=== PATIENT | female | born 1970 | race Caucasian/White ===

== ENCOUNTER → 2019-01-15 08:45 | Outpatient (CLI) | payer BC, SELFPAY ==
[2019-01-15 12:25] LABS: Absolute Lymphocyte Count 2.13 X10^3/uL (0.83-4.51); Absolute Neutrophil Count 5.7 X10^3/uL (2.0-7.7); Basophil# 0.05 X10^3/uL; Basophil% 0.6 % (0-1); Eosinophil# 0.24 X10^3/uL; Eosinophils% 2.7 % (0-5); Hematocrit 32.4 % (37-47); Hemoglobin 9.3 g/dL (12.0-15.0); Lymphocyte # 2.13 X10^3/ul (4.0); Lymphocyte % 24.3 % (19-41); Mean Corp Hgb Conc 28.7 g/dL (32-36); Mean Corpuscular Hgb 21.6 pg (27.0-32.0); Mean Corpuscular Volume 75.2 fL (81-99); Mean Platelet Vol. 11.5 fl (6.2-12.0); Monocyte# 0.64 X10^3/uL; Monocyte% 7.3 % (0-10); NRBC Flagged by Analyzer 0 % (0-5); Neutrophil # 5.66 X10^3/uL (2.7-7.7); Neutrophil % 64.6 % (47-70); Platelet Count 272 K/mm3 (150-450); RBC Distribution Width CV 14.8 % (11.6-14.6); RBC Distribution Width SD 40.5 fl (35.1-43.9); Red Blood Count 4.31 M/mm3 (4.2-5.4); White Blood Count 8.8 K/mm3 (4.4-11.0)
[2019-01-15 12:51] LABS: Anion Gap 6 (5-15); BUN 14 mg/dL (7-18); BUN/Creat Ratio 16.7 RATIO (10-20); Calcium,Total 8.7 mg/dL (8.5-10.1); Chloride 105 mmol/L (98-107); Cholesterol 173 mg/dL (200); Creatinine, Serum 0.84 mg/dL (0.55-1.02); EST Glomerular Filtration Rate 78 mL/min (>60); Est Glom Filt Rate - Afr Amer 94 mL/min (>60); Glucose 104 mg/dL (74-106); High Density Lipoprotein 50 mg/dL; Potassium 4.4 mmol/L (3.5-5.1); Sodium Level 138 mmol/L (136-145); T4 Free Direct 1.37 ng/dL (0.76-1.46); Triglycerides 153 mg/dL; Very Low Density Lipoprotein 31 mg/dL (5-40)
[2019-01-15 13:33] LABS: Ferritin 4 ng/mL (8-252); Iron 21 ug/dL (50-170)
== END ==
PROVIDERS: Family Provider Family Medicine; PCP Family Medicine; Referring Provider Family Medicine; Visit Provider Family Medicine
DX: E03.9 Hypothyroidism, unspecified (principal); R53.83 Other fatigue
CPT/HCPCS: 36415; 80048; 80061; 82728; 83540; 84439; 84443; 85025

== ENCOUNTER → 2019-05-04 15:24 | Outpatient (CLI) | payer BC, SELFPAY ==
[2019-05-04 17:21] LABS: Absolute Lymphocyte Count 2.11 X10^3/uL (0.83-4.51); Absolute Neutrophil Count 5.8 X10^3/uL (2.0-7.7); Basophil# 0.04 X10^3/uL; Basophil% 0.5 % (0-1); Eosinophil# 0.26 X10^3/uL; Eosinophils% 2.9 % (0-5); Hematocrit 37.2 % (37-47); Hemoglobin 11.5 g/dL (12.0-15.0); Lymphocyte # 2.11 X10^3/ul (4.0); Lymphocyte % 23.8 % (19-41); Mean Corp Hgb Conc 30.9 g/dL (32-36); Mean Corpuscular Hgb 25.6 pg (27.0-32.0); Mean Corpuscular Volume 82.9 fL (81-99); Monocyte# 0.58 X10^3/uL; Monocyte% 6.5 % (0-10); NRBC Flagged by Analyzer 0 % (0-5); Neutrophil # 5.83 X10^3/uL (2.7-7.7); Neutrophil % 65.8 % (47-70); Platelet Count 290 K/mm3 (150-450); RBC Distribution Width SD 41.4 fl (35.1-43.9); Red Blood Count 4.49 M/mm3 (4.2-5.4); White Blood Count 8.9 K/mm3 (4.4-11.0)
[2019-05-04 17:44] LABS: Ferritin 16 ng/mL (8-252); Iron 28 ug/dL (50-170); Thyroid Stim Hormone (TSH) 2.29 uIU/mL (0.358-3.74)
== END ==
PROVIDERS: Family Provider Family Medicine; PCP Family Medicine; Visit Provider Family Medicine
DX: E03.9 Hypothyroidism, unspecified (principal); D50.9 Iron deficiency anemia, unspecified
CPT/HCPCS: 36415; 82728; 83540; 84443; 85025

== ENCOUNTER → 2020-12-22 16:32 | Outpatient (CLI) | payer BC, SELFPAY ==
[2016-07-29 08:21] VITALS: BMI 35.7
[2020-12-22 17:10] LABS: Absolute Lymphocyte Count 1.36 X10^3/uL (0.83-4.51); Absolute Neutrophil Count 6.6 X10^3/uL (2.0-7.7); Basophil# 0.04 X10^3/uL; Basophil% 0.4 % (0-1); Eosinophil# 0.16 X10^3/uL; Eosinophils% 1.8 % (0-5); Hematocrit 28.5 % (37-47); Hemoglobin 7.6 g/dL (12.0-15.0); Lymphocyte # 1.36 X10^3/ul (0.83-4.51); Lymphocyte % 15.3 % (19-41); Mean Corp Hgb Conc 26.7 g/dL (32-36); Mean Corpuscular Hgb 17.2 pg (27.0-32.0); Mean Corpuscular Volume 64.6 fL (81-99); Mean Platelet Vol. 10.1 fl (6.2-12.0); Monocyte# 0.67 X10^3/uL; Monocyte% 7.5 % (0-10); NRBC Flagged by Analyzer 0.6 % (0-5); Neutrophil # 6.64 X10^3/uL (2.7-7.7); Neutrophil % 74.8 % (47-70); Platelet Count 295 K/mm3 (150-450); RBC Distribution Width CV 19.7 % (11.6-14.6); RBC Distribution Width SD 45.1 fl (35.1-43.9); Red Blood Count 4.41 M/mm3 (4.2-5.4); White Blood Count 8.9 K/mm3 (4.4-11.0)
[2020-12-22 17:41] LABS: Anion Gap 6 (5-15); BUN 12 mg/dL (7-18); BUN/Creat Ratio 14.3 RATIO (10-20); Calcium,Total 8.5 mg/dL (8.5-10.1); Chloride 107 mmol/L (98-107); Creatinine, Serum 0.84 mg/dL (0.55-1.02); EST Glomerular Filtration Rate 77 mL/min (>60); Est Glom Filt Rate - Afr Amer 93 mL/min (>60); Ferritin 2 ng/mL (8-252); Glucose 82 mg/dL (74-106); Iron 13 ug/dL (50-170); Potassium 3.8 mmol/L (3.5-5.1); Sodium Level 138 mmol/L (136-145); T4 Free Direct 1.19 ng/dL (0.76-1.46); Thyroid Stim Hormone (TSH) 3.08 uIU/mL (0.358-3.74)
== END ==
PROVIDERS: PCP Family Medicine; Visit Provider Family Medicine
DX: D50.9 Iron deficiency anemia, unspecified (principal); E03.9 Hypothyroidism, unspecified; R53.83 Other fatigue
CPT/HCPCS: 36415; 80048; 82728; 83540; 84439; 84443; 85025

== ENCOUNTER → 2021-01-04 15:13 | Outpatient (CLI) | payer BC, SELFPAY ==
[2016-07-29 08:21] VITALS: BMI 35.7
[2021-01-04 17:38] LABS: Absolute Lymphocyte Count 1.63 X10^3/uL (0.83-4.51); Absolute Neutrophil Count 5.3 X10^3/uL (2.0-7.7); Basophil# 0.04 X10^3/uL; Basophil% 0.5 % (0-1); Eosinophil# 0.16 X10^3/uL; Eosinophils% 2.1 % (0-5); Hematocrit 30.6 % (37-47); Hemoglobin 8.5 g/dL (12.0-15.0); Lymphocyte # 1.63 X10^3/ul (0.83-4.51); Lymphocyte % 21.4 % (19-41); Mean Corp Hgb Conc 27.8 g/dL (32-36); Mean Corpuscular Hgb 19.6 pg (27.0-32.0); Mean Corpuscular Volume 70.7 fL (81-99); Monocyte# 0.48 X10^3/uL; Monocyte% 6.3 % (0-10); NRBC Flagged by Analyzer 0 % (0-5); Neutrophil # 5.28 X10^3/uL (2.7-7.7); Neutrophil % 69.3 % (47-70); POSITIVE MORPHOLOGY YES; Platelet Count 273 K/mm3 (150-450); RBC Distribution Width CV 28.6 % (11.6-14.6); RBC Distribution Width SD 71.4 fl (35.1-43.9); Red Blood Count 4.33 M/mm3 (4.2-5.4); White Blood Count 7.6 K/mm3 (4.4-11.0)
[2021-01-04 17:57] LABS: Differential Indicated SCAN CRITERIA MET
[2021-01-04 18:31] LABS: Ferritin 10 ng/mL (8-252); Iron 17 ug/dL (50-170)
[2021-01-04 19:41] LABS: Anisocytosis 1+; Hypochromasia 1+; Macrocytosis 1+; Platelet Estimate ADEQUATE (ADEQ); Red Cell Morphology N CHROM NORMAL (NORM C&C)
[2021-01-04 19:42] LABS: Ovalocyte RARE
[2021-01-04 21:25] LABS: Vitamin B12 573 pg/mL (211-911)
== END ==
PROVIDERS: PCP Family Medicine; Referring Provider Family Medicine; Visit Provider Family Medicine
DX: D50.9 Iron deficiency anemia, unspecified (principal)
CPT/HCPCS: 36415; 82607; 82728; 82746; 83540; 85025

== ENCOUNTER 2021-02-22 07:42 | Day surgery (SDC) | payer BC, SELFPAY ==
[2021-02-22] VITALS (7 sets, daily range): BP systolic 118–137; BP diastolic 68–94; PULSE 80–89; RESP 16–18; TEMP 36.6–36.8; O2SAT 98–100; BMI 36.8
--- NOTE | 2021-02-22 | GASB_PTH ---
PATIENT: SHALONDA BRYAN LOC: EN U#:[id number] AGE/SX: 50/F ROOM: RE02/22/[address]: Dr. Yaya Sanchez MD : 1970 BED: DIS: 02/22/2021 SPEC #: [id number] RECD: 02/22/21 11:30 STATUS: CLAUDIA DONAHUE #: [id number] ANDREW: 02/22/21 00:[address]: Yaya Sanchez DEPT: SURGICAL PATHOLOGY RECD BY: Adams Monroy ENTERED: 02/22/21 11:31 SP TYPE: Gastric Bx OTHR DR: Dr. Santiago Garcia MD Tissues: A - Gastric mucous membrane B - Gastric mucous membrane Procedures: Surgery Specimen Level IV HEADER OPERATION: Colonoscopy, EGD ([facility]) PRE-OP DIAGNOSIS: Diarrhea, abdominal bloating TISSUE SUBMITTED: A. Random antrum, B. GE junction MICROSCOPIC DIAGNOSIS A. Gastric antrum, biopsy: Chronic gastritis. See Comment. B. GE junction, biopsy: Changes of reflux. Chronic inflammation. No evidence of intestinal metaplasia. See Comment. AM:am 02/23/21 COMMENT A. The results of immunohistochemistry for Helicobacter pylori will be reported separately ([id number]). B. AB/PAS is negative for intestinal metaplasia. MICROSCOPIC DESCRIPTION Slides are reviewed. GROSS DESCRIPTION A. Received is one container labeled with the patient name and designated random antrum biopsies. The specimen consists of two irregular fragment of light burgos soft tissue that together measures 6 x 6 x 1mm. The specimen is totally submitted in one cassette. B. Received is one container labeled with the patient name and designated GE junction. The specimen consists of multiple irregular fragment of light burgos soft tissue that together measure 6 x 5 x 1mm. The specimen is totally submitted in one cassette. /AM:am 02/22/10 TC:3 CPT:35196n1,48102
--- NOTE | 2021-02-22 | IMM_PTH ---
PATIENT: SHALONDA BRYAN LOC: EN U#:[id number] AGE/SX: 50/F ROOM: RE02/22/[address]: Dr. Yaya Sanchez MD : 1970 BED: DIS: 02/22/2021 SPEC #: [id number] RECD: 02/22/21 14:32 STATUS: CLAUDIA REChristen #: [id number] ANDREW: 02/22/21 00:[address]: Yaya Sanchez DEPT: IMMUNOHISTOCHEMISTRY RECD BY: Delaney Hess ENTERED: 02/22/21 14:33 SP TYPE: IMMUNO OTHR DR: Dr. Santiago Garcia MD Tissues: Stomach, NOS Procedures: H Pylori (initial) PHYSICIAN & INSTITUTION [place] [id number] SPECIMEN INFORMATION: Tissue Source: Random antrum biopsy Clinical Info: Diarrhea, abdominal bloating Specimen Number: [id number] CPT code: 60233 METHODOLOGY: Deparaffinized sections of prefer/formalin-fixed tissue or PAP/DQ stained slides are incubated with monoclonal/polyclonal antibodies/oligonucleotide probes. Localization is made via biotin free immunoperoxidase method. Appropriate controls are performed and reacted as expected. Results on target cell population are indicated in the following table: RESULTS: ANTIBODY / CLONE RESULT H Pylori (polyclonal) negative These tests were developed and their performance characteristics determined by [facility]. They may not have been cleared or approved by the U.S. Food and Drug Administration. The FDA has determined that such clearance or approval is not necessary. The above immunohistochemical/dualISH markers are ordered and reviewed by the Pathologist. INTERPRETATION: A. Gastric antrum, biopsy: -Negative for Helicobacter pylori organisms. AM:andrés 02/23/21
[2021-02-22] MEDS: Lactated Ringers 1,000 ML 100 ML IV (08:27)
--- NOTE | 2021-02-22 08:32 | PCM.HP.BLA ---
History and Physical MR#:[id number]:[id number]: SHALONDA CORONA RENEERep #:[id number]:1970 Provider:Dr. Yaya Sanchez MDAge/Sex: 50/F [facility] Int[facility] Vital Signs 02/16/21 09:37 Height 5 ft 5.75 in Weight: 226 lb 8 oz BMI 36.8 BP 128/80 H Blood Pressure Location Rt brachial Position Sitting Respiration 18 Pulse 76 Pulse Source Monitor Temp 97.3 F L Temp Source Temporal Pulse Oximetry (%) 99 Oxygen Delivery Method room air Intake Visit Reasons: ABDOMINAL PAIN, CHANGE BOWEL HABITS Chief Complaint: Diarrhea/C-scope required prior to [facility] Surgery 03/12 Food Taster Required: No Is patient in pain?: No Allergies Penicillins Allergy (Verified 02/16/21 09:38) Rash quinine Allergy (Verified 02/16/21 09:38) Swelling Medications albuterol sulfate [Ventolin Hfa (SP)] 1 - 2 puff INHALATION Q4H PRN PRN 06/28/16 [History Confirmed 02/16/21] levothyroxine 224 mcg PO DAILY 07/26/16 [History Confirmed 02/16/21] PFSH Medical History (Updated 02/16/21 @ 12:[address] Yaya Sanchez MD) Change in stool caliber Diarrhea Pelvic mass Surgical History (Updated 02/16/21 @ 09:33 by Francoise Williamson) History of History of thyroidectomy Family History (Updated 02/16/21 @ 09:36 by Francoise Williamson) Sister Asthma Thyroid disorder Mother Asthma Thyroid disorder Grandmother Diabetes Social History Smoking Status: Never smoker HPI HPI HPI: SHALONDA CORONA, is a 50 yo F who presents to the office today for need to schedule diagnostic colonoscopy secondary to change in bowel habits?including frequent diarrhea and small? caliber stools. Patient's history is further complicated by the fact that she is pending a significant gynecologic procedure on March 12 after a cervical mass was found during investigation of menorrhagia/anemia. According to Ms. Corona, this mass has undergone substantial growth in the past few years as it was not seen during her prior routine maintenance exams. Despite this growth, she has been told by her gynecologic surgeon that they feel this is unlikely to represent malignancy. As a precondition to this operation, Jenaro Espitia requested both upper and lower endoscopy given the onset of new GI symptoms that Ms. Corona is experienced concurrent with her other pelvic issues. Patient has had prior colonoscopy in [address] Sheridan. Results of the prior scope were rather reassuring with no abnormal anatomy. Colonic biopsies were obtained given reports of diarrhea at that time. However this mucosal biopsy was also reassuring. Patient has no personal history of colon cancer, inflammatory bowel disease, or diverticulitis. They describe their bowel habits as frequent (occurring approximately 4 times daily), watery, and thin?caliber when normal stools are experienced. With this presentation, patient's GI specialist at the [facility] ordered stool studies (obtained/resulted in the last month) which were reportedly unremarkable. She also has upper GI complaints of frequent belching when consuming simple liquids like water. She initially claimed to have a history of a hiatal hernia, however she retracted this saying she believed it was actually an umbilical hernia that she has been diagnosed with. She denies any use of PPI medications. She denies any heartburn symptoms but does confirm a pressure sensation in her upper abdomen. Given her upper GI symptoms and diarrhea, Ms. Cornejo attempted a month?long period of carefully restricting her diet. However her symptoms did not change in response to this dietary modification. When she was diagnosed with her pelvic mass, she became somewhat indifferent and decided to eat as she pleased. Even still, she states that she does not eat truly spicy foods. Ms. Melton had a thyroidectomy by Dr. Richardson several years ago and is now on Synthroid for thyroid hormone replacement. She states her levels were checked recently and were within normal limits. ROS General General: Yes weight change and fatigue; No appetite, colon cancer, breast cancer or weakness HEENT HEENT: No difficulty swallowing, eye injury, eye surgery, swollen glands or hoarseness Endo Endocrine: Yes thyroid disease and thyroid cancer; No diabetes mellitus, Hair loss, heat intolerance or cold intolerance Skin Skin: No rash or changing moles Breast Breast: No left breast lump, right breast lump, nipple discharge, breast pain, abnormal mammogram, abnormal US or breast enlargement Musc Musculoskeletal: No back problems, arthritis, rheumatoid arthritis, gout or joint pain Cardio Cardiovascular: No murmur, pacemaker, heart disease, atrial fibrillation, high blood pressure, heart attack, heart stent, palpitations, shortness of breat with exertion or chest pain Psych Psychiatric: No depression, anxiety or hearing voices Resp Respiratory: No shortness of breath, No sleep apnea, No cough, No COPD, Yes asthma, No emphysema and No wheezing Gastro Gastrointestinal: Yes abdominal pain, No nausea or vomiting, Yes diarrhea, Yes constipation, No blood in stool, No acid reflux, Yes hemorrhoids, No ulcers, No gallbladder problem and No black,tarry stools Doug Hematologic: No blood thinners, No blood disorders, No bleeding, Yes anemia and No blood clots Neuro Neurologic: No system reviewed and no additional complaints, except as documented, No as per HPI, No abnormal gait, No abnormal hearing, No abnormal movements, No abnormal speech, No behavioral changes, No burning sensations, No confusion, No convulsions, No disequilibrium, No dizziness, No localized weakness, No frequent falls, No headache(s), No lack of coordination, No loss of vision, No memory loss, No numbness, No other visual disturbances, No radicular pain, No restless legs, No sensory deficit, No syncope, No tingling, No tremor(s), No weakness and No other Exam Const General: cooperative, comfortable and no acute distress Nutritional Appearance: obese Resp Effort & Inspection: normal respiratory effort Auscultation: clear to auscultation bilaterally, no rales, no rhonchi and no wheezes Cardio Rhythm: regular rhythm Heart Sounds: S1 normal and S2 normal GI Inspection: non-distended, obesity and no scars Palpation: soft, hernia umbilical (Appears to contain chronically-incarcerated fat and is tender to palpation) and nontender Assessment and Plan Assessment and Plan (1) Diarrhea: Status: Acute Qualifiers: Diarrhea type: unspecified type Qualified Code(s): R19.7 - Diarrhea, unspecified Comment: This symptom has arisen in the interval since patient's last colonoscopy in 2017. Patient reports that stool studies to?date have been negative for infectious etiology. Prior colonoscopy was unremarkable for pathology. However, patient has an additional concern that her stool caliber is significantly diminished. Plan - Dr. Yaya Sanchez MD: Patient is offered both upper and lower endoscopies under local MAC. We are searching for a mutually agreed upon date. She was currently scheduled for upper endoscopy only through another facility and will attempt to cancel this procedure. If unsuccessful, we will have to reformulate his clinical plan. (2) Change in stool caliber: Status: Acute Comment: Symptoms developed an interval since last colonoscopy. Does not seem to be explained by presence of a cervical mass. Further investigation with endoscopy recommended Plan - Dr. Yaya Sanchez MD: Plan for upper and lower endoscopies under local MAC as above. Would plan to obtain random biopsies if otherwise morphologically normal. Patient's gynecologic surgeon interested in obtaining this information prior to their procedures scheduled for 03/12/2021. I discussed with patient that she will require a bowel prep and will require a pedicab driver the day of the procedure. She is interested in proceeding as described, but will need to formally cancel her other procedure. If unsuccessful, she is to get back with our office so an alternative arrangement can be made. (3) Abdominal bloating: Status: Acute Comment: Patient complains of general diet intolerance despite self?imposed restrictions of spicy foods. She initially claimed to have been diagnosed with a hiatal hernia. However, she retracted this and states that she believes it was an umbilical hernia. She does in fact have an umbilical hernia on exam. With her history of some pressure in the upper abdomen, this could represent GERD and an upper endoscopy would be reasonable. Plan - Dr. Yaya Sanchez MD: Planning for upper and lower endoscopies, as above, under local MAC. (4) Umbilical hernia, incarcerated: Status: Acute Comment: Patient appears to have a fat?incarcerated umbilical hernia. Given the presence of the fat, I am unable to clearly discern the degree of fascial defect, but what estimated to be approximately 2 cm. At this time, there is no need for urgent/emergent surgical intervention, but the patient is offered an elective repair as she finds availability. She expresses an interest in this offering as she complains of some frequent discomfort. Lastly, she plans to ask her gynecologic surgeon about the possibility of a concurrent umbilical hernia repair when the cervical mass is removed. Plan - Dr. Yaya Sanchez MD: Await patient response on offer for elective umbilical hernia repair (both primary and mesh repairs were briefly described). Coding Level of Care Code Off vis,new,level 4 Diagnoses Diarrhea R19.7 Diarrhea type: unspecified type Change in stool caliber R19.4 Abdominal bloating R14.0 Umbilical hernia, incarcerated K42.0 I have re-examined the patient. There are no clinical changes since date of exam. Patient states they completed their prep with only little difficulty consuming a full volume of Gatorade. They do confirm that there output have been thin clear and yellow in character. No further questions and we will plan to proceed with scheduled EGD/colonoscopy this morning under local MAC.
--- NOTE | 2021-02-22 09:44 | OP.EGD_ITS ---
Patient Name: Sarika Corona Procedure Date: 02/22/2021 7:25 AM Date of : 1970 Age: 50 Procedure: Upper GI endoscopy Indications: Epigastric abdominal pain, Dyspepsia Providers: Yaya Sanchez MD Medicines: See the Anesthesia note for documentation of the administered medications Patient Profile: Patient has symptoms of acute abdominal cramping and acute dyspepsia. Complications: No immediate complications. Estimated blood loss: Minimal. Procedure: Pre-Anesthesia Assessment: - The heart rate, respiratory rate, oxygen saturations, blood pressure, adequacy of pulmonary ventilation, and response to care were monitored throughout the procedure. - After reviewing the risks and benefits, the patient was deemed in satisfactory condition to undergo the procedure. After obtaining informed consent, the endoscope was passed under direct vision. Throughout the procedure, the patient's blood pressure, pulse, and oxygen saturations were monitored continuously. The gastroscope was introduced through the mouth, and advanced to the second part of duodenum. The upper GI endoscopy was accomplished without difficulty. The patient tolerated the procedure fairly well. Moderate Sedation: Moderate (conscious) sedation was personally administered by an anesthesia professional. The following parameters were monitored: oxygen saturation, heart rate, blood pressure, and response to care. Scope In: 8:53:23 AM Scope Out: 9:06:21 AM Total Procedure Duration Time 0 hours 12 minutes 58 seconds Findings: The examined duodenum was normal. Patchy mild inflammation characterized by erythema was found on the greater curvature of the gastric body. Biopsies were taken with a cold forceps for Helicobacter pylori testing. Estimated blood loss was minimal. Non-severe esophagitis with no bleeding was found. Biopsies were taken with a cold forceps for histology. Estimated blood loss was minimal. A medium-sized Hill Grade III hiatal hernia was present. Impression: - Normal examined duodenum. - Acute gastritis. Biopsied. - Non-severe esophagitis. Biopsied. Recommendation: - Discharge patient to home (via wheelchair). - Resume regular diet today. - Use Prilosec (omeprazole) 20 mg PO daily today. - Await pathology results. - Continue present medications. Procedure Code(s): --- Professional --- 16782, Esophagogastroduodenoscopy, flexible, transoral; with biopsy, single or multiple Diagnosis Code(s): --- Professional --- K29.00, Acute gastritis without bleeding K20.9, Esophagitis, unspecified R10.13, Epigastric pain CPT copyright 2017 [employer]. All rights reserved. The codes documented in this report are preliminary and upon quilting supervisor review may be revised to meet current compliance requirements. Yaya Sanchez MD 02/22/2021 9:43:54 AM This report has been signed electronically. Number of Addenda: 0 Note Initiated On: 02/22/2021 7:25 AM
--- NOTE | 2021-02-22 09:44 | OP.CCLET_ITS ---
02/22/2021 Santiago Garcia Re : Upper GI endoscopy procedure for Sarika Corona Dear Radha This procedure was performed on February. My impressions and recommendations are as follows: Impressions : - Normal examined duodenum. - Acute gastritis. Biopsied. - Non-severe esophagitis. Biopsied. Recommendations : - Discharge patient to home (via wheelchair). - Resume regular diet today. - Use Prilosec (omeprazole) 20 mg PO daily today. - Await pathology results. - Continue present medications. My findings are described in the full procedure note, which is enclosed. If I can be of further assistance, please feel free to contact me at Doctor phone number(s): , Work: . Sincerely, Yaya Sanchez MD 02/22/2021 9:43:54 AM This report has been signed electronically.
--- NOTE | 2021-02-22 09:50 | OP.CCLET_ITS ---
02/22/2021 Santiago Garcia Re : Colonoscopy procedure for Sarika Corona Dear Radha This procedure was performed on February. My impressions and recommendations are as follows: Impressions : - Mild diverticulosis in the sigmoid colon. There was no evidence of diverticular bleeding. No specimens collected. - Perianal skin tags found on perianal exam. Recommendations : - Discharge patient to home (via wheelchair). - High fiber diet today. - Continue present medications. - Repeat colonoscopy in 10 years for screening purposes. My findings are described in the full procedure note, which is enclosed. If I can be of further assistance, please feel free to contact me at Doctor phone number(s): , Work: . Sincerely, Yaya Sanchez MD 02/22/2021 9:50:02 AM This report has been signed electronically.
--- NOTE | 2021-02-22 09:50 | OP.COLON_ITS ---
Patient Name: Sarika Corona Procedure Date: 02/22/2021 9:07 AM Date of : 1970 Age: 50 Procedure: Colonoscopy Indications: Diarrhea, Change in stool caliber Providers: Yaya Sanchez MD Medicines: See the Anesthesia note for documentation of the administered medications Patient Profile: Patient has symptoms of acute abdominal cramping and acute dyspepsia. Refer to note in patient chart for documentation of history and physical. Last Colonoscopy: more than 3 years ago. Complications: No immediate complications. Estimated blood loss: None. Procedure: Pre-Anesthesia Assessment: - The heart rate, respiratory rate, oxygen saturations, blood pressure, adequacy of pulmonary ventilation, and response to care were monitored throughout the procedure. - After reviewing the risks and benefits, the patient was deemed in satisfactory condition to undergo the procedure. After I obtained informed consent, the scope was passed under direct vision. Throughout the procedure, the patient's blood pressure, pulse, and oxygen saturations were monitored continuously. The adult colonoscope was introduced through the anus and advanced to the cecum, identified by the ileocecal valve. The colonoscopy was performed without difficulty. The quality of the bowel preparation was adequate. Scope In: 9:09:53 AM Scope Withdrawal Time 0 hours 11 minutes 9 seconds Scope Out: 9:27:32 AM Total Procedure Duration Time 0 hours 17 minutes 39 seconds Findings: Multiple small-mouthed diverticula were found in the sigmoid colon. There was no evidence of diverticular bleeding. No biopsies or other specimens were collected for this exam. No additional abnormalities were found on retroflexion. Skin tags were found on perianal exam. Impression: - Mild diverticulosis in the sigmoid colon. There was no evidence of diverticular bleeding. No specimens collected. - Perianal skin tags found on perianal exam. Recommendation: - Discharge patient to home (via wheelchair). - High fiber diet today. - Continue present medications. - Repeat colonoscopy in 10 years for screening purposes. Procedure Code(s): --- Professional --- 05120, Colonoscopy, flexible; diagnostic, including collection of specimen(s) by brushing or washing, when performed (separate procedure) Diagnosis Code(s): --- Professional --- K64.4, Residual hemorrhoidal skin tags R19.7, Diarrhea, unspecified R19.5, Other fecal abnormalities K57.30, Diverticulosis of large intestine without perforation or abscess without bleeding CPT copyright 2017 [employer]. All rights reserved. The codes documented in this report are preliminary and upon vat tender review may be revised to meet current compliance requirements. Yaya Sanchez MD 02/22/2021 9:50:02 AM This report has been signed electronically. Number of Addenda: 0 Note Initiated On: 02/22/2021 9:07 AM
== END 2021-02-22 10:55 ==
LOC: EN 07:50 → AC 07:50
PROVIDERS: PCP Family Medicine; Referring Provider Family Medicine; Visit Provider Surgery
PROC: 0DJD8ZZ Inspection of Lower Intestinal Tract, Via Natural or Artificial Opening Endoscopic (ICD-10-PCS; CPT 45378; principal; 2021-02-22 08:40)
DX: K64.4 Residual hemorrhoidal skin tags (principal); R19.7 Diarrhea, unspecified; R19.5 Other fecal abnormalities; K57.30 Diverticulosis of large intestine without perforation or abscess without bleeding; K29.50 Unspecified chronic gastritis without bleeding; K42.0 Umbilical hernia with obstruction, without gangrene; R10.13 Epigastric pain; K20.90 Esophagitis, unspecified without bleeding
CPT/HCPCS: 43239; 45378; 88305; 88342; J7120; J2405

== ENCOUNTER → 2022-05-20 | Outpatient (CLI) | payer BC, SELFPAY ==
[2022-05-20 15:17] LABS: Absolute Lymphocyte Count 1.92 X10^3/uL (0.83-4.51); Absolute Neutrophil Count 7.6 X10^3/uL (2.0-7.7); Basophil# 0.06 X10^3/uL; Basophil% 0.6 % (0-1); Eosinophils% 1.9 % (0-5); Hematocrit 44.1 % (37-47); Hemoglobin 14.7 g/dL (12.0-15.0); Lymphocyte # 1.92 X10^3/ul (0.83-4.51); Lymphocyte % 18.5 % (19-41); Mean Corp Hgb Conc 33.3 g/dL (32-36); Mean Corpuscular Hgb 27.8 pg (27.0-32.0); Mean Corpuscular Volume 83.5 fL (81-99); Mean Platelet Vol. 11.1 fl (6.2-12.0); Monocyte# 0.62 X10^3/uL; NRBC Flagged by Analyzer 0 % (0-5); Neutrophil # 7.55 X10^3/uL (2.7-7.7); Neutrophil % 72.5 % (47-70); Platelet Count 264 K/mm3 (150-450); RBC Distribution Width SD 39.6 fl (35.1-43.9); Red Blood Count 5.28 M/mm3 (4.2-5.4); White Blood Count 10.4 K/mm3 (4.4-11.0)
[2022-05-20 15:39] LABS: Ferritin 43 ng/mL (8-252); Iron 84 ug/dL (50-170); T4 Free Direct 1.46 ng/dL (0.76-1.46); Thyroid Stim Hormone (TSH) 4.64 uIU/mL (0.358-3.74)
== END | disposition home or self-care (01) ==
PROVIDERS: PCP Family Medicine; Referring Provider Family Medicine; Visit Provider Family Medicine
DX: D50.9 Iron deficiency anemia, unspecified (principal)
CPT/HCPCS: 36415; 82728; 83540; 84439; 84443; 85025

== ENCOUNTER 2025-02-14 16:49 | Emergency (ER) | payer BC, SELFPAY ==
[2025-02-14 16:51] VITALS: BP 117/81; PULSE 81; RESP 18; TEMP 36.9; O2SAT 98; BMI 46.9
--- OUTSIDE RECORDS SUMMARY | 2025-02-14 17:25 | XMS RPT_ITS | CCD ---
Author Organization [facility] Care Team Providers Care Urologist Md Name Role Phone Santiago Garcia MD Primary Care Provider 1( [phone] Santiago Garcia Primary Care Unavailable Santiago Garcia Attending Unavailable Santiago Garcia Referring Unavailable Santiago Garcia Primary Care Unavailable Donavon Pepper Attending Unavailable Santiago Garcia MD Primary Care Provider 1( [phone] Foradis WIDE PIECE GOODS INSPECTOR.FROYLAN, [place] Primary Care Provider AISHWARYA NAM Attending Unavailable FORADIS, CARMEN Primary Care Unavailable Foradis WIDE PIECE GOODS INSPECTOR.MOBILITY ARCHITECT MANAGER, [place] Primary Care Provider Santiago Garcia MD Primary Care Provider FORADIS, CARMEN Primary Care Unavailable Ana Triana Referring Unavailable VLADIC, FRANJO Attending Unavailable FORADIS, CLAYTON Primary Care Unavailable FORADIS, CLAYTON Primary Care Unavailable SELF Referring Unavailable JIMMY MASON Attending Unavailable FORADIS, CLAYTON Primary Care Unavailable VLADIC, FRANJO Referring Unavailable FORADIS, CLAYTON Primary Care Unavailable FORADIS, CLAYTON Primary Care Unavailable JOHANNE JOHNSON Attending Unavailable FORADIS, CARMEN Referring Unavailable FORADIS, CLAYTON Primary Care Unavailable VLADIC, FRANJO Attending Unavailable FORADIS, CLAYTON Primary Care Unavailable O'JAMAL, ANA Attending Unavailable FORADIS, CARMEN Referring Unavailable FORADIS, CLAYTON Primary Care Unavailable O'JAMAL, ANA Attending Unavailable FORADIS, CARMEN Referring Unavailable FORADIS, CLAYTON Primary Care Unavailable YESY MUSTAFA Attending Unavailable FORADIS, CARMEN Referring Unavailable FORADIS, CLAYTON Primary Care Unavailable FORADIS, CLAYTON Primary Care Unavailable KAYLA ZENG Referring Unavailable KWASNICKA, WASHINGTON N Referring Unavailabl e FORADIS, CARMEN Primary Care Unavailable MARY ZAMUDIO Attending Unavailable FORADIS, CARMEN Primary Care Unavailable FORADIS, CARMEN Referring Unavailable FORADIS, CARMEN Primary Care Unavailable JIMMY MASON Attending Unavailable FORADIS, CARMEN Referring Unavailable FORADIS, CARMEN Primary Care Unavailable FORADIS, CARMEN Referring Unavailable KWASNICKWASHINGTON Campos Attending Unavailabl e FORADIS, CARMEN Primary Care Unavailable FORADIS, CARMEN Attending Unavailable FORADIS, CARMEN Referring Unavailable FORADIS, CARMEN Primary Care Unavailable FORADIS, CARMEN Referring Unavailable FORADIS, CARMEN Primary Care Unavailable KWASNICKA, WASHINGTON Angeles Referring Unavailabl e FORADIS, CARMEN Primary Care Unavailable FORADIS, CARMEN Attending Unavailable FORADIS, CARMEN Primary Care Unavailable FORADIS, CARMEN Referring Unavailable FORADIS, CARMEN Primary Care Unavailable Allergies Allergy Classification Reported Allergen(s) Allergy Type Date of Onset Reaction(s) Facility Penicillins (antibiotic) (3 sources) Penicillin G Drug Allergy 06-13-2011 [facility] quiNINE (3 sources) quiNINE Drug Allergy 03-02-2021 Anaphylaxis [facility] Work Phone: (20 sources) Penicillin G; Translations: [PENICILLIN G] Drug Allergy 06-13-2011 [facility] (20 sources) quiNINE; Translations: [QUININE] Drug Allergy 02-22-2021 Anaphylaxis [facility] Work Phone: (2 sources) Penicillins; Translations: [PENICILLINS] Allergy to substance 06-13-2011 [facility] (1 source) Penicillins Drug allergy (disorder) 02-22-2021 [facility] Rep[facility] (1 source) quiNINE Drug Allergy 02-22-2021 [facility] Medications Current Medications Medication Drug Class(es) Dates Sig (Normalized) Sig (Original) [id number] 200 actuat albuterol 0.09 mg/actuat metered dose inhaler (20 sources) beta2-Adrenergic Agonist Start: 08-25-2023 End: 10-28-2024 take 1-2 puff(s) by inhalation every four hours as needed for wheezing albuterol HFA (PROAIR HFA) 90 mcg/actuation inhaler Indications: Mild intermittent asthma without complication (HCC) Inhale 1-2 puffs as instructed every 4 hours as needed for wheezing/shortness of breath. 13.4 each 5 09/28/2024 Active Start: 02-07-2017 End: 08-24-2024 albuterol (PROVENTIL) 5 mg/m L nebu Indications: Mild intermittent asthma with acute exacerbation Inhale 0.5 mL as instructed one time only for 1 dose. 1 DOSE NOW - BACK OFFICE. PLACE 0.5 ML PER DROPPER AND 2.5 ML OF NORMAL SALINE INTO RESERVOIR. 1 mL 02/07/2017 08/19/2024 Discontinued Start: 02-07-2017 End: 08-19-2024 albuterol (PROVENTIL) 2.5 mg /3 mL (0.083 %) nebulizer solution Indications: Mild intermittent asthma with acute exacerbation Use 3 mL via nebulizer every 4 hours as needed for Wheezing/Shortness of Breath. Use over 5-15minutes. 1 Package 02/07/2017 08/19/2024 Discontinued Start: 06-28-2016 Albuterol Sulf ate (Ventolin Hfa (Sp)) 1 INHALER inhaler Active 1 - 2 PUFF INHALATION EVERY 4 HOURS NEEDED June 28, 2016 12:00am Start: 06-01-2012 End: 08-25-2023 take 1-2 puff(s) by inhalation every six hours as needed albuterol HFA (PROAIR HFA) 90 mcg/actuation inhaler Indications: Asthma, mild intermittent , Cough Inhale 1-2 Puffs as instructed every 6 hours as needed. 1 Inhaler 0 06/01/2012 08/25/2023 Discontinued Comment on above: Inhale 1-2 Puffs as instructed every 6 hours as needed. Use 3 mL via nebuliz er every 4 hours as needed for Wheezing/Shortness of Breath. Use over 5-15minutes. Inhale 1-2 Puffs as instructed every 4 hours as needed for wheezing/shortness of breath. Inhale 0.5 mL as ins tructed one time only for 1 dose. 1 DOSE NOW - BACK OFFICE. PLACE 0.5 ML PER DROPPER AND 2.5 ML OF NORMAL SALINE INTO RESERVOIR. betamethasone 0.5 mg/ml / clotrimazole 10 mg/ml topical cream (8 sources) Azole Antifungal, Corticosteroid Start: 09-28-2024 End: 10-12-2024 clotrimazole-betamet hasone (LOTRISONE) cream Indications: Tinea corporis Apply to affected area two times a day for 14 days. 45 g 09/28/2024 10/12/2024 Active Start: 01-30-2023 End: 08-25-2023 clotrimazole-betamethasone ( LOTRISONE) cream Apply 1 application to affected area twice daily. 30 g 1 01/30/2023 08/25/2023 Discontinued Comment on above: Apply 1 application to affected area twice daily. Blood Pressure Monitor (20 sources) Start: 08-25-2023 Blood Pressure Monitor Indications: Primary hypertension 1 Each once daily. Goal is less than 130/80 Xtra large cuff 1 Each 08/25/2023 Active Start: 08-25-2023 Blood Pressure Monitor Indications: Primary hypertension 1 Each once daily. Goal is less than 130/80 Xtra large cuff 1 Each 0 08/25/2023 Active Comment on above: 1 Each once daily. G oal is less than 130/80 Xtra large cuff cephalexin 500 mg oral capsule (2 sources) Cephalosporin Antibacterial Start: 2 End: 2 take 1 capsule by mouth twice daily cephALEXin (KEFLEX) 500 mg capsule Indications: Toe injury, left, initial encounter Take 1 capsule by mouth twice daily for 5 days. 10 capsule 0 10/18/2021 10/23/2021 Active Comment on above: Take 1 capsule by [facility] twice daily for 5 days. cholecalciferol, vitD3,/vit K2 (VITAMIN D3-VITAMIN K2 ORAL) (3 sources) cholecalciferol, vitD3,/vit K2 (VITAMIN D3-VITAMIN K2 ORAL) Take by mouth once daily. Active doxycycline hyclate 100 mg oral tablet (3 sources) Tetracycline-class Drug Start: 4 End: 4 take 1 tablet by mouth twice daily doxycycline (VIBRA-TABS) 100 mg tablet Take 1 tablet by mouth two times a day for 7 days. 14 tablet 04/12/2024 04/19/2024 Active Start: 11-05-2022 End: 11-15-2022 take 1 tablet by mouth twice daily doxycycline monohydrate 100 mg tablet Indications: Bronchiectasis with acute lower respiratory infection (HCC) Take 1 tablet by mouth twice daily for 10 days. 20 tablet 0 11/05/2022 11/15/2022 Active Comment on above: Take 1 tablet by [facility] twice daily for 10 days. ELDERBERRY FRUIT (3 sources) elderberry fruit (ELDERBERRY ORAL) Take by mouth once daily. Active ferrous sulfate 325 mg oral tablet (8 sources) Start: 02-20-2021 take 325 mg by mouth twice daily Ferrous Sulfate Active 325 MG PO TWICE A DAY February 19, 2021 11:00pm ferrous sulfate (IRON ORAL) Take by mouth once daily. 0 Active Comment on above: Take by mouth once d aily. hydroCHLOROthiazide 12.5 mg oral capsule (20 sources) Thiazide Diuretic Start: 2023 End: 2024 take 1 capsule by mouth once daily hydroCHLOROthiazide 12.5 mg capsule Indications: Primary hypertension Take 1 capsule by mouth once daily. 90 capsule 3 09/28/2024 Active Comment on above: Take 1 capsule by [facility] once daily. ibuprofen 200 mg oral capsule (1 source) Nonsteroidal Anti-inflammatory Drug Start: 2020 take 400 mg by mouth every six hours Ibuprofen Active 400 MG PO EVERY 6 HOURS February 19, 2021 11:00pm iv contrast (will be provided with radiology test) (9 sources) Start: 2022 End: 2022 iv contrast (will be provided with radiology test) Indications: Abdominal pressure , Pain with bowel movements , History of hysterectomy , History of uterine fibroid , Urine retention , Bowel movement symptom , Hernia , Belching CT ABD/PEL -Inject, intravenously, once for 1 dose.No IV access, insert saline lock prior to the beginning of sedation, infusion, injection of imaging exam. Discontinue saline lock post exam. If Pt. has a central line or IVAD, may access for administration according to line specific nursing protocol. Once exam is complete flush line and de-access according to line specific nursing protocol in the CT contrast administration guidelines link. 1 Each 0 08/28/2022 08/29/2022 Active Start: 03-19-2021 iv contrast (w ill be provided with radiology test) CT ABD/PEL -Inject, intravenously, once for 1 dose.No IV access, insert saline lock prior to the beginning of sedation, infusion, injection of imaging exam. Discontinue saline lock post exam. If Pt. has a central line or IVAD, may access for administration according to line specific nursing protocol. Once exam is complete flush line and de-access according to line specific nursing protocol in the CT contrast administration guidelines link. 1 Each 0 03/19/2021 Active Comment on above: CT ABD/PEL -Inject, intravenously, once for 1 dose.No IV access, insert saline lock prior to the beginning of sedation, infusion, injection of imaging exam. Discontinue saline lock post exam. If Pt. has a central line or IVAD, may access for administration according to line specific nursing protocol. Once exam is complete flush line and de-access according to line specific nursing protocol in the CT contrast administration guidelines link. levothyroxine sodium 0.2 mg oral tablet (20 sources) l-Thyroxine Start: 022 End: 026 take 1 tablet by mouth once daily before breakfast levothyroxine (SYNTHROID) 25 mcg tablet Indications: Postoperative hypothyroidism Take 1 tablet by mouth daily before breakfast. 90 tablet 3 09/28/2024 09/28/2025 Active Start: 12-07-2018 End: 09-28-2025 take 1 tablet by mouth once daily before breakfast levothyroxine (SYNTHROID) 200 mcg tablet Indications: Postoperative hypothyroidism Take 1 tablet by mouth daily before breakfast. 90 tablet 3 09/28/2024 09/28/2025 Active Start: 07-26-2016 take 224 ug by mouth once krystina y Levothyroxine Active 224 MCG PO DAILY July 26, 2016 12:00am Comment on above: TAKE 1 TABLET BY TURNER TH EVERY DAY BEFORE BREAKFAST Take 1 tablet by turner th daily before breakfast. Take for a total of 225 mcg daily Take 1 tablet by turner th once daily. Take for a total of 225 mcg daily MEDICATION, NON-DATABASE (3 sources) MEDICATION, NON-DATABASE GRUNS superfoods with probiotic Active meloxicam 7.5 mg oral tablet (20 sources) Nonsteroidal Anti-inflammatory Drug Start: 01-26-2024 End: 05-14-2025 take 1 tablet by mouth once daily as needed meloxicam (MOBIC) 7.5 mg tablet Indications: Chronic pain of left knee Take 1 tablet by mouth once daily as needed. 90 tablet 1 11/15/2024 05/14/2025 Active Start: 10-17-2023 End: 12-16-2023 take 1 tablet by mouth once daily meloxicam (MOBIC) 7.5 mg tablet Take 1 tablet by mouth once daily. 30 tablet 1 10/17/2023 12/16/2023 Active methylPREDNISolone (7 sources) Corticosteroid Start: 11-11-2023 End: 11-17-2023 methylPREDNISolone (MEDROL, YASMEEN,) 4 mg Dose-Pack Indications: Chronic pain of right knee , Difficulty in walking As instructed per package 21 tablet 0 11/11/2023 11/17/2023 Active Start: 08-25-2023 End: 08-31-2023 methylPREDNISolone (MEDROL, YASMEEN,) 4 mg Dose-Pack Indications: Acute pain of both knees As instructed per package 21 tablet 0 08/25/2023 08/31/2023 Active Start: 08-25-2023 End: 08-25-2023 methylPREDNISolone (MEDROL, YASMEEN,) 4 mg Dose-Pack Indications: Acute pain of both knees As instructed per package 21 tablet 0 08/25/2023 08/25/2023 Discontinued Comment on above: As instructed per marty rivera predniSONE 20 mg oral tablet (1 source) Start: 04-12-20 End: 04-16-20 take 2 tablets by mouth once daily at mealtime predniSONE (DELTASONE) 20 mg tablet Take 2 tablets by mouth once daily for 4 days. Take daily with food. 8 tablet 04/12/2024 04/16/2024 Active tirzepatide, weight loss (ZEPBOUND) 2.5 mg/0.5 mL pen injector (20 sources) Start: 11-16-19 End: 02-14-20 inject 2.5 mg by subcutaneous injection every week tirzepatide, weight loss (ZEPBOUND) 2.5 mg/0.5 mL pen injector Indications: ONEIDA (obstructive sleep apnea) Inject 2.5 mg subcutaneously one time a week. 2 mL 2 11/15/2024 02/13/2025 Active Start: 10-19-2024 End: 11-15-2024 inject 2.5 mg by subcutaneous injection every week tirzepatide, weight loss (ZEPBOUND) 2.5 mg/0.5 mL pen injector Indications: ONEIDA (obstructive sleep apnea) Inject 2.5 mg subcutaneously one time a week. 2 mL 10/19/2024 11/15/2024 Discontinued Start: 10-19-2024 End: 11-18-2024 inject 2.5 mg by subcutaneous injection every week tirzepatide, weight loss (ZEPBOUND) 2.5 mg/0.5 mL pen injector Indications: ONEIDA (obstructive sleep apnea) Inject 2.5 mg subcutaneously one time a week. 2 mL 10/19/2024 11/18/2024 Active Start: 09-28-2024 End: 10-19-2024 inject 2.5 mg by subcutaneous injection every week tirzepatide, weight loss (ZEPBOUND) 2.5 mg/0.5 mL pen injector Indications: ONEIDA (obstructive sleep apnea) Inject 2.5 mg subcutaneously one time a week. 2 mL 09/28/2024 10/19/2024 Discontinued Start: 09-28-2024 End: 10-28-2024 inject 2.5 mg by subcutaneous injection every week tirzepatide, weight loss (ZEPBOUND) 2.5 mg/0.5 mL pen injector Indications: ONEIDA (obstructive sleep apnea) Inject 2.5 mg subcutaneously one time a week. 2 mL 09/28/2024 10/28/2024 Active Start: 08-19-2024 End: 09-18-2024 tirzepatide, weight loss (ZEPBOUND) 2.5 mg/0.5 mL pen injector Indications: Class 2 severe obesity with serious comorbidity and body mass index (BMI) of 38.0 to 38.9 in adult, unspecified obesity type (HCC) , Prediabetes Inject 2.5 mg subcutaneously one time a week. 2 mL 08/19/2024 09/18/2024 Active Start: 08-25-2023 End: 08-19-2024 tirzepatide, weight loss (ZEPBOUND) 2.5 mg/0.5 mL pen injector Indications: Class 2 severe obesity due to excess calories with serious comorbidity and body mass index (BMI) of 39.0 to 39.9 in adult (HCC) , Prediabetes Inject 2.5 mg subcutaneously one time a week. 2 mL 08/25/2023 08/19/2024 Discontinued Start: 08-25-2023 tirzepatide, w eight loss (ZEPBOUND) 2.5 mg/0.5 mL pen injector Indications: Class 2 severe obesity due to excess calories with serious comorbidity and body mass index (BMI) of 39.0 to 39.9 in adult ([facility]) , Prediabetes Inject 2.5 mg subcutaneously one time a week. 2 mL 08/25/2023 Active Start: 08-25-2023 tirzepatide, w eight loss (ZEPBOUND) 2.5 mg/0.5 mL pen injector Indications: Class 2 severe obesity due to excess calories with serious comorbidity and body mass index (BMI) of 39.0 to 39.9 in adult ([facility]) , Prediabetes Inject 2.5 mg subcutaneously one time a week. 2 mL 0 08/25/2023 Active Start: 08-25-2023 End: 09-24-2023 tirzepatide, weight loss (ZEPBOUND) 2.5 mg/0.5 mL pen injector Indications: Class 2 severe obesity due to excess calories with serious comorbidity and body mass index (BMI) of 39.0 to 39.9 in adult ([facility]) , Prediabetes Inject 2.5 mg subcutaneously one time a week. 2 mL 0 08/25/2023 09/24/2023 Active Comment on above: Inject 2.5 mg subcut aneously one time a week. Completed/Discontinued Medications Medication Drug Class(es) Dates Sig (Normalized) Sig (Original) azithromycin 250 mg oral tablet (20 sources) Macrolide Antimicrobial Start: 09-20-2022 End: 08-25-2023 take 2 tablets by mouth once daily, then take 1 tablet by mouth once daily azithromycin (ZITHROMAX Z-YASMEEN) 250 mg tablet Indications: Post-COVID chronic cough Two (2) tablets by mouth the first day and then one (1) tablet by mouth daily for 4 days. 6 tablet 09/20/2022 08/25/2023 Discontinued Comment on above: Two (2) tablets by m outh the first day and then one (1) tablet by mouth daily for 4 days. B6/folic/B12/coffee /phosphatid (NEURIVA PLUS ORAL) (17 sources) End: 11-11-2023 B6/folic/B12/coffe e/phosphatid (NEURIVA PLUS ORAL) Take by mouth once daily. 0 11/11/2023 Discontinued B6/folic/B12/cof fee/phosphatid (NEURIVA PLUS ORAL) Take by mouth once daily. 0 Active Comment on above: Take by mouth once d aily. Bifidobacterium Infantis (20 sources) End: 08-19-2024 Bifidobacterium infantis (ALIGN ORAL) Take by mouth once daily. On hold 08/19/2024 Discontinued Bifidobacterium infantis (ALIGN ORAL) Take by mouth once daily. On hold Active Bifidobacterium infantis (ALIGN ORAL) Take by mouth once daily. On hold 0 Active Bifidobacterium infantis (ALIGN ORAL) Take by mouth once daily. 0 Active Comment on above: Take by mouth once d aily. biotin 10 mg oral capsule (5 sources) Start: 2 Biotin 10,000 mcg cap cholecalciferol 1.25 mg oral capsule (20 sources) Vitamin D Start: 3 End: 4 take 1 capsule by mouth every week cholecalciferol, Vitamin D3, (VITAMIN D3) 1,250 mcg (50,000 unit) cap capsule Indications: Vitamin D deficiency TAKE 1 CAPSULE BY MOUTH ONE TIME A WEEK FOR 8 DOSES. 4 capsule 1 10/28/2022 11/11/2023 Discontinued Start: 05-12-2022 cholecalcifero l, vitamin D3, (VITAMIN D-3) 10 mcg (400 unit) cap Comment on above: Take 1 capsule by [facility] one time a week for 8 doses. enteric contrast (will be provided with radiology test) (7 sources) Start: 03-19-20 21 enteric contrast (will be provided with radiology test) For CT ABD/PEL W IVCON Routine order Administer, As Directed One Time Only, via Oral, Rectal, both Oral and Rectal, Enteric Tube, Stoma or Indwelling Catheter, Enteric Contrast as designated per enteric contrast guidelines 1 Each 0 03/19/2021 Active Comment on above: For CT ABD/PEL W IVC ON Routine order Administer, As Directed One Time Only, via Oral, Rectal, both Oral and Rectal, Enteric Tube, Stoma or Indwelling Catheter, Enteric Contrast as designated per enteric contrast guidelines famotidine 20 mg oral tablet (4 sources) Histamine-2 Receptor Antagonist Start: 12-11-19 23 End: 12-19-19 23 take 1 tablet by mouth twice daily famotidine (PEPCID) 20 mg tablet Indications: Bloating Take 1 tablet by mouth twice daily. 90 tablet 1 12/10/2022 12/18/2022 Discontinued Comment on above: Take 1 tablet by turner twice daily. fluconazole 150 mg oral tablet (1 source) Azole Antifungal Start: 01-31-20 End: 01-31-20 fluconazole (DIFLUCAN) 150 mg tablet Take 1 tablet by mouth one time only for 1 dose. Take one tablet now and repeat dose in 72 hours. 2 tablet 0 01/30/2023 01/30/2023 Comment on above: Take 1 tablet by turner one time only for 1 dose. Take one tablet now and repeat dose in 72 hours. 60 actuat formoterol fumarate 0.005 mg/actuat / mometasone furoate 0.1 mg/actuat metered dose inhaler (20 sources) Corticosteroid, beta2-Adrenergic Agonist Start: 10-29-19 End: 08-20-19 take 2 puff(s) by inhalation twice daily mometasone-formotero l (DULERA) 100-5 mcg/actuation inhaler Inhale 2 Puffs as instructed two times a day. 26.4 g 2 10/29/2023 08/19/2024 Discontinued 10 ml lidocaine hydrochloride 10 mg/ml injection (2 sources) Antiarrhythmic, Amide Local Anesthetic Start: 02-06-20 End: 02-06-20 lidocaine (PF) 10 mg/mL (1 %) 5 mL injection (XYLOCAINE) Start: 02-06-2024 End: 02-06-2024 5 mL, Injection - FOR ORTHO USE ONLY, ONCE, 1 dose, Starting on Fri02/06/24 at 1420, Until Fri02/06/24 at 1420 MOUNJARO 2.5 mg/0.5 mL pen injector (2 sources) Start: 07-12-2022 inject 2.5 mg by subcutaneous injection every week MOUNJARO 2.5 mg/0.5 mL pen injector INJECT 2.5 MG SUBCUTANEOUSLY WEEKLY 4 mL 0 07/12/2022 Active Start: 07-12-2022 End: 08-11-2022 inject 2.5 mg by subcutaneous injection every week MOUNJARO 2.5 mg/0.5 mL pen injector INJECT 2.5 MG SUBCUTANEOUSLY WEEKLY 4 mL 0 07/12/2022 08/11/2022 Active Comment on above: INJECT 2.5 MG SUBCUT ANEOUSLY WEEKLY pantoprazole 40 mg delayed release oral tablet (6 sources) Proton Pump Inhibitor Start: 12-19-19 End: 08-25-19 24 take 1 tablet by mouth once daily pantoprazole DR (PROTONIX) 40 mg tablet Take 1 tablet by mouth once daily. 30 tablet 2 12/18/2022 08/25/2023 Discontinued Comment on above: Take 1 tablet by turner th once daily. semaglutide (OZEMPIC) 0.25 mg or 0.5 mg (2 mg/3 mL) pen (5 sources) Start: 08-27-19 End: 09-29-19 semaglutide (OZEMPIC) 0.25 mg or 0.5 mg (2 mg/3 mL) pen Indications: ONEIDA (obstructive sleep apnea) Inject 0.25 mg subcutaneously one time a week. 3 mL 2 08/26/2024 09/28/2024 Discontinued Start: 08-26-2024 End: 11-24-2024 semaglutide (OZEMPIC) 0.25 m g or 0.5 mg (2 mg/3 mL) pen Indications: ONEIDA (obstructive sleep apnea) Inject 0.25 mg subcutaneously one time a week. 3 mL 2 08/26/2024 11/24/2024 Active sucralfate 100 mg/ml oral suspension (13 sources) Aluminum Complex Start: 12-19-2022 End: 08-25-2023 take 10 mL by mouth four times daily sucralfate (CARAFATE) 100 mg/mL suspension Indications: Nausea Take 10 mL by mouth four times daily. 1200 mL 1 12/19/2022 08/25/2023 Discontinued Start: 12-18-2022 End: 08-25-2023 take 1 tablet by mouth twice daily sucralfate (CARAFATE) 1 gram tablet Take 1 tablet by mouth twice daily. 60 tablet 3 12/18/2022 08/25/2023 Discontinued Comment on above: Take 1 tablet by turner th twice daily. Take 10 mL by mouth four times daily. tirzepatide (MOUNJARO) 2.5 mg/0.5 mL pen injector (3 sources) Start: 06-19-19 End: 07-12-19 inject 2.5 mg by subcutaneous injection every week tirzepatide (MOUNJARO) 2.5 mg/0.5 mL pen injector Inject 2.5 mg subcutaneously one time a week. 2 mL 0 06/19/2022 07/12/2022 Discontinued Start: 06-19-2022 End: 07-19-2022 inject 2.5 mg by subcutaneous injection every week tirzepatide (MOUNJARO) 2.5 mg/0.5 mL pen injector Inject 2.5 mg subcutaneously one time a week. 2 mL 0 06/19/2022 07/19/2022 Active Comment on above: Inject 2.5 mg subcut aneously one time a week. tirzepatide, weight loss (ZEPBOUND) 5 mg/0.5 mL pen injector (17 sources) Start: 11-11-2023 End: 08-19-2024 tirzepatide, weight loss (ZEPBOUND) 5 mg/0.5 mL pen injector Indications: Class 3 severe obesity due to excess calories with serious comorbidity and body mass index (BMI) of 40.0 to 44.9 in adult ([facility]) Inject 5 mg subcutaneously one time a week. 6 mL 11/11/2023 08/19/2024 Discontinued (Side Effects) Start: 11-11-2023 tirzepatide, w eight loss (ZEPBOUND) 5 mg/0.5 mL pen injector Indications: Class 3 severe obesity due to excess calories with serious comorbidity and body mass index (BMI) of 40.0 to 44.9 in adult ([facility]) Inject 5 mg subcutaneously one time a week. 6 mL 11/11/2023 Active Start: 11-11-2023 End: 02-09-2024 tirzepatide, weight loss (ZE PBOUND) 5 mg/0.5 mL pen injector Indications: Class 3 severe obesity due to excess calories with serious comorbidity and body mass index (BMI) of 40.0 to 44.9 in adult ([facility]) Inject 5 mg subcutaneously one time a week. 6 mL 11/11/2023 02/09/2024 Active Start: 11-11-2023 End: 02-09-2024 tirzepatide, weight loss (ZE PBOUND) 5 mg/0.5 mL pen injector Indications: Class 3 severe obesity due to excess calories with serious comorbidity and body mass index (BMI) of 40.0 to 44.9 in adult (HCC) Inject 5 mg subcutaneously one time a week. 6 mL 0 11/11/2023 02/09/2024 Active 1 ml triamcinolone acetonide 40 mg/ml injection (2 sources) Corticosteroid Start: 02-06-2024 End: 02-06-2024 triamcinolone acetonide 80 mg injection (KeNALog 40) Start: 02-06-2024 End: 02-06-2024 80 mg, Injection - FOR ORTHO USE ONLY, ONCE, 1 dose, Starting on Fri02/06/24 at 1420, Until Fri02/06/24 at 1420 Problems Active Problems Problem Classification Problem Date Documented Da te Episodic/Chronic Asthma (20 sources) Mild intermittent asthma; Translations: [Mild intermittent asthma, uncomplicated] Onset: 06-13-2011 06-13-2011 Chronic Cancer of thyroid (4 sources) Papillary thyroid carcinoma; Translations: [Malignant neoplasm of thyroid gland] Chronic Chronic obstructive pulmonary disease and bronchiectasis (20 sources) Bronchiectasis; Translations: [Bronchiectasis, uncomplicated] Onset: 08-28-2022 08-28-2022 Chronic Complications of surgical procedures or medical care (20 sources) Postoperative hypothyroidism; Translations: [Postprocedural hypothyroidism] Onset: 06-13-2011 07-10-2015 Chronic Deficiency and other anemia (1 source) Iron deficiency anemia, unspecified; Translations: [Iron deficiency anemia, unspecified] Onset: 06-05-2022 Episodic Essential hypertension (20 sources) Essential hypertension; Translations: [Essential (primary) hypertension] Onset: 08-26-2023 08-25-2023 Chronic Fracture of lower limb (2 sources) Closed fracture of distal phalanx of great toe; Translations: [Nondisplaced fracture of distal phalanx of left great toe, initial encounter for closed fracture] Episodic Immunizations and screening for infectious disease (10 sources) Patient encounter status; Translations: [Encounter for screening for infections with a predominantly sexual mode of transmission] Onset: 09-28-2024 09-28-2024 Episodic Inflammatory diseases of female pelvic organs (1 source) Acute vulvitis; Translations: [Acute vulvitis] 01-30-2023 Episodic Mycoses (2 sources) Tinea corporis; Translations: [Tinea corporis] Onset: 09-28-2024 09-28-2024 Episodic Nausea and vomiting (2 sources) Nausea; Translations: [Nausea] Episodic Nutritional deficiencies (20 sources) Vitamin D deficiency; Translations: [Vitamin D deficiency, unspecified] Onset: 08-28-2022 08-28-2022 Chronic Osteoarthritis (3 sources) Primary gonarthrosis, bilateral; Translations: [Bilateral primary osteoarthritis of knee] 10-17-2023 Chronic Other and unspecified benign neoplasm (1 source) Melanocytic nevus of skin ; Translations: [Melanocytic nevi, unspecified] 09-03-2024 Episodic Other connective tissue disease (1 source) Lateral epicondylitis of right humerus; Translations: [Lateral epicondylitis, right elbow] 10-17-2023 Episodic Other diseases of veins and lymphatics (1 source) Vascular insufficiency; Translations: [Venous insufficiency (chronic) (peripheral)] 09-29-2023 Episodic Other gastrointestinal disorders (2 sources) Mixed irritable bowel syndrome; Translations: [Mixed irritable bowel syndrome] Onset: 05-06-2023 Chronic Other gastrointestinal disorders (2 sources) Diarrhea; Translations: [Diarrhea, unspecified] 10-08-2023 Episodic Other gastrointestinal disorders (1 source) Change in stool caliber; Translations: [Other fecal abnormalities] Episodic Other gastrointestinal disorders (1 source) Pelvic mass; Translations: [Intra-abdominal and pelvic swelling, mass and lump, unspecified site] Episodic Other gastrointestinal disorders (2 sources) Altered bowel function; Translations: [Change in bowel habit] Episodic Other gastrointestinal disorders (2 sources) Finding of defecation; Translations: [Other specified symptoms and signs involving the digestive system and abdomen] 09-11-2022 Episodic Other gastrointestinal disorders (1 source) Constipation; Translations: [Constipation, unspecified] 10-08-2023 Episodic Other gastrointestinal disorders (1 source) Drug induced constipation; Translations: [Drug-induced constipation] Onset: 11-15-2024 Episodic Other gastrointestinal disorders (1 source) Drug-induced constipation; Translations: [Drug induced constipation] 11-15-2024 Episodic Other hereditary and degenerative nervous system conditions (1 source) Restless legs; Translations: [Restless legs syndrome] Chronic Other injuries and conditions due to external causes (1 source) Injury of toe of left foot; Translations: [Unspecified injury of left foot, initial encounter] Episodic Other lower respiratory disease (2 sources) Cough; Translations: [Acute cough] 04-12-2024 Episodic Other nervous system disorders (20 sources) Difficulty walking; Translations: [Difficulty in walking, not elsewhere classified] Onset: 03-01-2024 11-11-2023 Chronic Other nervous system disorders (3 sources) Other chronic pain; Translations: [Chronic pain of right knee] Onset: 03-01-2024 Chronic Other nervous system disorders (1 source) Difficulty in walking, not elsewhere classified; Translations: [Difficulty in walking] Onset: 03-01-2024 Chronic Other non-traumatic joint disorders (3 sources) Pain in left knee; Translations: [Acute pain of both knees] Onset: 08-26-2023 Episodic Other nutritional; endocrine; and metabolic disorders (20 sources) Obesity; Translations: [Obesity, unspecified] Onset: 07-10-2015 07-10-2015 Chronic Other nutritional; endocrine; and metabolic disorders (5 sources) Severe obesity; Translations: [Morbid (severe) obesity due to excess calories] 08-25-2023 Chronic Other nutritional; endocrine; and metabolic disorders (1 source) Other obesity due to excess calories; Translations: [Class 1 obesity due to excess calories with serious comorbidity and body mass index (BMI) of 34.0 to 34.9 in adult] Onset: 07-10-2015 Chronic Other nutritional; endocrine; and metabolic disorders (1 source) Body mass index (BMI) 34.0-34.9, adult; Translations: [Class 1 obesity due to excess calories with serious comorbidity and body mass index (BMI) of 34.0 to 34.9 in adult] Onset: 07-10-2015 Chronic Other nutritional; endocrine; and metabolic disorders (1 source) Body mass index (BMI) 38.0-38.9, adult; Translations: [Class 2 severe obesity with serious comorbidity and body mass index (BMI) of 38.0 to 38.9 in adult, unspecified obesity type (HCC)] Onset: 07-10-2015 Chronic Other nutritional; endocrine; and metabolic disorders (1 source) Morbid (severe) obesity due to excess calories; Translations: [Class 2 severe obesity with serious comorbidity and body mass index (BMI) of 38.0 to 38.9 in adult, unspecified obesity type (HCC)] Onset: 07-10-2015 Chronic Other nutritional; endocrine; and metabolic disorders (1 source) Obesity caused by energy imbalance; Translations: [Class 1 obesity due to excess calories with serious comorbidity and body mass index (BMI) of 34.0 to 34.9 in adult] 11-15-2024 Chronic Other screening for suspected conditions (not mental disorders or infectious disease) (20 sources) Raised TSH level; Translations: [Other specified abnormal findings of blood chemistry] Onset: 05-30-2022 Episodic Other skin disorders (2 sources) Disorder of hand; Translations: [Disorder of the skin and subcutaneous tissue, unspecified] 08-19-2024 Episodic Other skin disorders (2 sources) Disorder of the skin and subcutaneous tissue, unspecified; Translations: [Skin lesion of hand] Onset: 08-19-2024 Episodic Other upper respiratory infections (1 source) Chronic sinusitis; Translations: [Chronic sinusitis, unspecified] 04-12-2024 Chronic Residual codes; unclassified (20 sources) Obstructive sleep apnea syndrome; Translations: [Obstructive sleep apnea (adult) (pediatric)] Onset: 09-29-2023 Chronic Residual codes; unclassified (2 sources) Obstructive sleep apnea (adult) (pediatric); Translations: [ONEIDA (obstructive sleep apnea)] Onset: 09-29-2023 Chronic Screening and history of mental health and substance abuse codes (2 sources) Encounter for screening examination for other mental health and behavioral disorders; Translations: [Encounter for screening for depression] Onset: 09-28-2024 Episodic Thyroid disorders (1 source) Hypothyroidism, unspecified; Translations: [Hypothyroidism, unspecified] Onset: 05-31-2022 Chronic Unclassified (4 sources) Chronic pain of left knee 08-22-2024 Unclassified (1 source) Acute cough; Translations: [Acute cough] Onset: 04-12-2024 Unclassified (1 source) Class 1 obesity due to excess calories with serious comorbidity and body mass index (BMI) of 34.0 to 34.9 in adult; Translations: [Class 1 obesity due to excess calories with serious comorbidity and body mass index (BMI) of 34.0 to 34.9 in adult] Onset: 07-10-2015 Unclassified (1 source) Class 2 severe obesity with serious comorbidity and body mass index (BMI) of 38.0 to 38.9 in adult, unspecified obesity type (HCC); Translations: [Class 2 severe obesity with serious comorbidity and body mass index (BMI) of 38.0 to 38.9 in adult, unspecified obesity type (HCC)] Onset: 07-10-2015 Past or Other Problems Problem Classification Problem Date Documented Da te Episodic/Chronic Abdominal hernia (20 sources) Irreducible umbilical hernia; Translations: [Umbilical hernia with obstruction, without gangrene] Onset: 08-28-2022 08-28-2022 Episodic Abdominal pain (20 sources) Finding of sensation of abdomen; Translations: [Unspecified abdominal pain] Onset: 08-28-2022 08-28-2022 Episodic Cancer of thyroid (20 sources) History of malignant neoplasm of thyroid; Translations: [Personal history of malignant neoplasm of thyroid] Onset: 05-10-2014 06-11-2021 Episodic Cancer; other and unspecified primary (20 sources) History of gynecological disorder; Translations: [Personal history of other benign neoplasm] Onset: 08-28-2022 08-28-2022 Episodic Diabetes mellitus without complication (20 sources) Hyperglycemia; Translations: [Impaired fasting glucose] Onset: 08-26-2023 08-25-2023 Episodic Genitourinary symptoms and ill-defined conditions (20 sources) Retention of urine; Translations: [Retention of urine, unspecified] Onset: 08-28-2022 08-28-2022 Episodic Other gastrointestinal disorders (20 sources) Abdominal bloating; Translations: [Abdominal distension (gaseous)] Onset: 09-29-2023 Episodic Other gastrointestinal disorders (20 sources) Pain associated with defecation; Translations: [Other specified symptoms and signs involving the digestive system and abdomen] Onset: 08-28-2022 08-28-2022 Episodic Other gastrointestinal disorders (20 sources) Burping; Translations: [Eructation] Onset: 08-28-2022 08-28-2022 Episodic Other gastrointestinal disorders (2 sources) Abdominal distension (gaseous); Translations: [Bloating] Onset: 09-29-2023 Episodic Other gastrointestinal disorders (2 sources) Eructation; Translations: [Belching] Onset: 08-28-2022 Episodic Other lower respiratory disease (20 sources) Apnea; Translations: [Apnea, not elsewhere classified] Onset: 05-30-2022 Episodic Other lower respiratory disease (20 sources) Chronic cough; Translations: [Chronic coughing] Onset: 08-28-2022 08-28-2022 Episodic Other non-traumatic joint disorders (20 sources) Pain in right knee; Translations: [Other acute pain] Onset: 08-26-2023 08-25-2023 Episodic Residual codes; unclassified (20 sources) Edema of foot; Translations: [Localized edema] Onset: 09-29-2023 09-29-2023 Episodic Results Test Name Value Interpretation Reference Range Facil ity VICTORIANO SCREENING W TOMOon 01-21 VICTORIANO SCREENING W CHAMP * * *Final Report* * * DATE OF EXAM: Jan 21 2025 4:38PM W [id number] - VICTORIANO SCREENING W CHAMP / PROCEDURE REASON: Encounter for screening mammogram for breast cancer * * * * Physician Interpretation * * * * [address] [place] [address] #[id number] - VICTORIANO SCREENING W CHAMP HISTORY: 54 year-old patient presents for screening and a palpable abnormality in the left breast. Patient is asymptomatic in the right breast. The patient has a family history of ovarian cancer. COMPARISON STUDIES: The present examination has been compared to prior imaging studies dated 10/22/2018 (mammogram), 10/28/2018 (ultrasound), 10/28/2018 (mammogram) and 10/17/2022 (mammogram). MAMMOGRAM TECHNIQUE: The study was acquired using full field digital technology and interpreted from soft copy. Digital Breast Tomosynthesis (DBT) images were obtained and used to assist in the interpretation of this examination. MAMMOGRAM FINDINGS: The breasts are heterogeneously dense, which may obscure small masses. There are no suspicious mammographic findings to correspond with the area of palpable concern left breast. No suspicious masses, calcifications or other abnormalities are seen in the right breast. IMPRESSION: The area of palpable concern left breast requires additional evaluation. Diagnostic ultrasound is recommended. BI-RADS Category 0: Incomplete: Needs Additional Imaging Evaluation RISK: Based on the Tyrer-Cuzick (TC) risk assessment model, this patient has a 8.5% lifetime risk of developing breast cancer, meaning they are at average risk for developing breast cancer. However, this is only an estimate based on available history provided on the patient's questionnaire. We encourage all patients to talk with their providers about these results, further recommendations for managing breast health, and appropriate supplemental screening options if the patient has dense breast tissue. REF#[id number]. Interpreting Radiologist: Rosaura Kramer M.D. Electronically signed on: 01/24/2025 Administration Clerk: ISIDORO Transcribe Date/Time: Jan 21 2025 4:20P Dictated by : ROSAURA KRAMER MD This examination was interpreted and the report reviewed and electronically signed by: ROSAURA KRAMER MD on Jan 24 2025 8:22AM EST [id number] [facility] CNOVon 11-15-2024 CNOV Office Visit (AGSAM) SARIKA CORONA ([id number]) 1970 F Date Time Provider Department 11/15/24 11:40 AM CARMEN MESSINA During your visit today, we recorded the following information about you: Temperature Pulse Respiration Blood pressure 97.7 degrees 62/minute 16/minute 111/74 Weight Height 96.2 kg 1.664 m Carmen Messina APRN.MOBILITY ARCHITECT MANAGER 11/15/2024 1:06 PM Signed Date of Evaluation: 11/15/2024 Patient Name: Sarika Garcia Chloe : 1970 Donis Causey is a 54-year-old female with a history of sleep apnea, presenting for follow-up on Zepbound and evaluation of left knee pain. Weight Management: - Currently on Zepbound 2.5 mg, filled at [facility]. - Lost 20 lbs over 6 weeks; current weight is 212 lbs. - Denies nausea, emesis, or injection site irritation. - Reports constipation, managed with magnesium citrate and Bruins superfood gummy vitamins with probiotics. - Previously experienced severe constipation on 5 mg dose; hesitant to increase dosage. - Diet consists mainly of vegetables and lean meat; practices 12-14 hour fasting. - Drinks more than 64 oz of water daily. - Goal weight is 165 lbs. Sleep Apnea: - No improvement in snoring. - Reports feeling a lot better overall but still experiences fatigue. - Did not qualify for CPAP machine based on sleep test and insurance criteria. Left Knee Pain: - Diagnosed with mild osteoarthritis via X-ray. - Reports significant pain and swelling in the left knee, with audible crepitus during leg lifts. - Experiences limping after walking for 5 minutes. - Noticed asymmetry in leg size, with the left leg appearing larger. - Suspects fluid accumulation in the left leg. - Engages in daily dumbbell weight exercises for arms and leg lifts.Miralax did not help in the past. Review of Systems Gastrointestinal: Positive for constipation. Negative for nausea and vomiting. 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 PAST SURGICAL HISTORY Procedure Laterality Date ANESTH, SECTION 01/14/2003 ANESTH, SECTION 02/14/1998 DELIVERY ONLY 1995 COLONOSCOPY 02/22/2021 EGD CYSTOSCOPY 03/12/2021 LAPAROSCOPY W TOTAL HYSTERECTOMY UTERUS 250 GM/< 03/12/2021 REMOVAL OF OVARY/TUBE(S) 03/12/2021 THYROIDECTOMY TOTAL/COMPLETE 2013 TUBAL LIGATION 2002 FAMILY HISTORY Problem Relation Age of Onset Heart Mother Hypertension Mother Alcohol/Drug Father Cancer Father pancreatic Cancer Maternal Grandmother Diabetes Paternal Grandmother Cancer Paternal Grandmother uterine vs ovarian, unsure Social History Tobacco Use Smoking status: Never Smokeless tobacco: Never Vaping Use Vaping status: Never Used Substance Use Topics Alcohol use: Yes Comment: Once a month Drug use: No Current Outpatient Medications Medication Sig MEDICATION, NON-DATABASE GRUNS superfoods with probiotic elderberry fruit (ELDERBERRY ORAL) Take by mouth once daily. cholecalciferol, vitD3,/vit K2 (VITAMIN D3-VITAMIN K2 ORAL) Take by mouth once daily. levothyroxine (SYNTHROID) 25 mcg tablet Take 1 tablet by mouth daily before breakfast. levothyroxine (SYNTHROID) 200 mcg tablet Take 1 tablet by mouth daily before breakfast. hydroCHLOROthiazide 12.5 mg capsule Take 1 capsule by mouth once daily. albuterol HFA (PROAIR HFA) 90 mcg/actuation inhaler Inhale 1-2 puffs as instructed every 4 hours as needed for wheezing/shortness of breath. Blood Pressure Monitor 1 Each once daily. Goal is less than 130/80 Xtra large cuff tirzepatide, weight loss (ZEPBOUND) 2.5 mg/0.5 mL pen injector Inject 2.5 mg subcutaneously one time a week. meloxicam (MOBIC) 7.5 mg tablet Take 1 tablet by mouth once daily as needed. No current facility-administered medications for this visit. Objective BP 111/74 (BP Position: Sitting) Pulse 62 Temp 36.5 ?C (97.7 ?F) Resp 16 Ht 166.4 cm (5' 5.5) Wt 96.2 kg (212 lb) LMP 03/04/2021 (Approximate) SpO2 98% BMI 34.74 kg/m? Last 3 Encounter BP Readings: Date: BP: 11/15/2024 111/74 09/28/2024 122/78 08/19/2024 124/77 Last 2 Encounter Wt Readings: Date: Wt: 11/15/2024 96.2 kg (212 lb) 09/28/2024 105.2 kg (232 lb) Physical Exam GENERAL: NAD, alert and oriented. SKIN: Unremarkable, no rash or skin lesions. HEAD: Normocephalic. EYES: PERRLA, EOMI, conjunctiva clear. EARS: Ext (more content not included)... Normal [facility] 09-29-2024 [facility] Telephone (AGS) SARIKA CORONA ([id number]) 1970 F Date Time Provider Department 09/29/24 CARMEN MESSINA During your visit today, we recorded the following information about you: Alexa Rowe MA 09/29/2024 9:51 AM Signed On 09/29/2024 [employer] denied coverage for Zepbound 2.5mg/0.5 pen inj. The form states this medication is approved if the patient is diagnosed with moderate to severe obstructive sleep apnea and a AHI greater than or equal to 15 events. TINO Mark Kandice, MA 09/29/2024 9:54 AM Addendum Today I faxed an appeal for Zepbound 2.5mg/0.5 pen inj to [employer] Clinical Appeals Department fax# , phone# , and . I received a confirmation that they received my fax. TINO Mark Kandice, MA 09/30/2024 10:32 AM Signed On 09/30/2024 [employer] approved coverage for Zepbound 2.5mg/0.5 pen inj . This medication is covered from 08/30/2024 through 05/31/2025. Patient notified. Alexa Rowe MA Allergies As of Date: 09/29/2024 Noted Allergy Reaction PENICILLIN G 06/13/2011 2 - Rash Comments: Allergy as a child. QUININE 03/02/2021 10 - Anaphylaxis Date Reviewed: 09/28/2024 Reviewed by: Alexa Rowe MA - Fully Assessed Reason for Visit: Insurance Authorization [[id number]] Cmt: Zepbound 2.5mg/0.5 pen inj Prescriptions as of 09/30/2024 - tirzepatide, weight loss (ZEPBOUND) 2.5 mg/0.5 mL pen injector Inject 2.5 mg subcutaneously one time a week. - levothyroxine (SYNTHROID) 25 mcg tablet Take 1 tablet by mouth daily before breakfast. - levothyroxine (SYNTHROID) 200 mcg tablet Take 1 tablet by mouth daily before breakfast. - hydroCHLOROthiazide 12.5 mg capsule Take 1 capsule by mouth once daily. - albuterol HFA (PROAIR HFA) 90 mcg/actuation inhaler Inhale 1-2 puffs as instructed every 4 hours as needed for wheezing/shortness of breath. - clotrimazole-betamethas one (LOTRISONE) cream Apply to affected area two times a day for 14 days. - meloxicam (MOBIC) 7.5 mg tablet Take 1 tablet by mouth once daily. - Blood Pressure Monitor 1 Each once daily. Goal is less than 130/80 Xtra large cuff Problem List As Of Date 09/29/2024 Noted Resolved Postoperative hypothyroidism [E89.0] 06/13/2011 Asthma, mild intermittent [J45.20] 06/13/2011 History of thyroid cancer [Z85.850] 05/10/2014 Obesity [E66.9] 07/10/2015 Witnessed apneic spells [R06.81] 05/30/2022 Elevated TSH [R79.89] 05/30/2022 Pain with bowel movements [R19.8] 08/28/2022 Abdominal pressure [R10.9] 08/28/2022 History of hysterectomy [Z90.710] 08/28/2022 History of uterine fibroid [Z86.018] 08/28/2022 Urine retention [R33.9] 08/28/2022 Vitamin D deficiency [E55.9] 08/28/2022 Chronic coughing [R05.3] 08/28/2022 Bronchiectasis without complication (HCC) [J47.*08/28/2022 Belching [R14.2] 08/28/2022 Hernia [K46.9] 08/28/2022 Prediabetes [R73.03] 08/26/2023 Primary hypertension [I10] 08/26/2023 Acute pain of both knees [M25.561, M25.562] 08/26/2023 Elevated fasting glucose [R73.01] 08/26/2023 ONEIDA (obstructive sleep apnea) [G47.33] 09/29/2023 Pedal edema [R60.0] 09/29/2023 Bloating [R14.0] 09/29/2023 Chronic pain of right knee [M25.561, G89.29] 03/01/2024 Difficulty in walking [R26.2] 03/01/2024 Chronic pain of left knee [M25.562, G89.29] 03/01/2024 Encounter Status:Closed by ALEXA ROWE on 09/29/24 [facility] CNOVon 09-28-2024 CNOV Office Visit (AGSAM) SARIKA CORONA ([id number]) 1970 F Date Time Provider Department 09/28/24 1:40 PM CARMEN MESSINA [facility] During your visit today, we recorded the following information about you: Temperature Pulse Respiration Blood pressure 96.8 degrees 86/minute 16/minute 122/78 Weight Height 105.2 kg 1.664 m Carmen Messina APRN.MOBILITY ARCHITECT MANAGER 09/28/2024 2:40 PM Signed Sarika Garcia Chloe is a 54 year old female who presents for Physical (Discuss labs done on 09/03/24) Here for well adult exam. Would like a referral to orthopedics for her knees. Left knee is worse than rigth. Left knee is bothering her, hard to walk and do her job. When it is cold hard to walk with this. Ongoing issue for 2 years. Has gotten worse, has done PT. Weight gain has affected her knee pain, hard to exercise with the knee pain. ONEIDA mild - zepbound , was on 2.5 mg did well, did not do well at the 0.5 mg dosage, had constipation. Prediabetic Ongoing belching, and distention cannot have lactose - it makes it worse. Had SIBO testing done twice, last was negative. She has tried the gas x , does not belch but bloats. The history is provided by the patient. Last 3 Encounter BP Readings: Date: BP: 09/28/2024 122/78 08/19/2024 124/77 04/12/2024 126/78 BP 122/78 Pulse 86 Temp 96.8 Resp 16 Ht 5' 5.5 (1.66m) Wt 232 lb (105.2kg) SpO2 97% LMP 03/04/2021 BMI 38.01 kg/(m2). Latest Ref Rng 09/03/2024 WBC 3.70 - 11.00 k/uL 9.07 RBC 3.90 - 5.20 m/uL 5.21 (H) Hemoglobin 11.5 - 15.5 g/dL 14.2 Hematocrit 36.0 - 46.0 % 44.3 MCV 80.0 - 100.0 fL 85.0 MCH 26.0 - 34.0 pg 27.3 MCHC 30.5 - 36.0 g/dL 32.1 RDW-CV 11.5 - 15.0 % 13.3 Platelet Count 150 - 400 k/uL 242 MPV 9.0 - 12.7 fL 10.9 Neut% % 65.9 Abs Neut (ANC) 1.45 - 7.50 k/uL 5.98 Lymph% % 24.5 Abs Lymph 1.00 - 4.00 k/uL 2.22 [place]% % 6.4 Abs [place] <0.87 k/uL 0.58 Eosin% % 2.2 Abs Eosin <0.46 k/uL 0.20 Baso% % 0.7 Abs Baso <0.11 k/uL 0.06 Immature Gran % % 0.3 IMMATURE GRANS (ABS) <0.10 k/uL 0.03 NRBC /100 WBC 0.0 Absolute nRBC <0.01 k/uL <0.01 DTYPE Auto Color Yellow Yellow Clarity Clear Clear Glucose, Urine Negative Negative Bilirubin, Urine Negative Negative Ketones, Urine Negative Negative Specific Thornton, Ur 1.005 - 1.030 1.010 Hemoglobin/Blood,Ur Negative Negative pH, Urine <8.5 6.0 Protein, Urine Negative Negative Urobilinogen 0.2-1.0 EU/dL 0.2 EU/dL Nitrites Negative Negative Leukest Negative Negative WBC, Urine 0-5 /HPF 0-5 /HPF RBC, Urine 0-2 /HPF 0-2 /HPF Bacteria Negative /HPF Negative Epithelial Cells /HPF Few Hyaline Cast 0 /LPF 0 /LPF Protein, Total 6.3 - 8.0 g/dL 7.2 Albumin 3.9 - 4.9 g/dL 4.3 Calcium 8.5 - 10.2 mg/dL 9.2 Bilirubin, Total 0.2 - 1.3 mg/dL 1.7 (H) Alkaline Phosphatase 34 - 123 U/L 75 AST 13 - 35 U/L 24 ALT 7 - 38 U/L 22 Glucose 74 - 99 mg/dL 108 (H) BUN 7 - 21 mg/dL 12 Creatinine 0.58 - 0.96 mg/dL 0.84 Sodium 136 - 144 mmol/L 139 Potassium 3.7 - 5.1 mmol/L 4.0 Chloride 98 - 107 mmol/L 101 CO2 22 - 30 mmol/L 27 Anion Gap 8 - 15 mmol/L 11 eGFR >=60 mL/min/1.73m? 84 Cholesterol, Total <200 mg/dL 208 (H) Triglyceride <150 mg/dL 139 HDL Cholesterol >39 mg/dL 56 Non HDL Cholesterol <130 mg/dL 152 (H) Fasting Time hrs 12 VLDL Cholesterol <30 mg/dL 28 TC:HDL Ratio <5.10 3.71 LDL Cholesterol <100 mg/dL 124 (H) LDL:HDL Ratio <2.54 2.21 Hemoglobin A1C 4.3 - 5.6 % 5.7 (H) Estimated Average Glucose mg/dL 117 Vitamin D 25 Hydroxy 31.0 - 80.0 ng/mL 32.7 TSH 0.270 - 4.200 mIU/L 3.850 Legend: (H) High Exercise: Patient does not have an exercise routine. Patient does not exercise 30 minutes a day. Weight Trend: Last 2 Encounter Wt Readings: Date: Wt: 09/28/2024 105.2 kg (232 lb) 08/19/2024 108.9 kg (240 lb) Eating Habits: Patient does maintain healthy eating habits. Does some intermittent fasting. Sugary drinks does affect her weight Types of food appropriate diet Water - 2 liters a day Caffeine - 1 monster a day Unsweet ice tea Tobacco Use: Tobacco Use: Never Active Problem List/Chronic Problems There are no active hospital problems to display for this patient. Health Maintenance Hepatitis C Screening Never done HIV Screening Never done Hepatitis B Vaccine(1 of 3 - 19+ 3-dose series) Never done Shingrix Vaccine(1 of 2) Never done Pneumococcal Vaccine: 50+(1 of 1 - PCV) Never done Mammogram Screening due on 10/18/2023 Depression Screening due on 09/28/2024 Anxiety Screening due on 09/28/2024 HEALTH MAINTENANCE REVIEW: Mammogram Review of Systems Constitutional: Positive for malaise/fatigue and weight loss. Negative for chills, diaphoresis and fever. HENT: Positive for hearing loss. Negative for congestion, ear discharge, ear pain, nosebleeds, sinus pain, sore throat and tinnitus. Mild hearing loss - jayshree wax build up Ey (more content not included)... Normal [facility] HBV surface Ab Ql (S)on 09-14 HBV surface Ab Qn (S) 3.50 mIU/mL Normal [facility] Comment on above: Order Comment: Speci men Type: BLOOD SPECIMEN [facility] Address: [address] [place] [address] Result Comment: <8.5 mIU/mL: No serological evidence of immunity to Hepatitis B Virus. >/= 8.5 to <11.5 mIU/mL: No serological evidence of immunity to Hepatitis B Virus. >/= 11.5 mIU/mL: Consistent with serological evidence of immunity to Hepatitis B Virus. Performed By: #### 3 1201-7, 41362-2 #### [facility] CLIA [id number] [address] HBV surface Ab Ser Qlon 09-14 HBV surface Ab Ql (S) Negative Normal [facility] Comment on above: Order Comment: Speci men Type: BLOOD SPECIMEN [facility] Address: [address] [place] [address] Result Comment: No s erological evidence of immunity to Hepatitis B Virus. Performed By: #### 3 1201-7, 28986-2 #### [facility] CLIA [id number] [address] OF [facility] HCV RNA STEVE+probe Qnon 09-28 HCV RNA STEVE+probe Ql Not detected Normal Not detected [facility] Comment on above: Order Comment: Speci men Type: BLOOD SPECIMENOrdering Facility: [facility] Address: [address] [place] [address] Performed By: #### 1 1011-4 ####[facility] [id number] [place] [address] [place] HIV 1+2 Ab IA Qlon 5 HIV 1 and 2 Ab IA.rapid Nom (S/P/Bld) Normal [facility] Comment on above: Order Comment: Speci men Type: BLOOD SPECIMEN [facility] Address: [address] [place] [address] Result Comment: Test not indicated. Performed By: #### 3 1201-7, 18722-5 #### [facility] CLIA [id number] [address] [place] [address] OF [facility] HIV 1+2 Ab+HIV1 p24 Ag IA Ql Non-Reactive Normal Nonreactive [facility] Comment on above: Order Comment: Speci men Type: BLOOD SPECIMEN [facility] Address: [address] [place] [address] Result Comment: [place] Rev. Code 3701.243(E): This information has been disclosed to you from confidential records protected from disclosure by state law. ???You shall make no further disclosure of this information without the specific, written, and informed release of the individual to whom it pertains or as otherwise permitted by state law. A general authorization for the release of medical or other information is not sufficient for the purpose of the release of HIV test results or diagnoses. Test methodology for this assay has moved from Siemens Centaur XP to Yves samantha 8000 effective March 19, 2022. Please note there may be a change in the reporting units and/or reference range. Performed By: #### 3 1201-7, 50479-7 #### [facility] CLIA [id number] [address] OF [facility] HIV immunoassay testing algorithm interpretation (S/P/Bld) [Interp] Normal [facility] Comment on above: Order Comment: Speci men Type: BLOOD SPECIMEN [facility] Address: [address] [place] [address] Result Comment: No e vidence of HIV-1 or HIV-2 infection. Should recent infection be suspected, repeat testing may be considered 2-3 weeks after this draw. Performed By: #### 3 1201-7, 25881-4 #### [facility] CLIA [id number] [address] OF [place] MUMPS IGG ABon 09-28-2024 MuV IgG Ql (S) Positive Normal Positive [facility] Comment on above: Order Comment: Speci men Type: BLOOD SPECIMENOrdering Facility: [facility] Address: [address] [place] [address] Result Comment: The result suggests recent or past exposure to Mumps virus or Mumps vaccination. The current test does not detect neutralizing antibodies. Positive result may also be seen due to presence of passively-transferred antibodies. Please correlate with patient's history. Performed By: #### M UMPSG, MEASLG ####[facility] [id number] [address] [place] RUBELLA IGG ANTIBODYon 09-28 RUBELLA IGG AB, QUAL Negative Abnormal Positive [facility] Comment on above: Order Comment: Speci [facility] Type: BLOOD SPECIMEN [facility] Address: [address] [place] [address] Result Comment: The result suggests no history of Rubella vaccination or exposure to Rubella virus, however, some individuals with past history of Rubella vaccination may test negative using this test as immunity to Rubella virus wanes over time after vaccination. Please correlate with vaccination history if applicable. The following results were obtained with the Elecsys Rubella IgG assay. Results from assays of other manufacturers cannot be used interchangeably. Performed By: #### R UBIGG #### [facility] CLIA [id number] [address] [place] RUBEOLA (MEASLES)IGGon 09-28 MEASLES IGG AB, QUAL Positive Normal Positive [facility] Comment on above: Order Comment: Speci men Type: BLOOD SPECIMENOrdering Facility: [facility] Address: [address] [place] [address] Result Comment: The result suggests recent or past exposure to Measles virus or Measles vaccination. The current test does not detect neutralizing antibodies. Positive result may also be seen due to presence of passively-transferred antibodies. Please correlate with patient's history. Performed By: #### M UMPSG, MEASLG ####[facility] [id number] [place] [address] [place] XR KNEE 4V AP/PA BOTH+LAT/ME R LTon 09-28-2024 XR KNEE 4V AP/PA BOTH+LAT/JERO LT * * *Final Report* * * DATE OF EXAM: Sep 28 2024 3:41PM AWX [id number] - XR KNEE 4V AP/PA BOTH+LAT/JERO LT / PROCEDURE REASON: multiple diagnoses * * * * Physician Interpretation * * * * EXAM TITLE: XR KNEE 4V AP/PA BOTH+LAT/JERO LT DATE: 10/01/2024 11:16 AM INDICATION: Knee pain COMPARISON: 10/17/2023 FINDINGS: Mild medial compartment joint space narrowing suggesting early degenerative arthritic change. There are incidentally similar changes on the right. No fracture or dislocation. No joint effusion. IMPRESSION: Mild medial compartment osteoarthritis. Administration Clerk: JAIRON Transcribe Date/Time: Oct 01 2024 11:16A Dictated by : NEELA ARCEO MD This examination was interpreted and the report reviewed and electronically signed by: NEELA ARCEO MD on Oct 01 2024 11:17AM EST [id number] Normal [facility] 25(OH)D3 [facility]-mCncon 2024 25-hydroxyvitamin D3 [Mass/Vol] 32.7 ng/mL Normal 31.0-80.0 [facility] Comment on above: Order Comment: Speci men Type: BLOOD SPECIMENOrdering Facility: [facility] Address: [address] [place] [address] Result Comment: Clas sification of 25 [place] Vitamin D status: Deficiency/Insufficiency: < or = 30 ng/ml. Sufficiency/Optimal Levels: 31-80 ng/mL Toxicity: > 100 ng/mL. Test performed by chemiluminescent immunoassay. Performed By: #### 3 2355-0 #### [facility] CLIA [id number] [address] [place] [address] [place] CBC W Auto Differential pane l (Bld)on 09-03-2024 Basophils (Bld) [#/Vol] 0.06 10*3/uL Normal <0.11 [facility] Comment on above: Order Comment: Speci men Type: BLOOD SPECIMENOrdering Facility: [facility] Address: [address] [place] [address] Performed By: #### 3 2355-0 #### [facility] CLIA [id number] [address] [place] [address] [place] Basophils/100 WBC (Bld) 0.7 % Normal [facility] Comment on above: Order Comment: Speci men Type: BLOOD SPECIMENOrdering Facility: [facility] Address: [address] [place] [address] Performed By: #### 3 2355-0 #### [facility] CLIA [id number] [address] [place] [address] [place] Differential cell count method Nom (Bld) Auto Normal [facility] Comment on above: Order Comment: Speci men Type: BLOOD SPECIMENOrdering Facility: [facility] Address: [address] [place] [address] Performed By: #### 3 2355-0 #### [facility] CLIA [id number] [address] [place] [address] [place] Eosinophils (Bld) [#/Vol] 0.20 10*3/uL Normal <0.46 [facility] Comment on above: Order Comment: Speci men Type: BLOOD SPECIMENOrdering Facility: [facility] Address: [address] [place] [address] Performed By: #### 3 2355-0 #### [facility] CLIA [id number] [address] [place] [address] [place] Eosinophils/100 WBC (Bld) 2.2 % Normal [facility] Comment on above: Order Comment: Speci men Type: BLOOD SPECIMENOrdering Facility: [facility] Address: [address] [place] [address] Performed By: #### 3 2355-0 #### [facility] CLIA [id number] [address] [place] [address] [place] Erythrocyte distribution width (RBC) [Ratio] 13.3 % Normal 11.5-15.0 [facility] Comment on above: Order Comment: Speci men Type: BLOOD SPECIMENOrdering Facility: [facility] Address: [address] [place] [address] Performed By: #### 3 2355-0 #### [facility] CLIA [id number] [address] [place] [address] [place] Hematocrit (Bld) [Volume fraction] 44.3 % Normal 36.0-46.0 [facility] Comment on above: Order Comment: Speci men Type: BLOOD SPECIMENOrdering Facility: [facility] Address: [address] [place] [address] Performed By: #### 3 2355-0 #### [facility] CLIA [id number] [address] [place] [address] [place] Hemoglobin (Bld) [Mass/Vol] 14.2 g/dL Normal 11.5-15.5 [facility] Comment on above: Order Comment: Speci men Type: BLOOD SPECIMENOrdering Facility: [facility] Address: [address] [place] [address] Performed By: #### 3 2355-0 #### [facility] CLIA [id number] [address] [place] [address] [place] Immature granulocytes (Bld) [#/Vol] 0.03 10*3/uL Normal <0.10 [facility] Comment on above: Order Comment: Speci men Type: BLOOD SPECIMENOrdering Facility: [facility] Address: [address] [place] [address] Performed By: #### 3 2355-0 #### [facility] CLIA [id number] [address] [place] [address] [place] Immature granulocytes/100 WBC (Bld) 0.3 % Normal [facility] Comment on above: Order Comment: Speci men Type: BLOOD SPECIMENOrdering Facility: [facility] Address: [address] [place] [address] Performed By: #### 3 2355-0 #### [facility] CLIA [id number] [address] [place] [address] [place] Lymphocytes (Bld) [#/Vol] 2.22 10*3/uL Normal 1.00-4.00 [facility] Comment on above: Order Comment: Speci men Type: BLOOD SPECIMENOrdering Facility: [facility] Address: [address] [place] [address] Performed By: #### 3 2355-0 #### [facility] CLIA [id number] [address] [place] [address] [place] Lymphocytes/100 WBC (Bld) 24.5 % Normal [facility] Comment on above: Order Comment: Speci men Type: BLOOD SPECIMENOrdering Facility: [facility] Address: [address] [place] [address] Performed By: #### 3 2355-0 #### [facility] CLIA [id number] [address] [place] [address] [place] MCH (RBC) [Entitic mass] 27.3 pg Normal 26.0-34.0 [facility] Comment on above: Order Comment: Speci men Type: BLOOD SPECIMENOrdering Facility: [facility] Address: [address] [place] [address] Performed By: #### 3 2355-0 #### [facility] CLIA [id number] [address] [place] [address] [place] MCHC (RBC) [Mass/Vol] 32.1 g/dL Normal 30.5-36.0 [facility] Comment on above: Order Comment: Speci men Type: BLOOD SPECIMENOrdering Facility: [facility] Address: [address] [place] [address] Performed By: #### 3 2355-0 #### [facility] CLIA [id number] [address] [place] [address] [place] MCV (RBC) [Entitic vol] 85.0 fL Normal 80.0-100.0 [facility] Comment on above: Order Comment: Speci men Type: BLOOD SPECIMENOrdering Facility: [facility] Address: [address] [place] [address] Performed By: #### 3 2355-0 #### [facility] CLIA [id number] [address] [place] [address] [place] Monocytes (Bld) [#/Vol] 0.58 10*3/uL Normal <0.87 [facility] Comment on above: Order Comment: Speci men Type: BLOOD SPECIMENOrdering Facility: [facility] Address: [address] [place] [address] Performed By: #### 3 2355-0 #### [facility] CLIA [id number] [address] [place] [address] [place] Monocytes/100 WBC (Bld) 6.4 % Normal [facility] Comment on above: Order Comment: Speci men Type: BLOOD SPECIMENOrdering Facility: [facility] Address: [address] [place] [address] Performed By: #### 3 2355-0 #### [facility] CLIA [id number] [address] [place] [address] [place] Neutrophils (Bld) [#/Vol] 5.98 10*3/uL Normal 1.45-7.50 [facility] Comment on above: Order Comment: Speci men Type: BLOOD SPECIMENOrdering Facility: [facility] Address: [address] [place] [address] Performed By: #### 3 2355-0 #### [facility] CLIA [id number] [address] [place] [address] [place] Neutrophils/100 WBC (Bld) 65.9 % Normal [facility] Comment on above: Order Comment: Speci men Type: BLOOD SPECIMENOrdering Facility: [facility] Address: [address] [place] [address] Performed By: #### 3 2355-0 #### [facility] CLIA [id number] [address] [place] [address] [place] Nucleated RBC (Bld) [#/Vol] 10*3/uL Normal <0.01 [facility] Comment on above: Order Comment: Speci men Type: BLOOD SPECIMENOrdering Facility: [facility] Address: [address] [place] [address] Performed By: #### 3 2355-0 #### [facility] CLIA [id number] [address] [place] [address] [place] Nucleated RBC/100 WBC (Bld) [Ratio] 0.0 /[address] [facility] Comment on above: Order Comment: Speci men Type: BLOOD SPECIMENOrdering Facility: [facility] Address: [address] [place] [address] Performed By: #### 3 2355-0 #### [facility] CLIA [id number] [address] [place] [address] [place] Platelet mean volume (Bld) [Entitic vol] 10.9 fL Normal 9.0-12.7 [facility] Comment on above: Order Comment: Speci men Type: BLOOD SPECIMENOrdering Facility: [facility] Address: [address] [place] [address] Performed By: #### 3 2355-0 #### [facility] CLIA [id number] [address] [place] [address] [place] Platelets (Bld) [#/Vol] 242 10*3/uL Normal 150-400 [facility] Comment on above: Order Comment: Speci men Type: BLOOD SPECIMENOrdering Facility: [facility] Address: [address] [place] [address] Performed By: #### 3 2355-0 #### [facility] CLIA [id number] [address] [place] [address] [place] RBC (Bld) [#/Vol] 5.21 10*6/uL High 3.90-5.20 [facility] Comment on above: Order Comment: Speci men Type: BLOOD SPECIMENOrdering Facility: [facility] Address: [address] [place] [address] Performed By: #### 3 2355-0 #### [facility] IA [id number] [address] [place] [address] [place] WBC (Bld) [#/Vol] 9.07 10*3/uL Normal 3.70-11.00 [facility] Comment on above: Order Comment: Speci men Type: BLOOD SPECIMENOrdering Facility: [facility] Address: [address] [place] [address] Performed By: #### 3 2355-0 #### [facility] IA [id number] [address] [place] [address] [place] CNOVon 09-03-2024 CNOV Office Visit ([facility]) SARIKA [id number]) 1970 F Date Time Provider Department 09/03/24 11:00 AM MARY ZAMUDIO During your visit today, we recorded the following information about you: Mary Zamudio PA-C 09/03/2024 11:40 AM Signed NEW PATIENT Consultation requested by Washington Carreon DO for an opinion regarding skin lesion of hand. My final recommendations will be communicated back to the requesting physician by way of shared Medical record or letter to requesting physician via [place] mail. Chief Complaint: LESION, SKIN History of Present Illness: Sarika Corona is a 54 year old female who presents today for a skin lesion C/o skin lesion: Location: right palm Duration: less than a year Symptoms: concerned about jagged edges, in two weeks skin around is changing colors Current Treatment: none Past Treatment: none Pertinent History: History of skin cancer: No History of atypical nevi: No History of HIV/ Hepatitis C: No History of immunosuppression/organ transplant: No , planning , or : No Allergy to lidocaine/ epinephrine/ latex/ adhesive: No Defibrillator/ Pacer: No Pertinent Family Medical History: History of melanoma: No History of non melanoma skin cancer: No Other family history (autoimmune, dermatologic, etc): None Social History: History of severe sun clark: Yes 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 Sun Protection: Yes 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 meloxicam (MOBIC) 7.5 mg tablet Take 1 tablet by mouth once daily. levothyroxine (SYNTHROID) 25 mcg tablet TAKE 1 TABLET ONCE DAILY (FOR A TOTAL OF 225 MCG DAILY) levothyroxine (SYNTHROID) 200 mcg tablet TAKE 1 TABLET DAILY BEFORE BREAKFAST (FOR TOTAL OF 225 MCG DAILY) albuterol HFA (PROAIR HFA) 90 mcg/actuation inhaler Inhale 1-2 Puffs as instructed every 4 hours as needed for wheezing/shortness of breath. hydroCHLOROthiazide 12.5 mg capsule Take 1 capsule by mouth once daily. Blood Pressure Monitor 1 Each once daily. Goal is less than 130/80 Xtra large cuff No current facility-administered medications on file prior to visit. ROS: Skin as above. Physical Exam: Spencer skin type: II The patient is a pleasant female in no apparent distress. Alert and oriented x 3. A skin exam performed of the bilateral upper extremities is significant for: Right Mid Palm 0.2 x 0.1 cm thin brown macule with regular pattern on dermoscopy Assessment and Plan: Skin Exam 1. BENIGN NEVUS Right Mid Palm 0.2 x 0.1 cm thin brown macule with regular pattern on dermoscopy Explanation of these lesions were dicussed. Benign reassurance was given. Encouraged to observe for changes in size, shape, or color. Picture and measurement obtained, will re-evaluate in 6 months. Follow up: 6 months nevus follow up The documentation for this note was completed by Clarissa Montes RN acting as scribe for Mary Zamudio PA-C. I agree with the Chief Complaint, ROS, and Past Histories independently gathered by the clinical endoscopy support specialist and the remaining scribed note accurately describes my personal service to the patient. Mary Zamudio PA-C September 03, 2024 Referring Provider: WASHINGTON CARREON [[id number]] Allergies As of Date: 09/03/2024 Noted Allergy Reaction PENICILLIN G 06/13/2011 2 - Rash Comments: Allergy as a child. QUININE 03/02/2021 10 - Anaphylaxis Date Reviewed: 09/03/2024 Reviewed by: Clarissa Montes, SIDDHARTHA - Fully Assessed Reason for Visit: LESION, SKIN [936] Primary Visit Diagnosis:Benign nevus [D22.9] Order(s):CONSULT TO DERMATOLOGY [9006] Order #: [id number]: 1 Prescriptions as of 09/03/2024 - semaglutide (OZEMPIC) 0.25 mg or 0.5 mg (2 mg/3 mL) pen Inject 0.25 mg subcutaneously one time a week. - meloxicam (MOBIC) 7.5 mg tablet Take 1 tablet by mouth once daily. - levothyroxine (SYNTHROID) 25 mcg tablet TAKE 1 TABLET ONCE DAILY (FOR A TOTAL OF 225 MCG DAILY) - levothyroxine (SYNTHROID) 200 mcg tablet TAKE 1 TABLET DAILY BEFORE BREAKFAST (FOR TOTAL OF 225 MCG DAILY) - albuterol HFA (more content not included)... Normal [facility] Comprehensive metabolic 2000 panelon 09-03-2024 Albumin [Mass/Vol] 4.3 g/dL Normal 3.9-4.9 [facility] Comment on above: Order Comment: Speci men Type: BLOOD SPECIMENOrdering Facility: [facility] Address: [address] [place] [address] Performed By: #### 3 2355-0 #### [facility] CLIA [id number] [address] [place] [address] [place] ALP [Catalytic activity/Vol] 75 U/L Normal 34-123 [facility] Comment on above: Order Comment: Speci men Type: BLOOD SPECIMENOrdering Facility: [facility] Address: [address] [place] [address] Performed By: #### 3 2355-0 #### [facility] CLIA [id number] [address] [place] [address] [place] ALT [Catalytic activity/Vol] 22 U/L Normal 7-38 [facility] Comment on above: Order Comment: Speci men Type: BLOOD SPECIMENOrdering Facility: [facility] Address: [address] [place] [address] Performed By: #### 3 2355-0 #### [facility] CLIA [id number] [address] [place] [address] [place] Anion gap [Moles/Vol] 11 mmol/L Normal 8-15 [facility] Comment on above: Order Comment: Speci men Type: BLOOD SPECIMENOrdering Facility: [facility] Address: [address] [place] [address] Performed By: #### 3 2355-0 #### [facility] CLIA [id number] [address] [place] [address] [place] AST [Catalytic activity/Vol] 24 U/L Normal 13-35 [facility] Comment on above: Order Comment: Speci men Type: BLOOD SPECIMENOrdering Facility: [facility] Address: [address] [place] [address] Performed By: #### 3 2355-0 #### [facility] CLIA [id number] [address] [place] [address] [place] Bilirubin [Mass/Vol] 1.7 mg/dL High 0.2-1.3 [facility] Comment on above: Order Comment: Speci men Type: BLOOD SPECIMENOrdering Facility: [facility] Address: [address] [place] [address] Performed By: #### 3 2355-0 #### [facility] CLIA [id number] [address] [place] [address] [place] Calcium [Mass/Vol] 9.2 mg/dL Normal 8.5-10.2 [facility] Comment on above: Order Comment: Speci men Type: BLOOD SPECIMENOrdering Facility: [facility] Address: [address] [place] [address] Performed By: #### 3 2355-0 #### [facility] CLIA [id number] [address] [place] [address] [place] Chloride [Moles/Vol] 101 mmol/L Normal 98-107 [facility] Comment on above: Order Comment: Speci men Type: BLOOD SPECIMENOrdering Facility: [facility] Address: [address] [place] [address] Performed By: #### 3 2355-0 #### [facility] CLIA [id number] [address] [place] [address] [place] CO2 [Moles/Vol] 27 mmol/L Normal 22-30 [facility] Comment on above: Order Comment: Speci men Type: BLOOD SPECIMENOrdering Facility: [facility] Address: [address] [place] [address] Performed By: #### 3 2355-0 #### [facility] CLIA [id number] [address] [place] [address] [place] Creatinine [Mass/Vol] 0.84 mg/dL Normal 0.58-0.96 [facility] Comment on above: Order Comment: Speci men Type: BLOOD SPECIMENOrdering Facility: [facility] Address: [address] [place] [address] Performed By: #### 3 2355-0 #### [facility] CLIA [id number] [address] [place] [address] [place] Creatinine and Glomerular filtration rate.predicted panel (S/P/Bld) 84 mL/min/1.73m??? Normal >=60 [facility] Comment on above: Order Comment: Speci men Type: BLOOD SPECIMENOrdering Facility: [facility] Address: [address] [place] [address] Result Comment: Savanna mated Glomerular Filtration Rate (eGFR) is calculated using the 2020 CKD-EPI creatinine equation. This equation utilizes serum creatinine, sex, and age as parameters. The creatinine assay has traceable calibration to isotope dilution-mass spectrometry. Refer to KDIGO guidelines for clinical interpretation. In patients with unstable renal function, e.g. those with acute kidney injury, the eGFR may not accurately reflect actual GFR. Performed By: #### 3 2355-0 #### [facility] CLIA [id number] [address] [place] [address] [place] Glucose [Mass/Vol] 108 mg/dL High 74-99 [facility] Comment on above: Order Comment: Speci men Type: BLOOD SPECIMENOrdering Facility: [facility] Address: [address] [place] [address] Result Comment: The [place] Diabetes Association (ADA) provides guidance for cutoff values for fasting glucose and random glucose. The ADA defines fasting as no caloric intake for at least 8 hours. Fasting plasma glucose results between 100 to 125 mg/dL indicate increased risk for diabetes (prediabetes). Fasting plasma glucose results greater than or equal to 126 mg/dL meet the criteria for diagnosis of diabetes. In the absence of unequivocal hyperglycemia, results should be confirmed by repeat testing. In a patient with classic symptoms of hyperglycemia or hyperglycemic crisis, random plasma glucose results greater than or equal to 200 mg/dL meet the criteria for diagnosis of diabetes. Reference: Standards of Medical Care in Diabetes 2016, [place] Diabetes Association. Diabetes Care. 2016.39(Suppl 1). Performed By: #### 3 2355-0 #### [facility] CLIA [id number] [address] [place] [address] [place] Potassium [Moles/Vol] 4.0 mmol/L Normal 3.7-5.1 [facility] Comment on above: Order Comment: Speci men Type: BLOOD SPECIMENOrdering Facility: [facility] Address: [address] [place] [address] Performed By: #### 3 2355-0 #### [facility] CLIA [id number] [address] [place] [address] [place] Protein [Mass/Vol] 7.2 g/dL Normal 6.3-8.0 [facility] Comment on above: Order Comment: Speci men Type: BLOOD SPECIMENOrdering Facility: [facility] Address: [address] [place] [address] Performed By: #### 3 2355-0 #### [facility] CLIA [id number] [address] [place] [address] [place] Sodium [Moles/Vol] 139 mmol/L Normal 136-144 [facility] Comment on above: Order Comment: Speci men Type: BLOOD SPECIMENOrdering Facility: [facility] Address: [address] [place] [address] Performed By: #### 3 2355-0 #### [facility] CLIA [id number] [address] [place] [address] [place] Urea nitrogen [Mass/Vol] 12 mg/dL Normal - [facility] Comment on above: Order Comment: Siddharth men Type: BLOOD SPECIMENOrdering Facility: [facility] Address: [address] [place] [address] Performed By: #### 3 2355-0 #### [facility] CLIA [id number] [address] [place] [address] [place] HbA1c (Bld)on 09-03-2024 Average glucose Estimated from glycated hemoglobin (Bld) [Mass/Vol] 117 mg/dL Normal [facility] Comment on above: Order Comment: Siddharth men Type: BLOOD SPECIMENOrdering Facility: [facility] Address: [address] [place] [address] Result Comment: eAG: (Estimated average glucose) is a calculated value from HgbA1c and is customer operations representative of the average blood glucose level in the last 2-3 month period. Performed By: #### 3 2355-0 #### [facility] CLIA [id number] [address] [place] [address] [place] HbA1c (Bld) [Mass fraction] 5.7 % High 4.3-5.6 [facility] Comment on above: Order Comment: Siddharth nance Type: BLOOD SPECIMENOrdering Facility: [facility] Address: [address] [place] [address] Result Comment: [place] Diabetes Association guidelines indicate that patients with HgbA1c in the range 5.7-6.4% are at increased risk for development of diabetes, and intervention by lifestyle modification may be beneficial. HgbA1c greater or equal to 6.5% is considered diagnostic of diabetes. Performed By: #### 3 2355-0 #### [facility] CLIA [id number] [address] [place] [address] [place] Lipid 1996 panelon 5 Cholesterol [Mass/Vol] 208 mg/dL High <200 [facility] Comment on above: Order Comment: Speci men Type: BLOOD SPECIMENOrdering Facility: [facility] Address: [address] [place] [address] Result Comment: <200 mg/dL, Desirable 200-239 mg/dL, Borderline high >239 mg/dL, High Performed By: #### 3 2355-0 #### [facility] CLIA [id number] [address] [place] [address] [place] Cholesterol in HDL [Mass/Vol] 56 mg/dL Normal >39 [facility] Comment on above: Order Comment: Speci men Type: BLOOD SPECIMENOrdering Facility: [facility] Address: [address] [place] [address] Result Comment: 40-5 9 mg/dL, Acceptable >59 mg/dL, High: Negative risk factor for coronary heart disease <40 mg/dL, Low: Positive risk factor for coronary heart disease Performed By: #### 3 2355-0 #### [facility] CLIA [id number] [address] [place] [address] [place] Cholesterol in LDL [Mass/Vol] 124 mg/dL High <100 [facility] Comment on above: Order Comment: Speci men Type: BLOOD SPECIMENOrdering Facility: [facility] Address: [address] [place] [address] Result Comment: <100 mg/dL, Optimal 100-129 mg/dL, Near optimal/above optimal 130-159 mg/dL, Borderline high 160-189 mg/dL, High >189 mg/dL, Very high Secondary prevention optimal LDL Cholesterol levels are recommended to be < 70 mg/dL Performed By: #### 3 2355-0 #### [facility] CLIA [id number] [address] [place] [address] [place] Cholesterol in LDL/Cholesterol in HDL [Mass ratio] 2.21 {ratio} Normal <2.54 [facility] Comment on above: Order Comment: Siddharth goyo Type: BLOOD SPECIMENOrdering Facility: [facility] Address: [address] [place] [address] Result Comment: Jackie collins: 1. National Cholesterol Education Program ATP III Guideline At-A-Glance Quick Desk Reference: National Heart, Lung, and Blood [place]. National Institutes of Health. 2001: NIH Publication No. 01-3305. 2. An International Atherosclerosis Society position paper: global recommendations for the management of dyslipidemia: executive summary, Atherosclerosis. 2014: 232(2):410-413. Performed By: #### 3 2355-0 #### [facility] CLIA [id number] [address] [place] [address] [place] Cholesterol in VLDL [Mass/Vol] 28 mg/dL Normal <30 [facility] Comment on above: Order Comment: Siddharth goyo Type: BLOOD SPECIMENOrdering Facility: [facility] Address: [address] [place] [address] Performed By: #### 3 2355-0 #### [facility] CLIA [id number] [address] [place] [address] [place] Cholesterol non HDL [Mass/Vol] 152 mg/dL High <130 [facility] Comment on above: Order Comment: Siddharth goyo Type: BLOOD SPECIMENOrdering Facility: [facility] Address: [address] [place] [address] Result Comment: <130 mg/dL, Optimal 130-159 mg/dL, Near optimal/above optimal 160-189 mg/dL, Borderline high 190-219 mg/dL, High >219 mg/dL, Very high Secondary prevention optimal non HDL Cholesterol levels are recommended to be <100 mg/dL Performed By: #### 3 2355-0 #### [facility] CLIA [id number] [address] [place] [address] [place] Cholesterol.total/Ch olesterol in HDL [Mass ratio] 3.71 {ratio} Normal <5.10 [facility] Comment on above: Order Comment: Speci men Type: BLOOD SPECIMENOrdering Facility: [facility] Address: [address] [place] [address] Performed By: #### 3 2355-0 #### [facility] CLIA [id number] [address] [place] [address] [place] FASTING TIME [address] [facility] Comment on above: Order Comment: Speci men Type: BLOOD SPECIMENOrdering Facility: [facility] Address: [address] [place] [address] Performed By: #### 3 2355-0 #### [facility] CLIA [id number] [address] [place] [address] [place] Triglyceride [Mass/Vol] 139 mg/dL Normal <150 [facility] Comment on above: Order Comment: Speci men Type: BLOOD SPECIMENOrdering Facility: [facility] Address: [address] [place] [address] Result Comment: <150 mg/dL, Normal 150-199 mg/dL, Borderline high 200-499 mg/dL, High >499 mg/dL, Very high Performed By: #### 3 2355-0 #### [facility] CLIA [id number] [address] [place] [address] [place] TSH SerPl-aCncon 09-03-2024 TSH Qn 3.850 m[IU]/L Normal 0.270-4.200 [facility] Comment on above: Order Comment: Speci men Type: BLOOD SPECIMENOrdering Facility: [facility] Address: [address] [place] [address] Performed By: #### 3 2355-0 #### [facility] CLIA [id number] [address] [place] [address] [place] Urinalysis complete panel (U )on 09-03-2024 Bacteria LM.HPF (Urine sed) [#/Area] Negative Normal Negative [facility] Comment on above: Order Comment: Speci men Type: URINE SPECIMENOrdering Facility: [facility] Address: [address] [place] [address] Performed By: #### 3 2355-0 #### [facility] CLIA [id number] [address] [place] [address] [place] Bilirubin Ql (U) Negative Normal Negative [facility] Comment on above: Order Comment: Speci men Type: URINE SPECIMENOrdering Facility: [facility] Address: [address] [place] [address] Performed By: #### 3 2355-0 #### [facility] CLIA [id number] [address] [place] [address] [place] Clarity (Unsp spec) Clear Normal Clear [facility] Comment on above: Order Comment: Speci men Type: URINE SPECIMENOrdering Facility: [facility] Address: [address] [place] [address] Performed By: #### 3 2355-0 #### [facility] CLIA [id number] [address] [place] [address] [place] Color (U) Yellow Normal Yellow [facility] Comment on above: Order Comment: Speci men Type: URINE SPECIMENOrdering Facility: [facility] Address: [address] [place] [address] Performed By: #### 3 2355-0 #### [facility] CLIA [id number] [address] [place] [address] [place] Epithelial cells LM.HPF (Urine sed) [#/Area] Few Normal [facility] Comment on above: Order Comment: Speci men Type: URINE SPECIMENOrdering Facility: [facility] Address: [address] [place] [address] Performed By: #### 3 2355-0 #### [facility] CLIA [id number] [address] [place] [address] [place] Glucose Test strip (U) [Mass/Vol] Negative Normal Negative [facility] Comment on above: Order Comment: Speci men Type: URINE SPECIMENOrdering Facility: [facility] Address: [address] [place] [address] Performed By: #### 3 2355-0 #### [facility] CLIA [id number] [address] [place] [address] [place] Hemoglobin Ql (U) Negative Normal Negative [facility] Comment on above: Order Comment: Speci men Type: URINE SPECIMENOrdering Facility: [facility] Address: [address] [place] [address] Performed By: #### 3 2355-0 #### [facility] CLIA [id number] [address] [place] [address] [place] Hyaline casts (Urine sed) [#/Area] 0 /[LPF] Normal 0 /LPF [facility] Comment on above: Order Comment: Speci men Type: URINE SPECIMENOrdering Facility: [facility] Address: [address] [place] [address] Performed By: #### 3 2355-0 #### [facility] CLIA [id number] [address] [place] [address] [place] Ketones Ql (U) Negative Normal Negative [facility] Comment on above: Order Comment: Speci men Type: URINE SPECIMENOrdering Facility: [facility] Address: [address] [place] [address] Performed By: #### 3 2355-0 #### [facility] CLIA [id number] [address] [place] [address] [place] Leukocyte esterase Test strip Ql (U) Negative Normal Negative [facility] Comment on above: Order Comment: Speci men Type: URINE SPECIMENOrdering Facility: [facility] Address: [address] [place] [address] Performed By: #### 3 2355-0 #### [facility] CLIA [id number] [address] [place] [address] [place] Nitrite Ql (U) Negative Normal Negative [facility] Comment on above: Order Comment: Speci men Type: URINE SPECIMENOrdering Facility: [facility] Address: [address] [place] [address] Performed By: #### 3 2355-0 #### [facility] CLIA [id number] [address] [place] [address] [place] pH (U) 6.0 [pH] Normal <8.5 [facility] Comment on above: Order Comment: Speci men Type: URINE SPECIMENOrdering Facility: [facility] Address: [address] [place] [address] Performed By: #### 3 2355-0 #### [facility] CLIA [id number] [address] [place] [address] [place] Protein (U) [Mass/Vol] Negative Normal Negative [facility] Comment on above: Order Comment: Speci men Type: URINE SPECIMENOrdering Facility: [facility] Address: [address] [place] [address] Performed By: #### 3 2355-0 #### [facility] CLIA [id number] [address] [place] [address] [place] RBC LM.HPF (Urine sed) [#/Area] 0-2 /HPF Normal 0-2 /HPF [facility] Comment on above: Order Comment: Speci men Type: URINE SPECIMENOrdering Facility: [facility] Address: [address] [place] [address] Performed By: #### 3 2355-0 #### [facility] CLIA [id number] [address] [place] [address] [place] Specific gravity (U) [Rel density] 1.010 Normal 1.005-1.030 [facility] Comment on above: Order Comment: Speci men Type: URINE SPECIMENOrdering Facility: [facility] Address: [address] [place] [address] Performed By: #### 3 2355-0 #### [facility] CLIA [id number] [address] [place] [address] [place] Urobilinogen Ql (U) 0.2 EU/dL Normal 0.2-1.0 EU/dL [facility] Comment on above: Order Comment: Speci men Type: URINE SPECIMENOrdering Facility: [facility] Address: [address] [place] [address] Performed By: #### 3 2355-0 #### [facility] CLIA [id number] [address] [place] [address] [place] WBC LM.HPF (Urine sed) [#/Area] 0-5 /HPF Normal 0-5 /HPF [facility] Comment on above: Order Comment: Speci men Type: URINE SPECIMENOrdering Facility: [facility] Address: [address] [place] [address] Performed By: #### 3 2355-0 #### [facility] IA [id number] [address] [place] [address] [place] CNPNon 08-27-2024 CNPN Telephone ([facility]) SARIKA [place] ([id number]) 1970 F Date Time Provider Department 08/27/24 CARMEN MESSINA During your visit today, we recorded the following information about you: Kimo Mondragon MA 08/27/2024 11:47 AM Signed Prior auth for Ozempic was denied because patient is not using it for Type 2 DM. TINO Goncalves Lindsey, APRN.MOBILITY ARCHITECT MANAGER 08/27/2024 12:08 PM Signed It was approved by FDA for sleep apnea and that is what I coded it for. She has the option to take the scripts to a compounding pharmacy if she wishes, please call her and see if she wishes to do that option but she would have to pay out of pocket. Carmen Messina APRN.FROYLAN Allergies As of Date: 08/27/2024 Noted Allergy Reaction PENICILLIN G 06/13/2011 2 - Rash Comments: Allergy as a child. QUININE 03/02/2021 10 - Anaphylaxis Date Reviewed: 08/19/2024 Reviewed by: Chon Doll LPN - Fully Assessed Reason for Visit: Insurance Authorization [[id number]] Cmt: Ozempic Prescriptions as of 09/10/2024 - semaglutide (OZEMPIC) 0.25 mg or 0.5 mg (2 mg/3 mL) pen Inject 0.25 mg subcutaneously one time a week. - meloxicam (MOBIC) 7.5 mg tablet Take 1 tablet by mouth once daily. - levothyroxine (SYNTHROID) 25 mcg tablet TAKE 1 TABLET ONCE DAILY (FOR A TOTAL OF 225 MCG DAILY) - levothyroxine (SYNTHROID) 200 mcg tablet TAKE 1 TABLET DAILY BEFORE BREAKFAST (FOR TOTAL OF 225 MCG DAILY) - albuterol HFA (PROAIR HFA) 90 mcg/actuation inhaler Inhale 1-2 Puffs as instructed every 4 hours as needed for wheezing/shortness of breath. - hydroCHLOROthiazide 12.5 mg capsule Take 1 capsule by mouth once daily. - Blood Pressure Monitor 1 Each once daily. Goal is less than 130/80 Xtra large cuff Problem List As Of Date 08/27/2024 Noted Resolved Postoperative hypothyroidism [E89.0] 06/13/2011 Asthma, mild intermittent [J45.20] 06/13/2011 History of thyroid cancer [Z85.850] 05/10/2014 Obesity [E66.9] 07/10/2015 Witnessed apneic spells [R06.81] 05/30/2022 Elevated TSH [R79.89] 05/30/2022 Pain with bowel movements [R19.8] 08/28/2022 Abdominal pressure [R10.9] 08/28/2022 History of hysterectomy [Z90.710] 08/28/2022 History of uterine fibroid [Z86.018] 08/28/2022 Urine retention [R33.9] 08/28/2022 Vitamin D deficiency [E55.9] 08/28/2022 Chronic coughing [R05.3] 08/28/2022 Bronchiectasis without complication (HCC) [J47.*08/28/2022 Belching [R14.2] 08/28/2022 Hernia [K46.9] 08/28/2022 Prediabetes [R73.03] 08/26/2023 Primary hypertension [I10] 08/26/2023 Acute pain of both knees [M25.561, M25.562] 08/26/2023 Elevated fasting glucose [R73.01] 08/26/2023 ONEIDA (obstructive sleep apnea) [G47.33] 09/29/2023 Pedal edema [R60.0] 09/29/2023 Bloating [R14.0] 09/29/2023 Chronic pain of right knee [M25.561, G89.29] 03/01/2024 Difficulty in walking [R26.2] 03/01/2024 Chronic pain of left knee [M25.562, G89.29] 03/01/2024 Encounter Status:Closed by KIMO MONDRAGON on 09/10/24 [facility] 08-23-2024 CNPN Telephone ([facility]) SARIKA CORONA ([id number]) 1970 F Date Time Provider Department 08/23/24 CARMEN MESSINA During your visit today, we recorded the following information about you: Alexa Rowe MA 08/23/2024 4:17 PM Signed On 08/20/24 [employer] denied coverage for Zepbound 2.5mg/0.5. The form states the medication is covered when it is not being used concomitantly with other weight loss medications. Patient is not on any other weight medication and I will be re- submitting a prior authorization. TINO Mark Kandice, MA 08/23/2024 4:17 PM Signed I submitted a reconsideration to [employer] (Attn: [facility] ) for the Zepbound. The fax# and received a confirmation that they received my fax. TINO Mark Kandice, MA 08/25/2024 3:36 PM Signed On 08/25/24 [employer] denied coverage for Zepbound 2.5mg/0.5 pen inj. The form states coverage is provided for patients after a trial of behavioral modification and dietary restrictions for at least 3 months. TINO Mark Kandice, MA 08/26/2024 8:43 AM Signed Prior authorization states patient must try an alternative such as METFORMIN HCL ER TABS 500MG METFORMIN HCL ER TABS 750MG BYETTA INJECT/PEN 5MCG BYETTA INJECT/PEN 10MCG TRULICITY SD PEN 0.5ML 4'S 0. 0.75MG TRULICITY SD PEN 0.5ML 4'S 1. 1.5MG BYDUREON BCISE AUTOINJECTR 0. 2MGTRULICITY SD PEN 0.5ML 4'S 3MG Alexa Rowe MA Allergies As of Date: 08/23/2024 Noted Allergy Reaction PENICILLIN G 06/13/2011 2 - Rash Comments: Allergy as a child. QUININE 03/02/2021 10 - Anaphylaxis Date Reviewed: 08/19/2024 Reviewed by: Chon Doll LPN - Fully Assessed Reason for Visit: Insurance Authorization [[id number]] Cmt: Zepbound 2.5mg/0.5 Prescriptions as of 08/26/2024 - semaglutide (OZEMPIC) 0.25 mg or 0.5 mg (2 mg/3 mL) pen Inject 0.25 mg subcutaneously one time a week. - meloxicam (MOBIC) 7.5 mg tablet Take 1 tablet by mouth once daily. - levothyroxine (SYNTHROID) 25 mcg tablet TAKE 1 TABLET ONCE DAILY (FOR A TOTAL OF 225 MCG DAILY) - levothyroxine (SYNTHROID) 200 mcg tablet TAKE 1 TABLET DAILY BEFORE BREAKFAST (FOR TOTAL OF 225 MCG DAILY) - albuterol HFA (PROAIR HFA) 90 mcg/actuation inhaler Inhale 1-2 Puffs as instructed every 4 hours as needed for wheezing/shortness of breath. - hydroCHLOROthiazide 12.5 mg capsule Take 1 capsule by mouth once daily. - Blood Pressure Monitor 1 Each once daily. Goal is less than 130/80 Xtra large cuff Problem List As Of Date 08/23/2024 Noted Resolved Postoperative hypothyroidism [E89.0] 06/13/2011 Asthma, mild intermittent [J45.20] 06/13/2011 History of thyroid cancer [Z85.850] 05/10/2014 Obesity [E66.9] 07/10/2015 Witnessed apneic spells [R06.81] 05/30/2022 Elevated TSH [R79.89] 05/30/2022 Pain with bowel movements [R19.8] 08/28/2022 Abdominal pressure [R10.9] 08/28/2022 History of hysterectomy [Z90.710] 08/28/2022 History of uterine fibroid [Z86.018] 08/28/2022 Urine retention [R33.9] 08/28/2022 Vitamin D deficiency [E55.9] 08/28/2022 Chronic coughing [R05.3] 08/28/2022 Bronchiectasis without complication (HCC) [J47.*08/28/2022 Belching [R14.2] 08/28/2022 Hernia [K46.9] 08/28/2022 Prediabetes [R73.03] 08/26/2023 Primary hypertension [I10] 08/26/2023 Acute pain of both knees [M25.561, M25.562] 08/26/2023 Elevated fasting glucose [R73.01] 08/26/2023 ONEIDA (obstructive sleep apnea) [G47.33] 09/29/2023 Pedal edema [R60.0] 09/29/2023 Bloating [R14.0] 09/29/2023 Chronic pain of right knee [M25.561, G89.29] 03/01/2024 Difficulty in walking [R26.2] 03/01/2024 Chronic pain of left knee [M25.562, G89.29] 03/01/2024 Encounter Status:Closed by ALEXA ROWE on 08/23/24 [facility] CNOVon 08-19-2024 CNOV Office Visit (AGSAM) SARIKA CORONA ([id number]) 1970 F Date Time Provider Department 08/19/24 1:00 PM WASHINGTON CARREON AGS During your visit today, we recorded the following information about you: Pulse Respiration Blood pressure Weight 87/minute 14/minute 124/77 108.9 kg Height 1.683 m Washington Carreon DO 08/22/2024 10:39 AM Signed [facility] [address] [place] [address] Date of Evaluation: 08/19/2024 Patient Name: Sarika Corona : 1970 Chief Complaint: Patient presents with: Hand Evaluation: Right hand palm spot, no pain Subjective HPI Ms. Corona is a 54 year old female who presents for hand lesion Has a dark spot on the palpmar surface of her right hand, has been present for a while, but seems to be getting larger and darker, no pain associated. She would like to see dermatology as she is worried about it being a possible melanoma. Would like to get restarted on zepbound, she was on 2.5mg for a month, when raised to 5mg she became symptomatic so the medication was stopped. She would like to try going back on the 2.5mg dose now. Review of Systems Constitutional: Negative for activity change, fatigue and fever. HENT: Negative for congestion. Respiratory: Negative for shortness of breath. Cardiovascular: Negative for chest pain. Gastrointestinal: Negative for abdominal pain. Skin: lesion Neurological: Negative for dizziness and headaches. 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 PAST SURGICAL HISTORY Procedure Laterality Date ANESTH, SECTION 01/14/2003 ANESTH, SECTION 02/14/1998 DELIVERY ONLY 1995 COLONOSCOPY 02/22/2021 EGD CYSTOSCOPY 03/12/2021 LAPAROSCOPY W TOTAL HYSTERECTOMY UTERUS 250 GM/< 03/12/2021 REMOVAL OF OVARY/TUBE(S) 03/12/2021 THYROIDECTOMY TOTAL/COMPLETE 2013 TUBAL LIGATION 2002 FAMILY HISTORY Problem Relation Age of Onset Heart Mother Hypertension Mother Alcohol/Drug Father Cancer Father pancreatic Heart Sister Hypertension Sister Alcohol/Drug Brother Cancer Maternal Grandmother Diabetes Paternal Grandmother Cancer Paternal Grandmother uterine vs ovarian, unsure Social History Tobacco Use Smoking status: Never Smokeless tobacco: Never Vaping Use Vaping status: Never Used Substance Use Topics Alcohol use: No Drug use: No Current Outpatient Medications Medication Sig meloxicam (MOBIC) 7.5 mg tablet Take 1 tablet by mouth once daily. tirzepatide, weight loss (ZEPBOUND) 2.5 mg/0.5 mL pen injector Inject 2.5 mg subcutaneously one time a week. levothyroxine (SYNTHROID) 25 mcg tablet TAKE 1 TABLET ONCE DAILY (FOR A TOTAL OF 225 MCG DAILY) levothyroxine (SYNTHROID) 200 mcg tablet TAKE 1 TABLET DAILY BEFORE BREAKFAST (FOR TOTAL OF 225 MCG DAILY) albuterol HFA (PROAIR HFA) 90 mcg/actuation inhaler Inhale 1-2 Puffs as instructed every 4 hours as needed for wheezing/shortness of breath. hydroCHLOROthiazide 12.5 mg capsule Take 1 capsule by mouth once daily. Blood Pressure Monitor 1 Each once daily. Goal is less than 130/80 Xtra large cuff No current facility-administered medications for this visit. I have confirmed and edited as necessary the chief complaint, medications, past medical, family and social histories obtained by others. Objective BP 124/77 Pulse 87 Resp 14 Ht 5' 6.25 (1.68m) Wt 240 lb (108.9kg) SpO2 97% LMP 03/04/2021 BMI 38.43 kg/(m2). Physical Exam Constitutional: General: She is not in acute distress. HENT: Head: Normocephalic and atraumatic. Mouth/Throat: Mouth: Mucous membranes are moist. Eyes: Extraocular Movements: Extraocular movements intact. Cardiovascular: Rate and Rhythm: Normal rate. Pulmonary: Effort: Pulmonary effort is normal. No respiratory distress. Musculoskeletal: General: Normal range of motion. Cervical back: No rigidity. Skin: Comments: Small ~1-2mm dark lesion to right palm Neurological: General: No focal deficit present. Mental Status: She is alert. ASSESSMENT/PLAN: 1. Skin lesion of hand - ICD9: 709.9, ICD10: L98.9 (primary diagnosis) - referral to derm - CONSULT TO DERMATOLOGY 2. Class 2 severe obesity with serious comorbidity and body mass index (BMI) of 38.0 to 38.9 in adult, unspecified obesity type (HCC) - ICD9: 278.01, V85.38, ICD10: E66.812, Z68.38, E66.01 Weight increasing - Pharmacological intervention - TIRZEPATIDE (WEIGHT LOSS) 2.5 MG/0.5 ML SUBCUTANEOUS PEN INJECTOR 3. Prediabetes - ICD9: 790.29, ICD10: R73.03 - TIRZEPATIDE (WEIGHT LOSS) 2.5 MG/ (more content not included)... Normal [facility] CNCOon 05-08-2024 CNCO Letter Text [facility] CNOVon 04-12-2024 CN Office Visit (UCWSTR ) SARIKA CORONA ([id number]) 1970 F Date Time Provider Department 04/12/24 1:30 PM [facility] During your visit today, we recorded the following information about you: Temperature Pulse Respiration Blood pressure 97.6 degrees 86/minute 16/minute 126/78 Weight 104.3 kg Kayla Zeng PA 04/12/2024 2:02 PM Signed This note was created using [employer]. Subjective Sarika Corona is a 53 year old female. HPI 53-year-old female presents for cough, chest congestion, nasal congestion x 9 days. Patient states that she has been sick for the past 9 days. She has had nasal congestion, cough, chest congestion, wheezing. She does have asthma and feels like it is flaring up. She has been using her inhalers. She states she is coughing up green/yellow phlegm and has coughed up some white mucus as well. She had a fever initially for 1 night, but no fever since. No vomiting or diarrhea. No other complaint. 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 levothyroxine (SYNTHROID) 200 mcg tablet Take 1 tablet by mouth daily before breakfast. Take for a total of 225 mcg daily levothyroxine (SYNTHROID) 25 mcg tablet Take 1 tablet by mouth once daily. Take for a total of 225 mcg daily hydroCHLOROthiazide 12.5 mg capsule Take 1 capsule by mouth once daily. tirzepatide, weight loss (ZEPBOUND) 5 mg/0.5 mL pen injector Inject 5 mg subcutaneously one time a week. mometasone-formoterol (DULERA) 100-5 mcg/actuation inhaler Inhale 2 Puffs as instructed two times a day. Bifidobacterium infantis (ALIGN ORAL) Take by mouth once daily. On hold Blood Pressure Monitor 1 Each once daily. Goal is less than 130/80 Xtra large cuff tirzepatide, weight loss (ZEPBOUND) 2.5 mg/0.5 mL pen injector Inject 2.5 mg subcutaneously one time a week. albuterol (PROVENTIL) 2.5 mg /3 mL (0.083 %) nebulizer solution Use 3 mL via nebulizer every 4 hours as needed for Wheezing/Shortness of Breath. Use over 5-15minutes. albuterol (PROVENTIL) 5 mg/mL nebu Inhale 0.5 mL as instructed one time only for 1 dose. 1 DOSE NOW - BACK OFFICE. PLACE 0.5 ML PER DROPPER AND 2.5 ML OF NORMAL SALINE INTO RESERVOIR. FAMILY HISTORY Problem Relation Age of Onset Heart Mother Hypertension Mother Alcohol/Drug Father Cancer Father pancreatic Heart Sister Hypertension Sister Alcohol/Drug Brother Cancer Maternal Grandmother Diabetes Paternal Grandmother Cancer Paternal Grandmother uterine vs ovarian, unsure Social History Tobacco Use Smoking status: Never Smokeless tobacco: Never Vaping Use Vaping status: Never Used Substance Use Topics Alcohol use: No Drug use: No Review of Systems Constitutional: Negative for chills and fever. HENT: Positive for congestion, sinus pressure and sinus pain. Negative for ear pain and sore throat. Respiratory: Positive for cough and wheezing. Negative for shortness of breath. Cardiovascular: Negative for chest pain. Gastrointestinal: Negative for diarrhea and vomiting. Objective BP 126/78 Pulse 86 Temp 36.4 ?C (97.6 ?F) (Tympanic) Resp 16 Wt 104.3 kg (229 lb 15 oz) LMP 03/04/2021 (Approximate) SpO2 96% BMI 38.26 kg/m? Physical Exam Vitals and nursing note reviewed. Constitutional: General: She is not in acute distress. Appearance: Normal appearance. She is not toxic-appearing. HENT: Right Ear: Tympanic membrane and ear canal normal. Left Ear: Tympanic membrane and ear canal normal. Nose: Mucosal edema and congestion present. Right Sinus: Maxillary sinus tenderness present. Left Sinus: Maxillary sinus tenderness present. Mouth/Throat: Mouth: Mucous membranes are moist. Eyes: Conjunctiva/sclera: Conjunctivae normal. Cardiovascular: Rate and Rhythm: Normal rate and regular rhythm. Pulmonary: Effort: Pulmonary effort is normal. Breath sounds: Wheezing and rhonchi present. Skin: General: Skin is warm and dry. Neurological: Mental Status: She is alert. Assessment and Plan ASSESSMENT/PLAN: 1. Sino (more content not included)... Normal [facility] XR CHEST 2V FRONTAL/LATon XR CHEST 2V FRONTAL/LAT * * *Final Report* * * DATE OF EXAM: Apr 12 2024 1:45PM WOX 5291 - XR CHEST 2V FRONTAL/LAT / PROCEDURE REASON: Acute cough * * * * Physician Interpretation * * * * EXAMINATION: CHEST RADIOGRAPH (2 VIEW FRONTAL and LATERAL) CLINICAL HISTORY: Acute cough MQ: XC2_6 EXAM DATE/TIME: 04/12/2024 1:45 PM COMPARISON: 04/21/2014 RESULT: Lines, tubes, and devices: None. Lungs and pleura: No consolidation. No lung mass. No pleural effusion. No pneumothorax. Cardiomediastinal silhouette: Normal cardiomediastinal silhouette. Bones and soft tissues: Unremarkable. IMPRESSION: No acute radiographic abnormality. Administration Clerk: JAIRON Transcribe Date/Time: Apr 12 2024 1:52P Dictated by : JENNIFER EASTMAN MD This examination was interpreted and the report reviewed and electronically signed by: JENNIFER EASTMAN MD on Apr 12 2024 1:55PM EST [id number] Normal [facility] XR Chest PA and Lateralon IMPRESSION: No acute radiographic abnormality. Administration Clerk: [facility] Transcribe Date/Time: Apr 12 2024 1:52P Dictated by : JENNIFER EASTMAN MD This examination was interpreted and the report reviewed and electronically signed by: JENNIFER EASTMAN MD on Apr 12 2024 1:55PM EST DIVISION OF RADIOLOGY * * *Final Report* * * DATE OF EXAM: Apr 12 2024 1:45PM WOX 5291 - XR CHEST 2V FRONTAL/LAT / PROCEDURE REASON: Acute cough * * * * Physician Interpretation * * * * EXAMINATION: CHEST RADIOGRAPH (2 VIEW FRONTAL & LATERAL) CLINICAL HISTORY: Acute cough MQ: XC2_6 EXAM DATE/TIME: 04/12/2024 1:45 PM COMPARISON: 04/21/2014 RESULT: Lines, tubes, and devices: None. Lungs and pleura: No consolidation. No lung mass. No pleural effusion. No pneumothorax. Cardiomediastinal silhouette: Normal cardiomediastinal silhouette. Bones and soft tissues: Unremarkable. DIVISION OF RADIOLOGY Provider, Harjinder Byrne [facility] - 04/12/2024 * * *Final Report* * * DATE OF EXAM: Apr 12 2024 1:45PM WOX 5291 - XR CHEST 2V FRONTAL/LAT / PROCEDURE REASON: Acute cough * * * * Physician Interpretation * * * * EXAMINATION: CHEST RADIOGRAPH (2 VIEW FRONTAL & LATERAL) CLINICAL HISTORY: Acute cough MQ: XC2_6 EXAM DATE/TIME: 04/12/2024 1:45 PM COMPARISON: 04/21/2014 RESULT: Lines, tubes, and devices: None. Lungs and pleura: No consolidation. No lung mass. No pleural effusion. No pneumothorax. Cardiomediastinal silhouette: Normal cardiomediastinal silhouette. Bones and soft tissues: Unremarkable. IMPRESSION IMPRESSION: No acute radiographic abnormality. Administration Clerk: [facility] Transcribe Date/Time: Apr 12 2024 1:52P Dictated by : JENNIFER EASTMAN MD This examination was interpreted and the report reviewed and electronically signed by: JENNIFER EASTMAN MD on Apr 12 2024 1:55PM [facility] Radiology Study observation (narrative) [facility] XR Chest PA and LateralOrder ed By: [facility] Provider on 04-12-2024 [facility] CNTHERAPYon 03-22-2024 CNTHERAPY OT/PT/Speech Visit (PTWS) SARIKA CORONA ([id number]) 1970 F Date Time Provider Department 03/22/24 1:15 PM ANA WEIR PTWS Date Time Provider Department Center 03/22/2024 1:15 PM [id number] WEIR PTWS [facility] Reason for Visit: Physical Therapy [503] Primary Visit Diagnosis:Chronic pain of left knee [M25.562, G89.29] Other Visit Diagnoses:Chronic pain of right knee [M25.561, G89.29] Difficulty in walking [R26.2] Allergies As of Date: 03/22/2024 Noted Allergy Reaction PENICILLIN G 06/13/2011 2 - Rash Comments: Allergy as a child. QUININE 03/02/2021 10 - Anaphylaxis Date Reviewed: 11/11/2023 Reviewed by: Alexa Rowe MA - Fully Assessed Prescriptions as of 03/22/2024 - meloxicam (MOBIC) 7.5 mg tablet take 1 tablet by mouth every day - tirzepatide, weight loss (ZEPBOUND) 5 mg/0.5 mL pen injector Inject 5 mg subcutaneously one time a week. - albuterol HFA (PROAIR HFA) 90 mcg/actuation inhaler Inhale 1-2 Puffs as instructed every 4 hours as needed for wheezing/shortness of breath. - mometasone-formoterol (DULERA) 100-5 mcg/actuation inhaler Inhale 2 Puffs as instructed two times a day. - Bifidobacterium infantis (ALIGN ORAL) Take by mouth once daily. On hold - levothyroxine (SYNTHROID) 200 mcg tablet Take 1 tablet by mouth daily before breakfast. Take for a total of 225 mcg daily - levothyroxine (SYNTHROID) 25 mcg tablet Take 1 tablet by mouth once daily. Take for a total of 225 mcg daily - hydroCHLOROthiazide 12.5 mg capsule Take 1 capsule by mouth once daily. - Blood Pressure Monitor 1 Each once daily. Goal is less than 130/80 Xtra large cuff - tirzepatide, weight loss (ZEPBOUND) 2.5 mg/0.5 mL pen injector Inject 2.5 mg subcutaneously one time a week. - albuterol (PROVENTIL) 2.5 mg /3 mL (0.083 %) nebulizer solution Use 3 mL via nebulizer every 4 hours as needed for Wheezing/Shortness of Breath. Use over 5-15minutes. - albuterol (PROVENTIL) 5 mg/mL nebu Inhale 0.5 mL as instructed one time only for 1 dose. 1 DOSE NOW - BACK OFFICE. PLACE 0.5 ML PER DROPPER AND 2.5 ML OF NORMAL SALINE INTO RESERVOIR. Dermatology Sales Representative: Addendum Therapy (PT/OT/Speech/Resp) ID: [id number] 03/22/2024 1:54 PM Author: ANA WEIR Signed by ANA WEIR PT on 03/22/2024 at 1:54 PM * * * This document replaces document [id number] * * * Document text: Program_ID:[id number] Access Code: [email or web address] URL: [email or web address] Date: 03-22-2024 Prepared By: Yesy Zepeda Program Notes Exercises - Sidelying Hip Abduction - 1 x daily - 7 x weekly - 2 sets - 20 reps - Modified Prone Quadriceps Stretch with Strap - 2-3 x daily - 7 x weekly - 1 sets - 3 reps - Prone Hip Extension - 1 x daily - 7 x weekly - 3 sets - 12 reps - Quadruped Fire Hydrant - 1 x daily - 7 x weekly - 3 sets - reps Normal [facility] THERAPY NTon 03-22-2024 THERAPY NT HNO ID: [id number] Author: ANA WEIR, PT Service: ? Author Type: Physical Therapist Type: Therapy (PT/OT/Speech/Resp) Filed: 03/22/2024 13:54 Note Text: Program_ID:[id number] Access Code: [email or web address] URL: [email or web address] Date: 03-22-2024 Prepared By: Yesy Zepeda Program Notes Exercises - Sidelying Hip Abduction - 1 x daily - 7 x weekly - 2 sets - 20 reps - Modified Prone Quadriceps Stretch with Strap - 2-3 x daily - 7 x weekly - 1 sets - 3 reps - Prone Hip Extension - 1 x daily - 7 x weekly - 3 sets - 12 reps - Quadruped Fire Hydrant - 1 x daily - 7 x weekly - 3 sets - reps Normal [facility] CNTHERAPYon 03-15-2024 CNTHERAPY OT/PT/Speech Visit (PTWS) SARIKA CORONA ([id number]) 1970 F Date Time Provider Department 03/15/24 1:15 PM ANA WEIR Date Time Provider Department [place] 03/15/2024 1:15 PM [id number] WEIR Reason for Visit: Physical Therapy [503] Primary Visit Diagnosis:Chronic pain of left knee [M25.562, G89.29] Other Visit Diagnoses:Chronic pain of right knee [M25.561, G89.29] Difficulty in walking [R26.2] Allergies As of Date: 03/15/2024 Noted Allergy Reaction PENICILLIN G 06/13/2011 2 - Rash Comments: Allergy as a child. GURVINDER 03/02/2021 10 - Anaphylaxis Date Reviewed: 11/11/2023 Reviewed by: Alexa Rowe MA - Fully Assessed Prescriptions as of 03/15/2024 - meloxicam (MOBIC) 7.5 mg tablet take 1 tablet by mouth every day - tirzepatide, weight loss (ZEPBOUND) 5 mg/0.5 mL pen injector Inject 5 mg subcutaneously one time a week. - albuterol HFA (PROAIR HFA) 90 mcg/actuation inhaler Inhale 1-2 Puffs as instructed every 4 hours as needed for wheezing/shortness of breath. - mometasone-formoterol (DULERA) 100-5 mcg/actuation inhaler Inhale 2 Puffs as instructed two times a day. - Bifidobacterium infantis (ALIGN ORAL) Take by mouth once daily. On hold - levothyroxine (SYNTHROID) 200 mcg tablet Take 1 tablet by mouth daily before breakfast. Take for a total of 225 mcg daily - levothyroxine (SYNTHROID) 25 mcg tablet Take 1 tablet by mouth once daily. Take for a total of 225 mcg daily - hydroCHLOROthiazide 12.5 mg capsule Take 1 capsule by mouth once daily. - Blood Pressure Monitor 1 Each once daily. Goal is less than 130/80 Xtra large cuff - tirzepatide, weight loss (ZEPBOUND) 2.5 mg/0.5 mL pen injector Inject 2.5 mg subcutaneously one time a week. - albuterol (PROVENTIL) 2.5 mg /3 mL (0.083 %) nebulizer solution Use 3 mL via nebulizer every 4 hours as needed for Wheezing/Shortness of Breath. Use over 5-15minutes. - albuterol (PROVENTIL) 5 mg/mL nebu Inhale 0.5 mL as instructed one time only for 1 dose. 1 DOSE NOW - BACK OFFICE. PLACE 0.5 ML PER DROPPER AND 2.5 ML OF NORMAL SALINE INTO RESERVOIR. Dermatology Sales Representative: Addendum Therapy (PT/OT/Speech/Resp) ID: [id number] 03/15/2024 1:38 PM Author: ANA WEIR Signed by ANA WEIR PT on 03/15/2024 at 1:38 PM * * * This document replaces document [id number] * * * Document text: Program_ID:[id number] Access Code: [email or web address] URL: [email or web address]/ Date: 03-15-2024 Prepared By: Yesy Zepeda Program Notes Exercises - Sidelying Hip Abduction - 1 x daily - 7 x weekly - 2 sets - 20 reps - Supine Bridge - 1-2 x daily - 7 x weekly - 3 sets - 12 reps - Modified Prone Quadriceps Stretch with Strap - 2-3 x daily - 7 x weekly - 1 sets - 3 reps - Prone Hip Extension - 1 x daily - 7 x weekly - 3 sets - [address] [facility] THERAPY NTon 03-15-2024 THERAPY NT HNO ID: [id number] Author: ANA WEIR, PT Service: ? Author Type: Physical Therapist Type: Therapy (PT/OT/Speech/Resp) Filed: 03/15/2024 13:38 Note Text: Program_ID:[id number] Access Code: [email or web address] URL: [email or web address]/ Date: 03-15-2024 Prepared By: Yesy Zepeda Program Notes Exercises - Sidelying Hip Abduction - 1 x daily - 7 x weekly - 2 sets - 20 reps - Supine Bridge - 1-2 x daily - 7 x weekly - 3 sets - 12 reps - Modified Prone Quadriceps Stretch with Strap - 2-3 x daily - 7 x weekly - 1 sets - 3 reps - Prone Hip Extension - 1 x daily - 7 x weekly - 3 sets - [address] [facility] CNTHERAPYon 03-01-2024 CNTHERAPY OT/PT/Speech Visit (PTWS) SARIKA CORONA ([id number]) 1970 F Date Time Provider Department 03/01/24 1:30 PM YESY MUSTAFA PTLAKSHMI Date Time Provider Department Center 03/01/2024 1:30 PM [id number][facility]: [facility] Eval [977] Patient Education [91] Primary Visit Diagnosis:Chronic pain of left knee [M25.562, G89.29] Other Visit Diagnoses:Chronic pain of right knee [M25.561, G89.29] Difficulty in walking [R26.2] Allergies As of Date: 03/01/2024 Noted Allergy Reaction PENICILLIN G 06/13/2011 2 - Rash Comments: Allergy as a child. QUININE 03/02/2021 10 - Anaphylaxis Date Reviewed: 11/11/2023 Reviewed by: Alexa Rowe MA - Fully Assessed Prescriptions as of 03/01/2024 - meloxicam (MOBIC) 7.5 mg tablet take 1 tablet by mouth every day - tirzepatide, weight loss (ZEPBOUND) 5 mg/0.5 mL pen injector Inject 5 mg subcutaneously one time a week. - albuterol HFA (PROAIR HFA) 90 mcg/actuation inhaler Inhale 1-2 Puffs as instructed every 4 hours as needed for wheezing/shortness of breath. - mometasone-formoterol (DULERA) 100-5 mcg/actuation inhaler Inhale 2 Puffs as instructed two times a day. - Bifidobacterium infantis (ALIGN ORAL) Take by mouth once daily. On hold - levothyroxine (SYNTHROID) 200 mcg tablet Take 1 tablet by mouth daily before breakfast. Take for a total of 225 mcg daily - levothyroxine (SYNTHROID) 25 mcg tablet Take 1 tablet by mouth once daily. Take for a total of 225 mcg daily - hydroCHLOROthiazide 12.5 mg capsule Take 1 capsule by mouth once daily. - Blood Pressure Monitor 1 Each once daily. Goal is less than 130/80 Xtra large cuff - tirzepatide, weight loss (ZEPBOUND) 2.5 mg/0.5 mL pen injector Inject 2.5 mg subcutaneously one time a week. - albuterol (PROVENTIL) 2.5 mg /3 mL (0.083 %) nebulizer solution Use 3 mL via nebulizer every 4 hours as needed for Wheezing/Shortness of Breath. Use over 5-15minutes. - albuterol (PROVENTIL) 5 mg/mL nebu Inhale 0.5 mL as instructed one time only for 1 dose. 1 DOSE NOW - BACK OFFICE. PLACE 0.5 ML PER DROPPER AND 2.5 ML OF NORMAL SALINE INTO RESERVOIR. Dermatology Sales Representative: Therapy (PT/OT/Speech/Resp) ID: [id number] 03/01/2024 2:15 PM Author: YESY MUSTAFA Signed by YESY MUSTAFA PT, DPT on 03/01/2024 at 2:15 PM Document text: Program_ID:[id number] Access Code: [email or web address] URL: [email or web address] Date: 03-01-2024 Prepared By: Yesy Zepeda Program Notes Exercises - Active Straight Leg Raise with Quad Set - 1 x daily - 7 x weekly - 2 sets - 10 reps - Modified Yon Stretch - 1 x daily - 7 x weekly - 2 sets - 2 reps - Sidelying Hip Abduction - 1 x daily - 7 x weekly - 2 sets - [address] [facility] THERAPY NTon 03-01-2024 THERAPY NT HNO ID: [id number] Author: YESY MUSTAFA, PT, DPT Service: ? Author Type: Physical Therapist Type: Therapy (PT/OT/Speech/Resp) Filed: 03/01/2024 14:15 Note Text: Program_ID:[id number] Access Code: [email or web address] URL: [email or web address] Date: 03-01-2024 Prepared By: Yesy Zepeda Program Notes Exercises - Active Straight Leg Raise with Quad Set - 1 x daily - 7 x weekly - 2 sets - 10 reps - Modified Yon Stretch - 1 x daily - 7 x weekly - 2 sets - 2 reps - Sidelying Hip Abduction - 1 x daily - 7 x weekly - 2 sets - [address] [facility] CNOVon 02-06-2024 CNOV Office Visit (ORMDNA ) SARIKA CORONA ([id number]) 1970 F Date Time Provider Department 02/06/24 1:30 PM JIMMY MASON During your visit today, we recorded the following information about you: Jimmy Mason PA-C 02/06/2024 2:20 PM Signed INJECTION PROCEDURE NOTE: Patient returns today for left knee injection. Patient continues to have left knee pain with recent aggravation when she was walking extensively at [place]. Will proceed with CSI today. Prior to the procedure, the patient's allergies were reviewed. The procedure site was marked. The procedure team checked for proper functioning of devices and supplies to be used for the procedure. Large Joint Arthro/Inj: L knee joint Informed Consent Consent Obtained: Verbal [place] Protocol A moment to CARE was completed. SIGN IN Personnel directly involved with the procedure wore the appropriate PPE. Special Equipment: N/A Patient/Surrogate Stated/Verified: Patient name, Date of , Relevant allergies and Intended procedure TIME OUT Relevant labs, photos, and/or imaging studies have been reviewed. Correct side/site marked and visible. Medications required for procedure verified. No fire risk assessment and interventions applicable. No implant(s) inserted. 02/06/2024 2:20 PM The procedure site was prepped in the usual sterile fashion. Site: L knee joint Medications: 80 mg triamcinolone acetonide 40 mg/mL Anesthetics: 5 mL lidocaine (PF) 10 mg/mL (1 %) Outcome: Tolerated well, no immediate complications Post-injection instructions were reviewed with the patient and the patient voiced understanding of these instructions. SIGN OUT All instruments, equipment, possible retained foreign bodies accounted for. Jimmy Mason PA-C Referring Provider: SELF [200] Allergies As of Date: 02/06/2024 Noted Allergy Reaction PENICILLIN G 06/13/2011 2 - Rash Comments: Allergy as a child. QUININE 03/02/2021 10 - Anaphylaxis Date Reviewed: 11/11/2023 Reviewed by: Alexa Rowe MA - Fully Assessed Reason for Visit: Established Patient [175] Knee Pain [132] Primary Visit Diagnosis:Primary osteoarthritis of left knee [M17.12] Other Visit Diagnosis:Primary osteoarthritis of both knees [M17.0] Order(s):CONSULT TO PHYSICAL THERAPY [9032] Order #: [id number]: 1 FUTURE Large Joint Arthro/Inj: L knee joint [XQJ808] Order #: [id number] [] lidocaine (PF) 10 mg/mL (1 %) 5 mL injection (XYLOCAINE)Disp: Rfl: [] triamcinolone acetonide 80 mg injection (KeNALog 40)Disp: Rfl: Prescriptions as of 02/06/2024 - meloxicam (MOBIC) 7.5 mg tablet take 1 tablet by mouth every day - tirzepatide, weight loss (ZEPBOUND) 5 mg/0.5 mL pen injector Inject 5 mg subcutaneously one time a week. - albuterol HFA (PROAIR HFA) 90 mcg/actuation inhaler Inhale 1-2 Puffs as instructed every 4 hours as needed for wheezing/shortness of breath. - mometasone-formoterol (DULERA) 100-5 mcg/actuation inhaler Inhale 2 Puffs as instructed two times a day. - Bifidobacterium infantis (ALIGN ORAL) Take by mouth once daily. On hold - levothyroxine (SYNTHROID) 200 mcg tablet Take 1 tablet by mouth daily before breakfast. Take for a total of 225 mcg daily - levothyroxine (SYNTHROID) 25 mcg tablet Take 1 tablet by mouth once daily. Take for a total of 225 mcg daily - hydroCHLOROthiazide 12.5 mg capsule Take 1 capsule by mouth once daily. - Blood Pressure Monitor 1 Each once daily. Goal is less than 130/80 Xtra large cuff - tirzepatide, weight loss (ZEPBOUND) 2.5 mg/0.5 mL pen injector Inject 2.5 mg subcutaneously one time a week. - albuterol (PROVENTIL) 2.5 mg /3 mL (0.083 %) nebulizer solution Use 3 mL via nebulizer every 4 hours as needed for Wheezing/Shortness of Breath. Use over 5-15minutes. - albuterol (PROVENTIL) 5 mg/mL nebu Inhale 0.5 mL as instructed one time only for 1 dose. 1 DOSE NOW - BACK OFFICE. PLACE 0.5 ML PER DROPPER AND 2.5 ML OF NORMAL SALINE INTO RESERVOIR. 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] 06/13/2011 Asthma, mild intermittent [J45.20] 06/13/2011 History of thyroid cancer [Z85.850] 05/10/2014 Obesity [E66.9] 07/10/2015 Witnessed apneic spells [R06.81] 05/30/2022 Elevated TSH [R79.89] 05/30/2022 Pain with bowel movements [R19.8] 08/28/2022 Abdominal pressure [R10.9] 08/28/2022 History of hysterectomy [Z90.710] 08/28/2022 History of uterine fibroid [Z86.018] 08/28/2022 Urine retention [R33.9] 08/28/2022 Vitamin D deficiency [E55.9] 08/28/2022 Chronic coughing [R05.3] 08/28/2022 Bronchiectasis without complication (HCC) [J47.*08/28/2022 Belching [R14.2] 08/28/2022 Hernia [K46.9] 08/28/2022 Prediabetes [R73.03] 08/26/2023 Primary hypertension [I10] 08/26/2023 Acute pain of both knees [M25.561, M25.562] 08/26/2023 Elevated (more content not included)... Normal [facility] Large Joint Arthro/Inj: L kn ee jointon 02-06-2024 Jimmy Mason P A-C 02/06/2024 2:20 PM Large Joint Arthro/Inj: L knee joint Informed Consent Consent Obtained: Verbal [place] Protocol A moment to CARE was completed. SIGN IN Personnel directly involved with the procedure wore the appropriate PPE. Special Equipment: N/A Patient/Surrogate Stated/Verified: Patient name, Date of , Relevant allergies and Intended procedure TIME OUT Relevant labs, photos, and/or imaging studies have been reviewed. Correct side/site marked and visible. Medications required for procedure verified. No fire risk assessment and interventions applicable. No implant(s) inserted. 02/06/2024 2:20 PM The procedure site was prepped in the usual sterile fashion. Site: L knee joint Medications: 80 mg triamcinolone acetonide 40 mg/mL Anesthetics: 5 mL lidocaine (PF) 10 mg/mL (1 %) Outcome: Tolerated well, no immediate complications Post-injection instructions were reviewed with the patient and the patient voiced understanding of these instructions. SIGN OUT All instruments, equipment, possible retained foreign bodies accounted for. [facility] 11-26-2023 CNPN Telephone (AGGASTACC ) SARIKA CORONA ([id number]) 1970 F Date Time Provider Department 11/26/23 ANA TRIANA AGGASTACC During your visit today, we recorded the following information about you: Ana Triana PA-C 11/26/2023 4:18 PM Signed Alverto Niño, please get this pt scheduled with on of the GI doctors. [place] Debora L 11/27/2023 3:30 PM Signed Per prev notes-called pt left voice mail message asking the patient to call our office back to schedule a follow up with GI ruth ann Cunha Allergies As of Date: 11/26/2023 Noted Allergy Reaction PENICILLIN G 06/13/2011 2 - Rash Comments: Allergy as a child. QUININE 03/02/2021 10 - Anaphylaxis Date Reviewed: 11/11/2023 Reviewed by: Alexa Rowe MA - Fully Assessed Reason for Visit: Appointment [186] Prescriptions as of 11/27/2023 - tirzepatide, weight loss (ZEPBOUND) 5 mg/0.5 mL pen injector Inject 5 mg subcutaneously one time a week. - albuterol HFA (PROAIR HFA) 90 mcg/actuation inhaler Inhale 1-2 Puffs as instructed every 4 hours as needed for wheezing/shortness of breath. - mometasone-formoterol (DULERA) 100-5 mcg/actuation inhaler Inhale 2 Puffs as instructed two times a day. - meloxicam (MOBIC) 7.5 mg tablet Take 1 tablet by mouth once daily. - Bifidobacterium infantis (ALIGN ORAL) Take by mouth once daily. On hold - levothyroxine (SYNTHROID) 200 mcg tablet Take 1 tablet by mouth daily before breakfast. Take for a total of 225 mcg daily - levothyroxine (SYNTHROID) 25 mcg tablet Take 1 tablet by mouth once daily. Take for a total of 225 mcg daily - hydroCHLOROthiazide 12.5 mg capsule Take 1 capsule by mouth once daily. - Blood Pressure Monitor 1 Each once daily. Goal is less than 130/80 Xtra large cuff - tirzepatide, weight loss (ZEPBOUND) 2.5 mg/0.5 mL pen injector Inject 2.5 mg subcutaneously one time a week. - albuterol (PROVENTIL) 2.5 mg /3 mL (0.083 %) nebulizer solution Use 3 mL via nebulizer every 4 hours as needed for Wheezing/Shortness of Breath. Use over 5-15minutes. - albuterol (PROVENTIL) 5 mg/mL nebu Inhale 0.5 mL as instructed one time only for 1 dose. 1 DOSE NOW - BACK OFFICE. PLACE 0.5 ML PER DROPPER AND 2.5 ML OF NORMAL SALINE INTO RESERVOIR. Problem List As Of Date 11/26/2023 Noted Resolved Postoperative hypothyroidism [E89.0] 06/13/2011 Asthma, mild intermittent [J45.20] 06/13/2011 History of thyroid cancer [Z85.850] 05/10/2014 Obesity [E66.9] 07/10/2015 Witnessed apneic spells [R06.81] 05/30/2022 Elevated TSH [R79.89] 05/30/2022 Pain with bowel movements [R19.8] 08/28/2022 Abdominal pressure [R10.9] 08/28/2022 History of hysterectomy [Z90.710] 08/28/2022 History of uterine fibroid [Z86.018] 08/28/2022 Urine retention [R33.9] 08/28/2022 Vitamin D deficiency [E55.9] 08/28/2022 Chronic coughing [R05.3] 08/28/2022 Bronchiectasis without complication (HCC) [J47.*08/28/2022 Belching [R14.2] 08/28/2022 Hernia [K46.9] 08/28/2022 Prediabetes [R73.03] 08/26/2023 Primary hypertension [I10] 08/26/2023 Acute pain of both knees [M25.561, M25.562] 08/26/2023 Elevated fasting glucose [R73.01] 08/26/2023 ONEIDA (obstructive sleep apnea) [G47.33] 09/29/2023 Pedal edema [R60.0] 09/29/2023 Bloating [R14.0] 09/29/2023 Encounter Status:Closed by ANA TRIANA on 11/26/23 [facility] [place] ([place] SARIKA CORONA ([id number]) 1970 F Date Time Provider Department 11/20/23 10:30 AM NURSE KEIRY [facility] During your visit today, we recorded the following information about you: Olvin Wade CT 11/24/2023 8:58 AM Signed Glucose - SIBO Hydrogen Breath Test November 24, 2023 Referring Physician: Maryse Macedo MD Indication Bloating, Abdominal pain, belching Prep: 4 weeks followin hour before: No Smoking Day of test - No gum chewing Pain Level: none Baseline Hydrogen: 14 Methane: 3 DESTIN Bejarano Time given: 1030am 50 grams / 50 grams Clock time start: 1035am 15 minutes Hydrogen: 30 Methane: 3 DESTIN Bejarano 30 minutes Hydrogen: 30 Methane: 5 Nikkiya Meche, CT 45 minutes Hydrogen: 19 Methane: 3 Olvin Meche, CT 1 hour Hydrogen: 19 Methane: 2 Lihnya Meche, CT 1 hour, 15 minutes Hydrogen: 27 Methane: 4 Nikkiya Meche, CT 1 hour, 30 minutes Hydrogen: 23 Methane: 4 Nikkiyovani Meche, CT Symptoms developed during the study: n/a Patient Results Preliminary Test Results (not given to patient): pending Olvin Wade, CT Patient must be = Hydrogen >20 or Methane >10 in order to be positive for Bacterial Overgrowth Referring Provider: MARYSE MACEDO [[id number]] Allergies As of Date: 11/20/2023 Noted Allergy Reaction PENICILLIN G 06/13/2011 2 - Rash Comments: Allergy as a child. QUININE 03/02/2021 10 - Anaphylaxis Date Reviewed: 11/11/2023 Reviewed by: Alexa Rowe MA - Fully Assessed Reason for Visit: Breath Hydrogen Test [473] Visit Diagnoses:Belching [R14.2] Bloating [R14.0] Order(s):BREATH TEST GLUCOSE [6012409] Order #: [id number] Prescriptions as of 11/24/2023 - tirzepatide, weight loss (ZEPBOUND) 5 mg/0.5 mL pen injector Inject 5 mg subcutaneously one time a week. - albuterol HFA (PROAIR HFA) 90 mcg/actuation inhaler Inhale 1-2 Puffs as instructed every 4 hours as needed for wheezing/shortness of breath. - mometasone-formoterol (DULERA) 100-5 mcg/actuation inhaler Inhale 2 Puffs as instructed two times a day. - meloxicam (MOBIC) 7.5 mg tablet Take 1 tablet by mouth once daily. - Bifidobacterium infantis (ALIGN ORAL) Take by mouth once daily. On hold - levothyroxine (SYNTHROID) 200 mcg tablet Take 1 tablet by mouth daily before breakfast. Take for a total of 225 mcg daily - levothyroxine (SYNTHROID) 25 mcg tablet Take 1 tablet by mouth once daily. Take for a total of 225 mcg daily - hydroCHLOROthiazide 12.5 mg capsule Take 1 capsule by mouth once daily. - Blood Pressure Monitor 1 Each once daily. Goal is less than 130/80 Xtra large cuff - tirzepatide, weight loss (ZEPBOUND) 2.5 mg/0.5 mL pen injector Inject 2.5 mg subcutaneously one time a week. - albuterol (PROVENTIL) 2.5 mg /3 mL (0.083 %) nebulizer solution Use 3 mL via nebulizer every 4 hours as needed for Wheezing/Shortness of Breath. Use over 5-15minutes. - albuterol (PROVENTIL) 5 mg/mL nebu Inhale 0.5 mL as instructed one time only for 1 dose. 1 DOSE NOW - BACK OFFICE. PLACE 0.5 ML PER DROPPER AND 2.5 ML OF NORMAL SALINE INTO RESERVOIR. Problem List As Of Date 11/20/2023 Noted Resolved Postoperative hypothyroidism [E89.0] 06/13/2011 Asthma, mild intermittent [J45.20] 06/13/2011 History of thyroid cancer [Z85.850] 05/10/2014 Obesity [E66.9] 07/10/2015 Witnessed apneic spells [R06.81] 05/30/2022 Elevated TSH [R79.89] 05/30/2022 Pain with bowel movements [R19.8] 08/28/2022 Abdominal pressure [R10.9] 08/28/2022 History of hysterectomy [Z90.710] 08/28/2022 History of uterine fibroid [Z86.018] 08/28/2022 Urine retention [R33.9] 08/28/2022 Vitamin D deficiency [E55.9] 08/28/2022 Chronic coughing [R05.3] 08/28/2022 Bronchiectasis without complication (HCC) [J47.*08/28/2022 Belching [R14.2] 08/28/2022 Hernia [K46.9] 08/28/2022 Prediabetes [R73.03] 08/26/2023 Primary hypertension [I10] 08/26/2023 Acute pain of both knees [M25.561, M25.562] 08/26/2023 Elevated fasting glucose [R73.01] 08/26/2023 ONEIDA (obstructive sleep apnea) [G47.33] 09/29/2023 Pedal edema [R60.0] 09/29/2023 Bloating [R14.0] 09/29/2023 Encounter Status:Closed by OLVIN WADE on 11/24/23 [facility] Nurse Visit (ESAU) CHLOETESSASARIKA R ([id number]) 1970 F Date Time Provider Department 11/11/23 10:30 AM NURSE KEIRY CIFUENTES During your visit today, we recorded the following information about you: Olvin Wade CT 11/13/2023 2:43 PM Addendum Glucose - SIBO Hydrogen Breath Test November 11, 2023 Referring Physician: Ana Triana PA-C Indication Bloating, Abdominal pain, Diarrhea, Milk intolerance Prep: 4 weeks followin hour before: No Smoking Day of test - No gum chewing Pain Level:none Baseline Hydrogen: 31 Methane: [address] Time given: 1040am 50 grams / 50 grams Clock time start: 1045am 15 minutes Hydrogen: 44 Methane: [address] 30 minutes Hydrogen: 18 Methane: [address] 45 minutes Hydrogen: 30 Methane: [address] 1 hour Hydrogen: 24 Methane: 5 DESTIN Bejarano 1 hour, 15 minutes Hydrogen: 24 Methane: [address] 1 hour, 30 minutes Hydrogen: 22 Methane: [address] Symptoms developed during the study: burping Patient Results Preliminary Test Results (not given to patient): pending DESTIN Bejarano Patient must be = Hydrogen >20 or Methane >10 in order to be positive for Bacterial Overgrowth Referring Provider: ANA TRIANA [[id number]] Allergies As of Date: 11/11/2023 Noted Allergy Reaction PENICILLIN G 06/13/2011 2 - Rash Comments: Allergy as a child. GURVINDER 03/02/2021 10 - Anaphylaxis Date Reviewed: 11/11/2023 Reviewed by: Alexa Rowe MA - Fully Assessed Reason for Visit: Breath Hydrogen Test [473] Visit Diagnoses:Bloating [R14.0] Belching [R14.2] Order(s):BREATH TEST GLUCOSE [[id number]] Order #: [id number] Prescriptions as of 11/13/2023 - tirzepatide, weight loss (ZEPBOUND) 5 mg/0.5 mL pen injector Inject 5 mg subcutaneously one time a week. - methylPREDNISolone (MEDROL, YASMEEN,) 4 mg Dose-Pack As instructed per package - albuterol HFA (PROAIR HFA) 90 mcg/actuation inhaler Inhale 1-2 Puffs as instructed every 4 hours as needed for wheezing/shortness of breath. - mometasone-formoterol (DULERA) 100-5 mcg/actuation inhaler Inhale 2 Puffs as instructed two times a day. - meloxicam (MOBIC) 7.5 mg tablet Take 1 tablet by mouth once daily. - Bifidobacterium infantis (ALIGN ORAL) Take by mouth once daily. On hold - levothyroxine (SYNTHROID) 200 mcg tablet Take 1 tablet by mouth daily before breakfast. Take for a total of 225 mcg daily - levothyroxine (SYNTHROID) 25 mcg tablet Take 1 tablet by mouth once daily. Take for a total of 225 mcg daily - hydroCHLOROthiazide 12.5 mg capsule Take 1 capsule by mouth once daily. - Blood Pressure Monitor 1 Each once daily. Goal is less than 130/80 Xtra large cuff - tirzepatide, weight loss (ZEPBOUND) 2.5 mg/0.5 mL pen injector Inject 2.5 mg subcutaneously one time a week. - albuterol (PROVENTIL) 2.5 mg /3 mL (0.083 %) nebulizer solution Use 3 mL via nebulizer every 4 hours as needed for Wheezing/Shortness of Breath. Use over 5-15minutes. - albuterol (PROVENTIL) 5 mg/mL nebu Inhale 0.5 mL as instructed one time only for 1 dose. 1 DOSE NOW - BACK OFFICE. PLACE 0.5 ML PER DROPPER AND 2.5 ML OF NORMAL SALINE INTO RESERVOIR. Problem List As Of Date 11/11/2023 Noted Resolved Postoperative hypothyroidism [E89.0] 06/13/2011 Asthma, mild intermittent [J45.20] 06/13/2011 History of thyroid cancer [Z85.850] 05/10/2014 Obesity [E66.9] 07/10/2015 Witnessed apneic spells [R06.81] 05/30/2022 Elevated TSH [R79.89] 05/30/2022 Pain with bowel movements [R19.8] 08/28/2022 Abdominal pressure [R10.9] 08/28/2022 History of hysterectomy [Z90.710] 08/28/2022 History of uterine fibroid [Z86.018] 08/28/2022 Urine retention [R33.9] 08/28/2022 Vitamin D deficiency [E55.9] 08/28/2022 Chronic coughing [R05.3] 08/28/2022 Bronchiectasis without complication (HCC) [J47.*08/28/2022 Belching [R14.2] 08/28/2022 Hernia [K46.9] 08/28/2022 Prediabetes [R73.03] 08/26/2023 Primary hypertension [I10] 08/26/2023 Acute pain of both knees [M25.561, M25.562] 08/26/2023 Elevated fasting glucose [R73.01] 08/26/2023 ONEIDA (obstructive sleep apnea) [G47.33] 09/29/2023 Pedal edema [R60.0] 09/29/2023 Bloating [R14.0] 09/29/2023 Encounter Status:Closed by OLVIN WADE on 11/11/[address] [facility] Bacteria Spec Resp Culton Bacteria identified Respiratory culture Nom (Unsp spec) ORGANISM ID: 1 Many normal respiratory chuyita GRAM STAIN: Few Mixed oral chuyita Rare Polymorphonuclear leukocytes Abnormal [facility] Comment on above: Performed By: #### 3 2355-0 #### [facility] CLIA [id number] [address] [place] [address] [place] CNOVon 10-29-2023 CNOV Office Visit (PUMBHT ) SARIKA CORONA ([id number]) 1970 F Date Time Provider Department 10/29/23 10:15 AM JOHANNE JOHNSON During your visit today, we recorded the following information about you: Pulse Blood pressure Weight Height 86/minute 126/84 109.9 kg 1.684 m Johanne Johnson MD 10/29/2023 11:21 AM Signed . Pulmonary Clinic Note Patient Name: Sarika Corona PRIMARY CARE PHYSICIAN: Carmen Messina APRN.FROYLAN Date of visit: October 29, 2023 Consult requested by: Carmen Messina APRN. MOBILITY ARCHITECT MANAGER Reason for visit: Bronchiectasis COMMUNICATION WILL BE SENT VIA SHARED MEDICAL RECORDS OR US MAIL. HPI: Ms. Corona is a 53 year old year old woman with a past medical history significant for ONEIDA and hypertension who presents today to discuss bronchiectasis. In reviewing her history, she states that throughout her life, she has been dealing with a constant cough with mucus production. Going back to her childhood, she had many episodes of bronchitis that seem to last throughout all seasons of the year. She had exposure to secondhand smoke and always seem to be sick. In adulthood, she has had pneumonia about 2 times in the last 6 years. Her current day-to-day symptoms include cough, mucus production of about 1 tablespoon at a time without hemoptysis, some intermittent chills but no measured fevers, seasonal allergies, and heartburn/bloating for which she is undergoing GI investigation. She denies any activity limiting dyspnea on exertion, but it is somewhat difficult to tell because her days are sedentary. She recalls being diagnosed with asthma with her when she was in her mid 20s. She was on Advair diskus for period of time but stopped this years ago for unclear reasons. About once per year she requires prednisone for bronchitis type of symptoms. She uses an albuterol inhaler about once every couple of weeks which helps about 70% of the time. She has been seen in the emergency department for breathing issues but is never been hospitalized. She has a nebulizer and nebulized albuterol about 1 time per year. Family history is significant for her sister having COPD, she was a smoker. Her mother has asthma. He denies any known family history of bronchiectatic disorders. On social history, she is a never smoker. She does not vape. There is a parrot and a left bird in her finished basement and she is not supposed to them. 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 She recently went on a trip to [place] with her son for mother's day and enjoyed spending time with him as he is very busy aiming to work as a commercial counsel. 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 Past Surgical History: PAST SURGICAL HISTORY Procedure Laterality Date ANESTH, SECTION 01/14/2003 ANESTH, SECTION 02/14/1998 DELIVERY ONLY 1995 COLONOSCOPY 02/22/2021 EGD CYSTOSCOPY 03/12/2021 LAPAROSCOPY W TOTAL HYSTERECTOMY UTERUS 250 GM/< 03/12/2021 REMOVAL OF OVARY/TUBE(S) 03/12/2021 THYROIDECTOMY TOTAL/COMPLETE 2013 TUBAL LIGATION HX 2002 Family History: FAMILY HISTORY Problem Relation Age of Onset Heart Mother Hypertension Mother Alcohol/Drug Father Cancer Father pancreatic Heart Sister Hypertension Sister Alcohol/Drug Brother Cancer Maternal Grandmother Diabetes Paternal Grandmother Cancer Paternal Grandmother uterine vs ovarian, unsure Social History: Social History Tobacco Use Smoking status: Never Smokeless tobacco: Never Vaping Use Vaping Use: Never used Substance Use Topics Alcohol use: No Drug use: No MEDICATIONS: meloxicam (MOBIC) 7.5 mg tablet Take 1 tablet by mouth once daily. levothyroxine (SYNTHROID) 200 mcg tablet Take 1 tablet by mouth daily before breakfast. Take for a total of 225 mcg daily levothyroxine (SYNTHROID) 25 mcg tablet Take 1 tablet by mouth once daily. Take for a total of 225 mcg daily albuterol HFA (PROAIR HFA) 90 mcg/actuation inhaler Inhale 1-2 Puffs as instructed every 4 hours as needed for wheezing/shortness of breath. hydroCHLOROthiazide 12.5 mg capsule Take 1 capsule by mouth once daily. albuterol (PROVENTIL) 2.5 mg /3 mL (0.083 %) nebulizer solution Use 3 mL via nebulizer every 4 hours as needed for Wheezing/Shortness of Breath. Use over 5-15minutes. B6/folic/B12/coffee/jose sphatid (NEURIVA PLUS ORAL) Take by mouth once daily. (Patient not taking: Reported on 09/29/2023) (more content not included)... Normal [facility] SPIROMETRY - BASELINE AND PO ST DILATORon 10-29-2023 PEX51-88% POST (L/S) 1.56 L/S [facility] TAG71-21% PRE (L/S) 1.29 L/S [facility] FEV1 PRE (L) 1.98 L [facility] FEV1/FVC POST (%) 75 % [facility] FEV1/FVC PRE (%) 72 % [facility] FEV1_POST (L) 2.[facility] [place] FVC POST (L) 2.74 L [facility] FVC PRE (L) 2.73 L [facility] PEF POST (L/S) 5.93 L/S [facility] PEF PRE (L/S) 6.03 L/S [address], [address] Test Date: 2023-10-29 Pat Name: SARIKA CORONA Department: Room: 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 Start of test and EOFE criteria met. 2 puffs Albuterol (180 mcg) delivered by MDI via holding chamber. HR pre = 95 min, HR post = 88 min. Medications and Allergies were reviewed for possible drug interactions per policy. No contraindications or sensitivities were noted. Meds taken: none before testing. // LD IMPRESSION: Spirometry shows no evidence of obstruction by FEV1/FVC criteria. Reduced FEF 25-75% could indicate small airway obstruction in the appropriate clinical setting. There is no significant bronchodilator response. Electronically Signed On 10-29-2023 12:48:33 EDT by Jesus Ellis MD ID: [id number] Name: SARIKA CORONA Race: White Ht: 65.20 in Wt: 241.00 lbs Age: 53 Gender: Female : 1970 Dx: Other forms of dyspnea Smoking Hx: Non-smoker Doctor: PROVIDER, [facility] Test Date: 10/29/2023 Site: [facility] Tech: Yakelin Floyd PRE-BRONCH POST-BRONCH Pre LLN Pred ULN %Pred Post %Pred %Chg SPIROMETRY FVC (L) 2.73 2.50 3.36 4.24 81 2.74 81 0 FEV1 (L) 1.98 2.00 2.72 3.40 72 2.05 75 2 FEV1/FVC 0.72 0.69 0.81 0.90 89 0.75 92 3 PEF L/s (L/sec) 6.03 5.10 6.88 8.65 87 5.93 86 -1 FEF50 (L/sec) 2.01 2.04 3.65 5.26 55 2.40 65 19 FIF50 (L/sec) 3.24 2.93 -9 FEF50/FIF50 0.62 90-100 0.82 32 FIVC (L) 2.51 2.54 1 QOS38-80 (L/sec) 1.29 1.53 2.75 4.30 47 1.56 57 20 Time (sec) 9.59 8.97 -6 FET PEF (sec) 0.08 0.12 43 CHHAYA (L) 0.08 0.11 38 Vol Extrap % (%) 3 4 37 Comments: Pre and Post BD: Current ATS/ERS acceptability and repeatability standards for spirometry met. Start of test and EOFE criteria met. 2 puffs Albuterol (180 mcg) delivered by MDI via holding chamber. HR pre = 95 min, HR post = 88 min. Medications and Allergies were reviewed for possible drug interactions per policy. No contraindications or sensitivities were noted. Meds taken: none before testing. // LD PULMONARY FUNCTION LAB [facility] CNOVon 10-17-2023 CNOV Office Visit (ORTHWS ) SARIKA CORONA ([id number]) 1970 F Date Time Provider Department 10/17/23 1:00 PM JIMMY MASON During your visit today, we recorded the following information about you: Breann Dick RN 10/17/2023 1:38 PM Signed AMB ROOMING INTAKE FLOWSHEET DATA Pain Pain Level: 2 Pain Location: Other: See Comment (bilateral knees) Description: Aching Frequency: Intermittent Intervention/Comfort measure: Relaxation, Reposition Patient presents with: Right Knee - New, Knee Pain Left Knee - New, Knee Pain Patient presents for bilateral knee pain. Right knee has been intermittently bothering her for years, left knee just recently started bothering her. Patient states that pain increases with most any form of exercise and right is normally more painful than left. Had right knee XR today Jimmy Mason PA-C 10/17/2023 1:38 PM Signed HISTORY OF PRESENT ILLNESS: Sarika is a 53 year old female. She is here for evaluation of Bilateral knee pain. Patient reports that her right knee has been bothering her intermittently for many years, but her left knee has only started to bother her for approximately 2 months. She reports that she has been having increasing pain with any form of exercise including dance videos at home, walking around her neighborhood, jumping jacks, and weightlifting. She describes her pain to be a 7 out of 10 after her outdoor walks. Kirstie also reports that high impact activities bother her the most. She points to the medial aspect of bilateral knees as the main source of pain. Denies use of qegz-nbo-psbbtok analgesics or anti-inflammatories. She states that she has tried a knee brace but this did not fit her well due to the shape of her legs. Patient also reports lateral right elbow pain as a result of upper body weight lifting. She states that she plays video games and in between rounds kali she lifts weights. She demonstrated a bicep curl with lateral elbow pain. Injury:No Pain: Yes LOCATION: Medial bilateral knees, lateral right elbow PAIN SCALE: 2/10 today, 7/10 after walking in her neighborhood PAIN CHARACTER: aching DURATION: (How long have you had the pain?) Right knee for many years, 2 months for left knee AGGRAVATING FACTORS: Impact exercise, walking, activity ALLEVIATING FACTORS: resting Onset: gradual and progressive Quality:aching Swelling: Patient notes intermittent swelling of the joint. Mechanical symptoms: None Radiation: None Activities: walking Restriction: none Progression: Constant Previous treatment: the assistive use of a knee brace NSAIDS: Patient has not used any prescription, OTC or herbal medications to aid in relief of this problem. PT:No physical therapy program has been initiated. MEDICATIONS Current Outpatient Medications on File Prior to Visit Medication Sig Bifidobacterium infantis (ALIGN ORAL) Take by mouth once daily. On hold levothyroxine (SYNTHROID) 200 mcg tablet Take 1 tablet by mouth daily before breakfast. Take for a total of 225 mcg daily levothyroxine (SYNTHROID) 25 mcg tablet Take 1 tablet by mouth once daily. Take for a total of 225 mcg daily albuterol HFA (PROAIR HFA) 90 mcg/actuation inhaler Inhale 1-2 Puffs as instructed every 4 hours as needed for wheezing/shortness of breath. hydroCHLOROthiazide 12.5 mg capsule Take 1 capsule by mouth once daily. albuterol (PROVENTIL) 2.5 mg /3 mL (0.083 %) nebulizer solution Use 3 mL via nebulizer every 4 hours as needed for Wheezing/Shortness of Breath. Use over 5-15minutes. B6/folic/B12/coffee/jose sphatid (NEURIVA PLUS ORAL) Take by mouth once daily. (Patient not taking: Reported on 09/29/2023) Blood Pressure Monitor 1 Each once daily. Goal is less than 130/80 Xtra large cuff (Patient not taking: Reported on 09/29/2023) tirzepatide, weight loss (ZEPBOUND) 2.5 mg/0.5 mL pen injector Inject 2.5 mg subcutaneously one time a week. cholecalciferol, Vitamin D3, (VITAMIN D3) 1,250 mcg (50,000 unit) cap capsule TAKE 1 CAPSULE BY MOUTH ONE TIME A WEEK FOR 8 DOSES. (Patient not taking: Reported on 10/17/2023) albuterol (PROVENTIL) 5 mg/mL nebu Inhale 0.5 mL as instructed one time only for 1 dose. 1 DOSE NOW - BACK OFFICE. PLACE 0.5 ML PER DROPPER AND 2.5 ML OF NORMAL SALINE INTO RESERVOIR. (Patient not taking: Reported on 10/17/2023) No current facility-administered medications on file prior to visit. ALLERGIES ALLERGIES Allergen Reactions Penicillin G Rash Allergy as a child. 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 Normal [facility] XR KNEE 4V AP/PA BOTH+LAT/ME R RTon 10-17-2023 XR KNEE 4V AP/PA BOTH+LAT/JERO RT * * *Final Report* * * DATE OF EXAM: Oct 17 2023 12:43PM WRX [id number] - XR KNEE 4V AP/PA BOTH+LAT/JERO RT / PROCEDURE REASON: Right knee pain, unspecified chronicity * * * * Physician Interpretation * * * * EXAMINATION: XR KNEE 4V AP/PA BOTH+LAT/JERO RT CLINICAL HISTORY: Right knee pain Technique: XR KNEE 4V AP/PA BOTH+LAT/JERO RT -- RIGHT with 4 views on 4 images Comparison: None RESULT: No acute fracture or dislocation. Moderate right medial compartment joint space narrowing with subchondral sclerosis and small marginal osteophytes. IMPRESSION: No acute fracture. Degenerative disease of the right knee. Administration Clerk: PSCB Transcribe Date/Time: Oct 21 2023 3:38P Dictated by : MEAGAN COULTER MD This examination was interpreted and the report reviewed and electronically signed by: MEAGAN COULTER MD on Oct 21 2023 3:38PM EST [id number] [facility] CNPN Telephone (PMNA14) SARIKA CORONA ([id number]) 1970 F Date Time Provider Department 10/16/23 [facility] PROVIDER [id number] During your visit today, we recorded the following information about you: ChristianAkbarh 10/16/2023 3:55 PM Signed Referring physician: Carmen Messina [facility] Address: [facility], [place] Diagnosis: Bronchiectasis Are there [facility] records: Yes Are there care everywhere records: Yes Has a referral form been faxed: Yes - consult order in [facility] Has patient been added to spreadsheet: No Routing: Please route to Niko Morris Unavailable from 10/29-11/03 and without cell service [place] with [place]chiectasis [place] [facility] [place]/20/2023 9:07 AM Signed Addended by: NIKO MORRIS on: 10/20/2023 09:07 AM Modules accepted: Orders Allergies As of Date: 10/16/2023 Noted Allergy Reaction PENICILLIN G 06/13/2011 2 - Rash Comments: Allergy as a child. QUININE 03/02/2021 10 - Anaphylaxis Date Reviewed: 09/29/2023 Reviewed by: Katey Vale MA - Fully Assessed Reason for Visit: Referral Request [[id number]] Primary Visit Diagnosis:Bronchiectasi s without acute exacerbation (HCC) [J47.9] Order(s):SPIROMETRY - BASELINE AND POST DILATOR [4554067] Order #: [id number]: 1 FUTURE RESPIRATORY THERAPY OP [facility] A90 [[id number]] Order #: [id number]: 1 Prescriptions as of 10/20/2023 - meloxicam (MOBIC) 7.5 mg tablet Take 1 tablet by mouth once daily. - B6/folic/B12/coffee/jose sphatid (NEURIVA PLUS ORAL) Take by mouth once daily. - Bifidobacterium infantis (ALIGN ORAL) Take by mouth once daily. On hold - levothyroxine (SYNTHROID) 200 mcg tablet Take 1 tablet by mouth daily before breakfast. Take for a total of 225 mcg daily - levothyroxine (SYNTHROID) 25 mcg tablet Take 1 tablet by mouth once daily. Take for a total of 225 mcg daily - albuterol HFA (PROAIR HFA) 90 mcg/actuation inhaler Inhale 1-2 Puffs as instructed every 4 hours as needed for wheezing/shortness of breath. - hydroCHLOROthiazide 12.5 mg capsule Take 1 capsule by mouth once daily. - Blood Pressure Monitor 1 Each once daily. Goal is less than 130/80 Xtra large cuff - tirzepatide, weight loss (ZEPBOUND) 2.5 mg/0.5 mL pen injector Inject 2.5 mg subcutaneously one time a week. - cholecalciferol, Vitamin D3, (VITAMIN D3) 1,250 mcg (50,000 unit) cap capsule TAKE 1 CAPSULE BY MOUTH ONE TIME A WEEK FOR 8 DOSES. - albuterol (PROVENTIL) 2.5 mg /3 mL (0.083 %) nebulizer solution Use 3 mL via nebulizer every 4 hours as needed for Wheezing/Shortness of Breath. Use over 5-15minutes. - albuterol (PROVENTIL) 5 mg/mL nebu Inhale 0.5 mL as instructed one time only for 1 dose. 1 DOSE NOW - BACK OFFICE. PLACE 0.5 ML PER DROPPER AND 2.5 ML OF NORMAL SALINE INTO RESERVOIR. Problem List As Of Date 10/16/2023 Noted Resolved Postoperative hypothyroidism [E89.0] 06/13/2011 Asthma, mild intermittent [J45.20] 06/13/2011 History of thyroid cancer [Z85.850] 05/10/2014 Obesity [E66.9] 07/10/2015 Witnessed apneic spells [R06.81] 05/30/2022 Elevated TSH [R79.89] 05/30/2022 Pain with bowel movements [R19.8] 08/28/2022 Abdominal pressure [R10.9] 08/28/2022 History of hysterectomy [Z90.710] 08/28/2022 History of uterine fibroid [Z86.018] 08/28/2022 Urine retention [R33.9] 08/28/2022 Vitamin D deficiency [E55.9] 08/28/2022 Chronic coughing [R05.3] 08/28/2022 Bronchiectasis without complication (HCC) [J47.*08/28/2022 Belching [R14.2] 08/28/2022 Hernia [K46.9] 08/28/2022 Prediabetes [R73.03] 08/26/2023 Primary hypertension [I10] 08/26/2023 Acute pain of both knees [M25.561, M25.562] 08/26/2023 Elevated fasting glucose [R73.01] 08/26/2023 ONEIDA (obstructive sleep apnea) [G47.33] 09/29/2023 Pedal edema [R60.0] 09/29/2023 Bloating [R14.0] 09/29/2023 Encounter Status:Closed by MAEGAN GONZALES on 10/17/[address] 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 Refer to note in patient chart for documentation of history and physical. Last Colonoscopy: 5 years ago. Referring Physician: Jocy Reese (Referring MD) Medicines: Monitored Anesthesia Care Complications: No immediate complications. Requesting Provider: Procedure: Pre-Anesthesia Assessment: - Prior to the procedure, a History and Physical was performed, and patient medications and allergies were reviewed. The patient is competent. The risks and benefits of the procedure and the sedation options and risks were discussed with the patient. All questions were answered and informed consent was obtained. Patient identification and proposed procedure were verified by the physician, the nurse and the airbrush artist photography in the procedure room at 10:54 AM. Mental Status Examination: alert and oriented. Airway Examination: normal oropharyngeal airway and neck mobility. Respiratory Examination: clear to auscultation. CV Examination: normal. Prophylactic Antibiotics: The patient does not require prophylactic antibiotics. Prior Anticoagulants: The patient has taken no anticoagulant or antiplatelet agents. ASA Grade Assessment: II - A patient with mild systemic disease. After reviewing the risks and benefits, the patient was deemed in satisfactory condition to undergo the procedure. The anesthesia plan was to use monitored anesthesia care (MAC). Immediately prior to administration of medications, the patient was re-assessed for adequacy to receive sedatives. The heart rate, respiratory rate, oxygen saturations, blood pressure, adequacy of pulmonary ventilation, and response to care were monitored throughout the procedure. The physical status of the patient was re-assessed after the procedure. After I obtained informed consent, the scope was passed under direct vision. Throughout the procedure, the patient's blood pressure, pulse, and oxygen saturations were monitored continuously. The Colonoscope was introduced through the anus and advanced to the terminal ileum, with identification of the appendiceal orifice and IC valve. I was present and participated during the entire procedure, including non-tian portions, and during the administration and monitoring of Moderate Sedation. The colonoscopy was performed without difficulty. The patient tolerated the procedure well. The quality of the bowel preparation was good. The terminal ileum, ileocecal valve, appendiceal orifice, and rectum were photographed. Scope Withdrawal Time: 0 hours 6 minutes 24 seconds Moderate Sedation: MAC anesthesia was administered by the anesthesia team. Findings: The perianal and digital rectal examinations were normal. Pertinent negatives include normal sphincter tone. The colon (entire examined portion) appeared normal. Biopsies for histology were taken with a cold forceps from the entire colon for evaluation of microscopic colitis. There is no endoscopic evidence of bleeding, diverticula, erythema, inflammation, mass, polyps, stenosis, stricture or ulcerations in the entire colon. The terminal ileum appeared normal. Impression: - The entire examined colon is normal. Biopsied. - The examined portion of the ileum was normal. Recommendation: - Patie (more content not included)... PROVATION [facility] SURGICAL PATHOLOGYOrdered By : Ryan Rubio on 12-19-2022 Case Report Surgical Pathology Report Case: [id number] Authorizing Provider: Farhad Mclean MD Collected: 12/18/2022 11:00 AM Ordering Location: Ambulatory Surgery Received: 12/18/2022 11:01 PM Pathologist: Ryan Rubio MD Specimens: A) - DUODENUM BIOPSY, R/O celiac disease B) - STOMACH BIOPSY, Gastric biopsy R/O H pylori C) - ESOPHAGUS BIOPSY, esophageal biopsy R/O EOE D) - COLON BIOPSY, Random colon R/O microscopic colitis [facility] Work Phone: FINAL DIAGNOSIS x2zmjDCgUDHbtYCpLXSs NVx qgzZyUQEjeKOaP3HpuqhvPS nrEY9yCG8xxFvzbIVffRPqY QRwTaVka6tjv876aCBdl3ri XTFJbrmavJb9tTrvC77ke6I 9HmdlU9uyDRAyWTnfTROuGT ukySRiZVg1ANEdgIIwwvDxT hIzSTJlwGWauIU5HWEyUD7v chmcYQauPUfuDUDssyH6NVV lsAEtG7PnJMWfCR9ntczxSV O4OFjtHXTzSUY7FcQyGHVhh 1Mgmig0GiZwnUBdYEyxxYJk uzqnvrKcBMYeASBRgJ1wUX7 4mGhzCljcvOC0KbkiSEFcRZ AFkB2sDJ2uhCFxzLGte1Fux 3d8rCVkrdFioTjfkYDbK1Ih cHKhgNS7w0XesXmlpO3dmQP wBdbdDVvxQ8HlUAZxrmhiHM CuGi2lZDC9q32tB5gvPUCpk 3SbjKeajTPlXR3cR8NsiDTe RhQyfJcyzFkyFU99F57fOZR 0vDPpYQ3iGDDiP88gFtjdEP 36UEdbw3EgoUZ3sD5dc1pfL yHxdN9isW1iyw6lvRYdWB6a CQUqMXLWtcQxgocoTV8dKAD xAlHlvGANDVsrD85hSPV0IH ZruAbgb0YzZMrfQLFvukqbf jghwPJgy18oJIDSZVH8RGfh LiAgXHBhclxwYXJkXGNmMFx cQRRcPz0bDCAsg1UgPZc1kj uvBcnthEU3VpgcQCPfZGLJg HbjYFGkrBg3ZFHeb44hhPJc sCOlyoG3mSSeXAQriUApMUi gHRxbvkMpN8YufrDpK8evtu mlifPeueMeATYyx7MroOMjk mNyZWFzZSBpbiBpbnRyYWVw rOSsHKdpTQivCW3puU3ajPe pbHMgKHVwIHRvIDUgcGVyIG awV0cgbO34EBPgYmmdpGVeN DJhc0R8AQUzlsKny5NtgfMd f5w8vCZvJCOmjHpbGCXrjPb wS8f5eALtKEUuqjyzRWDsHB 5xCRLglA4jKSXwNA1ru67iA kyhzCBtVVA9HYIlcjLfWODm zW2bwYWkyHDed4FxXXfsgBk kbs9gi8ooppxidUGkrkVbrR frlW8mJFHur4onO6lcESOzc mRpbmdzLlxwYXIgLSBObyBl osanXE2hRHQgXuIgfICpj9V cm3CmMoQku5gliJmzGjggXF JccGFyZFxwYXJ9 [facility] Work Phone: Gross Description y4lrdXNlSNUutADIJWHq MDR rRV1tlAihqNz2hAtqRZCinp H7sQObODfoj6hjHGY9o7auo iANClxkZWZmMVxwYXBlcncx UfR7HIdlEDCzikwbHPu3DHe cZKOdnXF0EVXkiKAeQ7NrVO SwQV7ovbl3CQQ3AXiePQTfI xV9TIEpOiJsKhwaHBs8OYKd fpW4Tts6ELQrZQNcyBKwo0C 0EMkuyuyhJYHhiJUqI089DN yil1SxdWKuNEienCZqJINFC kkrCpomdZkdw4NxyTWjAKkm EMOzEWYjHFrfnfwiDAy2ULV mGAyqcFQgSS4mpFjiNgfvbK cpz0TyvMAbMRvpTJJeWDRgK BgiZHGzVA4SRyScOTN1NKR8 CnH1FuN5ZOc0BLAZAlFsXsX rWoY4DAg4XVSjADk1YLt4FO mMRlCcRIW4LQkcBaWoHQY4F Sk2DHXbTAStWeZvHHJnUTJz IUrhPUtckCCeSM4jgJuahEO hytDOQhHMMS3GZC5CNNFBWR 0XH1hsjNTbGO1HDYYihZMWX II7IH5lVEWBCllhaQCaNVGr fAjgFSkjkP1uJY2RPOs1wkE fMBIxHrZlNoSyVXl8KWRgtD 1vNj5jaMMdqJ3sABKxJR76j HRpcGxlIHBpZWNlcyBvZiB0 VG4yGpHyl85dTHWpBrGonXe pv3KzWDWeU2YmJ1N3yR3hKI EeAJUoFUC5HVCvQmO8MBWrD mTqnB2lMT28MHnhiVJahUUy cXH1SUTytS8fd69iSRUyi1P ldHRlLlxwYXIgDQpcZXBpY0 4hw0FZq7QxYOSdm7mewFxcx 2VjdGVuZFxwYXJccGFyZFxz pM4kNdJgg5hzrSa6DTqopgH 2AEHuhu2qwXftgN2uZMn2NP cxDWBbP1RkC1VdZDkdOFC0L TAwMiBcXGRiICBPVlIgIiAz CYzcALb9YMCgBAh5QIviN4U JOYNwVNYeAkU8ILJzFlT0HT x9SJJPAs1eLPR3Sji8Zwl2J FgxGMU4OnWxLLn2NSFnGAix ACIjhNToCGalVbdvGBbhQ03 zwNxghH1fWcNxAqtcpLPirs KPZbYHRJ8ZDAZAEHDWY8GOP KcbTZLqHJznVSEeM84cv5NL i0NpRO7RIOf5jcTefnzytW0 ySFOewmEbIJassRZoH9iwOe MyMCBSZWNlaXZlZCBpbiBmb 3JtYWxpbiBhcmUgdHdvIHBp FDXloqKfDdP1XZ0mPmZzk39 zDNAqXxUisQotn3GbZMWvJ2 EbH1Q7nJ8fFBRiJYUiPPK7M LTzAwU8CVHoXxAhbK9mKA76 FQerbNByhBMlmAZ0CYKlrT9 py25wASWuw9ByaHPcEwypOF OtQOxrNXJyH17fl9EOd8OpI BXun0bxiChyj1KvjCNwRBgv IWTnzTCwEUonhG8cXmRfs3g hgZu4OKlgzrF0NCYrgv9asH aoxZ0dSOn7UGnkVDShF2TiH 1WiBMoeNEM1UNTxVrPxASIi SHZSEwTpAhBbKQheAQl2KBK zRFp7SKaoU6PSHZYgXXEbQc C9JEWmKeE0TMb1YLXXCv0tE RW6Coi6Ums5DPHmIQG8AyDp RDf1MGQpBYsxFLOffOZqDCa yPosmPXguT48rsVsyrX0oHb TaMdtmhQZgtvWFXwVUT16XN EFHVVMgQklPUFNZXHBhciAN ClxlcGljTmVzdERvYzEgDQp cbHRycGFyXGxpbjBccmluMC ANClxsdHJjaFxmczIwIFJlY 3LjgaXeVPscZPMurh5cuZdr NUOiTWUoaEt8xZZdKIHamOW iQWAuq9PadIDvHEsfwULaRH EmEASfs8etKFIlu1F8ZJYtc 6P2WRMyR6cpMYjstMorDaY7 byAwLjcgeCAwLjMgeCAwLjE xH45xROIpuEOkaAbkv3JcoF x2qOHjUWsvGU3fXFGpVFMsE DS1JA4ltWRoIZ4WOTEdyNLE GZE8PY3yFLg1GZnpTWCiU1T sB7FzwtMlhHCvMLQaakNrj5 avACK1VYUygQKmbEXdRiOdB bmfPYR7WVMdDHyyMB9Ix2cc ENYzbLBoRJN4ZGkhnUCxHAT rJVOsWXbdNhTfW0TTRSIjOc A8MGT3CHScQVi3PMr6DN5KQ aQgEKFdRqidKUZ1JsMuXPn4 FXrrNV5NWFKqXfV8LQZ3NSX cIUM6JIttKZobhOQuUHaiRg QEjysozITkAAViPIrusbM6E JAsZLzdQOKcPDUydBrbiZ2l GS2iJ22GO08mJglHWNOUFHS hciANClxlcGljTmVzdERvYz EgDQpcbHRycGFyXGxpbjBcc mluMCANClxsdHJjaFxmczIw OCMsT0PmxkQzEJafQSReji4 buVgsWICdIITeiZz2vHGeYQ VppTAyQPLsm2IroDXdUCAkn 9ntNDLcv2J4YMRhf0M5HTSr S7jfCGsmvIktQyR7jqJmHrc ecRVyRzAqoBMxHrMbU22cMB OhkUKptFduf8TztAv4lBWjI UqjFGP4sqZvJUNrHYY6GEVk ZGUyvgYJKaDrdVBiDQ1MO1T rk3FlJNwjbPtzRWQlm35ekZ ToDm4tmAFcCER0VWAeEJPzx JMhFVTGuPrngJIeXTs9FVDq BEWaqQgaTAV3WN2tXKFuOOB nqQYdAVliG4nqWKPnCHAlkR SmVH7WYSQdqzXDHcoVTGn9g HkgNiwgMjAyMyAyOjEzIEFN BA8uzIGqSF0SNUAsvxDUZlh iyOvxGxYojYFyZhWudtG3XV TzmWGzCDN4FP5oXFRyxvvzO CDhVTGoDSX8GYvrcH70pDGo XGZzMTZccGFyfVxwbGFpbiA LBlitpD3aCsVsa6pykFn3DS YIJxbyvFUtvkgoerV5KEUft 0pkiNngu0XosCQfVY3jxApl fR7hLdRaWxNAJs6= [facility] Work Phone: Performing Lab d1gqcBDpACVvyWKoIeUc MDA pTLRwc0xmKIZnvMQuYeWuFe NcZnRuYmpcdWMxXGRlZmYwe 0vzk375qYTry1oxEQXsDhS3 dMWeFRCfcPZgZ284NFItXRz rm9oyo8SdVTEldGSvm8W2QW VKnypsoLg0wXrlH55im2P2U wmxL1qzSDBlOVMzU6YmPX3u ARTbZtd2EAC0ZJY9PKDlKPW tA2BoKN9bAPFqoDKmKMi8o9 hbxHsiCDFeDCO0t4nhLQzvf uAiGW3fzi7onCl8f7rwupIu AQJdKLCexMDOQTVpS0CupBu aQx8xsGl9vYkePbrjCDB8Ld c7BB7tuy88qoc5rGzlTUQar zfgXsE2AZjaIZJgbmhlKKq6 AEodKELdeIA8DBUcnSUeQ7F vOHtcAW5pips0OAE4WUvbHK YcBsS7SIPqvEYpJQVzvDhvV Cmsb928ICB2VpEjQJ3vE9Kh a9Z0hO1yfUEjXUSpoUClVmU kDYSxlz9qaZYeWTzst3QiNT W0jbM6nVDflCGeXENnRC89I dddm0BcUuivq8CyD93zkPU1 PHeiv7aaFT6hLhQ0joGrYGz vg6riuU5oOcP7EOonKJ2nXS 3eHBSykL4ydrzbGHEeLmBwu mhyZFSypCpcgrTfFr6ohKve MNT4XBmqT4zwgQ4cSaS7MOs sE4tbuE5tHXx2GIedtHN9OU OlnP4nQU5giiwzv6dvQGveF VmoRIDunfZ7ogMkQPWwuPFd W1SipQ2hUSQrQY9iyeemr2b uGOB2PUezAFJzWBJ0DvOkXF Dyb3Vmnmj9TeEme3BspKUyO LbhS85ta846QTZdppBoG7my bGFpblxwbGFpblxmMFxmczI 0XHFsXHBsYWluXGYxXGZzMj JcbGFuZzEwMzNcaGljaFxmM IsiEeYtLEOvZMmhH9kgMcTd TuGlPlAZnKWvvv1jfIenPJy llNTffYLdyNN6wP8qIIVqog Bufm7kYYTqtWNStYS0PXhtc cBoY3rskdfpPIF8KJJpYBA9 X6fvBWCWgjHzNNYnROHkoIX uHNBRTOV1IJG8JTYmGFXEUU SmFUE7BRR4AKDoTCRziBXbG HBhclxwYXJkXHBsYWluXGYw IYMgVyCdpPoiwZ5cFyIcWjR vFtvmZT3aHULeP1upnZFwXF YpOVQfU8xqFsPbnY6loKqxP VxjZjJcZnMyMlxsdHJjaCBM LTZjfcR2p8O9VVnldVMqdjd mMVxmczIyXGxhbmcxMDMzXG yhR6jsZsCeKWIsbZwrFXkxa 6MoZEVcPJIjKtYaOThuTHA3 o8J8TZdmbIJzdfTFLlVKKZ2 yePUrzlnlGQ4VUwxzKBC3 [facility] Work Phone: [facility] Work Phone: EGD Study observation [place] 12-18-2022 [facility] Gastrointestinal Endoscopy Patient Name: Sarika Corona Procedure Date: 12/18/2022 10:33 AM Date of : 1970 Admit Type: Outpatient Age: 52 Room: [place] [address] Gender: Female Note Status: Finalized Attending MD: Farhad Mclean MD Procedure: Upper GI endoscopy Indications: Abdominal bloating, Eructation Providers: Farhad Mclean MD Patient Profile: This is a 52 year old female. Refer to note in patient chart for documentation of history and physical. Patient has symptoms of acute heartburn. Referring Physician: Jocy eRese (Referring MD) Medicines: Monitored Anesthesia Care Complications: No immediate complications. Requesting Provider: Procedure: Pre-Anesthesia Assessment: - Prior to the procedure, a History and Physical was performed, and patient medications and allergies were reviewed. The patient is competent. The risks and benefits of the procedure and the sedation options and risks were discussed with the patient. All questions were answered and informed consent was obtained. Patient identification and proposed procedure were verified by the physician, the nurse and the airbrush artist photography in the procedure room at 10:54 AM. Mental Status Examination: alert and oriented. Airway Examination: normal oropharyngeal airway and neck mobility. Respiratory Examination: clear to auscultation. CV Examination: normal. Prophylactic Antibiotics: The patient does not require prophylactic antibiotics. Prior Anticoagulants: The patient has taken no anticoagulant or antiplatelet agents. ASA Grade Assessment: II - A patient with mild systemic disease. After reviewing the risks and benefits, the patient was deemed in satisfactory condition to undergo the procedure. The anesthesia plan was to use monitored anesthesia care (MAC). Immediately prior to administration of medications, the patient was re-assessed for adequacy to receive sedatives. The heart rate, respiratory rate, oxygen saturations, blood pressure, adequacy of pulmonary ventilation, and response to care were monitored throughout the procedure. The physical status of the patient was re-assessed after the procedure. After obtaining informed consent, the endoscope was passed under direct vision. Throughout the procedure, the patient's blood pressure, pulse, and oxygen saturations were monitored continuously. The Endoscope was introduced through the mouth, and advanced to the third part of duodenum. I was present and participated during the entire procedure, including non-tian portions, and during the administration and monitoring of Moderate Sedation. The upper GI endoscopy was accomplished without difficulty. The patient tolerated the procedure well. Moderate Sedation: MAC anesthesia was administered by the anesthesia team. Findings: LA Grade A (one or more mucosal breaks less than 5 mm, not extending between tops of 2 mucosal folds) esophagitis with no bleeding was found 39 to 40 cm from the incisors. Biopsies were taken with a cold forceps for histology. The Z-line was irregular and was found 39 cm from the incisors. The entire examined stomach was normal. Biopsies were taken with a cold forceps for histology. The examined duodenum was normal. Biopsies were taken with a cold forceps for histology. Impression: - LA Grade A reflux esophagitis with no bleeding. Biopsied. - Z-line irregular, 39 cm from the incisors. - Normal stomach. Biopsied. - Normal examined duodenum. Biopsied. Recommendation: - Await pathology results. - Resume previous diet. - Continue present medications. - Obser (more content not included)... PROVATION [facility] Radiology Study observation (narrative) [facility] Flexible sigmoidoscopy study on 12-18-2022 Radiology Study observation (narrative) [facility] No Panel Informationon 11-05 [facility] DBT Breast - bilateral scree ningon 10-17-2022 IMPRESSION: NEGATIVE There is no mammographic evidence of malignancy. A 1 year screening mammogram is recommended. The false-negative rate of mammography is approximately 10%. Management of a palpable abnormality must be based upon clinical grounds. Rose key/mulugeta:10/17/2022 15:54:47 Expediter Clerk: Neelam Goodrich RT(R)(Jerry), [facility] Breast Imaging letter sent: Mammography Normal BI-RADS: 1 Negative Administration Clerk: Mulugeta Transcribe Date/Time: Oct 17 2022 3:33P Dictated by : ROSE BARRETT MD This examination was interpreted and the report reviewed and electronically signed by: ROSE BARRETT MD on Oct 17 2022 3:54PM EST [facility] RADIOLOGY * * *Final Report* * * DATE OF EXAM: Oct 17 2022 3:52PM RNW 0582 - [facility] SCREENING W CHAMP / PROCEDURE REASON: [id number], [id number] bilateral screening mammogram with cad * * * * Physician Interpretation * * * * BILATERAL DIGITAL SCREENING MAMMOGRAM TOMOSYNTHESIS WITH CAD: 10/17/2022 Ordering Physician: CARMEN MESSINA CLINICAL: [id number], [id number] Bilateral Screening Mammogram With Cad. Comparison is made to exam dated: 10/28/2018 mammogram - [facility]. The tissue of both breasts is extremely dense, which lowers the sensitivity of mammography. Digital Breast Tomosynthesis was performed. Current study was also evaluated with a Computer Aided Detection (CAD) system. No significant masses, calcifications, or other findings are seen in either breast. [facility] RADIOLOGY Provider, Harjinder Fitch - 10/17/2022 * * *Final Report* * * DATE OF EXAM: Oct 17 2022 3:52PM [facility] 0582 - [facility] SCREENING W CHAMP / PROCEDURE REASON: [id number], [id number] bilateral screening mammogram with cad * * * * Physician Interpretation * * * * BILATERAL DIGITAL SCREENING MAMMOGRAM TOMOSYNTHESIS WITH CAD: 10/17/2022 Ordering Physician: CARMEN MESSINA CLINICAL: [id number], [id number] Bilateral Screening Mammogram With Cad. Comparison is made to exam dated: 10/28/2018 mammogram - [facility]. The tissue of both breasts is extremely dense, which lowers the sensitivity of mammography. Digital Breast Tomosynthesis was performed. Current study was also evaluated with a Computer Aided Detection (CAD) system. No significant masses, calcifications, or other findings are seen in either breast. IMPRESSION IMPRESSION: NEGATIVE There is no mammographic evidence of malignancy. A 1 year screening mammogram is recommended. The false-negative rate of mammography is approximately 10%. Management of a palpable abnormality must be based upon clinical grounds. Rose key/penrad:10/17/2022 15:54:47 Expediter Clerk: Neelam Goodrich RT(R)(M), [facility] Breast Imaging letter sent: Mammography Normal BI-RADS: 1 Negative Administration Clerk: Mulugeta Transcribe Date/Time: Oct 17 2022 3:33P Dictated by : ROSE BARRETT MD This examination was interpreted and the report reviewed and electronically signed by: ROSE BARRETT MD on Oct 17 2022 3:54PM [facility] Radiology Study observation (narrative) [facility] DBT Breast - bilateral scree ningOrdered By: Ccf Provider on 10-17-2022 [facility] US Head and Neckon 3 IMPRESSION: Stable prominent bilateral cervical lymph nodes with otherwise benign sonographic features. There are no sonographically suspicious cervical lymph nodes visualized. Administration Clerk: JAIRON Transcribe Date/Time: Oct 09 2022 3:32P Dictated by : EDWARD SALGADO MD This examination was interpreted and the report reviewed and electronically signed by: EDWARD SALGADO MD on Oct 09 2022 3:42PM [facility] RADIOLOGY * * *Final Report* * * DATE OF EXAM: Oct 09 2022 2:51PM RNU 1049 - US CERVICAL LYMPH NODE MAPPING / PROCEDURE REASON: Papillary thyroid carcinoma (HCC) * * * * Physician Interpretation * * * * EXAMINATION: ULTRASOUND CERVICAL LYMPH NODE MAPPING CLINICAL HISTORY: Papillary thyroid carcinoma. Total thyroidectomy 2013. TECHNIQUE: Sonography of the cervical lymph node stations was performed bilaterally. Images were obtained and stored in a permanent archive. COMPARISON: Ultrasound neck soft tissues 02/23/2016. RESULT: There are multiple bilateral cervical lymph nodes. Enlarged lymph nodes (short axis greater than 0.8 cm ) or lymph nodes with suspicious features are detailed below. Abnormal right cervical lymph nodes: * Prominent level 2 lymph node measuring 1.9 x 1.0 x 1.1 cm this is similar in size and appearance to the prior exam with normal morphology and preserved echogenic fatty hilum. No intranodal calcifications or necrosis. No pathologic vascularity on Doppler. Abnormal left cervical lymph nodes: * Prominent level 2 lymph node measuring 1.5 x 0.6 x 1.1 cm demonstrating normal morphology with preserved echogenic fatty hilum. This is similar in size and morphology compared to the prior study. No intranodal calcifications or necrosis. No pathologic vascularity on Doppler. * Elongated level 4 lymph node measuring 2.0 x 0.4 x 0.9 cm with normal morphology, uniform, non-thickened cortex and preserved fatty hilum. No intranodal calcifications or necrosis. No pathologic vascularity on Doppler. Additional similar-appearing level 4 lymph node measuring 1.8 cm in length with identical sonographic features. Central compartment, Level : * Status post thyroidectomy. * No mass or abnormal lymph nodes. [facility] RADIOLOG[facility] Provider, Harjinder Fitch - 10/09/2022 * * *Final Report* * * DATE OF EXAM: Oct 09 2022 2:51PM RNU 1049 - US CERVICAL LYMPH NODE MAPPING / PROCEDURE REASON: Papillary thyroid carcinoma (HCC) * * * * Physician Interpretation * * * * EXAMINATION: ULTRASOUND CERVICAL LYMPH NODE MAPPING CLINICAL HISTORY: Papillary thyroid carcinoma. Total thyroidectomy 2013. TECHNIQUE: Sonography of the cervical lymph node stations was performed bilaterally. Images were obtained and stored in a permanent archive. COMPARISON: Ultrasound neck soft tissues 02/23/2016. RESULT: There are multiple bilateral cervical lymph nodes. Enlarged lymph nodes (short axis greater than 0.8 cm ) or lymph nodes with suspicious features are detailed below. Abnormal right cervical lymph nodes: * Prominent level 2 lymph node measuring 1.9 x 1.0 x 1.1 cm this is similar in size and appearance to the prior exam with normal morphology and preserved echogenic fatty hilum. No intranodal calcifications or necrosis. No pathologic vascularity on Doppler. Abnormal left cervical lymph nodes: * Prominent level 2 lymph node measuring 1.5 x 0.6 x 1.1 cm demonstrating normal morphology with preserved echogenic fatty hilum. This is similar in size and morphology compared to the prior study. No intranodal calcifications or necrosis. No pathologic vascularity on Doppler. * Elongated level 4 lymph node measuring 2.0 x 0.4 x 0.9 cm with normal morphology, uniform, non-thickened cortex and preserved fatty hilum. No intranodal calcifications or necrosis. No pathologic vascularity on Doppler. Additional similar-appearing level 4 lymph node measuring 1.8 cm in length with identical sonographic features. Central compartment, Level : * Status post thyroidectomy. * No mass or abnormal lymph nodes. IMPRESSION IMPRESSION: Stable prominent bilateral cervical lymph nodes with otherwise benign sonographic features. There are no sonographically suspicious cervical lymph nodes visualized. Administration Clerk: PSCB Transcribe Date/Time: Oct 09 2022 3:32P Dictated by : EDWARD SALGADO MD This examination was interpreted and the report reviewed and electronically signed by: EDWARD SALGADO MD on Oct 09 2022 3:42PM EST [facility] Radiology Study observation (narrative) [facility] US Head and NeckOrdered By: Ccf Provider on 10-09-2022 [facility] Absolute lymphocyte counton 05-20-2022 Lymphocytes Auto (Unsp spec) [#/Vol] 1.92 10*3/uL 0.83-4.51 [facility] Work Phone: Basophil percentageon 2021 Basophils/100 WBC (Bld) 0.6 % 0-1 [facility] Work Phone: Eosinophils/100 WBC (Bld) 1.9 % 0-5 [facility] Work Phone: Neutrophils (Bld) [#/Vol] 7.6 10*3/uL 2.0-7.7 [facility] Work Phone: Neutrophils/100 WBC (Bld) 72.5 % 47-70 [facility] Work Phone: WBC (Bld) [#/Vol] 10.4 10*3/uL 4.4-11.0 [facility] Work Phone: Blood erythrocytes count (nu mber/volume)on 05-20-2022 RBC (Bld) [#/Vol] 5.28 10*6/uL 4.2-5.4 [facility] Work Phone: Blood hemoglobin measurement (mass/volume)on 05-20-2022 Hemoglobin (Bld) [Mass/Vol] 14.7 g/dL 12.0-15.0 [facility] Work Phone: Blood lymphocytes/100 leukoc yteson 05-20-2022 Lymphocytes/100 WBC (Bld) 18.5 % 19-41 [facility] Work Phone: Blood monocytes/100 leukocyt eson 05-20-2022 Monocytes/100 WBC (Bld) 6.0 % 0-10 [facility] Work Phone: Blood platelet mean volumeon 05-20-2022 Platelet mean volume (Bld) [Entitic vol] 11.1 fL 6.2-12.0 [facility] Work Phone: CBC W/Diff, Automatedon Absolute Lymph 1.92 X10 3/uL Normal 0.83-4.51 [facility] Comment on above: Performed By: #### L 100.0100, L503.6150, L503.6550, L506.0400, L501.9520 #### [facility] [address] [place], [address] Absolute Neut 7.6 X10 3/uL Normal 2.0-7.7 [facility] Comment on above: Performed By: #### L 100.0100, L503.6150, L503.6550, L506.0400, L501.9520 #### [facility] [address] [place], [address] Basophils/100 WBC (Bld) 0.6 % Normal 0-1 [facility] Comment on above: Performed By: #### L 100.0100, L503.6150, L503.6550, L506.0400, L501.9520 #### [facility] [address] [place], [address] Eosinophils/100 WBC (Bld) 1.9 % Normal 0-5 [facility] Comment on above: Performed By: #### L 100.0100, L503.6150, L503.6550, L506.0400, L501.9520 #### [facility] [address] [place], [address] Erythrocyte distribution width (RBC) [Ratio] 13.0 % Normal 11.6-14.6 [facility] Comment on above: Performed By: #### L 100.0100, L503.6150, L503.6550, L506.0400, L501.9520 #### [facility] [address] [place], [address] Hematocrit (Bld) [Volume fraction] 44.1 % Normal 37-47 [facility] Comment on above: Performed By: #### L 100.0100, L503.6150, L503.6550, L506.0400, L501.9520 #### [facility] [address] [place], [address] Hemoglobin (Bld) [Mass/Vol] 14.7 g/dL Normal 12.0-15.0 [facility] Comment on above: Performed By: #### L 100.0100, L503.6150, L503.6550, L506.0400, L501.9520 #### [facility] [address] [place], [address] IG% 0.500 Normal 0.0-0.9 [facility] Comment on above: Result Comment: IG% - Immature Granulocytes (promyelocytes, myelocytes and metamyelocytes) > 1% indicates that a LEFT SHIFT is Present. Performed By: #### L 100.0100, L503.6150, L503.6550, L506.0400, L501.9520 #### [facility] [address] [place], [address] Lymphocytes/100 WBC (Bld) 18.5 % Low 19-41 [facility] Comment on above: Performed By: #### L 100.0100, L503.6150, L503.6550, L506.0400, L501.9520 #### [facility] [address] [place], [address] MCH (RBC) [Entitic mass] 27.8 pg Normal 27.0-32.0 [facility] Comment on above: Performed By: #### L 100.0100, L503.6150, L503.6550, L506.0400, L501.9520 #### [facility] [address] [place], [address] MCHC (RBC) [Mass/Vol] 33.3 g/dL Normal 32-36 [facility] Comment on above: Performed By: #### L 100.0100, L503.6150, L503.6550, L506.0400, L501.9520 #### [facility] [address] [place], [address] MCV (RBC) [Entitic vol] 83.5 fL Normal 81-99 [facility] Comment on above: Performed By: #### L 100.0100, L503.6150, L503.6550, L506.0400, L501.9520 #### [facility] [address] [place], [address] Monocytes/100 WBC (Bld) 6.0 % Normal 0-10 [facility] Comment on above: Performed By: #### L 100.0100, L503.6150, L503.6550, L506.0400, L501.9520 #### [facility] [address] [place], [address] Neutrophils/100 WBC (Bld) 72.5 % High 47-70 [facility] Comment on above: Performed By: #### L 100.0100, L503.6150, L503.6550, L506.0400, L501.9520 #### [facility] [address] [place], [address] Nucleated RBC (Bld) [#/Vol] 0 10*3/uL Normal 0-5 [facility] Comment on above: Performed By: #### L 100.0100, L503.6150, L503.6550, L506.0400, L501.9520 #### [facility] [address] [place], [address] Platelet mean volume (Bld) [Entitic vol] 11.1 fL Normal 6.2-12.0 [facility] Comment on above: Performed By: #### L 100.0100, L503.6150, L503.6550, L506.0400, L501.9520 #### [facility] [address] [place], [address] Platelets (Bld) [#/Vol] 264 10*3/uL Normal 150-450 [facility] Comment on above: Performed By: #### L 100.0100, L503.6150, L503.6550, L506.0400, L501.9520 #### [facility] [address] [place], [address] RBC (Bld) [#/Vol] 5.28 10*6/uL Normal 4.2-5.4 [facility] Comment on above: Performed By: #### L 100.0100, L503.6150, L503.6550, L506.0400, L501.9520 #### [facility] [address] [place], [address] RDW SD 39.6 fl Normal 35.1-43.9 [facility] Comment on above: Performed By: #### L 100.0100, L503.6150, L503.6550, L506.0400, L501.9520 #### [facility] [address] [place], [address] WBC (Bld) [#/Vol] 10.4 10*3/uL Normal 4.4-11.0 [facility] Comment on above: Performed By: #### L 100.0100, L503.6150, L503.6550, L506.0400, L501.9520 #### [facility] [address] [place], [place], [id number] Determination of erythrocyte mean corpuscular volume (MCV)on 05-20-2022 MCV (RBC) [Entitic vol] 83.5 fL 81-99 [facility] Work Phone: Ferritinon 05-20-2022 Ferritin [Mass/Vol] 43 ng/mL Normal 8-252 [facility] Comment on above: Performed By: #### L 100.0100, L503.6150, L503.6550, L506.0400, L501.9520 #### [facility] [address] [place], [address] Hematocrit Auto (Bld) [Volum e fraction]on 05-20-2022 Hematocrit (Bld) [Volume fraction] 44.1 % 37-47 [facility] Work Phone: Ironon 05-20-2022 Iron [Mass/Vol] 84 ug/dL Normal 50-170 [facility] Comment on above: Performed By: #### L 100.0100, L503.6150, L503.6550, L506.0400, L501.9520 #### [facility] [address] [place], [address] Iron measurement (mass/mass) on 05-20-2022 Iron (Unsp spec) [Mass/Mass] 84 ug/dL 50-170 [facility] Work Phone: Laboratory - Chemistry and C hemistry - challengeon 05-20-2022 Free T4 [Mass/Vol] 1.46 ng/dL 0.76-1.46 [facility] Work Phone: Laboratory - Hematology and Cell countson 05-20-2022 Erythrocyte distribution width (RBC) [Entitic vol] 39.6 fL 35.1-43.9 [facility] Work Phone: [phone] Erythrocyte distribution width (RBC) [Ratio] 13.0 % 11.6-14.6 [facility] Work Phone: [phone] Immature granulocytes/100 WBC (Bld) 0.500 % 0.0-0.9 [facility] Work Phone: Comment on above: IG% - Immature Granu locytes (promyelocytes, myelocytes and metamyelocytes) > 1% indicates that a LEFT SHIFT is Present. MCH (RBC) [Entitic mass] 27.8 pg 27.0-32.0 [facility] Work Phone: Nucleated RBC/100 WBC (Bld) [Ratio] 0 % 0-5 [facility] Work Phone: [phone] MCHC Auto (RBC) [Mass/Vol]on 05-20-2022 MCHC (RBC) [Mass/Vol] 33.3 g/dL 32-36 [facility] Work Phone: No Panel Informationon 05-20 Thyroid Stimulating Hormone (TSH) 4.64 uIU/mL 0.358-3.74 [facility] Work Phone: Platelets bldon 05-20-2022 Platelets (Bld) [#/Vol] 264 10*3/uL 150-450 [facility] Work Phone: Serum or plasma ferritin leticia surement (mass/volume)on 05-20-2022 Ferritin [Mass/Vol] 43 ng/mL 8-252 [facility] Work Phone: T4 Free Directon 05-20-2022 T4 FREE DIRECT 1.46 ng/dL Normal 0.76-1.46 [facility] Comment on above: Performed By: #### L 100.0100, L503.6150, L503.6550, L506.0400, L501.9520 #### [facility] [address] [place], [place], [id number] Thyroid Stim Hormone (TSH)on 05-20-2022 TSH 4.64 uIU/mL High 0.358-3.74 [facility] Comment on above: Performed By: #### L 100.0100, L503.6150, L503.6550, L506.0400, L501.9520 #### [facility] [address] [place], [address] XR TOE AP/LAT/OBL LEFTon [facility] XR Toes - left 3 Viewson IMPRESSION: Nondisplaced fracture through the tuft of the distal phalanx of the great toe. Administration Clerk: JAIRON Transcribe Date/Time: Oct 18 2021 1:52P Dictated by : JOSE JUAN CELESTIN MD This examination was interpreted and the report reviewed and electronically signed by: JOSE JUAN CELESTIN MD on Oct 18 2021 1:53PM EST [email or web address]_U _DIVISION OF RADIOLOGY * * *Final Report* * * DATE OF EXAM: Oct 18 2021 1:40PM WOX 5268 - XR TOE 3V AP/LAT/OBL LT / PROCEDURE REASON: Toe injury, left, initial encounter * * * * Physician Interpretation * * * * EXAMINATION: LEFT GREAT TOE X-RAY SERIES HISTORY: Toe injury. COMPARISON: None available. TECHNIQUE: PA, lateral and oblique views. RESULT: There is a nondisplaced oblique fracture through the tuft of the distal phalanx of the great toe. Joint spaces and articular surfaces are preserved. Soft tissue swelling about the great toe. [email or web address]_U _DIVISION OF RADIOLOGY Provider, [facility] - 10/18/2021 * * *Final Report* * * DATE OF EXAM: Oct 18 2021 1:40PM WOX 5268 - XR TOE 3V AP/LAT/OBL LT / PROCEDURE REASON: Toe injury, left, initial encounter * * * * Physician Interpretation * * * * EXAMINATION: LEFT GREAT TOE X-RAY SERIES HISTORY: Toe injury. COMPARISON: None available. TECHNIQUE: PA, lateral and oblique views. RESULT: There is a nondisplaced oblique fracture through the tuft of the distal phalanx of the great toe. Joint spaces and articular surfaces are preserved. Soft tissue swelling about the great toe. IMPRESSION IMPRESSION: Nondisplaced fracture through the tuft of the distal phalanx of the great toe. Administration Clerk: JAIRON Transcribe Date/Time: Oct 18 2021 1:52P Dictated by : JOSE JUAN CELESTIN MD This examination was interpreted and the report reviewed and electronically signed by: JOSE JUAN CELESTIN MD on Oct 18 2021 1:53PM EST [facility] Radiology Study observation (narrative) [facility] XR Toes - left 3 ViewsOrdere d By: Ccf Provider on 10-18-2021 [facility] Vital Signs Date Time Vital Sign Value Performing Clinician Vandana pride 11-15-2024 11:46-0400 Body height 166.4 cm Carmen Messina APRN.MOBILITY ARCHITECT MANAGER Work Phone: [facility] 11-15-2024 11:46-0400 Body mass index (BMI) [Ratio] 34.74 kg/m2 Carmen Messina APRN.MOBILITY ARCHITECT MANAGER Work Phone: [facility] 11-15-2024 11:46-0400 Body temperature 97.7 [degF] Carmen Messina APRN.MOBILITY ARCHITECT MANAGER Work Phone: [facility] 11-15-2024 11:46-0400 Body weight 96.16 kg Carmen Messina APRN.MOBILITY ARCHITECT MANAGER Work Phone: [facility] 11-15-2024 11:46-0400 Diastolic blood pressure 74 mm[Hg] Carmen Messina APRN.MOBILITY ARCHITECT MANAGER Work Phone: [facility] 11-15-2024 11:46-0400 Heart rate 62 /min Carmen Messina APRN.MOBILITY ARCHITECT MANAGER Work Phone: [facility] 11-15-2024 11:46-0400 Respiratory rate 16 /min Carmen Messina APRN.MOBILITY ARCHITECT MANAGER Work Phone: [facility] 11-15-2024 11:46-0400 SaO2% (BldA) [Mass fraction] 98 % Carmen Messina APRN.MOBILITY ARCHITECT MANAGER Work Phone: [facility] 11-15-2024 11:46-0400 Systolic blood pressure 111 mm[Hg] Carmen Messina APRN.MOBILITY ARCHITECT MANAGER Work Phone: [facility] 09-28-2024 13:43-0400 Body height 166.4 cm Carmen Messina APRN.MOBILITY ARCHITECT MANAGER Work Phone: [facility] 09-28-2024 13:43-0400 Body mass index (BMI) [Ratio] 38.02 kg/m2 Carmen Messina APRN.MOBILITY ARCHITECT MANAGER Work Phone: [facility] 09-28-2024 13:43-0400 Body temperature 96.8 [degF] Carmen Messina APRN.MOBILITY ARCHITECT MANAGER Work Phone: [facility] 09-28-2024 13:43-0400 Body weight 105.23 kg Carmen Messina APRN.MOBILITY ARCHITECT MANAGER Work Phone: [facility] 09-28-2024 13:43-0400 Diastolic blood pressure 78 mm[Hg] Carmen Messina APRN.MOBILITY ARCHITECT MANAGER Work Phone: [facility] 09-28-2024 13:43-0400 Heart rate 86 /min Carmen Messina APRN.MOBILITY ARCHITECT MANAGER Work Phone: [facility] 09-28-2024 13:43-0400 Respiratory rate 16 /min Carmen Messina APRN.MOBILITY ARCHITECT MANAGER Work Phone: [facility] 09-28-2024 13:43-0400 SaO2% (BldA) [Mass fraction] 97 % Carmen Messina APRN.MOBILITY ARCHITECT MANAGER Work Phone: [facility] 09-28-2024 13:43-0400 Systolic blood pressure 122 mm[Hg] Carmen Messina APRN.MOBILITY ARCHITECT MANAGER Work Phone: [facility] 08-19-2024 13:04-0500 Body height 168.3 cm Washington Carreon DO Work Phone: [facility] 08-19-2024 13:04-0500 Body mass index (BMI) [Ratio] 38.45 kg/m2 Washington Carreon DO Work Phone: [facility] 08-19-2024 13:04-0500 Body weight 108.86 kg Washington Carreon DO Work Phone: [facility] 08-19-2024 13:04-0500 Diastolic blood pressure 77 mm[Hg] Washington Peresasnicka DO Work Phone: [facility] 08-19-2024 13:04-0500 Heart rate 87 /min Washington Kwasnicka DO Work Phone: [facility] 08-19-2024 13:04-0500 Respiratory rate 14 /min Washington Peresasnicka DO Work Phone: [facility] 08-19-2024 13:04-0500 SaO2% (BldA) [Mass fraction] 97 % Washington Peresasnicka DO Work Phone: [facility] 08-19-2024 13:04-0500 Systolic blood pressure 124 mm[Hg] Washington Peresasnicka DO Work Phone: [facility] 04-12-2024 13:24-0400 Body mass index (BMI) [Ratio] 38.26 kg/m2 Krislyn Aberegg PA Work Phone: [facility] 04-12-2024 13:24-0400 Body temperature 97.59 [degF] Krislyn Aberegg PA Work Phone: [facility] 04-12-2024 13:24-0400 Body weight 104.3 kg Krislyn Aberegg PA Work Phone: [facility] 04-12-2024 13:24-0400 Diastolic blood pressure 78 mm[Hg] Krislyn Aberegg PA Work Phone: [facility] 04-12-2024 13:24-0400 Heart rate 86 /min Krislyn Aberegg PA Work Phone: [facility] 04-12-2024 13:24-0400 Respiratory rate 16 /min Krislyn Aberegg PA Work Phone: [facility] 04-12-2024 13:24-0400 SaO2% (BldA) [Mass fraction] 96 % Krislyn Aberegg PA Work Phone: [facility] 04-12-2024 13:24-0400 Systolic blood pressure 126 mm[Hg] Kayla FERGUSON Work Phone: [facility] 11-11-2023 13:48-0400 Body height 165.1 cm Carmen Messina APRN.MOBILITY ARCHITECT MANAGER Work Phone: [facility] 11-11-2023 13:48-0400 Body mass index (BMI) [Ratio] 40.27 kg/m2 Carmen Messina APRN.MOBILITY ARCHITECT MANAGER Work Phone: [facility] 11-11-2023 13:48-0400 Body temperature 98.6 [degF] Carmen Messina APRN.MOBILITY ARCHITECT MANAGER Work Phone: [facility] 11-11-2023 13:48-0400 Body weight 109.77 kg Carmen Messina APRN.MOBILITY ARCHITECT MANAGER Work Phone: [facility] 11-11-2023 13:48-0400 Diastolic blood pressure 85 mm[Hg] Carmen Messina APRN.MOBILITY ARCHITECT MANAGER Work Phone: [facility] 11-11-2023 13:48-0400 Heart rate 86 /min Carmen Messina APRN.MOBILITY ARCHITECT MANAGER Work Phone: [facility] 11-11-2023 13:48-0400 Respiratory rate 16 /min Carmen Messina APRN.MOBILITY ARCHITECT MANAGER Work Phone: [facility] 11-11-2023 13:48-0400 SaO2% (BldA) [Mass fraction] 96 % Carmen Messina APRN.MOBILITY ARCHITECT MANAGER Work Phone: [facility] 11-11-2023 13:48-0400 Systolic blood pressure 125 mm[Hg] Carmen Messina APRN.MOBILITY ARCHITECT MANAGER Work Phone: [facility] 10-29-2023 09:55-0400 Body height 168.4 cm Johanne Johnson MD Work Phone: [facility] 10-29-2023 09:55-0400 Body mass index (BMI) [Ratio] 38.77 kg/m2 Johanne Johnson MD Work Phone: [facility] 10-29-2023 09:55-0400 Body weight 109.95 kg Johanne Johnson MD Work Phone: [facility] 10-29-2023 09:55-0400 Diastolic blood pressure 84 mm[Hg] Johanne Johnson MD Work Phone: [facility] 10-29-2023 09:55-0400 Heart rate 86 /min Johanne Johnson MD Work Phone: [facility] 10-29-2023 09:55-0400 SaO2% (BldA) [Mass fraction] 95 % Johanne Johnson MD Work Phone: [facility] 10-29-2023 09:55-0400 Systolic blood pressure 126 mm[Hg] Johanne Johnson MD Work Phone: [facility] 09-29-2023 13:32-0400 Body height 165.1 cm Carmen Messina APRN.MOBILITY ARCHITECT MANAGER Work Phone: [facility] 09-29-2023 13:32-0400 Body weight 109.32 kg Carmen Messina APRN.MOBILITY ARCHITECT MANAGER Work Phone: [facility] 09-29-2023 13:32-0400 Diastolic blood pressure 74 mm[Hg] Carmen Messina APRN.MOBILITY ARCHITECT MANAGER Work Phone: [facility] 09-29-2023 13:32-0400 Heart rate 81 /min Carmen Messina WIDE PIECE GOODS INSPECTOR.MOBILITY ARCHITECT MANAGER Work Phone: [facility] 09-29-2023 13:32-0400 Respiratory rate 12 /min Carmen Messina APRN.MOBILITY ARCHITECT MANAGER Work Phone: [facility] 09-29-2023 13:32-0400 SaO2% (BldA) [Mass fraction] 96 % Carmen Messina APRN.MOBILITY ARCHITECT MANAGER Work Phone: [facility] 09-29-2023 13:32-0400 Systolic blood pressure 112 mm[Hg] Carmen Messina W[employer] GOODS INSPECTOR.MOBILITY ARCHITECT MANAGER Work Phone: [facility] 08-25-2023 15:48-0400 Body height 170.2 cm Carmen Messina W[employer] GOODS INSPECTOR.MOBILITY ARCHITECT MANAGER Work Phone: [facility] 08-25-2023 15:48-0400 Body temperature 97.7 [degF] Carmen Messina W[employer] INSPECTOR.MOBILITY ARCHITECT MANAGER Work Phone: [facility] 08-25-2023 15:48-0400 Body weight 115.21 kg Carmen Messina [employer] GOODS INSPECTOR.MOBILITY ARCHITECT MANAGER Work Phone: [facility] 08-25-2023 15:48-0400 Diastolic blood pressure 87 mm[Hg] Cramen Messina W[employer]IE[employer] GOODS INSPECTOR.MOBILITY ARCHITECT MANAGER Work Phone: [facility] 08-25-2023 15:48-0400 Heart rate 83 /min Carmen Messina W[employer] GOODS INSPECTOR.MOBILITY ARCHITECT MANAGER Work Phone: [facility] 08-25-2023 15:48-0400 SaO2% (BldA) [Mass fraction] 96 % Carmen Messina W[employer] GOODS INSPECTOR.MOBILITY ARCHITECT MANAGER Work Phone: [facility] 08-25-2023 15:48-0400 Systolic blood pressure 137 mm[Hg] Carmen Msesina W[employer] GOODS INSPECTOR.MOBILITY ARCHITECT MANAGER Work Phone: [facility] 01-30-2023 13:34-0400 Body weight 103.42 kg Glenda Mares MD Work Phone: [facility] 01-30-2023 13:34-0400 Diastolic blood pressure 82 mm[Hg] Glenda Mares MD Work Phone: [facility] 01-30-2023 13:34-0400 Systolic blood pressure 138 mm[Hg] Glenda Mares MD Work Phone: [facility] 12-18-2022 11:31-0400 Diastolic blood pressure 73 mm[Hg] Farhad Mclean MD Work Phone: [facility] 12-18-2022 11:31-0400 Systolic blood pressure 120 mm[Hg] Farhad Mclean MD Work Phone: [facility] 12-18-2022 11:30-0400 Heart rate 92 /min Farhad Mclean MD Work Phone: [facility] 12-18-2022 11:30-0400 Respiratory rate 23 /min Farhad Mclean MD Work Phone: [facility] 12-18-2022 11:30-0400 SaO2% (BldA) [Mass fraction] 94 % Farhad Mclean MD Work Phone: [facility] 12-18-2022 10:37-0400 Body height 165.1 cm Farhad Mclean MD Work Phone: [facility] 12-18-2022 10:37-0400 Body mass index (BMI) [Ratio] 36.78 kg/m2 Farhad Mclean MD Work Phone: [facility] 12-18-2022 10:37-0400 Body weight 100.25 kg Farhad Mclean MD Work Phone: [facility] 12-10-2022 08:24-0400 Body height 170.2 cm Jocy FERGUSON-Kristal Work Phone: [facility] 12-10-2022 08:24-0400 Body weight 100.25 kg Jocy FERGUSON-C Work Phone: [facility] 05-30-2022 09:17-0500 Body height 167.1 cm Julissa Modi MD Work Phone: [facility] 05-30-2022 09:17-0500 Body weight 107.05 kg Julissa Modi MD Work Phone: [facility] 05-30-2022 09:17-0500 Diastolic blood pressure 73 mm[Hg] Julissa Modi MD Work Phone: [facility] 05-30-2022 09:17-0500 Heart rate 91 /min Julissa Modi MD Work Phone: [facility] 05-30-2022 09:17-0500 Systolic blood pressure 131 mm[Hg] Julissa Modi MD Work Phone: [facility] 10-18-2021 13:14-0400 Body temperature 98.2 [degF] Raegan Grady WIDE PIECE GOODS INSPECTOR.MOBILITY ARCHITECT MANAGER Work Phone: [facility] 10-18-2021 13:14-0400 Body weight 102.97 kg Raegan Grady W[employer] PIECE GOODS INSPECTOR.MOBILITY ARCHITECT MANAGER Work Phone: [facility] 10-18-2021 13:14-0400 Diastolic blood pressure 88 mm[Hg] Raegan Grady W[employer] GOODS INSPECTOR.MOBILITY ARCHITECT MANAGER Work Phone: [facility] 10-18-2021 13:14-0400 Heart rate 88 /min Raegan Grady W[employer] GOODS INSPECTOR.MOBILITY ARCHITECT MANAGER Work Phone: [facility] 10-18-2021 13:14-0400 Respiratory rate 20 /min Raegan Grady W[employer]IE[employer] GOODS INSPECTOR.MOBILITY ARCHITECT MANAGER Work Phone: [facility] 10-18-2021 13:14-0400 SaO2% (BldA) [Mass fraction] 98 % Raegan Grady W[employer] GOODS INSPECTOR.MOBILITY ARCHITECT MANAGER Work Phone: [facility] 10-18-2021 13:14-0400 Systolic blood pressure 136 mm[Hg] Raegan Grady W[employer]IE[employer] GOODS INSPECTOR.MOBILITY ARCHITECT MANAGER Work Phone: [facility] Encounters Encounter Date Encounter Type Care Provider Facility Start: 01-21-2025 ambulatory CARMEN MESSINA Facilit y:[phone] Start: 01-21-2025 End: 01-21-2025 Subsequent hospital visit by physician Screen[facility]Diagnostic [facility] Comment on above: Encounter for screen ing mammogram for breast cancer [Z12.31] Start: 12-07-2024 End: 12-07-2024 ambulatory Carmen Messina APRN.MOBILITY ARCHITECT MANAGER Work Phone: [facility] Comment on above: This message is for Danika Start: 11-15-2024 End: 11-15-2024 Patient encounter procedure Carmen Messina APRN.CNP Work Phone: [facility] Comment on above: ONEIDA (obstructive sle ep apnea) (Primary Dx); Drug-induced constipation; Class 1 obesity due to excess calories with serious comorbidity and body mass index (BMI) of 34.0 to 34.9 in adult; Bloating; Chronic pain of left knee Start: 11-15-2024 End: 11-15-2024 ambulatory [facility] Facility:[facility] Start: 10-19-2024 End: 10-19-2024 Refill Washington Carreon DO Work Phone: [facility] Comment on above: Refill Request Start: 10-19-2024 End: 10-20-2024 Refill Carmen Messina APRN.CNP Work Phone: [facility] Comment on above: Refill Request Start: 10-01-2024 End: 12-01-2024 Follow-up encounter Washington Carreon DO Work Phone: [facility] Start: 09-30-2024 End: 11-30-2024 Follow-up encounter Carmen Messina APRN.CNP Work Phone: [facility] Start: 09-29-2024 End: 09-29-2024 Telephone encounter Carmen Messina APRN.CNP Work Phone: [facility] Comment on above: Insurance Authorizat ion (Zepbound 2.5mg/0.5 pen inj) Start: 09-28-2024 End: 09-28-2024 ambulatory [facility] Start: 09-28-2024 End: 09-28-2024 Subsequent hospital visit by physician [facility] Comment on above: Chronic pain of left knee [M25.562, G89.29] Start: 09-28-2024 End: 09-28-2024 Patient encounter procedure Carmen Messina APRN.CNP Work Phone: [facility] [place] Comment on above: Well adult exam (Lesley sweta Dx); Chronic pain of both knees; ONEIDA (obstructive sleep apnea); Chronic pain of left knee; Postoperative hypothyroidism; Primary hypertension; Belching; Mild intermittent asthma without complication (HCC); Encounter for screening examination for other mental health and behavioral disorders; Screening examination for STI; Encounter for screening for HIV; Encounter for hepatitis C screening test for low risk patient; Screening for depression; Need for vaccination; Tinea corporis Start: 09-28-2024 End: 09-28-2024 Patient encounter status Carmen Messina APRN.MOBILITY ARCHITECT MANAGER Work Phone: [facility] Start: 09-28-2024 End: 09-28-2024 ambulatory [facility] Facility:[facility] Start: 09-28-2024 Encounter for genera l adult medical examination without abnormal findings CARMEN [facility] Start: 09-23-2024 End: 09-23-2024 Refill Carmne Messina APRN.MOBILITY ARCHITECT MANAGER Work Phone: [facility] Comment on above: Refill Request Start: 09-23-2024 End: 09-24-2024 Refill Carmen Messina APRN.MOBILITY ARCHITECT MANAGER Work Phone: [facility] Comment on above: Refill Request Start: 09-03-2024 Encounter for genera l adult medical examination without abnormal findings CARMEN MESSINA [facility] Start: 09-03-2024 End: 09-03-2024 ambulatory [facility] Facility:[facility] Start: 09-03-2024 End: 09-03-2024 Office outpatient new 30 minutes Mary Zamudio PA-C Work Phone: Dermatology [facility] Comment on above: Benign nevus (Primar y Dx) Start: 08-27-2024 End: 09-10-2024 Telephone encounter Carmen Messina APRN.CNP Work Phone: [facility] Comment on above: Insurance Authorizat ion (Ozempic) Start: 08-24-2024 End: 08-24-2024 Patient encounter procedure [facility] Provider [facility] Department Start: 08-23-2024 End: 08-23-2024 Telephone encounter Carmen Messina APRN.CNP Work Phone: [facility] Comment on above: Insurance Authorizat ion (Zepbound 2.5mg/0.5) Start: 08-20-2024 End: 08-23-2024 ambulatory Carmen Messina APRN.CNP Work Phone: [facility] Comment on above: Zepbound Start: 08-19-2024 End: 08-19-2024 Office outpatient visit 25 minutes Washington Carreon DO Work Phone: [facility] Comment on above: Skin lesion of hand (Primary Dx); Class 2 severe obesity with serious comorbidity and body mass index (BMI) of 38.0 to 38.9 in adult, unspecified obesity type (HCC); Prediabetes; Chronic pain of left knee Start: 08-19-2024 End: 08-19-2024 ambulatory WASHINGTON CARREON Facility:[facility] Start: 08-02-2024 End: 08-02-2024 Patient encounter status Carmen Messina APRN.CNP Work Phone: [facility] Start: 08-02-2024 End: 08-02-2024 Refill Carmen Messina APRN.CNP Work Phone: [facility] Comment on above: Refill Request Start: 05-04-2024 End: 05-07-2024 ambulatory Carmen Messina APRN.CNP Work Phone: [employer] Start: 05-04-2024 End: 05-07-2024 Home visit Carmen Messina APRN.CNP Work Phone: [employer] Start: 04-12-2024 End: 04-12-2024 Subsequent hospital visit by physician Arlen [facility] [place] Work Phone: Radiology Comment on above: Acute cough [R05.1] Start: 04-12-2024 End: 04-12-2024 ambulatory [facility] Facility:[facility] Start: 04-12-2024 End: 04-12-2024 Patient encounter procedure Kayla FERGUSON Work Phone: [facility] Comment on above: Sinobronchitis (Prim olvin Dx); Acute cough; Mild intermittent asthma with acute exacerbation Start: 03-22-2024 End: 03-22-2024 ambulatory Ana Weir PT [facility] Comment on above: Chronic pain of left knee (Primary Dx); Chronic pain of right knee; Difficulty in walking Start: 03-15-2024 End: 03-15-2024 ambulatory Ana Weir PT [facility] Comment on above: Chronic pain of left knee (Primary Dx); Chronic pain of right knee; Difficulty in walking Start: 03-01-2024 End: 03-01-2024 ambulatory Yesy Mustafa PT, DPT [facility] Comment on above: Chronic pain of left knee (Primary Dx); Chronic pain of right knee; Difficulty in walking Start: 02-06-2024 End: 02-06-2024 ambulatory [facility] Facility:[facility] Start: 02-06-2024 End: 02-06-2024 Patient encounter procedure Jimmy Mason PA-C Work Phone: Orthopaedics Comment on above: Primary osteoarthrit is of left knee (Primary Dx); Primary osteoarthritis of both knees Start: 01-27-2024 ambulatory Carmen Fatouradha maharaj WIDE PIECE GOODS INSPECTOR.MOBILITY ARCHITECT MANAGER Work Phone: [facility] Comment on above: Ear infection Start: 01-25-2024 Refill Jimmy purcell PA-C Work Phone: Orthopaedics Comment on above: Refill Request Start: 11-26-2023 Telephone encounter Ana langley PA-C Work Phone: [facility] Comment on above: Appointment Start: 11-25-2023 ambulatory Carmen Barakat s WIDE PIECE GOODS INSPECTOR.MOBILITY ARCHITECT MANAGER Work Phone: [facility] Comment on above: SIBO Test Results Start: 11-24-2023 End: 11-24-2023 Patient encounter procedure Maryse Macedo MD Work Phone: [facility] Comment on above: Results Start: 11-24-2023 End: 11-24-2023 ambulatory [facility] Facility:[facility] Start: 11-20-2023 End: 11-20-2023 ambulatory [facility] Facility:[facility] Start: 11-20-2023 End: 11-20-2023 Nursing evaluation of patient and report Nurse [employer] Work Phone: [facility] Comment on above: Belching; Bloating Start: 11-16-2023 ambulatory Carmen Lainezadi s WIDE PIECE GOODS INSPECTOR.MOBILITY ARCHITECT MANAGER Work Phone: [facility] Comment on above: Osmin test results Start: 11-12-2023 End: 11-12-2023 Patient encounter procedure Maryse Macedo MD Work Phone: [facility] Comment on above: Results Start: 11-12-2023 End: 11-12-2023 ambulatory MARYSE MACEDO Facility:[facility] Start: 11-11-2023 End: 11-11-2023 Patient encounter procedure Carmen Messina WIDE PIE[employer] GOODS INSPECTOR.MOBILITY ARCHITECT MANAGER Work Phone: [facility] Comment on above: Chronic pain of righ t knee (Primary Dx); Difficulty in walking; Class 3 severe obesity due to excess calories with serious comorbidity and body mass index (BMI) of 40.0 to 44.9 in adult ([facility]) Start: 11-11-2023 End: 11-11-2023 ambulatory [facility] Facility:[facility] Start: 11-11-2023 End: 11-11-2023 Nursing evaluation of patient and report Nurse [employer] Work Phone: [facility] Comment on above: Bloating; Belching Start: 11-07-2023 ambulatory Johanne Johnson MD Work Phone: Pulmonology [facility] Comment on above: Test Results abnorma l Start: 10-29-2023 End: 10-29-2023 Office consultation new/estab patient 80 min Johanne Johnson MD Work Phone: Pulmonology [facility] Comment on above: Bronchiectasis, unco mplicated (HCC) (Primary Dx); ONEIDA (obstructive sleep apnea); Mild intermittent asthma without complication Start: 10-29-2023 End: 10-29-2023 ambulatory CARMEN MESSINA Pulmonary Medicine [facility] Comment on above: Spirometry Start: 10-29-2023 End: 10-29-2023 Patient encounter procedure Pulm Fct Lab [facility] Pulmonary Medicine [facility] Start: 10-17-2023 End: 10-17-2023 Orders Only Jimmy Mason PA-C Work Phone: Orthopaedics Comment on above: Right knee pain, uns pecified chronicity (Primary Dx) Primary osteoarthrit is of both knees (Primary Dx); Acute pain of both knees; Lateral epicondylitis of right elbow Right knee pain, uns pecified chronicity [M25.561] Start: 10-16-2023 ambulatory Carmen maharaj APRN.MOBILITY ARCHITECT MANAGER Work Phone: [facility] Comment on above: CPAP issues Start: 10-16-2023 Telephone encounter [facility] Provider Pul [facility] Comment on above: Referral Request Start: 10-10-2023 Telephone encounter Carmen smith APRN.MOBILITY ARCHITECT MANAGER Work Phone: [facility] Comment on above: Opened In Error Start: 10-08-2023 End: 10-08-2023 Patient encounter procedure Ana Triana PA-C Work Phone: [facility] Comment on above: Bloating (Primary Dx ); Belching; Constipation, unspecified constipation type; Diarrhea, unspecified type Start: 10-08-2023 End: 10-08-2023 Telemedicine consultation with patient Ana Triana PA-C Work Phone: [facility] Start: 09-29-2023 Telephone encounter Carmen smith APRN.CNP Work Phone: [facility] Comment on above: Orders (CPAP MACHINE ) Orders (GASTROENTERO LOGY) Start: 09-29-2023 End: 09-29-2023 Patient encounter procedure Carmen Messina APRN.CNP Work Phone: [facility] Comment on above: ONEIDA (obstructive sle ep apnea) (Primary Dx); Pedal edema; Venous insufficiency; Bloating; Belching; Bronchiectasis without complication (HCC) Start: 08-28-2023 ambulatory Carmen maharaj APRN.CNP Work Phone: [facility] Comment on above: Medicine cancelled b y doctor? Start: 08-26-2023 Telephone encounter Carmen smith APRN.CNP Work Phone: [facility] Comment on above: Referral Request (Or tho) Start: 08-25-2023 End: 08-25-2023 Patient encounter procedure Carmen Messina APRN.CNP Work Phone: [facility] Comment on above: Postoperative hypoth yroidism (Primary Dx); Elevated fasting glucose; Acute pain of both knees; Mild intermittent asthma without complication; Primary hypertension; Class 2 severe obesity due to excess calories with serious comorbidity and body mass index (BMI) of 39.0 to 39.9 in adult (HCC); Prediabetes Start: 07-25-2023 ambulatory Carmen maharaj APRN.CNP Work Phone: [facility] Comment on above: Synthroid Start: 07-25-2023 Patient encounter status Carmen Messina APRN.CNP Work Phone: [facility] Work Phone: Start: 05-06-2023 End: 05-07-2023 ambulatory [facility] Start: 04-29-2023 Telephone encounter Carmen smith APRN.CNP Work Phone: [facility] Comment on above: Orders (Sleep study faxed to [employer]) Start: 02-19-2023 Refill Farhad maharaj MD Work Phone: Ambulatory Surgery Comment on above: Refill Request Start: 01-30-2023 End: 01-30-2023 Patient encounter procedure Glenda Mares MD Work Phone: OB/Gynecology Comment on above: Acute vulvitis (Prim olvin Dx) Start: 01-29-2023 ambulatory Glenda Mares MD Work Phone: OB/Gynecology Comment on above: Lump Start: 12-18-2022 End: 12-18-2022 Subsequent hospital visit by physician Farhad Mclean MD Work Phone: Ambulatory Surgery Comment on above: Change in bowel habi ts [R19.4] Start: 12-13-2022 Telephone encounter Jocy garcia PA-C Work Phone: [facility] Comment on above: Appointment Results Start: 12-11-2022 ambulatory [facility] Provider Kayce gross Comment on above: Colonoscopy Prep Ins tructions Start: 12-11-2022 E-mail encounter andre m caregiver [facility] Provider [facility] Start: 12-10-2022 End: 12-10-2022 Office outpatient visit 40 minutes Jocy Reese PA-C Work Phone: [facility] Comment on above: Nausea (Primary Dx); Bloating; Change in bowel habits Start: 11-13-2022 Telephone encounter Carmen smith APRN.CNP Work Phone: [facility] Comment on above: SLEEP TEST RESULTS Start: 11-09-2022 Refill Carmen maharaj APRN.CNP Work Phone: [facility] Comment on above: Med Change Request Start: 11-05-2022 End: 11-05-2022 Subsequent hospital visit by physician Dest[place] [facility] (I-Stat) Work Phone: Cat Scan Comment on above: Bronchiectasis witho ut complication (HCC) [J47.9] Start: 10-26-2022 Refill Carmen maharaj APRN.CNP Work Phone: [facility] Comment on above: Refill Request Start: 10-22-2022 ambulatory Meagan Figueroa RN [employer]LE[employer]OCI[employer] Comment on above: Information Start: 10-22-2022 Telephone encounter Carmen smith APRN.MOBILITY ARCHITECT MANAGER Work Phone: [facility] Comment on above: Orders (PSG ) Start: 10-21-2022 Chart abstracting Carmen stein APRN.MOBILITY ARCHITECT MANAGER Work Phone: [facility] Comment on above: Psg Check In (Adult) Start: 10-17-2022 End: 10-17-2022 Subsequent hospital visit by physician Screen Mammo [employer] [place] [id number] Radiology Comment on above: Encounter for screen ing mammogram for malignant neoplasm of breast [Z12.31] Start: 10-09-2022 End: 10-09-2022 Subsequent hospital visit by physician Us [facility] Comment on above: Papillary thyroid ca rcinoma (HCC) [C73] Start: 10-03-2022 ambulatory Carmen maharaj APRN.MOBILITY ARCHITECT MANAGER Work Phone: [facility] Comment on above: CT Scan Scheduling I ssue Start: 09-11-2022 End: 09-11-2022 Subsequent hospital visit by physician [facility] (I-Stat) Work Phone: Cat Scan Start: 09-09-2022 Telephone encounter Carmen smith APRN.MOBILITY ARCHITECT MANAGER Work Phone: [facility] Comment on above: Received Outside Med ical Records ([facility]) Start: 08-30-2022 Chart abstracting [facility] Main Work Phone: Neurology Comment on above: HSAT Check In (Adult ) Start: 08-29-2022 Refill Julissa lockhart MD Work Phone: Endocrinology Start: 08-28-2022 Telephone encounter Carmen smith DENISE Work Phone: [facility] Comment on above: Consult (General Joseph kerry ) Start: 08-21-2022 Refill Julissa lockhart MD Work Phone: Endocrinology Start: 07-12-2022 Refill Willy de la cruz MD Work Phone: Endocrinology Comment on above: Med Change Request Start: 07-01-2022 ambulatory [facility] Facility:[facility] Start: 06-19-2022 End: 06-19-2022 ambulatory Willy Fitzpatrick MD Work Phone: Endocrinology Comment on above: Class 2 obesity due to excess calories with body mass index (BMI) of 37.0 to 37.9 in adult, unspecified whether serious comorbidity present Start: 06-19-2022 End: 06-19-2022 Telemedicine consultation with patient Willy Fitzpatrick MD Work Phone: [facility] Start: 05-30-2022 End: 05-30-2022 Patient encounter procedure Julissa Modi MD Work Phone: Endocrinology Comment on above: Papillary thyroid ca rcinoma (HCC) (Primary Dx); S/P total thyroidectomy; Elevated TSH; Post-operative hypothyroidism; Witnessed apneic spells; Class 2 obesity due to excess calories with body mass index (BMI) of 37.0 to 37.9 in adult, unspecified whether serious comorbidity present Start: 05-20-2022 End: 05-20-2022 ambulatory [facility] Work Phone: Start: 05-20-2022 End: 05-20-2022 Patient encounter procedure [facility] Start: 10-22-2021 End: 10-22-2021 Patient encounter procedure Bruno Jaimes Work Phone: Podiatry Comment on above: Closed nondisplaced fracture of distal phalanx of lesser toe of left foot, initial encounter (Primary Dx) Start: 10-18-2021 End: 10-18-2021 Subsequent hospital visit by physician Arlen [facility] Work Phone: Radiology Comment on above: Toe injury, left, in itial encounter [T69.922A] Start: 10-18-2021 End: 10-18-2021 Patient encounter procedure Raegan Grady MOBILITY ARCHITECT MANAGER Work Phone: [facility] Comment on above: Nondisplaced fractur e of distal phalanx of left great toe, initial encounter for closed fracture (Primary Dx); Toe injury, left, initial encounter Procedures Date Procedure Procedure Detail Performing Clinician Start: 09-28-2024 Adult depression screening assessment Carmen Messina APRN.CNP Work Phone: Start: 09-03-2024 Lipid 1996 panel - Serum or Plasma Kiersten Messina APRN.MOBILITY ARCHITECT MANAGER Work Phone: Start: 04-12-2024 Radiologic exam chest 2 views Kayla FERGUSON Work Phone: Start: 02-06-2024 Arthrocentesis aspir&/inj major jt/bursa w/o us Jimmy Mason PA-C Work Phone: Start: 11-24-2023 Breath hydrogen/methane test Maryse cano MD Work Phone: Start: 11-11-2023 Breath hydrogen/methane test Ana eid PA-C Work Phone: Start: 10-29-2023 Smr prim src gram/giemsa stain bct fungi/cell Johanne Johnson MD Work Phone: Start: 10-29-2023 Brncdilat rspse spmtry pre&post-brncdilat admn [facility] Provider Start: 09-29-2023 Adult depression screening assessment Jimmy Mason PA-C Work Phone: Start: 08-25-2023 Hemoglobin A1c/Hemoglobin.total in Blood Carmen Messina APRN.CNP Work Phone: Start: 08-07-2023 Lipid 1996 panel - Serum or Plasma Kiersten Messina WIDE PIECE GOODS INSPECTOR.MOBILITY ARCHITECT MANAGER Work Phone: Start: 12-18-2022 Colonoscopy flx dx w/collj spec when pfrmd Jocy Reese PA-C Work Phone: Start: 12-18-2022 Level iv surg pathology gross&microscopic exam Farhad Mclean MD Work Phone: Start: 12-18-2022 Esophagogastroduodenoscopy transoral diagnostic Jocy Reese PA-C Work Phone: Start: 12-18-2022 Colonoscopy Glenda Mares MD Work Phone: Start: 11-05-2022 Ct abdomen & pelvis w/contrast material Carmen Messina WIDE PIECE GOODS INSPECTOR.MOBILITY ARCHITECT MANAGER Work Phone: Start: 11-05-2022 Ct thorax w/o contrast material Carmen Messina W[employer] PIECE GOODS INSPECTOR.MOBILITY ARCHITECT MANAGER Work Phone: Start: 10-17-2022 Mammography Carmen Messina WIDE PIECE GOODS INSPECTOR.MOBILITY ARCHITECT MANAGER Work Phone: Start: 10-09-2022 Us soft tissue head & neck real time imge docm Julissa Modi MD Work Phone: Start: 09-24-2022 Lipid 1996 panel - Serum or Plasma Ct (I -Stat) Work Phone: Start: 08-28-2022 H/O: hysterectomy History of hysterectomy Carmen Messina WIDE PIECE GOODS INSPECTOR.MOBILITY ARCHITECT MANAGER Work Phone: Start: 10-18-2021 Radex toe minimum 2 views Raegan Grady WIDE PIECE GOODS INSPECTOR.MOBILITY ARCHITECT MANAGER Work Phone: Start: 02-22-2021 Colonoscopy Carmen Messina WIDE PIECE GOODS INSPECTOR.MOBILITY ARCHITECT MANAGER Work Phone: Start: 10-22-2018 Mammography Raegan Grady WIDE PIECE GOODS INSPECTOR.MOBILITY ARCHITECT MANAGER Work Phone: H/O: hysterectomy History of hysterectomy Ct (I-Stat) Work Phone: H/O: hysterectomy History of hysterectomy Ct (I-Stat) Work Phone: History of thyroidectomy S/P tot al thyroidectomy Julissa Modi MD Work Phone: Plan of Treatment Date Care Activity Detail Author Start: 07-29-2034 Urine microalbumin profile DTaP,Tdap,Td Vaccine (2 - Td or Tdap) [facility] Start: 12-18-2032 Screening for malignant neoplasm of colon [facility] Start: 09-03-2029 Lipid panel Lipid Screening [facility] Start: 08-07-2028 Lipid panel Lipid Screening [facility] Start: 09-25-2027 Lipid 1996 panel - Serum or Plasma Lipid Screening [facility] Start: 09-25-2027 Lipid panel Lipid Screening [facility] Start: 09-25-2027 LIPID SCREEN LIPID SCREEN [facility] Start: 09-04-2027 Diabetes Screening Diabetes Screening [facility] Start: 08-24-2026 Diabetes Screening Diabetes Screening [facility] Start: 02-22-2026 COLORECTAL CANCER SCREENING COLORECTAL CANCER SCREENING [facility] Comment on above: Postponed from 2017 (Postponed - N ot Clinically Indicated) Start: 01-31-2026 HPV TESTING HPV TESTING [facility] Start: 01-31-2026 PAP TESTING PAP TESTING [facility] Start: 01-31-2026 Screening for malignant neoplasm of cervix [facility] Start: 11-15-2025 Annual PCP Team Chronic Disease Visit Annual PCP Team Chronic Disease Visit [facility] Start: 11-15-2025 BP Controlled (<130/80) BP Controlled (<130/80) [facility] Start: 09-28-2025 Annual PCP Team Chronic Disease Visit Annual PCP Team Chronic Disease Visit [facility] Start: 09-28-2025 Anxiety Screening Anxiety Screening [facility] Start: 09-28-2025 BP Controlled (<130/80) BP Controlled (<130/80) [facility] Start: 09-28-2025 Covid-19 Vaccine () Covid-19 Vaccine () [facility] Comment on above: Postponed from 02/15/2024 (Declined at t his time) Start: 09-28-2025 Depression Screening Depression Screening [facility] Start: 09-24-2025 DIABETES SCREEN DIABETES SCREEN [facility] Start: 09-24-2025 Diabetes Screening Diabetes Screening [facility] Start: 08-19-2025 Annual PCP Team Chronic Disease Visit Annual PCP Team Chronic Disease Visit [facility] Start: 08-19-2025 BP Controlled (<130/80) BP Controlled (<130/80) [facility] in Start: 04-12-2025 BP Controlled (<130/80) BP Controlled (<130/80) [facility] Start: 02-14-2025 Influenza vaccination [facility] Start: 11-15-2024 End: 11-15-2024 Patient encounter procedure 11/15/2024 11:40 AM EDT Office Visit [facility] [address] [place], [place] [address] Carmen Messina APRN.[facility] [address] [facility] [address] [place], [place] [id number] Medication refill for weight management [facility] Comment on above: Medication refill for weight management Start: 11-10-2024 Annual PCP Team Chronic Disease Visit Annual PCP Team Chronic Disease Visit [facility] Start: 10-04-2024 End: 10-04-2024 Patient encounter procedure 10/04/2024 2:30 PM EDT Office Visit [facility] [address] [place], [place] [address] Karie Amato DO [address] [facility] [address] [place], [place] [id number] New patient: Chronic pain, bilateral knee [facility] Comment on above: New patient: Chronic pain, bilateral kne e Start: 09-28-2024 Annual PCP Team Chronic Disease Visit Annual PCP Team Chronic Disease Visit [facility] Start: 09-28-2024 Anxiety Screening Anxiety Screening [facility] Start: 09-28-2024 BP Controlled (<130/80) BP Controlled (<130/80) [facility] Start: 09-28-2024 Depression Screening Depression Screening [facility] Start: 09-28-2024 End: 12-28-2024 Hepatitis B virus surface Ab [Presence] in Serum [facility] Comment on above: Expected: 09/28/2024, Expires: Start: 09-28-2024 End: 12-28-2024 Hepatitis C virus RNA [Units/volume] (viral load) in Serum or Plasma by STEVE with probe detection [facility] Comment on above: Expected: 09/28/2024, Expires: Start: 09-28-2024 End: 12-28-2024 HIV 1+2 Ab [Presence] in Serum or Plasma by Immunoassay [facility] Comment on above: Expected: 09/28/2024, Expires: Start: 09-28-2024 End: 12-28-2024 MUMPS IGG AB [facility] Comment on above: Expected: 09/28/2024, Expires: Start: 09-28-2024 End: 12-28-2024 RUBELLA IGG ANTIBODY [facility] Comment on above: Expected: 09/28/2024, Expires: Start: 09-28-2024 End: 12-28-2024 RUBEOLA (MEASLES)IGG [facility] Comment on above: Expected: 09/28/2024, Expires: Start: 09-28-2024 End: 09-28-2024 Patient encounter procedure 09/28/2024 1:40 PM EDT Office Visit [facility] [address] [place], [place] [id number] Carmen Messina APRN.[facility] [address] [id number] physical [facility] Comment on above: physical Start: 08-24-2024 Annual PCP Team Chronic Disease Visit Annual PCP Team Chronic Disease Visit [facility] Start: 08-02-2024 End: 11-01-2024 25-hydroxyvitamin D3 [Mass/volume] in Serum or Plasma VITAMIN D 25 HYDROXY Lab Routine Well adult exam Expected: 08/02/2024, Expires: 11/01/2024 [facility] Comment on above: Expected: 08/02/2024, Expires: Start: 08-02-2024 End: 11-01-2024 CBC W Auto Differential panel - Blood COMPLETE BLOOD COUNT AND DIFFERENTIAL Lab Routine Well adult exam Expected: 08/02/2024, Expires: 11/01/2024 [facility] Comment on above: Expected: 08/02/2024, Expires: Start: 08-02-2024 End: 11-01-2024 Comprehensive metabolic 2000 panel - Serum or Plasma COMPREHENSIVE METABOLIC PANEL Lab Routine Well adult exam Expected: 08/02/2024, Expires: 11/01/2024 [facility] Work Phone: Comment on above: Expected: 08/02/2024, Expires: Start: 08-02-2024 End: 11-01-2024 Hemoglobin A1c in Blood HEMOGLOBIN A1C Lab Routine Prediabetes Expected: 08/02/2024, Expires: 11/01/2024 [facility] Comment on above: Expected: 08/02/2024, Expires: Start: 08-02-2024 End: 11-01-2024 Lipid 1996 panel - Serum or Plasma LIPID PANEL BASIC Lab Routine Well adult exam Expected: 08/02/2024, Expires: 11/01/2024 [facility] Comment on above: Expected: 08/02/2024, Expires: Start: 08-02-2024 End: 11-01-2024 Thyrotropin [Units/volume] in Serum or Plasma THYROID STIMULATING HORMONE Lab Routine Postoperative hypothyroidism Expected: 08/02/2024, Expires: 11/01/2024 [facility] Comment on above: Expected: 08/02/2024, Expires: Start: 08-02-2024 End: 11-01-2024 Urinalysis complete panel - Urine URINALYSIS, WITH MICROSCOPIC Lab Routine Well adult exam Expected: 08/02/2024, Expires: 11/01/2024 [facility] Comment on above: Expected: 08/02/2024, Expires: Start: 06-11-2024 End: 06-11-2024 ambulatory 06/11/2024 8:00 AM EST [facility] [address] [place] [address] [place] [address] [place] [address] EST [facility] Comment on above: EST [facility] Start: 03-29-2024 End: 03-29-2024 ambulatory 03/29/2024 1:15 PM EDT OT/PT/Speech Visit [facility] [address] [place] [address] O'JamalTiffAna, PT Chronic pain of right knee [M25.561, G89.29] [facility] Comment on above: Chronic pain of right knee [M25.561, G89 .29] Start: 03-22-2024 End: 03-22-2024 ambulatory 03/22/2024 1:15 PM EDT OT/PT/Speech Visit [facility] [address] [place] [address] O'Jamal, Ana, PT Chronic pain of right knee [M25.561, G89.29] [facility] Comment on above: Chronic pain of right knee [M25.561, G89 .29] Start: 03-15-2024 End: 03-15-2024 ambulatory 03/15/2024 1:15 PM EDT OT/PT/Speech Visit [facility] [address] [place] [address] O'Jamal, Ana, PT Chronic pain of right knee [M25.561, G89.29] [facility] Comment on above: Chronic pain of right knee [M25.561, G89 .29] Start: 03-11-2024 End: 03-11-2024 ambulatory 03/11/2024 8:45 AM EDT OT/PT/Speech Visit [facility] [address] [place] [address] Ana Weir, PT Chronic pain of right knee [M25.561, G89.29] [facility] Comment on above: Chronic pain of right knee [M25.561, G89 .29] Start: 03-01-2024 End: 03-01-2024 ambulatory 03/01/2024 1:30 PM EDT OT/PT/Speech Visit [facility] [address] [place] [address] Yesy Mustafa, PT, DPT Knee pain and mobility [facility] Comment on above: Knee pain and mobility Start: 02-15-2024 Covid-19 Vaccine ( season) Covid-19 Vaccine () [facility] Start: 02-15-2024 Covid-19 Vaccine () Covid-19 Vaccine () [facility] Start: 02-15-2024 Influenza vaccination [facility] Start: 02-01-2024 DIABETES SCREEN DIABETES SCREEN [facility] Start: 01-26-2024 End: 01-26-2024 Follow-up encounter 01/26/2024 2:30 PM EDT [facility] [address] [place] [address] [place] [address] [place] [address] 3 month bronchiectasis follow up Pulmonary Medicine Comment on above: 3 month bronchiectasis follow up Start: 12-19-2023 Colonoscopy COLONOSCOPY [facility] Start: 12-19-2023 COLORECTAL CANCER SCREENING COLORECTAL CANCER SCREENING [facility] Start: 12-19-2023 Screening for malignant neoplasm of colon [facility] Start: 11-17-2023 End: 11-16-2024 BREATH TEST GLUCOSE BREATH TEST GLUCOSE Endoscopy Routine Belching Bloating Expected: 11/17/2023, Expires: 11/16/2024 [facility] Work Phone: Comment on above: Expected: 11/17/2023, Expires: Start: 11-11-2023 End: 11-11-2023 Patient encounter procedure 11/11/2023 1:40 PM EDT Office Visit [facility] [address] [place] [address] Carmen Messina APRN.MOBILITY ARCHITECT MANAGER [address] [facility] [place] [address] 4 Week Follow-up [facility] Comment on above: 4 Week Follow-up Start: 11-11-2023 End: 11-11-2023 Nursing evaluation of patient and report 11/11/2023 10:30 AM EDT Nurse Visit [facility] [address] [facility] [address] [place] [address] [facility], Nurse Keiry [place] [address] [place], [place] [id number] Bloating [R14.0] [facility] Comment on above: Bloating [R14.0] Start: 10-23-2023 End: 10-23-2023 Nursing evaluation of patient and report 10/23/2023 9:00 AM EDT Nurse Visit [facility] [address] [facility] [address] [place] [address] [facility], Nurse Keiry [place] [address] [place] [address] Bloating [R14.0] [facility] Comment on above: Bloating [R14.0] Start: 10-18-2023 Mammography [facility] Start: 10-18-2023 Screening for malignant neoplasm of breast Mammogram Screening [facility] Start: 10-17-2023 End: 10-17-2023 Patient encounter procedure Radiology Comment on above: XRAY Right Knee Right Knee Pain Start: 09-24-2023 ANNUAL PCP TEAM CHRONIC DISEASE VISIT ANNUAL PCP TEAM CHRONIC DISEASE VISIT [facility] Start: 09-24-2023 HEPATITIS B (1 of 3 - 3-dose series) HEPATITIS B (1 of 3 - 3-dose series) [facility] Comment on above: Postponed from 1972 (Declined at t his time) Start: 09-24-2023 Hepatitis B Vaccine (1 of 3 - 19+ 3-dose series) Hepatitis B Vaccine (1 of 3 - 19+ 3-dose series) [facility] Comment on above: Postponed from 08/16/1991 (Declined at t his time) Start: 09-24-2023 Hepatitis B Vaccine (1 of 3 - 3-dose series) Hepatitis B Vaccine (1 of 3 - 3-dose series) [facility] Comment on above: Postponed from 1972 (Declined at t his time) Start: 09-24-2023 PNEUMOCOCCAL (1 - PCV) PNEUMOCOCCAL (1 - PCV) [facility] Comment on above: Postponed from 1978 (Declined at t his time) Start: 09-24-2023 Pneumococcal vaccination [facility] Comment on above: Postponed from 1978 (Declined at t his time) Start: 09-24-2023 SHINGRIX VACCINE (1 of 2) SHINGRIX VACCINE (1 of 2) [facility] Comment on above: Postponed from 2022 (Declined at t his time) Start: 09-24-2023 Urine microalbumin profile [facility] Comment on above: Postponed from 08/16/1991 (Declined at t his time) Start: 08-29-2023 ANNUAL PCP TEAM CHRONIC DISEASE VISIT ANNUAL PCP TEAM CHRONIC DISEASE VISIT [facility] Start: 08-29-2023 HEPATITIS C SCREENING HEPATITIS C SCREENING [facility] Comment on above: Postponed from 1990 (Declined at t his time) Start: 08-29-2023 Hepatitis C screening Hepatitis C Screening [facility] Comment on above: Postponed from 1990 (Declined at t his time) Start: 08-29-2023 HIV SCREENING HIV SCREENING [facility] Comment on above: Postponed from 1990 (Declined at t his time) Start: 08-29-2023 HIV screening HIV Screening [facility] Comment on above: Postponed from 1990 (Declined at t his time) Start: 07-28-2023 End: 10-27-2023 25-hydroxyvitamin D3 [Mass/volume] in Serum or Plasma VITAMIN D 25 HYDROXY Lab Routine Vitamin D deficiency Expected: 07/28/2023, Expires: 10/27/2023 [facility] Work Phone: Comment on above: Expected: 07/28/2023, Expires: 4 Start: 07-28-2023 End: 10-27-2023 CBC W Auto Differential panel - Blood CBC + DIFF Lab Routine Well adult exam Expected: 07/28/2023, Expires: 10/27/2023 [facility] Work Phone: Comment on above: Expected: 07/28/2023, Expires: 4 Start: 07-28-2023 End: 10-27-2023 Comprehensive metabolic 2000 panel - Serum or Plasma COMP METABOLIC PANEL Lab Routine Well adult exam Expected: 07/28/2023, Expires: 10/27/2023 [facility] Work Phone: Comment on above: Expected: 07/28/2023, Expires: 4 Start: 07-28-2023 End: 10-27-2023 Lipid 1996 panel - Serum or Plasma LIPID PANEL BASIC Lab Routine Well adult exam Expected: 07/28/2023, Expires: 10/27/2023 [facility] Work Phone: Comment on above: Expected: 07/28/2023, Expires: 4 Start: 07-28-2023 End: 10-27-2023 Thyrotropin [Units/volume] in Serum or Plasma TSH BLD Lab Routine Post-operative hypothyroidism Expected: 07/28/2023, Expires: 10/27/2023 [facility] Work Phone: Comment on above: Expected: 07/28/2023, Expires: 4 Start: 06-16-2023 Depression Assessment Depression Assessment [facility] Start: 02-14-2023 Covid-19 Vaccine () Covid-19 Vaccine () [facility] Start: 02-14-2023 Influenza vaccination [facility] Start: 12-10-2022 End: 02-09-2023 IgA [Mass/volume] in Serum or Plasma IGA BLD Lab Routine Nausea Bloating Expected: 12/10/2022, Expires: 02/09/2023 [facility] Work Phone: Comment on above: Expected: 12/10/2022, Expires: Start: 12-10-2022 End: 02-09-2023 Lipase [Enzymatic activity/volume] in Serum or Plasma LIPASE BLD Lab Routine Nausea Bloating Expected: 12/10/2022, Expires: 02/09/2023 [facility] Work Phone: Comment on above: Expected: 12/10/2022, Expires: Start: 12-10-2022 End: 02-09-2023 Tissue transglutaminase Ab panel - Serum TRANSGLUTAMINASE ABS Lab Routine Nausea Bloating Expected: 12/10/2022, Expires: 02/09/2023 [facility] Work Phone: Comment on above: Expected: 12/10/2022, Expires: Start: 11-13-2022 End: 01-13-2023 Ferritin [Mass/volume] in Serum or Plasma FERRITIN BLD Lab Routine Restless legs Expected: 11/13/2022, Expires: 01/13/2023 [facility] Work Phone: Comment on above: Expected: 11/13/2022, Expires: Start: 11-13-2022 End: 01-13-2023 Iron and Iron binding capacity panel - Serum or Plasma IRON + TIBC Lab Routine Restless legs Expected: 11/13/2022, Expires: 01/13/2023 [facility] Work Phone: Comment on above: Expected: 11/13/2022, Expires: 3 Start: 08-21-2022 End: 10-21-2022 Thyroglobulin Ab [Units/volume] in Serum or Plasma THYROGLOBULIN AB Lab Routine Papillary thyroid carcinoma (HCC) Expected: 08/21/2022, Expires: 10/21/2022 [facility] Work Phone: Comment on above: Expected: 08/21/2022, Expires: 3 Start: 08-21-2022 End: 10-21-2022 Thyroglobulin and Thyrogobulin Ab panel - Serum or Plasma THYROGLOBULIN, SERUM WITH REFLEX TO IA OR LC-MS/MS Lab Routine Papillary thyroid carcinoma (HCC) Expected: 08/21/2022, Expires: 10/21/2022 [facility] Work Phone: Comment on above: Expected: 08/21/2022, Expires: 3 Start: 08-21-2022 End: 10-21-2022 Thyrotropin [Units/volume] in Serum or Plasma TSH BLD Lab Routine Papillary thyroid carcinoma (HCC) Expected: 08/21/2022, Expires: 10/21/2022 [facility] Work Phone: Comment on above: Expected: 08/21/2022, Expires: 3 Start: 08-21-2022 End: 10-21-2022 Thyroxine (T4) free [Mass/volume] in Serum or Plasma T4 FREE/FREE THYROX Lab Routine Papillary thyroid carcinoma (HCC) Expected: 08/21/2022, Expires: 10/21/2022 [facility] Work Phone: Comment on above: Expected: 08/21/2022, Expires: 3 Start: 2022 Pneumococcal Vaccine: 50+ (1 of 1 - PCV) Pneumococcal Vaccine: 50+ (1 of 1 - PCV) [facility] Start: 2022 SHINGRIX VACCINE (1 of 2) SHINGRIX VACCINE (1 of 2) [facility] Start: 06-19-2022 End: 08-19-2022 Hemoglobin A1c in Blood HGB A1C Lab Routine Class 2 obesity due to excess calories with body mass index (BMI) of 37.0 to 37.9 in adult, unspecified whether serious comorbidity present Expected: 06/19/2022, Expires: 08/19/2022 [facility] Work Phone: Comment on above: Expected: 06/19/2022, Expires: 3 Start: 06-16-2022 DEPRESSION ASSESSMENT DEPRESSION ASSESSMENT [facility] Start: 05-30-2022 End: 07-30-2022 Thyroglobulin Ab [Units/volume] in Serum or Plasma THYROGLOBULIN AB Lab Routine Papillary thyroid carcinoma (HCC) Expected: 05/30/2022, Expires: 07/30/2022 [facility] Work Phone: Comment on above: Expected: 05/30/2022, Expires: 3 Start: 05-30-2022 End: 07-30-2022 Thyroglobulin and Thyrogobulin Ab panel - Serum or Plasma THYROGLOBULIN, SERUM WITH REFLEX TO IA OR LC-MS/MS Lab Routine Papillary thyroid carcinoma (HCC) Expected: 05/30/2022, Expires: 07/30/2022 [facility] Work Phone: Comment on above: Expected: 05/30/2022, Expires: 3 Start: 05-30-2022 End: 07-30-2022 Thyrotropin [Units/volume] in Serum or Plasma TSH BLD Lab Routine Papillary thyroid carcinoma (HCC) Expected: 05/30/2022, Expires: 07/30/2022 [facility] Work Phone: Comment on above: Expected: 05/30/2022, Expires: 3 Start: 05-30-2022 End: 07-30-2022 Thyroxine (T4) free [Mass/volume] in Serum or Plasma T4 FREE/FREE THYROX Lab Routine Papillary thyroid carcinoma (HCC) Expected: 05/30/2022, Expires: 07/30/2022 [facility] Work Phone: Comment on above: Expected: 05/30/2022, Expires: 3 Start: 02-22-2022 Colonoscopy COLONOSCOPY [facility] Start: 02-22-2022 COLORECTAL CANCER SCREENING COLORECTAL CANCER SCREENING [facility] Start: 11-12-2021 End: 11-21-2022 XR TOE AP/LAT/OBL LEFT XR TOE AP/LAT/OBL LEFT Radiology Routine Closed nondisplaced fracture of distal phalanx of lesser toe of left foot, initial encounter Expected: 11/12/2021, Expires: 11/21/2022 [facility] Work Phone: Comment on above: Expected: 11/12/2021, Expires: 3 Start: 09-10-2021 COVID-19 VACCINE (3 - Booster for Pfizer series) COVID-19 VACCINE (3 - Booster for Pfizer series) [facility] Start: 06-16-2021 DEPRESSION ASSESSMENT DEPRESSION ASSESSMENT [facility] Start: 02-23-2021 LIPID SCREEN LIPID SCREEN [facility] Start: 10-23-2019 Mammography MAMMOGRAM [facility] Start: 2017 COLOGUARD (FIT-DNA) COLOGUARD (FIT-DNA) [facility] Start: 2017 Colonoscopy COLONOSCOPY [facility] Start: 2017 COLORECTAL CANCER SCREENING COLORECTAL CANCER SCREENING [facility] Start: [address] COLONOGRAPHY [facility] Start: 2017 FECAL OCCULT BLOOD FECAL OCCULT BLOOD [facility] Start: 2017 Screening for malignant neoplasm of colon [facility] Start: 2017 SIGMOIDOSCOPY SIGMOIDOSCOPY [facility] Start: 08-16-1991 Hepatitis B Vaccine (1 of 3 - 19+ 3-dose series) Hepatitis B Vaccine (1 of 3 - 19+ 3-dose series) [facility] Start: 08-16-1991 Urine microalbumin profile [facility] Start: 1990 ANNUAL PCP TEAM CHRONIC DISEASE VISIT ANNUAL PCP TEAM CHRONIC DISEASE VISIT [facility] Start: 1990 BP Controlled (<130/80) BP Controlled (<130/80) [facility] Start: 1990 HEPATITIS C SCREENING HEPATITIS C SCREENING [facility] Start: 1990 Hepatitis C screening Hepatitis C Screening [facility] Start: 1990 HIV SCREENING HIV SCREENING [facility] Start: 1990 HIV screening HIV Screening [facility] Start: 1990 SPIROMETRY SPIROMETRY [facility] Start: 1984 Adult depression screening assessment DEPRESSION SCREENING [facility] Start: 1978 PNEUMOCOCCAL (1 - PCV) PNEUMOCOCCAL (1 - PCV) [facility] ic Start: 1972 HEPATITIS B (1 of 3 - 3-dose series) HEPATITIS B (1 of 3 - 3-dose series) [facility] Bacteria identified in Unspecified specimen by Respiratory culture RESPIRATORY CULTURE AND STAIN Microbiology Routine Bronchiectasis, uncomplicated (HCC) 10/29/2023 11:07 AM EDT [facility] End: 10-07-2024 BREATH TEST GLUCOSE BREATH TEST GLUCOSE Endoscopy Routine Bloating Belching 1 Occurrences starting 10/08/2023 until 10/07/2024 [facility] Work Phone: Comment on above: 1 Occurrences starting 10/08/2023 until 10/07/2024 BREATH TEST GLUCOSE BREATH TEST GLUCOSE Endoscopy Routine Bloating Belching 11/11/2023 3:56 PM EDT [facility] Work Phone: BREATH TEST GLUCOSE BREATH TEST GLUCOSE Endoscopy Routine Belching Bloating 11/24/2023 8:58 AM EDT [facility] Work Phone: End: 12-11-2023 COLONOSCOPY DIAGNOSTIC COLONOSCOPY DIAGNOSTIC Endoscopy Routine Change in bowel habits 1 Occurrences starting 12/10/2022 until 12/11/2023 [facility] Work Phone: Comment on above: 1 Occurrences starting 12/10/2022 until 12/11/2023 End: 06-03-2025 DBT Breast - bilateral screening VICTORIANO SCREENING [facility] Radiology Routine Encounter for screening mammogram for breast cancer 1 Occurrences starting 05/04/2024 until 06/03/2025 [facility] Work Phone: Comment on above: 1 Occurrences starting 05/04/2024 until 06/03/2025 DBT Breast - bilater al screening VICTORIANO SCREENING W [facility] Radiology Routine Encounter for screening mammogram for breast cancer 01/21/2025 4:38 PM EDT [facility] Work Phone: End: 12-11-2023 EGD DIAGNOSTIC EGD DIAGNOSTIC Endoscopy Routine Nausea Bloating 1 Occurrences starting 12/10/2022 until 12/11/2023 [facility] Work Phone: Comment on above: 1 Occurrences starting 12/10/2022 until 12/11/2023 End: 01-09-2024 Gastric emptying imaging study NM GASTRIC EMPTYING SOLID Radiology Routine Nausea 1 Occurrences starting 12/10/2022 until 01/09/2024 [facility] Work Phone: Comment on above: 1 Occurrences starting 12/10/2022 until 01/09/2024 Helicobacter pylori Ag [Presence] in Stool by Immunoassay H PYLORI AG BY EIA,STOOL Microbiology Routine Nausea Bloating Ordered: 12/10/2022 [facility] Work Phone: Comment on above: Ordered: 12/10/2022 Microorganism identi fied in Unspecified specimen by Culture [facility] Work Phone: Comment on above: Ordered: 10/29/2023 End: 10-28-2025 MR Knee - left WO contrast MRI KNEE WO IVCON LEFT Radiology Routine Chronic pain of left knee 1 Occurrences starting 09/28/2024 until 10/28/2025 [facility] Work Phone: Comment on above: 1 Occurrences starting 09/28/2024 until 10/28/2025 End: 12-10-2024 MR Knee - right WO contrast MRI KNEE WO IVCON RIGHT Radiology Routine Chronic pain of right knee Difficulty in walking 1 Occurrences starting 11/11/2023 until 12/10/2024 [facility] Work Phone: Comment on above: 1 Occurrences starting 11/11/2023 until 12/10/2024 End: 10-22-2023 Polysomnogram POLYSOMNOGRAM (PSG) Procedures Routine Witnessed apneic spells 1 Occurrences starting 10/22/2022 until 10/22/2023 [facility] Work Phone: Comment on above: 1 Occurrences starting 10/22/2022 until 10/22/2023 End: 06-29-2023 Us soft tissue head & neck real time imge docm US CERVICAL LYMPH NODE MAPPING Radiology Routine Papillary thyroid carcinoma (HCC) 1 Occurrences starting 05/30/2022 until 06/29/2023 [facility] Work Phone: Comment on above: 1 Occurrences starting 05/30/2022 until 06/29/2023 End: 09-28-2023 Us soft tissue head & neck real time imge docm US CERVICAL LYMPH NODE MAPPING Radiology Routine Papillary thyroid carcinoma (HCC) 1 Occurrences starting 08/29/2022 until 09/28/2023 [facility] Work Phone: Comment on above: 1 Occurrences starting 08/29/2022 until 09/28/2023 End: 09-18-2025 XR Knee - left 4 Views XR KNEE GENERAL 4V AP BOTH/PA BOTH/LAT/MERC LEFT Radiology Routine Chronic pain of left knee 1 Occurrences starting 08/19/2024 until 09/18/2025 [facility] Work Phone: Comment on above: 1 Occurrences starting 08/19/2024 until 09/18/2025 End: 09-28-2024 XR Knee - left 4 Views [facility] Work Phone: Comment on above: 1 Occurrences starting 09/28/2024 until 09/28/2024 End: 09-23-2024 XR Knee - right 3 Views XR KNEE 3V FLEX/LAT/MERCH RIGHT (AK) Radiology Routine Acute pain of both knees 1 Occurrences starting 08/25/2023 until 09/23/2024 [facility] Work Phone: Comment on above: 1 Occurrences starting 08/25/2023 until 09/23/2024 End: 11-15-2024 XR Knee - right 4 Views XR KNEE GENERAL 4V AP BOTH/PA BOTH/LAT/MERC RIGHT Radiology Routine Right knee pain, unspecified chronicity 1 Occurrences starting 10/17/2023 until 11/15/2024 [facility] Work Phone: Comment on above: 1 Occurrences starting 10/17/2023 until 11/15/2024 XR Knee - right 4 Views XR KNEE GENERAL 4V AP BOTH/PA BOTH/LAT/MERC RIGHT Radiology Routine Right knee pain, unspecified chronicity 10/17/2023 12:43 PM EDT [facility] Work Phone: [facility] Immunizations Immunization Date Immunization Notes Care Provider Karen james 07-29-2024 influenza, injectabl e, madin nilsa canine kidney, preservative free Carmen Foradis W[employer]CE GOODS INSPECTOR.MOBILITY ARCHITECT MANAGER Work Phone: [facility] 07-29-2024 tetanus toxoid, redu faith diphtheria toxoid, and acellular pertussis vaccine, adsorbed Carmen Foradis W[employer] P[employer] INSPECTOR.MOBILITY ARCHITECT MANAGER Work Phone: [facility] 07-29-2024 influenza virus vaccine, unspecified formulation Screen/Diagnostic 3 [facility] 05-23-2022 Influenza, injectabl e, Madin Elmore Canine Kidney, preservative free, quadrivalent Carmen Foradis W[employer] PIE[employer] GOODS INSPECTOR.MOBILITY ARCHITECT MANAGER Work Phone: [facility] 05-23-2022 influenza virus vaccine, unspecified formulation Ct (I-Stat) Work Phone: [facility] 03-27-2021 influenza, injectabl e, quadrivalent, contains preservative Raegan Miguel A W[employer] PIE[employer] GOODS INSPECTOR.MOBILITY ARCHITECT MANAGER Work Phone: [facility] Work Phone: 04-07-2020 influenza, injectabl e, quadrivalent, preservative free Carmen Foradis W[employer] PIE[employer] GOODS INSPECTOR.MOBILITY ARCHITECT MANAGER Work Phone: [facility] 03-19-2019 Influenza, injectabl e, Madin Nilsa Canine Kidney, preservative free, quadrivalent Carmen Foradis W[employer] PIECE GOODS INSPECTOR.MOBILITY ARCHITECT MANAGER Work Phone: [facility] 07-26-2018 Influenza, injectabl e, Madin Elmore Canine Kidney, preservative free, quadrivalent Carmen Foradis W[employer] P[employer] GOODS INSPECTOR.MOBILITY ARCHITECT MANAGER Work Phone: [facility] 05-06-2016 influenza, injectabl e, madin nilsa canine kidney, preservative free Carmen Foradis W[employer] P[employer] INSPECTOR.MOBILITY ARCHITECT MANAGER Work Phone: [facility] 05-29-2011 influenza virus vaccine, unspecified formulation Raegan Miguel A W[employer] INSPECTOR.MOBILITY ARCHITECT MANAGER Work Phone: [facility] Payers Date Payer Category Payer Self-pay [id number] 2021 Unknown ANTHEM BLUE ACCE SS PPO [id number] 2021-Present [phone] [address] [place] [address] PPO [id number] 2021 Unknown [id number] 2017 Blue Cross Blue Shield [id number] 2017 Unknown ANTHEM BLUE CARD PPO OOS [id number] 2017-Present [phone] [address] [place] [address] PPO [id number] 2017 Unknown [id number] 2016 Unknown [id number] 1970 Unknown [id number] Unknown [id number] Unknown [id number] Social History Date Type Detail Facility Start: 06-13-2011 End: 05-30-2022 Tobacco smoking status NHIS Never smoked tobacco [facility] Work Phone: Start: 06-13-2011 End: 05-30-2022 Tobacco use and exposure Smokeless tobacco non-user [facility] Work Phone: Start: 10-18-2021 End: 11-11-2023 Alcohol intake Current non-drinker of alcohol (finding) [facility] Start: 1970 Sex Assigned At Female C [facility] Start: 10-08-2021 End: 10-18-2021 Exposure to SARS-CoV-2 (event) Not sure [facility] Start: 02-20-2021 Tobacco smoking stat us NMIS Unknown if ever smoked [facility] Work Phone: Start: 10-17-2022 End: 01-30-2023 History of Social function [facility] Work Phone: Start: 10-17-2022 End: 01-30-2023 Tobacco use panel [facility] Work Phone: Start: 05-17-2012 Adult Depression Screening Assessment 0 [facility] Work Phone: Start: 09-30-2019 Gender identity Identifies as female gender (finding) [facility] Start: 09-30-2019 Sexual orientation Heterosexual (fin ding) [facility] Start: 09-28-2024 End: 11-15-2024 Alcoholic beverage intake Current drinker of alcohol (finding) [facility] Start: 09-28-2024 Alcohol Comment Once a month [facility] Functional Status Date Assessment Result Facility 09-24-2014 Are you deaf, or do you have serious difficulty hearing No 09/24/2014 2:25 PM Carol Hardy LPN No [facility] 09-24-2014 Are you blind, or do you have serious difficulty seeing, even when wearing glasses No 09/24/2014 2:25 PM Carol Hardy LPN No [facility] 09-24-2014 Do you have serious difficulty walking or climbing stairs No 09/24/2014 2:25 PM Carol Hardy LPN No [facility] 09-24-2014 Do you have difficul ty dressing or bathing No 09/24/2014 2:25 PM Carol Hardy LPN No [facility] 09-24-2014 Because of a physica l, mental, or emotional condition, do you have difficulty doing errands alone such as visiting a physician's office or shopping No 09/24/2014 2:25 PM Carol Hardy LPN No [facility] Mental Status Date Assessment Result Facility 09-24-2014 Because of a physica l, mental, or emotional condition, do you have serious difficulty concentrating, remembering, or making decisions No 09/24/2014 2:25 PM EDT Carol Camacho LPN No [facility] Clinical Notes 10-18-2021 to 01-21-2025 Breann Agudelo RT(R) - 01/21/2025 4:00 PM EDTPatient InstructionsForCarmen coburn APRN.FROYLAN - 11/15/2024 12:27 PM EDTTelephone Encounter - Alexa Rowe MA - 10/20/2024 9:05 AM EDT Note Date & Type Note Facility 01-21-2025 History of Present illness Narrative Radiology Service Progress Note PATIENT NAME: Sarika Corona DATE OF SERVICE: January 21, 2025 TIME: 4:39 PM PATIENT IDENTITY VERIFICATION COMPLETED USING TWO (2) IDENTIFIERS: Name and Date of confirmed by patient verbally. FALL SCREENING: Has the patient had 2 falls in the last year or 1 fall with injury or currently using an Ambulatory Assistive Device (Walker, Cane, Wheelchair, Crutches, etc.)? No PATIENT GENDER DATA: Assigned female at . status: : No status: NO. PATIENT RELEVANT IMPLANT DATA REVIEWED: Not Applicable PATIENT PRESENTS WITH AN IMPLANTABLE OR ATTACHED NEW ORDER CLERK: No RADIOLOGY DEPARTMENT: Mammography PERIPHERAL IV DATA: Not applicable SIGNED BY: RT Tiffany(R) January 21, 2025 4:39 PM documented in this encounter [facility] 01-21-2025 Note HNO ID: [id number] Author: BREANN AGUDELO RT(Radha) Service: ? Author Type: Technologist Type: Progress Notes Filed: 01/21/2025 16:39 Note Text: Radiology Service Progress Note PATIENT NAME: Sarika Corona DATE OF SERVICE: January 21, 2025 TIME: 4:39 PM PATIENT IDENTITY VERIFICATION COMPLETED USING TWO (2) IDENTIFIERS: Name and Date of confirmed by patient verbally. FALL SCREENING: Has the patient had 2 falls in the last year or 1 fall with injury or currently using an Ambulatory Assistive Device (Walker, Cane, Wheelchair, Crutches, etc.)? No PATIENT GENDER DATA: Assigned female at . status: : No status: NO. PATIENT RELEVANT IMPLANT DATA REVIEWED: Not Applicable PATIENT PRESENTS WITH AN IMPLANTABLE OR ATTACHED NEW ORDER CLERK: No RADIOLOGY DEPARTMENT: Mammography PERIPHERAL IV DATA: Not applicable SIGNED BY: RT Tiffany(R) January 21, 2025 4:[address] [facility] 11-15-2024 Instructions Carmen Messina APRN.CNP - 11/15/2024 12:41 PM EDT - Continue Zepbound (tirzepatide) 2.5 mg as currently prescribed; your 30-day supply with two refills has been sent to [facility] pharmacy. - Maintain your current diet of vegetables and lean meats and continue fasting daily for 12-14 hours. - Drink plenty of water--aim for more than 64 ounces each day. - Continue magnesium citrate supplements and probiotic gummy vitamins for constipation; you have also started MAG 07. If constipation persists, call the office to discuss adding a prescription laxative (e.g., Linzess). - Complete the ordered left knee MRI; front-desk staff will give you scheduling information so we can evaluate for any soft tissue injury or bursitis. - Keep administering your injections into fatty tissue and rotate sites as before. - Monitor your sleep apnea symptoms (snoring and fatigue) as you lose weight--continued weight loss often improves sleep apnea over time. - Schedule a follow-up visit in about three months for weight assessment and medication review, or sooner if you decide to increase your tirzepatide dose or experience any concerns. documented in this encounter [facility] 11-15-2024 Note HNO ID: [id number] Author: CARMEN MESSINA APRN.CNP Service: ? Author Type: Nurse Practitioner Type: Progress Notes Filed: 11/15/2024 13:06 Note Text: Date of Evaluation: 11/15/2024 Patient Name: Sarika Corona : 1970 Donis Causey is a 54-year-old female with a history of sleep apnea, presenting for follow-up on Zepbound and evaluation of left knee pain. Weight Management: - Currently on Zepbound 2.5 mg, filled at [facility]. - Lost 20 lbs over 6 weeks; current weight is 212 lbs. - Denies nausea, emesis, or injection site irritation. - Reports constipation, managed with magnesium citrate and Bruins superfood gummy vitamins with probiotics. - Previously experienced severe constipation on 5 mg dose; hesitant to increase dosage. - Diet consists mainly of vegetables and lean meat; practices 12-14 hour fasting. - Drinks more than 64 oz of water daily. - Goal weight is 165 lbs. Sleep Apnea: - No improvement in snoring. - Reports feeling a lot better overall but still experiences fatigue. - Did not qualify for CPAP machine based on sleep test and insurance criteria. Left Knee Pain: - Diagnosed with mild osteoarthritis via X-ray. - Reports significant pain and swelling in the left knee, with audible crepitus during leg lifts. - Experiences limping after walking for 5 minutes. - Noticed asymmetry in leg size, with the left leg appearing larger. - Suspects fluid accumulation in the left leg. - Engages in daily dumbbell weight exercises for arms and leg lifts.Miralax did not help in the past. Review of Systems Gastrointestinal: Positive for constipation. Negative for nausea and vomiting. 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 PAST SURGICAL HISTORY Procedure Laterality Date ANESTH, SECTION 01/14/2003 ANESTH, SECTION 02/14/1998 DELIVERY ONLY 1995 COLONOSCOPY 02/22/2021 EGD CYSTOSCOPY 03/12/2021 LAPAROSCOPY W TOTAL HYSTERECTOMY UTERUS 250 GM/< 03/12/2021 REMOVAL OF OVARY/TUBE(S) 03/12/2021 THYROIDECTOMY TOTAL/COMPLETE 2014 TUBAL LIGATION HX 2003 FAMILY HISTORY Problem Relation Age of Onset Heart Mother Hypertension Mother Alcohol/Drug Father Cancer Father pancreatic Cancer Maternal Grandmother Diabetes Paternal Grandmother Cancer Paternal Grandmother uterine vs ovarian, unsure Social History Tobacco Use Smoking status: Never Smokeless tobacco: Never Vaping Use Vaping status: Never Used Substance Use Topics Alcohol use: Yes Comment: Once a month Drug use: No Current Outpatient Medications Medication Sig MEDICATION, NON-DATABASE GRUNS superfoods with probiotic elderberry fruit (ELDERBERRY ORAL) Take by mouth once daily. cholecalciferol, vitD3,/vit K2 (VITAMIN D3-VITAMIN K2 ORAL) Take by mouth once daily. levothyroxine (SYNTHROID) 25 mcg tablet Take 1 tablet by mouth daily before breakfast. levothyroxine (SYNTHROID) 200 mcg tablet Take 1 tablet by mouth daily before breakfast. hydroCHLOROthiazide 12.5 mg capsule Take 1 capsule by mouth once daily. albuterol HFA (PROAIR HFA) 90 mcg/actuation inhaler Inhale 1-2 puffs as instructed every 4 hours as needed for wheezing/shortness of breath. Blood Pressure Monitor 1 Each once daily. Goal is less than 130/80 Xtra large cuff tirzepatide, weight loss (ZEPBOUND) 2.5 mg/0.5 mL pen injector Inject 2.5 mg subcutaneously one time a week. meloxicam (MOBIC) 7.5 mg tablet Take 1 tablet by mouth once daily as needed. No current facility-administered medications for this visit. Objective BP 111/74 (BP Position: Sitting) Pulse 62 Temp 36.5 ?C (97.7 ?F) Resp 16 Ht 166.4 cm (5' 5.5) Wt 96.2 kg (212 lb) LMP 03/04/2021 (Approximate) SpO2 98% BMI 34.74 kg/m? Last 3 Encounter BP Readings: Date: BP: 11/15/2024 111/74 09/28/2024 122/78 08/19/2024 124/77 Last 2 Encounter Wt Readings: Date: Wt: 11/15/2024 96.2 kg (212 lb) 09/28/2024 105.2 kg (232 lb) Physical Exam GENERAL: NAD, alert and oriented. SKIN: Unremarkable, no rash or skin lesions. HEAD: Normocephalic. EYES: PERRLA, EOMI, conjunctiva clear. EARS: External ears normal, canals clear, TM's normal. NOSE/SINUSES: Nares normal. OROPHARYNX: Lips, mucosa, and tongue normal, good dentition. No oral lesions noted. NECK: Supple, no lymphadenopathy, no carotid bruits. LUNGS: Clear to auscultation bilaterally, no wheezes/rhonchi/rales. HEART: Regular rate (more content not included)... [facility] 11-15-2024 History of Present illness Narrative Date of Evaluation: 11/15/2024 Patient Name: Sarika Corona : 1970 Donis Causey is a 54-year-old female with a history of sleep apnea, presenting for follow-up on Zepbound and evaluation of left knee pain. Weight Management: - Currently on Zepbound 2.5 mg, filled at [facility]. - Lost 20 lbs over 6 weeks; current weight is 212 lbs. - Denies nausea, emesis, or injection site irritation. - Reports constipation, managed with magnesium citrate and Bruins superfood gummy vitamins with probiotics. - Previously experienced severe constipation on 5 mg dose; hesitant to increase dosage. - Diet consists mainly of vegetables and lean meat; practices 12-14 hour fasting. - Drinks more than 64 oz of water daily. - Goal weight is 165 lbs. Sleep Apnea: - No improvement in snoring. - Reports feeling a lot better overall but still experiences fatigue. - Did not qualify for CPAP machine based on sleep test and insurance criteria. Left Knee Pain: - Diagnosed with mild osteoarthritis via X-ray. - Reports significant pain and swelling in the left knee, with audible crepitus during leg lifts. - Experiences limping after walking for 5 minutes. - Noticed asymmetry in leg size, with the left leg appearing larger. - Suspects fluid accumulation in the left leg. - Engages in daily dumbbell weight exercises for arms and leg lifts.Miralax did not help in the past. Review of Systems Gastrointestinal: Positive for constipation. Negative for nausea and vomiting. 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 PAST SURGICAL HISTORY Procedure Laterality Date ANESTH, SECTION 01/14/2003 ANESTH, SECTION 02/14/1998 DELIVERY ONLY 1995 COLONOSCOPY 02/22/2021 EGD CYSTOSCOPY 03/12/2021 LAPAROSCOPY W TOTAL HYSTERECTOMY UTERUS 250 GM/< 03/12/2021 REMOVAL OF OVARY/TUBE(S) 03/12/2021 THYROIDECTOMY TOTAL/COMPLETE 2013 TUBAL LIGATION 2002 FAMILY HISTORY Problem Relation Age of Onset Heart Mother Hypertension Mother Alcohol/Drug Father Cancer Father pancreatic Cancer Maternal Grandmother Diabetes Paternal Grandmother Cancer Paternal Grandmother uterine vs ovarian, unsure Social History Tobacco Use Smoking status: Never Smokeless tobacco: Never Vaping Use Vaping status: Never Used Substance Use Topics Alcohol use: Yes Comment: Once a month Drug use: No Current Outpatient Medications Medication Sig MEDICATION, NON-DATABASE GRUNS superfoods with probiotic elderberry fruit (ELDERBERRY ORAL) Take by mouth once daily. cholecalciferol, vitD3,/vit K2 (VITAMIN D3-VITAMIN K2 ORAL) Take by mouth once daily. levothyroxine (SYNTHROID) 25 mcg tablet Take 1 tablet by mouth daily before breakfast. levothyroxine (SYNTHROID) 200 mcg tablet Take 1 tablet by mouth daily before breakfast. hydroCHLOROthiazide 12.5 mg capsule Take 1 capsule by mouth once daily. albuterol HFA (PROAIR HFA) 90 mcg/actuation inhaler Inhale 1-2 puffs as instructed every 4 hours as needed for wheezing/shortness of breath. Blood Pressure Monitor 1 Each once daily. Goal is less than 130/80 Xtra large cuff tirzepatide, weight loss (ZEPBOUND) 2.5 mg/0.5 mL pen injector Inject 2.5 mg subcutaneously one time a week. meloxicam (MOBIC) 7.5 mg tablet Take 1 tablet by mouth once daily as needed. No current facility-administered medications for this visit. Objective BP 111/74 (BP Position: Sitting) Pulse 62 Temp 36.5 C (97.7 F) Resp 16 Ht 166.4 cm (5' 5.5) Wt 96.2 kg (212 lb) LMP 03/04/2021 (Approximate) SpO2 98% BMI 34.74 kg/m Last 3 Encounter BP Readings: Date: BP: 11/15/2024 111/74 09/28/2024 122/78 08/19/2024 124/77 Last 2 Encounter Wt Readings: Date: Wt: 11/15/2024 96.2 kg (212 lb) 09/28/2024 105.2 kg (232 lb) Physical Exam GENERAL: NAD, alert and oriented. SKIN: Unremarkable, no rash or skin lesions. HEAD: Normocephalic. EYES: PERRLA, EOMI, conjunctiva clear. EARS: External ears normal, canals clear, TM's normal. NOSE/SINUSES: Nares normal. OROPHARYNX: Lips, mucosa, and tongue normal, good dentition. No oral lesions noted. NECK: Supple, no lymphadenopathy, no carotid bruits. LUNGS: Clear to auscultation bilaterally, no wheezes/rhonchi/rales. HEART: Regular rate and rhythm, no murmurs. No ectopy. ABDOMEN: soft, nontender, bowel sounds x 4 EXTREMITIES: Left leg shows mild swelling compared to the right. No deformities, no skin discoloration. NEURO: Awake, alert and oriented x3, cranial nerves II-XII grossly intact, normal gait, no involuntary motions. Labs Tests - Sleep study: Did not meet coverage criteria for CPAP by insurance Imaging - Knee X-ray: Mild osteoarthritis Assessment & Plan 1. ONEIDA (obstructive sleep apnea) (G47.33) - Weight loss of 20 lbs since last visit may contribute to improvement in ONEIDA symptoms over time. - Patient still reports snoring and fatigue, though fatigue is slightly improved. - Continue current management with tirzepatide 2.5 mg. 2. Drug-induced constipation (K59.03) - Constipation noted as a side effect of tirzepatide. - Currently managed with magnesium citrate and probiotic gummies. - Discussed potential use of Linzess if symptoms worsen, but patient prefers to continue current regimen. 3. Class 1 obesity due to excess calories with serious comorbidity and body mass index (BMI) of 34.0 to 34.9 in adult (E66.811) - Significant weight loss of 20 lbs since last visit; current weight 232 lbs as of 09/28. - Continue tirzepatide 2.5 mg; prescription sent to [facility] for 30-day supply with 2 refills. - Discussed potential dose increase to 5 mg if weight loss plateaus, requiring follow-up appointment for dose adjustment. - Follow-up in 3 months to monitor progress and adjust treatment as necessary. 4. Bloating (R14.0) - Bloating persists, possibly related to high-fiber diet and medication side effects. - Continue current dietary management with increased water intake and fiber. 5. Chronic pain of left knee (M25.562) - MRI ordered to evaluate for potential soft tissue injury. - X-rays showed mild osteoarthritis; patient reports significant pain and swelling in the left knee. - Advised to complete MRI; information provided at the service desk director. Carmen Messina APRN.MOBILITY ARCHITECT MANAGER Return in about 3 months (around 02/15/2025). Discussed the above with the patient using shared decision making. The patient is in agreement with the diagnostic and treatment plans. Recording using [employer] software for draft documentation of the visit was discussed with the patient/authorized customer operations representative; all questions welcomed and answered. Patient/authorized customer operations representative agreed to proceed documented in this encounter [facility] 10-20-2024 Telephone encounter Note I spoke with patient, informed her of her medication being sent to pharmacy, and scheduled her for an appointment on 11/15/24 for medication refill for weight management. Alexa Rowe MA [facility] 10-20-2024 Miscellaneous Notes I spoke with patient, informed her of her medication being sent to pharmacy, and scheduled her for an appointment on 11/15/24 for medication refill for weight management. Alexa Rowe MA Ok refill sent, needs appt after that, Carmen Messina APRN.CNP Patient is using another pharmacy and would like to continue this for 1 month and possibly go up in dosage (she will let us know). Alexa Rowe MA documented in this encounter [facility] 10-19-2024 Telephone encounter Note Ok refill sent, needs appt after that, Carmen Messina APRN.CNP [facility] 10-19-2024 Telephone encounter Note Patient is using another pharmacy and would like to continue this for 1 month and possibly go up in dosage (she will let us know). Alexa Rowe MA [facility] 10-19-2024 Telephone encounter Note Pharmacy faxed requesting the following refill Refill(s) Requested: Requested Prescriptions Pending Prescriptions Disp Refills meloxicam (MOBIC) 7.5 mg tablet [Pharmacy Med Name: MELOXICAM 7.5 MG TABLET] 30 tablet 1 Sig: TAKE 1 TABLET BY MOUTH EVERY DAY ALLERGIES Allergen Reactions Penicillin G Rash Allergy as a child. Quinine Anaphylaxis (home) [phone] (cell) Last Office Visit Date: 09/28/2024 Last Distance Health Visit: Visit date not found Future Appointment: Visit date not found The patients preferred pharmacy has been captured for this encounter? yes Request is for script(s) to be escript to pharmacy. Hallie Farah MA [facility] 10-19-2024 Miscellaneous Notes Pharmacy faxed requesting the following refill Refill(s) Requested: Requested Prescriptions Pending Prescriptions Disp Refills meloxicam (MOBIC) 7.5 mg tablet [Pharmacy Med Name: MELOXICAM 7.5 MG TABLET] 30 tablet 1 Sig: TAKE 1 TABLET BY MOUTH EVERY DAY ALLERGIES Allergen Reactions Penicillin G Rash Allergy as a child. Quinine Anaphylaxis (home) [phone] (cell) Last Office Visit Date: 09/28/2024 Last Distance Health Visit: Visit date not found Future Appointment: Visit date not found The patients preferred pharmacy has been captured for this encounter? yes Request is for script(s) to be escript to pharmacy. Hallie Farah MA documented in this encounter [facility] 09-30-2024 Telephone encounter Note Not immune to hepatitis B vaccine or Rubella component of the MMR vaccines. She is recommended re vaccination for both. We do not carry the MMR here but if she wished could get on nurse schedule to start the series of 3 hepatitis B re vaccination OR get them at her local pharmacy, or health department. Carmen Messina APRN.FROYLAN Latest Ref Rng 09/28/2024 HIV 12 Combo (Ag/Ab) Nonreactive Nonreactive HIV 1/2 Ab -- HIV Interpretation -- Hep B Surface Ab, Qual Negative Hep B Surf Ab Quant mIU/mL 3.50 HCV RNA Not detected Not detected Mumps IgG, Qual Positive Positive Measles Antibody, IGG Qualitative Positive Positive Rubella IgG, Qual Positive Negative ! Legend: ! Abnormal [facility] 09-30-2024 Miscellaneous Notes Not immune to hepatitis B vaccine or Rubella component of the MMR vaccines. She is recommended re vaccination for both. We do not carry the MMR here but if she wished could get on nurse schedule to start the series of 3 hepatitis B re vaccination OR get them at her local pharmacy, or health department. Carmen Messina APRN.MOBILITY ARCHITECT MANAGER Latest Ref Rng 09/28/2024 HIV 12 Combo (Ag/Ab) Nonreactive Nonreactive HIV 1/2 Ab -- HIV Interpretation -- Hep B Surface Ab, Qual Negative Hep B Surf Ab Quant mIU/mL 3.50 HCV RNA Not detected Not detected Mumps IgG, Qual Positive Positive Measles Antibody, IGG Qualitative Positive Positive Rubella IgG, Qual Positive Negative ! Legend: ! Abnormal documented in this encounter [facility] 09-29-2024 Telephone encounter Note Today I faxed an appeal for Zepbound 2.5mg/0.5 pen inj to [employer] Department fax# , phone# , and . I received a confirmation that they received my fax. Alexa Rowe MA [facility] 09-29-2024 Miscellaneous Notes Today I faxed an appeal for Zepbound 2.5mg/0.5 pen inj to [employer] Department fax# , phone# , and . I received a confirmation that they received my fax. Alexa Rowe MA On 09/29/2024 [facility] [employer] denied coverage for Zepbound 2.5mg/0.5 pen inj. The form states this medication is approved if the patient is diagnosed with moderate to severe obstructive sleep apnea and a AHI greater than or equal to 15 events. Alexa Rowe MA documented in this encounter [facility] 09-29-2024 Telephone encounter Note On 09/29/2024 [employer] denied coverage for Zepbound 2.5mg/0.5 pen inj. The form states this medication is approved if the patient is diagnosed with moderate to severe obstructive sleep apnea and a AHI greater than or equal to 15 events. Alexa Rowe MA [facility] 09-28-2024 History of Present illness Narrative Radiology Service Progress Note PATIENT NAME: Sarika Corona DATE OF SERVICE: September 28, 2024 TIME: 3:37 PM PATIENT IDENTITY VERIFICATION COMPLETED USING TWO (2) IDENTIFIERS: Name and Date of confirmed by patient verbally and Name and Date of confirmed by identification band. FALL SCREENING: Has the patient had 2 falls in the last year or 1 fall with injury or currently using an Ambulatory Assistive Device (Walker, Cane, Wheelchair, Crutches, etc.)? No PATIENT GENDER DATA: Assigned female at . status: : No status: NO. PATIENT RELEVANT IMPLANT DATA REVIEWED: Not Applicable PATIENT PRESENTS WITH AN IMPLANTABLE OR ATTACHED NEW ORDER CLERK: No RADIOLOGY DEPARTMENT: General X-ray: Exam(s) Completed: Lower Extremity X-Ray(s): Knee, AP / Lat / Merchant Left PERIPHERAL IV DATA: Not applicable SIGNED BY: RT Mane(R) September 28, 2024 3:37 PM documented in this encounter [facility] 09-28-2024 Note HNO ID: [id number] Author: TRIXIE BYRD RT(Radha) Service: Radiology Author Type: Technologist Type: Progress Notes Filed: 09/28/2024 15:37 Note Text: Radiology Service Progress Note PATIENT NAME: Sarika Corona DATE OF SERVICE: September 28, 2024 TIME: 3:37 PM PATIENT IDENTITY VERIFICATION COMPLETED USING TWO (2) IDENTIFIERS: Name and Date of confirmed by patient verbally and Name and Date of confirmed by identification band. FALL SCREENING: Has the patient had 2 falls in the last year or 1 fall with injury or currently using an Ambulatory Assistive Device (Walker, Cane, Wheelchair, Crutches, etc.)? No PATIENT GENDER DATA: Assigned female at . status: : No status: NO. PATIENT RELEVANT IMPLANT DATA REVIEWED: Not Applicable PATIENT PRESENTS WITH AN IMPLANTABLE OR ATTACHED NEW ORDER CLERK: No RADIOLOGY DEPARTMENT: General X-ray: Exam(s) Completed: Lower Extremity X-Ray(s): Knee, AP / Lat / Merchant Left PERIPHERAL IV DATA: Not applicable SIGNED BY: RT Mane(R) September 28, 2024 3:37 PM [facility] 09-28-2024 Instructions Carmen Messina APRN.MOBILITY ARCHITECT MANAGER - 09/28/2024 2:35 PM EDT ASSESSMENT / PLAN: Discussed health maintenance, including regular aerobic exercise, low fat diet, and periodic exams. ASSESSMENT/PLAN: 1. Well adult exam - ICD9: V70.0, ICD10: Z00.00 (primary diagnosis) - Counseled on healthy diet and regular exercise - Breast cancer screening - ordered mammogram - Follow up for annual exam in one year 2. Chronic pain of both knees - ICD9: 719.46, 338.29, ICD10: M25.561, M25.562, G89.29 - CONSULT TO ORTHOPAEDICS 3. ONEIDA (obstructive sleep apnea) - ICD9: 327.23, ICD10: G47.33 - TIRZEPATIDE (WEIGHT LOSS) 2.5 MG/0.5 ML SUBCUTANEOUS PEN INJECTOR 4. Chronic pain of left knee - ICD9: 719.46, 338.29, ICD10: M25.562, G89.29 - MRI KNEE WO IVCON LEFT 5. Postoperative hypothyroidism - ICD9: 244.0, ICD10: E89.0 - LEVOTHYROXINE 25 MCG TABLET - LEVOTHYROXINE 200 MCG TABLET 6. Primary hypertension - ICD9: 401.9, ICD10: I10 - Controlled - Continue current medications - Recommend home blood pressure monitoring, to bring results to next visit - Encouraged sodium restriction, DASH or Mediterranean diet - Recommend regular aerobic exercise - HYDROCHLOROTHIAZIDE 12.5 MG CAPSULE 7. Belching - ICD9: 787.3, ICD10: R14.2 8. Mild intermittent asthma without complication (HCC) - ICD9: 493.90, ICD10: J45.20 - Mild intermittent asthma stable - Avoidance of triggers recommended - ALBUTEROL SULFATE HFA 90 MCG/ACTUATION AEROSOL INHALER 9. Encounter for screening examination for other mental health and behavioral disorders - ICD9: V79.8, ICD10: Z13.39 - ANXIETY SCREENING 10. Screening examination for STI - ICD9: V74.5, ICD10: Z11.3 - HIV 1/2 COMBO WITH REFLEX TO DIFFERENTIATION 11. Encounter for screening for HIV - ICD9: V73.89, ICD10: Z11.4 - HIV 1/2 COMBO WITH REFLEX TO DIFFERENTIATION 12. Encounter for hepatitis C screening test for low risk patient - ICD9: V73.89, ICD10: Z11.59 - HEPATITIS C VIRUS (HCV) RNA, QUANTITATIVE PCR, PLASMA/SERUM 13. Screening for depression - ICD9: V79.0, ICD10: Z13.31 - DEPRESSION SCREENING 14. Need for vaccination - ICD9: V05.9, ICD10: Z23 - MUMPS IGG AB - RUBEOLA (MEASLES)IGG - RUBELLA IGG ANTIBODY - HEPATITIS B SURFACE ANTIBODY 15. Tinea corporis - ICD9: 110.5, ICD10: B35.4 - CLOTRIMAZOLE-BETAMETHASONE 1 %-0.05 % TOPICAL CREAM Carmen Messina APRN.CNP documented in this encounter [facility] 09-28-2024 Note HNO ID: [id number] Author: CARMEN MESSINA APRN.CNP Service: ? Author Type: Nurse Practitioner Type: Progress Notes Filed: 09/28/2024 14:40 Note Text: Sarika Corona is a 54 year old female who presents for Physical (Discuss labs done on 09/03/24) Here for well adult exam. Would like a referral to orthopedics for her knees. Left knee is worse than rigth. Left knee is bothering her, hard to walk and do her job. When it is cold hard to walk with this. Ongoing issue for 2 years. Has gotten worse, has done PT. Weight gain has affected her knee pain, hard to exercise with the knee pain. ONEIDA mild - zepbound , was on 2.5 mg did well, did not do well at the 0.5 mg dosage, had constipation. Prediabetic Ongoing belching, and distention cannot have lactose - it makes it worse. Had SIBO testing done twice, last was negative. She has tried the gas x , does not belch but bloats. The history is provided by the patient. Last 3 Encounter BP Readings: Date: BP: 09/28/2024 122/78 08/19/2024 124/77 04/12/2024 126/78 BP 122/78 Pulse 86 Temp 96.8 Resp 16 Ht 5' 5.5 (1.66m) Wt 232 lb (105.2kg) SpO2 97% LMP 03/04/2021 BMI 38.01 kg/(m2). Latest Ref Rng 09/03/2024 WBC 3.70 - 11.00 k/uL 9.07 RBC 3.90 - 5.20 m/uL 5.21 (H) Hemoglobin 11.5 - 15.5 g/dL 14.2 Hematocrit 36.0 - 46.0 % 44.3 MCV 80.0 - 100.0 fL 85.0 MCH 26.0 - 34.0 pg 27.3 MCHC 30.5 - 36.0 g/dL 32.1 RDW-CV 11.5 - 15.0 % 13.3 Platelet Count 150 - 400 k/uL 242 MPV 9.0 - 12.7 fL 10.9 Neut% % 65.9 Abs Neut (ANC) 1.45 - 7.50 k/uL 5.98 Lymph% % 24.5 Abs Lymph 1.00 - 4.00 k/uL 2.22 Nez Perce% % 6.4 Abs [place] <0.87 k/uL 0.58 Eosin% % 2.2 Abs Eosin <0.46 k/uL 0.20 Baso% % 0.7 Abs Baso <0.11 k/uL 0.06 Immature Gran % % 0.3 IMMATURE GRANS (ABS) <0.10 k/uL 0.03 NRBC /100 WBC 0.0 Absolute nRBC <0.01 k/uL <0.01 DTYPE Auto Color Yellow Yellow Clarity Clear Clear Glucose, Urine Negative Negative Bilirubin, Urine Negative Negative Ketones, Urine Negative Negative Specific Thornton, Ur 1.005 - 1.030 1.010 Hemoglobin/Blood,Ur Negative Negative pH, Urine <8.5 6.0 Protein, Urine Negative Negative Urobilinogen 0.2-1.0 EU/dL 0.2 EU/dL Nitrites Negative Negative Leukest Negative Negative WBC, Urine 0-5 /HPF 0-5 /HPF RBC, Urine 0-2 /HPF 0-2 /HPF Bacteria Negative /HPF Negative Epithelial Cells /HPF Few Hyaline Cast 0 /LPF 0 /LPF Protein, Total 6.3 - 8.0 g/dL 7.2 Albumin 3.9 - 4.9 g/dL 4.3 Calcium 8.5 - 10.2 mg/dL 9.2 Bilirubin, Total 0.2 - 1.3 mg/dL 1.7 (H) Alkaline Phosphatase 34 - 123 U/L 75 AST 13 - 35 U/L 24 ALT 7 - 38 U/L 22 Glucose 74 - 99 mg/dL 108 (H) BUN 7 - 21 mg/dL 12 Creatinine 0.58 - 0.96 mg/dL 0.84 Sodium 136 - 144 mmol/L 139 Potassium 3.7 - 5.1 mmol/L 4.0 Chloride 98 - 107 mmol/L 101 CO2 22 - 30 mmol/L 27 Anion Gap 8 - 15 mmol/L 11 eGFR >=60 mL/min/1.73m? 84 Cholesterol, Total <200 mg/dL 208 (H) Triglyceride <150 mg/dL 139 HDL Cholesterol >39 mg/dL 56 Non HDL Cholesterol <130 mg/dL 152 (H) Fasting Time hrs 12 VLDL Cholesterol <30 mg/dL 28 TC:HDL Ratio <5.10 3.71 LDL Cholesterol <100 mg/dL 124 (H) LDL:HDL Ratio <2.54 2.21 Hemoglobin A1C 4.3 - 5.6 % 5.7 (H) Estimated Average Glucose mg/dL 117 Vitamin D 25 Hydroxy 31.0 - 80.0 ng/mL 32.7 TSH 0.270 - 4.200 mIU/L 3.850 Legend: (H) High Exercise: Patient does not have an exercise routine. Patient does not exercise 30 minutes a day. Weight Trend: Last 2 Encounter Wt Readings: Date: Wt: 09/28/2024 105.2 kg (232 lb) 08/19/2024 108.9 kg (240 lb) Eating Habits: Patient does maintain healthy eating habits. Does some intermittent fasting. Sugary drinks does affect her weight Types of food appropriate diet Water - 2 liters a day Caffeine - 1 monster a day Unsweet ice tea Tobacco Use: Tobacco Use: Never Active Problem List/Chronic Problems There are no active hospital problems to display for this patient. Health Maintenance Hepatitis C Screening Never done HIV Screening Never done Hepatitis B Vaccine(1 of 3 - 19+ 3-dose series) Never done Shingrix Vaccine(1 of 2) Never done Pneumococcal Vaccine: 50+(1 of 1 - PCV) Never done Mammogram Screening due on 10/18/2023 Depression Screening due on 09/28/2024 Anxiety Screening due on 09/28/2024 HEALTH MAINTENANCE REVIEW: Mammogram Review of Systems Constitutional: Positive for malaise/fatigue and weight loss. Negative for chills, diaphoresis and fever. HENT: Positive for hearing loss. Negative for congestion, ear discharge, ear pain, nosebleeds, sinus pain, sore throat and tinnitus. Mild hearing loss - jayshree wax build up Eyes: Negative for blurred vision, double vision, photophobia, pain, discharge and redness. Respiratory: Negative for cough, hemoptysis, sputum production, shortness of breath, wheezing and stridor. Asthma - intermittently Cardiovascular: Positive for leg swelling. Negative for chest pain, palpitation (more content not included)... [facility] 09-28-2024 History of Present illness Narrative Sarika Corona is a 54 year old female who presents for Physical (Discuss labs done on 09/03/24) Here for well adult exam. Would like a referral to orthopedics for her knees. Left knee is worse than rigth. Left knee is bothering her, hard to walk and do her job. When it is cold hard to walk with this. Ongoing issue for 2 years. Has gotten worse, has done PT. Weight gain has affected her knee pain, hard to exercise with the knee pain. ONEIDA mild - zepbound , was on 2.5 mg did well, did not do well at the 0.5 mg dosage, had constipation. Prediabetic Ongoing belching, and distention cannot have lactose - it makes it worse. Had SIBO testing done twice, last was negative. She has tried the gas x , does not belch but bloats. The history is provided by the patient. Last 3 Encounter BP Readings: Date: BP: 09/28/2024 122/78 08/19/2024 124/77 04/12/2024 126/78 BP 122/78 Pulse 86 Temp 96.8 Resp 16 Ht 5' 5.5 (1.66m) Wt 232 lb (105.2kg) SpO2 97% LMP 03/04/2021 BMI 38.01 kg/(m^2). Latest Ref Rng 09/03/2024 WBC 3.70 - 11.00 k/uL 9.07 RBC 3.90 - 5.20 m/uL 5.21 (H) Hemoglobin 11.5 - 15.5 g/dL 14.2 Hematocrit 36.0 - 46.0 % 44.3 MCV 80.0 - 100.0 fL 85.0 MCH 26.0 - 34.0 pg 27.3 MCHC 30.5 - 36.0 g/dL 32.1 RDW-CV 11.5 - 15.0 % 13.3 Platelet Count 150 - 400 k/uL 242 MPV 9.0 - 12.7 fL 10.9 Neut% % 65.9 Abs Neut (ANC) 1.45 - 7.50 k/uL 5.98 Lymph% % 24.5 Abs Lymph 1.00 - 4.00 k/uL 2.22 Ne[place] Perce% % 6.4 Abs [place] <0.87 k/uL 0.58 Eosin% % 2.2 Abs Eosin <0.46 k/uL 0.20 Baso% % 0.7 Abs Baso <0.11 k/uL 0.06 Immature Gran % % 0.3 IMMATURE GRANS (ABS) <0.10 k/uL 0.03 NRBC /100 WBC 0.0 Absolute nRBC <0.01 k/uL <0.01 DTYPE Auto Color Yellow Yellow Clarity Clear Clear Glucose, Urine Negative Negative Bilirubin, Urine Negative Negative Ketones, Urine Negative Negative Specific Thornton, Ur 1.005 - 1.030 1.010 Hemoglobin/Blood,Ur Negative Negative pH, Urine <8.5 6.0 Protein, Urine Negative Negative Urobilinogen 0.2-1.0 EU/dL 0.2 EU/dL Nitrites Negative Negative Leukest Negative Negative WBC, Urine 0-5 /HPF 0-5 /HPF RBC, Urine 0-2 /HPF 0-2 /HPF Bacteria Negative /HPF Negative Epithelial Cells /HPF Few Hyaline Cast 0 /LPF 0 /LPF Protein, Total 6.3 - 8.0 g/dL 7.2 Albumin 3.9 - 4.9 g/dL 4.3 Calcium 8.5 - 10.2 mg/dL 9.2 Bilirubin, Total 0.2 - 1.3 mg/dL 1.7 (H) Alkaline Phosphatase 34 - 123 U/L 75 AST 13 - 35 U/L 24 ALT 7 - 38 U/L 22 Glucose 74 - 99 mg/dL 108 (H) BUN 7 - 21 mg/dL 12 Creatinine 0.58 - 0.96 mg/dL 0.84 Sodium 136 - 144 mmol/L 139 Potassium 3.7 - 5.1 mmol/L 4.0 Chloride 98 - 107 mmol/L 101 CO2 22 - 30 mmol/L 27 Anion Gap 8 - 15 mmol/L 11 eGFR >=60 mL/min/1.73m 84 Cholesterol, Total <200 mg/dL 208 (H) Triglyceride <150 mg/dL 139 HDL Cholesterol >39 mg/dL 56 Non HDL Cholesterol <130 mg/dL 152 (H) Fasting Time hrs 12 VLDL Cholesterol <30 mg/dL 28 TC:HDL Ratio <5.10 3.71 LDL Cholesterol <100 mg/dL 124 (H) LDL:HDL Ratio <2.54 2.21 Hemoglobin A1C 4.3 - 5.6 % 5.7 (H) Estimated Average Glucose mg/dL 117 Vitamin D 25 Hydroxy 31.0 - 80.0 ng/mL 32.7 TSH 0.270 - 4.200 mIU/L 3.850 Legend: (H) High Exercise: Patient does not have an exercise routine. Patient does not exercise 30 minutes a day. Weight Trend: Last 2 Encounter Wt Readings: Date: Wt: 09/28/2024 105.2 kg (232 lb) 08/19/2024 108.9 kg (240 lb) Eating Habits: Patient does maintain healthy eating habits. Does some intermittent fasting. Sugary drinks does affect her weight Types of food appropriate diet Water - 2 liters a day Caffeine - 1 monster a day Unsweet ice tea Tobacco Use: Tobacco Use: Never Active Problem List/Chronic Problems There are no active hospital problems to display for this patient. Health Maintenance Hepatitis C Screening Never done HIV Screening Never done Hepatitis B Vaccine(1 of 3 - 19+ 3-dose series) Never done Shingrix Vaccine(1 of 2) Never done Pneumococcal Vaccine: 50+(1 of 1 - PCV) Never done Mammogram Screening due on 10/18/2023 Depression Screening due on 09/28/2024 Anxiety Screening due on 09/28/2024 HEALTH MAINTENANCE REVIEW: Mammogram Review of Systems Constitutional: Positive for malaise/fatigue and weight loss. Negative for chills, diaphoresis and fever. HENT: Positive for hearing loss. Negative for congestion, ear discharge, ear pain, nosebleeds, sinus pain, sore throat and tinnitus. Mild hearing loss - jayshree wax build up Eyes: Negative for blurred vision, double vision, photophobia, pain, discharge and redness. Respiratory: Negative for cough, hemoptysis, sputum production, shortness of breath, wheezing and stridor. Asthma - intermittently Cardiovascular: Positive for leg swelling. Negative for chest pain, palpitations, orthopnea, claudication and PND. HCTZ helps with leg swelling Gastrointestinal: Positive for diarrhea. Negative for abdominal pain, blood in stool, constipation, heartburn, melena, nausea and vomiting. Diarrhea most of the time, occasional constipation, has had work up Has a lot of belching, does not matter what she eats. Can get bloated - tried probiotics, made it worse. Fiber did not help. Negative gluten allergy Lays on her left side, belches more No correlation with fizzy beverages. Genitourinary: Negative for dysuria, flank pain, frequency, hematuria and urgency. Musculoskeletal: Positive for joint pain. Negative for back pain, falls, myalgias and neck pain. Skin: Positive for rash. Negative for itching. On top of her leg - open ring - concern of ring worm - noticed that 3 days ago. Had dermatology skin cancer screen - on her hand nevi Some moles under her axilla area. Lived in [place] , had [place] and sun exposure. No change in them. Touch under her arm. Neurological: Negative for dizziness, tingling, tremors, sensory change, speech change, focal weakness, seizures, loss of consciousness, weakness and headaches. Endo/Heme/Allergies: Positive for environmental allergies. Negative for polydipsia. Does not bruise/bleed easily. [place] Psychiatric/Behavioral: Negative for depression, hallucinations, memory loss, substance abuse and suicidal ideas. The patient is not nervous/anxious and does not have insomnia. Has a stressful job, up playing games helps her calm down but affects sleep PAIN: See ROS ALLERGIES Allergen Reactions Penicillin G Rash Allergy as a child. Quinine Anaphylaxis hydroCHLOROthiazide 12.5 mg capsule TAKE 1 CAPSULE BY MOUTH EVERY DAY meloxicam (MOBIC) 7.5 mg tablet Take 1 tablet by mouth once daily. levothyroxine (SYNTHROID) 25 mcg tablet TAKE 1 TABLET ONCE DAILY (FOR A TOTAL OF 225 MCG DAILY) levothyroxine (SYNTHROID) 200 mcg tablet TAKE 1 TABLET DAILY BEFORE BREAKFAST (FOR TOTAL OF 225 MCG DAILY) albuterol HFA (PROAIR HFA) 90 mcg/actuation inhaler Inhale 1-2 Puffs as instructed every 4 hours as needed for wheezing/shortness of breath. Blood Pressure Monitor 1 Each once daily. 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 Constitutional: Appearance: Normal appearance. HENT: Head: Normocephalic and atraumatic. Right Ear: Tympanic membrane, ear canal and external ear normal. There is no impacted cerumen. Left Ear: Tympanic membrane, ear canal and external ear normal. There is no impacted cerumen. Nose: No congestion. Mouth/Throat: Mouth: Mucous membranes are moist. Comments: Mallampati score of 4 Eyes: Conjunctiva/sclera: Conjunctivae normal. Pupils: Pupils are equal, round, and reactive to light. Cardiovascular: Rate and Rhythm: Normal rate and regular rhythm. Pulses: Normal pulses. Heart sounds: Normal heart sounds. No murmur heard. Pulmonary: Effort: Pulmonary effort is normal. No respiratory distress. Breath sounds: Normal breath sounds. Chest: Chest wall: No tenderness. Abdominal: General: Bowel sounds are increased. There is no distension. Palpations: Abdomen is soft. Tenderness: There is no abdominal tenderness. Comments: + belching Musculoskeletal: Cervical back: Normal range of motion and neck supple. Left knee: Swelling and bony tenderness present. Decreased range of motion. Tenderness present. Right lower leg: No edema. Left lower leg: No edema. Lymphadenopathy: Cervical: No cervical adenopathy. Skin: General: Skin is warm and dry. Capillary Refill: Capillary refill takes less than 2 seconds. Comments: Right inner thigh oval shaped erythematous scaly lesion about 1 inch by 1.5 inches Left axilla with 3 small nevi, regular borders and brawny color Neurological: Mental Status: She is alert and oriented to person, place, and time. Psychiatric: Mood and Affect: Mood normal. Behavior: Behavior normal. Thought Content: Thought content normal. Judgment: Judgment normal. ASSESSMENT / PLAN: Discussed health maintenance, including regular aerobic exercise, low fat diet, and periodic exams. ASSESSMENT/PLAN: 1. Well adult exam - ICD9: V70.0, ICD10: Z00.00 (primary diagnosis) - Counseled on healthy diet and regular exercise - Breast cancer screening - ordered mammogram - Follow up for annual exam in one year 2. Chronic pain of both knees - ICD9: 719.46, 338.29, ICD10: M25.561, M25.562, G89.29 - CONSULT TO ORTHOPAEDICS 3. ONEIDA (obstructive sleep apnea) - ICD9: 327.23, ICD10: G47.33 - TIRZEPATIDE (WEIGHT LOSS) 2.5 MG/0.5 ML SUBCUTANEOUS PEN INJECTOR 4. Chronic pain of left knee - ICD9: 719.46, 338.29, ICD10: M25.562, G89.29 - MRI KNEE WO IVCON LEFT 5. Postoperative hypothyroidism - ICD9: 244.0, ICD10: E89.0 - LEVOTHYROXINE 25 MCG TABLET - LEVOTHYROXINE 200 MCG TABLET 6. Primary hypertension - ICD9: 401.9, ICD10: I10 - Controlled - Continue current medications - Recommend home blood pressure monitoring, to bring results to next visit - Encouraged sodium restriction, DASH or Mediterranean diet - Recommend regular aerobic exercise - HYDROCHLOROTHIAZIDE 12.5 MG CAPSULE 7. Belching - ICD9: 787.3, ICD10: R14.2 8. Mild intermittent asthma without complication (HCC) - ICD9: 493.90, ICD10: J45.20 - Mild intermittent asthma stable - Avoidance of triggers recommended - ALBUTEROL SULFATE HFA 90 MCG/ACTUATION AEROSOL INHALER 9. Encounter for screening examination for other mental health and behavioral disorders - ICD9: V79.8, ICD10: Z13.39 - ANXIETY SCREENING 10. Screening examination for STI - ICD9: V74.5, ICD10: Z11.3 - HIV 1/2 COMBO WITH REFLEX TO DIFFERENTIATION 11. Encounter for screening for HIV - ICD9: V73.89, ICD10: Z11.4 - HIV 1/2 COMBO WITH REFLEX TO DIFFERENTIATION 12. Encounter for hepatitis C screening test for low risk patient - ICD9: V73.89, ICD10: Z11.59 - HEPATITIS C VIRUS (HCV) RNA, QUANTITATIVE PCR, PLASMA/SERUM 13. Screening for depression - ICD9: V79.0, ICD10: Z13.31 - DEPRESSION SCREENING 14. Need for vaccination - ICD9: V05.9, ICD10: Z23 - MUMPS IGG AB - RUBEOLA (MEASLES)IGG - RUBELLA IGG ANTIBODY - HEPATITIS B SURFACE ANTIBODY 15. Tinea corporis - ICD9: 110.5, ICD10: B35.4 - CLOTRIMAZOLE-BETAMETHASONE 1 %-0.05 % TOPICAL CREAM Carmen Messina APRN.MOBILITY ARCHITECT MANAGER No follow-ups on file. Cramen Messina APRN.MOBILITY ARCHITECT MANAGER documented in this encounter [facility] 09-24-2024 Telephone encounter Note This is a duplicate request [facility] 09-24-2024 Miscellaneous Notes This is a duplicate request documented in this encounter [facility] 09-23-2024 Telephone encounter Note Patients last office visit was 08/19/24 with (Dr Carreon) and next visit is 09/28/24 with (LRF). Alexa Rowe MA [facility] 09-23-2024 Miscellaneous Notes Patients last office visit was 08/19/24 with (Dr Carreon) and next visit is 09/28/24 with (LRF). Alexa Rowe MA documented in this encounter [facility] 09-03-2024 Note HNO ID: [id number] Author: MARY ZAMUDIO PA-C Service: ? Author Type: Physician Applications Support Specialist Type: Progress Notes Filed: 09/03/2024 11:40 Note Text: NEW PATIENT Consultation requested by Washington Carreon DO for an opinion regarding skin lesion of hand. My final recommendations will be communicated back to the requesting physician by way of shared Medical record or letter to requesting physician via [place] mail. Chief Complaint: LESION, SKIN History of Present Illness: Sarika Corona is a 54 year old female who presents today for a skin lesion C/o skin lesion: Location: right palm Duration: less than a year Symptoms: concerned about jagged edges, in two weeks skin around is changing colors Current Treatment: none Past Treatment: none Pertinent History: History of skin cancer: No History of atypical nevi: No History of HIV/ Hepatitis C: No History of immunosuppression/organ transplant: No , planning , or : No Allergy to lidocaine/ epinephrine/ latex/ adhesive: No Defibrillator/ Pacer: No Pertinent Family Medical History: History of melanoma: No History of non melanoma skin cancer: No Other family history (autoimmune, dermatologic, etc): None Social History: History of severe sun clark: Yes 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 Sun Protection: Yes 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 meloxicam (MOBIC) 7.5 mg tablet Take 1 tablet by mouth once daily. levothyroxine (SYNTHROID) 25 mcg tablet TAKE 1 TABLET ONCE DAILY (FOR A TOTAL OF 225 MCG DAILY) levothyroxine (SYNTHROID) 200 mcg tablet TAKE 1 TABLET DAILY BEFORE BREAKFAST (FOR TOTAL OF 225 MCG DAILY) albuterol HFA (PROAIR HFA) 90 mcg/actuation inhaler Inhale 1-2 Puffs as instructed every 4 hours as needed for wheezing/shortness of breath. hydroCHLOROthiazide 12.5 mg capsule Take 1 capsule by mouth once daily. Blood Pressure Monitor 1 Each once daily. Goal is less than 130/80 Xtra large cuff No current facility-administered medications on file prior to visit. ROS: Skin as above. Physical Exam: Spencer skin type: II The patient is a pleasant female in no apparent distress. Alert and oriented x 3. A skin exam performed of the bilateral upper extremities is significant for: Right Mid Palm 0.2 x 0.1 cm thin brown macule with regular pattern on dermoscopy Assessment and Plan: Skin Exam 1. BENIGN NEVUS Right Mid Palm 0.2 x 0.1 cm thin brown macule with regular pattern on dermoscopy Explanation of these lesions were dicussed. Benign reassurance was given. Encouraged to observe for changes in size, shape, or color. Picture and measurement obtained, will re-evaluate in 6 months. Follow up: 6 months nevus follow up The documentation for this note was completed by Clarissa Montes RN acting as scribe for Mary Zamudio PA-C. I agree with the Chief Complaint, ROS, and Past Histories independently gathered by the clinical endoscopy support specialist and the remaining scribed note accurately describes my personal service to the patient. Mary Zamudio PA-C September 03, 2024 [facility] 09-03-2024 History of Present illness Narrative Images from the original note were not included. NEW PATIENT Consultation requested by Washington Carreon DO for an opinion regarding skin lesion of hand. My final recommendations will be communicated back to the requesting physician by way of shared Medical record or letter to requesting physician via [place] mail. Chief Complaint: LESION, SKIN History of Present Illness: Sarika Corona is a 54 year old female who presents today for a skin lesion C/o skin lesion: Location: right palm Duration: less than a year Symptoms: concerned about jagged edges, in two weeks skin around is changing colors Current Treatment: none Past Treatment: none Pertinent History: History of skin cancer: No History of atypical nevi: No History of HIV/ Hepatitis C: No History of immunosuppression/organ transplant: No , planning , or : No Allergy to lidocaine/ epinephrine/ latex/ adhesive: No Defibrillator/ Pacer: No Pertinent Family Medical History: History of melanoma: No History of non melanoma skin cancer: No Other family history (autoimmune, dermatologic, etc): None Social History: History of severe sun clark: Yes 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 Sun Protection: Yes 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 meloxicam (MOBIC) 7.5 mg tablet Take 1 tablet by mouth once daily. levothyroxine (SYNTHROID) 25 mcg tablet TAKE 1 TABLET ONCE DAILY (FOR A TOTAL OF 225 MCG DAILY) levothyroxine (SYNTHROID) 200 mcg tablet TAKE 1 TABLET DAILY BEFORE BREAKFAST (FOR TOTAL OF 225 MCG DAILY) albuterol HFA (PROAIR HFA) 90 mcg/actuation inhaler Inhale 1-2 Puffs as instructed every 4 hours as needed for wheezing/shortness of breath. hydroCHLOROthiazide 12.5 mg capsule Take 1 capsule by mouth once daily. Blood Pressure Monitor 1 Each once daily. Goal is less than 130/80 Xtra large cuff No current facility-administered medications on file prior to visit. ROS: Skin as above. Physical Exam: Spencer skin type: II The patient is a pleasant female in no apparent distress. Alert and oriented x 3. A skin exam performed of the bilateral upper extremities is significant for: Right Mid Palm 0.2 x 0.1 cm thin brown macule with regular pattern on dermoscopy Assessment and Plan: Skin Exam 1. BENIGN NEVUS Right Mid Palm 0.2 x 0.1 cm thin brown macule with regular pattern on dermoscopy Explanation of these lesions were dicussed. Benign reassurance was given. Encouraged to observe for changes in size, shape, or color. Picture and measurement obtained, will re-evaluate in 6 months. Follow up: 6 months nevus follow up The documentation for this note was completed by Clarissa Montes RN acting as scribe for Mary Zamudio PA-C. I agree with the Chief Complaint, ROS, and Past Histories independently gathered by the clinical endoscopy support specialist and the remaining scribed note accurately describes my personal service to the patient. Mary Zamudio PA-C September 03, 2024 documented in this encounter [facility] 08-27-2024 Telephone encounter Note It was approved by FDA for sleep apnea and that is what I coded it for. She has the option to take the scripts to a compounding pharmacy if she wishes, please call her and see if she wishes to do that option but she would have to pay out of pocket. Carmen Messina APRN.CNP [facility] 08-27-2024 Miscellaneous Notes It was approved by FDA for sleep apnea and that is what I coded it for. She has the option to take the scripts to a compounding pharmacy if she wishes, please call her and see if she wishes to do that option but she would have to pay out of pocket. Carmen Messina APRN.CNP Prior auth for Ozempic was denied because patient is not using it for Type 2 DM. Kimo Mondragon MA documented in this encounter [facility] 08-27-2024 Telephone encounter Note Prior auth for Ozempic was denied because patient is not using it for Type 2 DM. Kimo Mondragon MA [facility] 08-23-2024 Telephone encounter Note I submitted a reconsideration to [employer] (Attn: [email or web address] ) for the Zepbound. The fax# and received a confirmation that they received my fax. Alexa Rowe MA [facility] 08-23-2024 Miscellaneous Notes I submitted a reconsideration to [employer] (Attn: [email or web address] ) for the Zepbound. The fax# and received a confirmation that they received my fax. Alexa Rowe MA On 08/20/24 [employer] denied coverage for Zepbound 2.5mg/0.5. The form states the medication is covered when it is not being used concomitantly with other weight loss medications. Patient is not on any other weight medication and I will be re- submitting a prior authorization. Alexa Rowe MA documented in this encounter [facility] 08-23-2024 Telephone encounter Note On 08/20/24 [employer] denied coverage for Zepbound 2.5mg/0.5. The form states the medication is covered when it is not being used concomitantly with other weight loss medications. Patient is not on any other weight medication and I will be re- submitting a prior authorization. Alexa Rowe MA [facility] 08-19-2024 Note HNO ID: [id number] Author: WASHINGTON CARREON, DO Service: ? Author Type: Physician Type: Progress Notes Filed: 08/22/2024 10:39 Note Text: [facility] [address] [place] [address] Date of Evaluation: 08/19/2024 Patient Name: Sarika Corona : 1970 Chief Complaint: Patient presents with: Hand Evaluation: Right hand palm spot, no pain Subjective HPI Ms. Corona is a 54 year old female who presents for hand lesion Has a dark spot on the palpmar surface of her right hand, has been present for a while, but seems to be getting larger and darker, no pain associated. She would like to see dermatology as she is worried about it being a possible melanoma. Would like to get restarted on zepbound, she was on 2.5mg for a month, when raised to 5mg she became symptomatic so the medication was stopped. She would like to try going back on the 2.5mg dose now. Review of Systems Constitutional: Negative for activity change, fatigue and fever. HENT: Negative for congestion. Respiratory: Negative for shortness of breath. Cardiovascular: Negative for chest pain. Gastrointestinal: Negative for abdominal pain. Skin: lesion Neurological: Negative for dizziness and headaches. 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 PAST SURGICAL HISTORY Procedure Laterality Date ANESTH, SECTION 01/14/2003 ANESTH, SECTION 02/14/1998 DELIVERY ONLY 1995 COLONOSCOPY 02/22/2021 EGD CYSTOSCOPY 03/12/2021 LAPAROSCOPY W TOTAL HYSTERECTOMY UTERUS 250 GM/< 03/12/2021 REMOVAL OF OVARY/TUBE(S) 03/12/2021 THYROIDECTOMY TOTAL/COMPLETE 2013 TUBAL LIGATION 2002 FAMILY HISTORY Problem Relation Age of Onset Heart Mother Hypertension Mother Alcohol/Drug Father Cancer Father pancreatic Heart Sister Hypertension Sister Alcohol/Drug Brother Cancer Maternal Grandmother Diabetes Paternal Grandmother Cancer Paternal Grandmother uterine vs ovarian, unsure Social History Tobacco Use Smoking status: Never Smokeless tobacco: Never Vaping Use Vaping status: Never Used Substance Use Topics Alcohol use: No Drug use: No Current Outpatient Medications Medication Sig meloxicam (MOBIC) 7.5 mg tablet Take 1 tablet by mouth once daily. tirzepatide, weight loss (ZEPBOUND) 2.5 mg/0.5 mL pen injector Inject 2.5 mg subcutaneously one time a week. levothyroxine (SYNTHROID) 25 mcg tablet TAKE 1 TABLET ONCE DAILY (FOR A TOTAL OF 225 MCG DAILY) levothyroxine (SYNTHROID) 200 mcg tablet TAKE 1 TABLET DAILY BEFORE BREAKFAST (FOR TOTAL OF 225 MCG DAILY) albuterol HFA (PROAIR HFA) 90 mcg/actuation inhaler Inhale 1-2 Puffs as instructed every 4 hours as needed for wheezing/shortness of breath. hydroCHLOROthiazide 12.5 mg capsule Take 1 capsule by mouth once daily. Blood Pressure Monitor 1 Each once daily. Goal is less than 130/80 Xtra large cuff No current facility-administered medications for this visit. I have confirmed and edited as necessary the chief complaint, medications, past medical, family and social histories obtained by others. Objective BP 124/77 Pulse 87 Resp 14 Ht 5' 6.25 (1.68m) Wt 240 lb (108.9kg) SpO2 97% LMP 03/04/2021 BMI 38.43 kg/(m2). Physical Exam Constitutional: General: She is not in acute distress. HENT: Head: Normocephalic and atraumatic. Mouth/Throat: Mouth: Mucous membranes are moist. Eyes: Extraocular Movements: Extraocular movements intact. Cardiovascular: Rate and Rhythm: Normal rate. Pulmonary: Effort: Pulmonary effort is normal. No respiratory distress. Musculoskeletal: General: Normal range of motion. Cervical back: No rigidity. Skin: Comments: Small ~1-2mm dark lesion to right palm Neurological: General: No focal deficit present. Mental Status: She is alert. ASSESSMENT/PLAN: 1. Skin lesion of hand - ICD9: 709.9, ICD10: L98.9 (primary diagnosis) - referral to derm - CONSULT TO DERMATOLOGY 2. Class 2 severe obesity with serious comorbidity and body mass index (BMI) of 38.0 to 38.9 in adult, unspecified obesity type (HCC) - ICD9: 278.01, V85.38, ICD10: E66.812, Z68.38, E66.01 Weight increasing - Pharmacological intervention - TIRZEPATIDE (WEIGHT LOSS) 2.5 MG/0.5 ML SUBCUTANEOUS PEN INJECTOR 3. Prediabetes - ICD9: 790.29, ICD10: R73.03 - TIRZEPATIDE (WEIGHT LOSS) 2.5 MG/0.5 ML SUBCUTANEOUS PEN INJECTOR 4. Chronic pain of left knee - ICD9: 719.46, 338.29, ICD10: M25.562, G89.29 - will get Xrays for further evaluation - MELOXICAM 7.5 MG TABLET - XR KNEE GENERAL 4V AP BOTH/PA BOTH/LAT/MERC LEFT Return if symptoms worsen or fail to improve. Discussed the above (more content not included)... [facility] 08-19-2024 History of Present illness Narrative Images from the original note were not included. [facility] [address] [place] [address] Date of Evaluation: 08/19/2024 Patient Name: Sarika Corona : 1970 Chief Complaint: Patient presents with: Hand Evaluation: Right hand palm spot, no pain Subjective HPI Ms. Corona is a 54 year old female who presents for hand lesion Has a dark spot on the palpmar surface of her right hand, has been present for a while, but seems to be getting larger and darker, no pain associated. She would like to see dermatology as she is worried about it being a possible melanoma. Would like to get restarted on zepbound, she was on 2.5mg for a month, when raised to 5mg she became symptomatic so the medication was stopped. She would like to try going back on the 2.5mg dose now. Review of Systems Constitutional: Negative for activity change, fatigue and fever. HENT: Negative for congestion. Respiratory: Negative for shortness of breath. Cardiovascular: Negative for chest pain. Gastrointestinal: Negative for abdominal pain. Skin: lesion Neurological: Negative for dizziness and headaches. 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 PAST SURGICAL HISTORY Procedure Laterality Date ANESTH, SECTION 01/14/2003 ANESTH, SECTION 02/14/1998 DELIVERY ONLY 1995 COLONOSCOPY 02/22/2021 EGD CYSTOSCOPY 03/12/2021 LAPAROSCOPY W TOTAL HYSTERECTOMY UTERUS 250 GM/< 03/12/2021 REMOVAL OF OVARY/TUBE(S) 03/12/2021 THYROIDECTOMY TOTAL/COMPLETE 2013 TUBAL LIGATION 2002 FAMILY HISTORY Problem Relation Age of Onset Heart Mother Hypertension Mother Alcohol/Drug Father Cancer Father pancreatic Heart Sister Hypertension Sister Alcohol/Drug Brother Cancer Maternal Grandmother Diabetes Paternal Grandmother Cancer Paternal Grandmother uterine vs ovarian, unsure Social History Tobacco Use Smoking status: Never Smokeless tobacco: Never Vaping Use Vaping status: Never Used Substance Use Topics Alcohol use: No Drug use: No Current Outpatient Medications Medication Sig meloxicam (MOBIC) 7.5 mg tablet Take 1 tablet by mouth once daily. tirzepatide, weight loss (ZEPBOUND) 2.5 mg/0.5 mL pen injector Inject 2.5 mg subcutaneously one time a week. levothyroxine (SYNTHROID) 25 mcg tablet TAKE 1 TABLET ONCE DAILY (FOR A TOTAL OF 225 MCG DAILY) levothyroxine (SYNTHROID) 200 mcg tablet TAKE 1 TABLET DAILY BEFORE BREAKFAST (FOR TOTAL OF 225 MCG DAILY) albuterol HFA (PROAIR HFA) 90 mcg/actuation inhaler Inhale 1-2 Puffs as instructed every 4 hours as needed for wheezing/shortness of breath. hydroCHLOROthiazide 12.5 mg capsule Take 1 capsule by mouth once daily. Blood Pressure Monitor 1 Each once daily. Goal is less than 130/80 Xtra large cuff No current facility-administered medications for this visit. I have confirmed and edited as necessary the chief complaint, medications, past medical, family and social histories obtained by others. Objective BP 124/77 Pulse 87 Resp 14 Ht 5' 6.25 (1.68m) Wt 240 lb (108.9kg) SpO2 97% LMP 03/04/2021 BMI 38.43 kg/(m^2). Physical Exam Constitutional: General: She is not in acute distress. HENT: Head: Normocephalic and atraumatic. Mouth/Throat: Mouth: Mucous membranes are moist. Eyes: Extraocular Movements: Extraocular movements intact. Cardiovascular: Rate and Rhythm: Normal rate. Pulmonary: Effort: Pulmonary effort is normal. No respiratory distress. Musculoskeletal: General: Normal range of motion. Cervical back: No rigidity. Skin: Comments: Small ~1-2mm dark lesion to right palm Neurological: General: No focal deficit present. Mental Status: She is alert. ASSESSMENT/PLAN: 1. Skin lesion of hand - ICD9: 709.9, ICD10: L98.9 (primary diagnosis) - referral to derm - CONSULT TO DERMATOLOGY 2. Class 2 severe obesity with serious comorbidity and body mass index (BMI) of 38.0 to 38.9 in adult, unspecified obesity type (HCC) - ICD9: 278.01, V85.38, ICD10: E66.812, Z68.38, E66.01 Weight increasing - Pharmacological intervention - TIRZEPATIDE (WEIGHT LOSS) 2.5 MG/0.5 ML SUBCUTANEOUS PEN INJECTOR 3. Prediabetes - ICD9: 790.29, ICD10: R73.03 - TIRZEPATIDE (WEIGHT LOSS) 2.5 MG/0.5 ML SUBCUTANEOUS PEN INJECTOR 4. Chronic pain of left knee - ICD9: 719.46, 338.29, ICD10: M25.562, G89.29 - will get Xrays for further evaluation - MELOXICAM 7.5 MG TABLET - XR KNEE GENERAL 4V AP BOTH/PA BOTH/LAT/MERC LEFT Return if symptoms worsen or fail to improve. Discussed the above with the patient using shared decision making. The patient is in agreement with the diagnostic and treatment plans. Washington Carreon DO 08/19/24 documented in this encounter [facility] 08-02-2024 Telephone encounter Note I printed labs out and put them out to be mailed today. Alexa Rowe MA [facility] 08-02-2024 Miscellaneous Notes I printed labs out and put them out to be mailed today. Alexa Rowe MA Fasting labs ordered to be done prior to her appt, please mail to Carmen monet APRN.FROYLAN Patients last office visit was 11/10/24 with (LRF) and no upcoming visit. Alexa Rowe MA documented in this encounter [facility] 08-02-2024 Telephone encounter Note Fasting labs ordered to be done prior to her appt, please mail to her, Carmen Messina APRN.FROYLAN [facility] 08-02-2024 Telephone encounter Note Patients last office visit was 11/10/24 with (LRF) and no upcoming visit. Alexa Rowe MA [facility] 05-04-2024 Note Patient Outreach (AG ACM) SARIKA CORONA ([id number]) 1970 F Date Time Provider Department 05/04/24 CARMEN MESSINA AGA During your visit today, we recorded the following information about you: Allergies As of Date: 05/04/2024 Noted Allergy Reaction PENICILLIN G 06/13/2011 2 - Rash Comments: Allergy as a child. QUININE 03/02/2021 10 - Anaphylaxis Date Reviewed: 04/12/2024 Reviewed by: Rosaura Ruiz MA - Fully Assessed Visit Diagnosis:Encounter for screening mammogram for breast cancer [Z12.31] Order(s):VICTORIANO SCREENING W CHAMP [[id number]] Order #: [id number] FUTURE Prescriptions as of 05/07/2024 - meloxicam (MOBIC) 7.5 mg tablet take 1 tablet by mouth every day - tirzepatide, weight loss (ZEPBOUND) 5 mg/0.5 mL pen injector Inject 5 mg subcutaneously one time a week. - albuterol HFA (PROAIR HFA) 90 mcg/actuation inhaler Inhale 1-2 Puffs as instructed every 4 hours as needed for wheezing/shortness of breath. - mometasone-formoterol (DULERA) 100-5 mcg/actuation inhaler Inhale 2 Puffs as instructed two times a day. - Bifidobacterium infantis (ALIGN ORAL) Take by mouth once daily. On hold - levothyroxine (SYNTHROID) 200 mcg tablet Take 1 tablet by mouth daily before breakfast. Take for a total of 225 mcg daily - levothyroxine (SYNTHROID) 25 mcg tablet Take 1 tablet by mouth once daily. Take for a total of 225 mcg daily - hydroCHLOROthiazide 12.5 mg capsule Take 1 capsule by mouth once daily. - Blood Pressure Monitor 1 Each once daily. Goal is less than 130/80 Xtra large cuff - tirzepatide, weight loss (ZEPBOUND) 2.5 mg/0.5 mL pen injector Inject 2.5 mg subcutaneously one time a week. - albuterol (PROVENTIL) 2.5 mg /3 mL (0.083 %) nebulizer solution Use 3 mL via nebulizer every 4 hours as needed for Wheezing/Shortness of Breath. Use over 5-15minutes. - albuterol (PROVENTIL) 5 mg/mL nebu Inhale 0.5 mL as instructed one time only for 1 dose. 1 DOSE NOW - BACK OFFICE. PLACE 0.5 ML PER DROPPER AND 2.5 ML OF NORMAL SALINE INTO RESERVOIR. Problem List As Of Date 05/04/2024 Noted Resolved Postoperative hypothyroidism [E89.0] 06/13/2011 Asthma, mild intermittent [J45.20] 06/13/2011 History of thyroid cancer [Z85.850] 05/10/2014 Obesity [E66.9] 07/10/2015 Witnessed apneic spells [R06.81] 05/30/2022 Elevated TSH [R79.89] 05/30/2022 Pain with bowel movements [R19.8] 08/28/2022 Abdominal pressure [R10.9] 08/28/2022 History of hysterectomy [Z90.710] 08/28/2022 History of uterine fibroid [Z86.018] 08/28/2022 Urine retention [R33.9] 08/28/2022 Vitamin D deficiency [E55.9] 08/28/2022 Chronic coughing [R05.3] 08/28/2022 Bronchiectasis without complication (HCC) [J47.*08/28/2022 Belching [R14.2] 08/28/2022 Hernia [K46.9] 08/28/2022 Prediabetes [R73.03] 08/26/2023 Primary hypertension [I10] 08/26/2023 Acute pain of both knees [M25.561, M25.562] 08/26/2023 Elevated fasting glucose [R73.01] 08/26/2023 ONEIDA (obstructive sleep apnea) [G47.33] 09/29/2023 Pedal edema [R60.0] 09/29/2023 Bloating [R14.0] 09/29/2023 Chronic pain of right knee [M25.561, G89.29] 03/01/2024 Difficulty in walking [R26.2] 03/01/2024 Chronic pain of left knee [M25.562, G89.29] 03/01/2024 Encounter Status:Closed by CAMACHO DIAZUSER on 05/07/24 [facility] 04-12-2024 History of Present illness Narrative Radiology Service Progress Note PATIENT NAME: Sarika Corona DATE OF SERVICE: April 12, 2024 TIME: 1:38 PM PATIENT IDENTITY VERIFICATION COMPLETED USING TWO (2) IDENTIFIERS: Name and Date of confirmed by patient verbally. FALL SCREENING: Has the patient had 2 falls in the last year or 1 fall with injury or currently using an Ambulatory Assistive Device (Walker, Cane, Wheelchair, Crutches, etc.)? No PATIENT GENDER DATA: Female. status: : No status: NO. PATIENT RELEVANT IMPLANT DATA REVIEWED: Not Applicable PATIENT PRESENTS WITH AN IMPLANTABLE OR ATTACHED NEW ORDER CLERK: No RADIOLOGY DEPARTMENT: General X-ray: Exam(s) Completed: Chest X-Ray PERIPHERAL IV DATA: Not applicable SIGNED BY: RT Robb(R) April 12, 2024 1:38 PM documented in this encounter [facility] 04-12-2024 Note HNO ID: [id number] Author: MOISES FUNK RT(R) Service: Radiology Author Type: Technologist Type: Progress Notes Filed: 04/12/2024 13:45 Note Text: Radiology Service Progress Note PATIENT NAME: Sarika Corona DATE OF SERVICE: April 12, 2024 TIME: 1:38 PM PATIENT IDENTITY VERIFICATION COMPLETED USING TWO (2) IDENTIFIERS: Name and Date of confirmed by patient verbally. FALL SCREENING: Has the patient had 2 falls in the last year or 1 fall with injury or currently using an Ambulatory Assistive Device (Walker, Cane, Wheelchair, Crutches, etc.)? No PATIENT GENDER DATA: Female. status: : No status: NO. PATIENT RELEVANT IMPLANT DATA REVIEWED: Not Applicable PATIENT PRESENTS WITH AN IMPLANTABLE OR ATTACHED NEW ORDER CLERK: No RADIOLOGY DEPARTMENT: General X-ray: Exam(s) Completed: Chest X-Ray PERIPHERAL IV DATA: Not applicable SIGNED BY: KALYANI Zamudio) April 12, 2024 1:[address] [facility] 04-12-2024 Note HNO ID: [id number] Author: KAYLA ZENG PA Service: ? Author Type: Physician Applications Support Specialist Type: Progress Notes Filed: 04/12/2024 14:02 Note Text: This note was created using [employer]odoriar[employer]. Subjective Sarika Corona is a 53 year old female. HPI 53-year-old female presents for cough, chest congestion, nasal congestion x 9 days. Patient states that she has been sick for the past 9 days. She has had nasal congestion, cough, chest congestion, wheezing. She does have asthma and feels like it is flaring up. She has been using her inhalers. She states she is coughing up green/yellow phlegm and has coughed up some white mucus as well. She had a fever initially for 1 night, but no fever since. No vomiting or diarrhea. No other complaint. 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 levothyroxine (SYNTHROID) 200 mcg tablet Take 1 tablet by mouth daily before breakfast. Take for a total of 225 mcg daily levothyroxine (SYNTHROID) 25 mcg tablet Take 1 tablet by mouth once daily. Take for a total of 225 mcg daily hydroCHLOROthiazide 12.5 mg capsule Take 1 capsule by mouth once daily. tirzepatide, weight loss (ZEPBOUND) 5 mg/0.5 mL pen injector Inject 5 mg subcutaneously one time a week. mometasone-formoterol (DULERA) 100-5 mcg/actuation inhaler Inhale 2 Puffs as instructed two times a day. Bifidobacterium infantis (ALIGN ORAL) Take by mouth once daily. On hold Blood Pressure Monitor 1 Each once daily. Goal is less than 130/80 Xtra large cuff tirzepatide, weight loss (ZEPBOUND) 2.5 mg/0.5 mL pen injector Inject 2.5 mg subcutaneously one time a week. albuterol (PROVENTIL) 2.5 mg /3 mL (0.083 %) nebulizer solution Use 3 mL via nebulizer every 4 hours as needed for Wheezing/Shortness of Breath. Use over 5-15minutes. albuterol (PROVENTIL) 5 mg/mL nebu Inhale 0.5 mL as instructed one time only for 1 dose. 1 DOSE NOW - BACK OFFICE. PLACE 0.5 ML PER DROPPER AND 2.5 ML OF NORMAL SALINE INTO RESERVOIR. FAMILY HISTORY Problem Relation Age of Onset Heart Mother Hypertension Mother Alcohol/Drug Father Cancer Father pancreatic Heart Sister Hypertension Sister Alcohol/Drug Brother Cancer Maternal Grandmother Diabetes Paternal Grandmother Cancer Paternal Grandmother uterine vs ovarian, unsure Social History Tobacco Use Smoking status: Never Smokeless tobacco: Never Vaping Use Vaping status: Never Used Substance Use Topics Alcohol use: No Drug use: No Review of Systems Constitutional: Negative for chills and fever. HENT: Positive for congestion, sinus pressure and sinus pain. Negative for ear pain and sore throat. Respiratory: Positive for cough and wheezing. Negative for shortness of breath. Cardiovascular: Negative for chest pain. Gastrointestinal: Negative for diarrhea and vomiting. Objective BP 126/78 Pulse 86 Temp 36.4 ?C (97.6 ?F) (Tympanic) Resp 16 Wt 104.3 kg (229 lb 15 oz) LMP 03/04/2021 (Approximate) SpO2 96% BMI 38.26 kg/m? Physical Exam Vitals and nursing note reviewed. Constitutional: General: She is not in acute distress. Appearance: Normal appearance. She is not toxic-appearing. HENT: Right Ear: Tympanic membrane and ear canal normal. Left Ear: Tympanic membrane and ear canal normal. Nose: Mucosal edema and congestion present. Right Sinus: Maxillary sinus tenderness present. Left Sinus: Maxillary sinus tenderness present. Mouth/Throat: Mouth: Mucous membranes are moist. Eyes: Conjunctiva/sclera: Conjunctivae normal. Cardiovascular: Rate and Rhythm: Normal rate and regular rhythm. Pulmonary: Effort: Pulmonary effort is normal. Breath sounds: Wheezing and rhonchi present. Skin: General: Skin is warm and dry. Neurological: Mental Status: She is alert. Assessment and Plan ASSESSMENT/PLAN: 1. Sinobronchitis - ICD9: 473.9, 490, ICD10: J32.9, J40 (primary diagnosis) - Will begin treatment with Doxycycline -Rx for prednisone - The patient should also be given OTC decongestants prn for the first 5-7 days of treatment. - Supportive care with plenty of fluids, rest, and analgesia prn. 2. (more content not included)... [facility] 04-12-2024 History of Present illness Narrative This note was created using NoteWriter. Subjective Sarika Corona is a 53 year old female. HPI 53-year-old female presents for cough, chest congestion, nasal congestion x 9 days. Patient states that she has been sick for the past 9 days. She has had nasal congestion, cough, chest congestion, wheezing. She does have asthma and feels like it is flaring up. She has been using her inhalers. She states she is coughing up green/yellow phlegm and has coughed up some white mucus as well. She had a fever initially for 1 night, but no fever since. No vomiting or diarrhea. No other complaint. 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 levothyroxine (SYNTHROID) 200 mcg tablet Take 1 tablet by mouth daily before breakfast. Take for a total of 225 mcg daily levothyroxine (SYNTHROID) 25 mcg tablet Take 1 tablet by mouth once daily. Take for a total of 225 mcg daily hydroCHLOROthiazide 12.5 mg capsule Take 1 capsule by mouth once daily. tirzepatide, weight loss (ZEPBOUND) 5 mg/0.5 mL pen injector Inject 5 mg subcutaneously one time a week. mometasone-formoterol (DULERA) 100-5 mcg/actuation inhaler Inhale 2 Puffs as instructed two times a day. Bifidobacterium infantis (ALIGN ORAL) Take by mouth once daily. On hold Blood Pressure Monitor 1 Each once daily. Goal is less than 130/80 Xtra large cuff tirzepatide, weight loss (ZEPBOUND) 2.5 mg/0.5 mL pen injector Inject 2.5 mg subcutaneously one time a week. albuterol (PROVENTIL) 2.5 mg /3 mL (0.083 %) nebulizer solution Use 3 mL via nebulizer every 4 hours as needed for Wheezing/Shortness of Breath. Use over 5-15minutes. albuterol (PROVENTIL) 5 mg/mL nebu Inhale 0.5 mL as instructed one time only for 1 dose. 1 DOSE NOW - BACK OFFICE. PLACE 0.5 ML PER DROPPER AND 2.5 ML OF NORMAL SALINE INTO RESERVOIR. FAMILY HISTORY Problem Relation Age of Onset Heart Mother Hypertension Mother Alcohol/Drug Father Cancer Father pancreatic Heart Sister Hypertension Sister Alcohol/Drug Brother Cancer Maternal Grandmother Diabetes Paternal Grandmother Cancer Paternal Grandmother uterine vs ovarian, unsure Social History Tobacco Use Smoking status: Never Smokeless tobacco: Never Vaping Use Vaping status: Never Used Substance Use Topics Alcohol use: No Drug use: No Review of Systems Constitutional: Negative for chills and fever. HENT: Positive for congestion, sinus pressure and sinus pain. Negative for ear pain and sore throat. Respiratory: Positive for cough and wheezing. Negative for shortness of breath. Cardiovascular: Negative for chest pain. Gastrointestinal: Negative for diarrhea and vomiting. Objective BP 126/78 Pulse 86 Temp 36.4 C (97.6 F) (Tympanic) Resp 16 Wt 104.3 kg (229 lb 15 oz) LMP 03/04/2021 (Approximate) SpO2 96% BMI 38.26 kg/m Physical Exam Vitals and nursing note reviewed. Constitutional: General: She is not in acute distress. Appearance: Normal appearance. She is not toxic-appearing. HENT: Right Ear: Tympanic membrane and ear canal normal. Left Ear: Tympanic membrane and ear canal normal. Nose: Mucosal edema and congestion present. Right Sinus: Maxillary sinus tenderness present. Left Sinus: Maxillary sinus tenderness present. Mouth/Throat: Mouth: Mucous membranes are moist. Eyes: Conjunctiva/sclera: Conjunctivae normal. Cardiovascular: Rate and Rhythm: Normal rate and regular rhythm. Pulmonary: Effort: Pulmonary effort is normal. Breath sounds: Wheezing and rhonchi present. Skin: General: Skin is warm and dry. Neurological: Mental Status: She is alert. Assessment and Plan ASSESSMENT/PLAN: 1. Sinobronchitis - ICD9: 473.9, 490, ICD10: J32.9, J40 (primary diagnosis) - Will begin treatment with Doxycycline -Rx for prednisone - The patient should also be given OTC decongestants prn for the first 5-7 days of treatment. - Supportive care with plenty of fluids, rest, and analgesia prn. 2. Acute cough - ICD9: 786.2, ICD10: R05.1 - XR CHEST 2V FRONTAL/LAT-no acute abnormality 3. Mild intermittent asthma with acute exacerbation - ICD9: 493.92, ICD10: J45.21 -Continue inhaler -Rx for prednisone Diagnosis and treatment plan were discussed and questions were answered to the patient's satisfaction. Pt acknowledged understanding of concepts and follow up plan. Specific signs and symptoms that would indicate the need for higher level of care were discussed in detail warranting prompt ER evaluation. MARTY Brandt documented in this encounter [facility] 03-22-2024 History of Present illness Narrative Program_ID:[id number] Access Code: [email or web address] URL: [email or web address] Date: 03-22-2024 Prepared By: Yesy Zepeda Program Notes Exercises - Sidelying Hip Abduction - 1 x daily - 7 x weekly - 2 sets - 20 reps - Modified Prone Quadriceps Stretch with Strap - 2-3 x daily - 7 x weekly - 1 sets - 3 reps - Prone Hip Extension - 1 x daily - 7 x weekly - 3 sets - 12 reps - Quadruped Fire Hydrant - 1 x daily - 7 x weekly - 3 sets - reps Episode Visit Count: 3 Therapist That Will Accept/Oversee The Plan Of Care: Yesy Mustafa Start of Care Date: 03/01/24 Onset Date: 06/16/23 (chronic) REHABILITATION AND SPORTS THERAPY PHYSICAL THERAPY TREATMENT NOTE ASSESSMENT: Sarika Corona tolerated the session with increased symptoms. She demonstrated difficulty with maintaining flat lumbar spine with active TA with hydrants on the L side as compared to the R. The patient will continue to benefit from ongoing skilled physical therapy to progress toward set goals. Current Frequency: 1x/week Planned Treatment Interventions: Therapeutic exercise (95255), Neuromuscular re-education (91170), Manual therapy (20996), Therapeutic activities (51071), Self-custodial management (63002), Gait Training (61621) PLAN FOR NEXT VISIT: continue TA and hip strengthening NWB to reduce knee pain SUBJECTIVE: [facility] increased pain. The stretching exercises reduce her pain therefore she continued them, however she dc bridges and prone hip extension Patient Goals: Decreased pain Functional Limitations: walking, walking in the community, stair negotiation, squatting, sitting, physical activities, recreational activities, kneeling, sleeping (Walking <15 minutes) Pain: Pain Pain Level: 3 Pain Location: Knee - Left Description: Aching OBJECTIVE MEASURES WITH LEVEL OF FUNCTION: TREATMENT: Therapeutic Exercise: 1: Nu step, seated level 2, 5 min 1:1 throughout, subjective collected 2: leg press 4x12 #60 3: prone hip extension 4x10 each side Skilled Intervention: Patient was educated in proper exercise technique and purpose for exercises. Skilled judgment was used in selection of appropriate interventions. Provided written instruction for home exercise program to facilitate proper performance and compliance. Correct performance of therapeutic exercises was facilitated with verbal, visual, and tactile cuing. Educated patient on rationale for performing exercises in regards to decreasing fatigue , increase ease of ADL, and ROM and function . Patient education as noted. Neuromuscular Re-Education: 1: quadruped hydrants 4x30 sec each side 2: quadruped hydrant frog kicks 1x30 sec each side Skilled Intervention: Skilled judgment used to assess appropriate program for balance and coordination activity. Education in proprioceptive/kinesthetic awareness during dynamic activities. Education and demonstration for posture and positioning for tone management. Reviewed and educated patient on additions/changes for home program as noted above with an (*). Patient education as noted. Self-Penitentiary Management: 1: discussed the difference between sorenes vs. pain 2: discussed that creptius without pain does not mean a movement is harmful. 3: discussed that walking - althrough not high intensity- may cause increased symptoms due to the weight bearing aspect of this exercise as compared to other exercises 4: discouraged pushing through pain, explained that increased pain with exercises does not help Skilled Intervention: Skilled judgment in the selection of proper modification for activity of daily living/home management based on clinical presentation, deficits, and needs. Reviewed patient specific diagnosis in relation to activities of daily living/home management. Activity progression based on professional judgement. Moderate verbal cues for maintaining neutral spine alignment. Provided written instruction for home program to facilitate proper performance and compliance. Correct performance of home program was facilitated with verbal, visual, and tactile cueing. Billing Therapeutic Exercise Treatment Minutes: 20 Neuromuscular Re-Education Treatment Minutes: 10 Self-Care/Home Management Treatment Minutes: 10 Skilled Treatment Time Minutes (timed and untimed codes): 40 Total Session Time (minutes): 40 Session Start Time : 1315 Session Stop Time : 1355 Ana Weir PT documented in this encounter [facility] 03-22-2024 Note HNO ID: [id number] Author: ANA WEIR PT Service: ? Author Type: Physical Therapist Type: Progress Notes Filed: 03/22/2024 13:58 Note Text: Episode Visit Count: 3 Therapist That Will Accept/Oversee The Plan Of Care: Yesy uMstafa Start of Care Date: 03/01/24 Onset Date: 06/16/23 (chronic) REHABILITATION AND SPORTS THERAPY PHYSICAL THERAPY TREATMENT NOTE ASSESSMENT: Sarika Corona tolerated the session with increased symptoms. She demonstrated difficulty with maintaining flat lumbar spine with active TA with hydrants on the L side as compared to the R. The patient will continue to benefit from ongoing skilled physical therapy to progress toward set goals. Current Frequency: 1x/week Planned Treatment Interventions: Therapeutic exercise (88453), Neuromuscular re-education (97794), Manual therapy (73477), Therapeutic activities (13389), Self-custodial management (64907), Gait Training (38719) PLAN FOR NEXT VISIT: continue TA and hip strengthening NWB to reduce knee pain SUBJECTIVE: Pt. had a lot of walking at [employer] over the weekend that caused increased pain. The stretching exercises reduce her pain therefore she continued them, however she dc bridges and prone hip extension Patient Goals: Decreased pain Functional Limitations: walking, walking in the community, stair negotiation, squatting, sitting, physical activities, recreational activities, kneeling, sleeping (Walking <15 minutes) Pain: Pain Pain Level: 3 Pain Location: Knee - Left Description: Aching OBJECTIVE MEASURES WITH LEVEL OF FUNCTION: TREATMENT: Therapeutic Exercise: 1: Nu step, seated level 2, 5 min 1:1 throughout, subjective collected 2: leg press 4x12 #60 3: prone hip extension 4x10 each side Skilled Intervention: Patient was educated in proper exercise technique and purpose for exercises. Skilled judgment was used in selection of appropriate interventions. Provided written instruction for home exercise program to facilitate proper performance and compliance. Correct performance of therapeutic exercises was facilitated with verbal, visual, and tactile cuing. Educated patient on rationale for performing exercises in regards to decreasing fatigue , increase ease of ADL, and ROM and function . Patient education as noted. Neuromuscular Re-Education: 1: quadruped hydrants 4x30 sec each side 2: quadruped hydrant frog kicks 1x30 sec each side Skilled Intervention: Skilled judgment used to assess appropriate program for balance and coordination activity. Education in proprioceptive/kinesthetic awareness during dynamic activities. Education and demonstration for posture and positioning for tone management. Reviewed and educated patient on additions/changes for home program as noted above with an (*). Patient education as noted. Self-Penitentiary Management: 1: discussed the difference between sorenes vs. pain 2: discussed that creptius without pain does not mean a movement is harmful. 3: discussed that walking - althrough not high intensity- may cause increased symptoms due to the weight bearing aspect of this exercise as compared to other exercises 4: discouraged pushing through pain, explained that increased pain with exercises does not help Skilled Intervention: Skilled judgment in the selection of proper modification for activity of daily living/home management based on clinical presentation, deficits, and needs. Reviewed patient specific diagnosis in relation to activities of daily living/home management. Activity progression based on professional judgement. Moderate verbal cues for maintaining neutral spine alignment. Provided written instruction for home program to facilitate proper performance and compliance. Correct performance of home program was facilitated with verbal, visual, and tactile cueing. Billing Therapeutic Exercise Treatment Minutes: 20 Neuromuscular Re-Education Treatment Minutes: 10 Self-Care/Home Management Treatment Minutes: 10 Skilled Treatment Time Minutes (timed and untimed codes): 40 Total Session Time (minutes): 40 Session Start Time : 1315 Session Stop Time : 1355 Ana Weir, KATE [facility] 03-15-2024 History of Present illness Narrative Program_ID:[id number] Access Code: [email or web address] URL: [email or web address] Date: 03-15-2024 Prepared By: Yesy Zepeda Program Notes Exercises - Sidelying Hip Abduction - 1 x daily - 7 x weekly - 2 sets - 20 reps - Supine Bridge - 1-2 x daily - 7 x weekly - 3 sets - 12 reps - Modified Prone Quadriceps Stretch with Strap - 2-3 x daily - 7 x weekly - 1 sets - 3 reps - Prone Hip Extension - 1 x daily - 7 x weekly - 3 sets - 12 reps Episode Visit Count: 2 Therapist That Will Accept/Oversee The Plan Of Care: Yesy Mustafa Start of Care Date: 03/01/24 Onset Date: 06/16/23 (chronic) REHABILITATION AND SPORTS THERAPY PHYSICAL THERAPY TREATMENT NOTE ASSESSMENT: Sarika Corona tolerated the session with increased symptoms. She demonstrated difficulty with pain that increased in the knee with nu-step but denied pain with hip extension/abduction strengthening exercises. The patient will continue to benefit from ongoing skilled physical therapy to progress toward set goals. PLAN FOR NEXT VISIT: core stabilization and hip strengthening in quadruped SUBJECTIVE: Pt. fell onto R knee 7 years ago. She has B knee pain since then. The more she walks the worse it is. She feels that turns the L foot out when she walks. Belives this that this is making worse. L has been more painful than the R for the past mo. Crepitus noted in the L knee. Pain: Pain Pain Level: 2 Pain Location: Knee - Left Description: Aching Post Treatment Pain Post Treatment Pain Level: Better OBJECTIVE MEASURES WITH LEVEL OF FUNCTION: TREATMENT: Therapeutic Exercise: 1: Nu step, seated level 2, 5 min 1:1 throughout, subjective collected 2: *Access Code: [email or web address] URL: [email or web address] Date: 03/15/2024 Prepared by: Ana Gomes Exercises - Sidelying Hip Abduction - 1 x daily - 7 x weekly - 2 sets - 20 reps - Supine Bridge - 1-2 x daily - 7 x weekly - 3 sets - 12 reps - 3 hold - Modified Prone Quadriceps Stretch with Strap - 2-3 x daily - 7 x weekly - 1 sets - 3 reps - 30 hold - Prone Hip Extension - 1 x daily - 7 x weekly - 3 sets - 12 reps Skilled Intervention: Patient was educated in proper exercise technique and purpose for exercises. Skilled judgment was used in selection of appropriate interventions. Provided written instruction for home exercise program to facilitate proper performance and compliance. Correct performance of therapeutic exercises was facilitated with verbal, visual, and tactile cuing. Educated patient on rationale for performing exercises in regards to decreasing fatigue , increase ease of ADL, and ROM and function . Patient education as noted. Billing Therapeutic Exercise Treatment Minutes: 29 Skilled Treatment Time Minutes (timed and untimed codes): 29 Total Session Time (minutes): 29 Session Start Time : 1315 Session Stop Time : 1344 Ana Weir PT documented in this encounter [facility] 03-15-2024 Note HNO ID: [id number] Author: ANA WEIR PT Service: ? Author Type: Physical Therapist Type: Progress Notes Filed: 03/15/2024 13:45 Note Text: Episode Visit Count: 2 Therapist That Will Accept/Oversee The Plan Of Care: Yesy Mustafa Start of Care Date: 03/01/24 Onset Date: 06/16/23 (chronic) REHABILITATION AND SPORTS THERAPY PHYSICAL THERAPY TREATMENT NOTE ASSESSMENT: Sarika Corona tolerated the session with increased symptoms. She demonstrated difficulty with pain that increased in the knee with nu-step but denied pain with hip extension/abduction strengthening exercises. The patient will continue to benefit from ongoing skilled physical therapy to progress toward set goals. PLAN FOR NEXT VISIT: core stabilization and hip strengthening in quadruped SUBJECTIVE: Pt. fell onto R knee 7 years ago. She has B knee pain since then. The more she walks the worse it is. She feels that turns the L foot out when she walks. Belives this that this is making worse. L has been more painful than the R for the past mo. Crepitus noted in the L knee. Pain: Pain Pain Level: 2 Pain Location: Knee - Left Description: Aching Post Treatment Pain Post Treatment Pain Level: Better OBJECTIVE MEASURES WITH LEVEL OF FUNCTION: TREATMENT: Therapeutic Exercise: 1: Nu step, seated level 2, 5 min 1:1 throughout, subjective collected 2: *Access Code: [email or web address] URL: [email or web address] Date: 03/15/2024 Prepared by: Ana Weir Exercises - Sidelying Hip Abduction - 1 x daily - 7 x weekly - 2 sets - 20 reps - Supine Bridge - 1-2 x daily - 7 x weekly - 3 sets - 12 reps - 3 hold - Modified Prone Quadriceps Stretch with Strap - 2-3 x daily - 7 x weekly - 1 sets - 3 reps - 30 hold - Prone Hip Extension - 1 x daily - 7 x weekly - 3 sets - 12 reps Skilled Intervention: Patient was educated in proper exercise technique and purpose for exercises. Skilled judgment was used in selection of appropriate interventions. Provided written instruction for home exercise program to facilitate proper performance and compliance. Correct performance of therapeutic exercises was facilitated with verbal, visual, and tactile cuing. Educated patient on rationale for performing exercises in regards to decreasing fatigue , increase ease of ADL, and ROM and function . Patient education as noted. Billing Therapeutic Exercise Treatment Minutes: 29 Skilled Treatment Time Minutes (timed and untimed codes): 29 Total Session Time (minutes): 29 Session Start Time : 1315 Session Stop Time : 1344 Ana Weir, PT [facility] 03-01-2024 History of Present illness Narrative Program_ID:[id number] Access Code: [email or web address] URL: [email or web address] Date: 03-01-2024 Prepared By: Yesy Zepeda Program Notes Exercises - Active Straight Leg Raise with Quad Set - 1 x daily - 7 x weekly - 2 sets - 10 reps - Modified Yon Stretch - 1 x daily - 7 x weekly - 2 sets - 2 reps - Sidelying Hip Abduction - 1 x daily - 7 x weekly - 2 sets - 20 reps Episode Visit Count: 1 Therapist That Will Accept/Oversee The Plan Of Care: Yesy Mustafa Start of Care Date: 03/01/24 Onset Date: 06/16/23 (chronic) Patient Identified by Name and Date of : Yes REHABILITATION AND SPORTS THERAPY PHYSICAL THERAPY EVALUATION PLAN OF CARE: Assessment: Sarika Corona presents with diagnosis of chronic bilateral knee pain that interferes with walking, walking in the community, stair negotiation, squatting, sitting, physical activities, recreational activities, kneeling, sleeping (Walking <15 minutes) . She presents with impairments in ADL's, flexibility, gait, independence in exercise, overall function, range of motion, strength, and symptom management. PROMIS (Patient-Reported Outcomes Measurement Information System) scores were reviewed and identified as a rehabilitation concern. Prognosis for therapy is Good due to: current objective clinical presentation . She will benefit from skilled therapy services to meet the goals established for this plan of care as noted below. Goals for Episode of Care: established 03/01/24 [place] in home exercise program. Patient will decrease pain rating by 2 points to meet minimal clinical important difference for numeric pain rating scale. Patient will increase active ROM of R knee to symmetrical with L knee to allow pt to to improve gait mechanics / gait pattern . Patient will demonstrate increase in BLE strength to at least 4+/5 during manual muscle testing in order to improve function for prior functional tasks. Patient will improve quad strength on the right to > 60# using the MicroFET to promote muscle strength symmetry. Normal gait with decreased pain. Reciprocal stair negotiation with decreased pain. Patient Goals: Decreased pain Time Frame for Goals and Treatment : 04/12/24 Planned Interventions, Frequency, and Duration: Current Frequency: 1x/week Duration: 6 weeks Total Number of Visits Planned: 6 Planned Treatment Interventions: Therapeutic exercise (71323), Neuromuscular re-education (08214), Manual therapy (08223), Therapeutic activities (32708), Self-custodial management (70021), Gait Training (92953) PLAN FOR NEXT VISIT: Assess response to HEP, progress gluteal strengthening, progress knee ROM as able. Patient demonstrates good understanding of plan of care and treatment. The above goals and plan of care were discussed and agreed upon by patient/family. SUBJECTIVE: Patient presenting to PT for evaluation of bilat knee pain. Pain usually L>R. Got injection on the left 02/06/2024. Notes some relief from this. Right knee onset years ago, insidious. Left knee pain onset about 7 months ago. X-ray from October showing right knee degenerative changes, able to see L knee in x-ray though nothing noted in summary. Has since started walking more ~4-5 months ago, though this increased her knee pain. and she had to stop. 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 Recreation / Current Exercise: was walking prior to pain, arm weights daily Intake Information: Prescription present Previous Treatment: Injections , Ice , NSAIDs Falls Interview: No positive findings with falls interview Pain: Pain Pain Level: 3 (8/10 at the worst, right not bothering her much today) Pain Location: Knee - Left Post Treatment Pain Post Treatment Pain Level: Better PROMIS Scales 03/01/2024 Higher is Better Phys Func - Score 40 (mild dysfunction) Phys Func - Percentile 16 Self-Eff Symptom - Score 43 (Average) Self-Eff Symptom - Percentile 24 T-scores: mean of general population = 50. 5 points is clinically meaningfully difference Percentiles provide an indication of how the patient's score ranks in relation to the general population. Higher percentile rankings indicate better function/quality of life. 50th percentile is the average of the general population and indicates half of respondents had a worse score. OBJECTIVE MEASURES WITH LEVEL OF FUNCTION: Knee Observations R Knee Palpation Tenderness: Pes anserinus L Knee Palpation Tenderness: Pes anserinus LE AROM R Knee Extension: -5 Degrees R Knee Flexion: 128 Degrees L Knee Extension: -5 Degrees L Knee Flexion: 135 Degrees LE Flexibility Flexibility: Hamstring Flexibility, Hip Flexor Flexibility R Hamstring Flexibility: WNL L Hamstring Flexibility: mild limitation R Hip Flexor Flexibility: mild limitation L Hip Flexor Flexibility: mild limitation (pain relieving per report) R Quadriceps Flexibility: WNL L Quadriceps Flexibility: WNL LE Strength R Hip Extension: 4/5 R Hip ABduction: 4/5 L Hip Extension: 4/5 L Hip ABduction: 4/5 Dynamometer Strength Right Quadriceps Strength (lbs): 51.9 Left Quadriceps Strength (lbs): 67.6 Gait Gait Observation: Mild antalgia, no AD Stairs: unilateral railing, increased pain, able to do reciprocal, notes she usually uses step-to pattern due to pain. Functional Performance Test Results 5 Times Sit to Stand Test : 8.74 sec Education: Education Learning Preferences: Demonstration, Explanation, Performance, Printed Materials Barriers: None Learning/educational needs: Health promotion, Home exercise program, Plan of Care, Gait Training, Body Mechanics Education Provided: Yes, see treatment interventions for education provided Education Provided To: Patient Education Mode/Type: Demonstration, Explanation/Discussion, Literature/Printed Materials, Performance Response to Education/Teach Back: States/Identifies, Return Demonstration TREATMENT: PT Treatment Interventions: Therapeutic Exercise, Self-Penitentiary Management Evaluation Therapeutic Exercise: 1: Patient with tendency to perform exercises quickly. Discussed 2: *Supine hip flexor stretch off EOB 2x30 sec bilat 3: *Supine ASLR 2x10 bilat 4: *SL hip ABD x10 bilat Skilled Intervention: Patient was educated in proper exercise technique and purpose for exercises. Skilled judgment was used in selection of appropriate interventions. Provided written instruction for home exercise program to facilitate proper performance and compliance. Correct performance of therapeutic exercises was facilitated with verbal and visual cuing. Patient education as noted. Self-Penitentiary Management: 1: Patient education on rehabilitation process and goals for therapy, anatomy/pysiology of present diagnosis, emphasis on limiting painful movements, and importance of HEP compliace. 2: Discussed ice verse heat for pain reduction. 3: Discussed disease process of OA, and importance of ongoing mobility to prevent further pain. 4: Discussed anatomy of the LE in depth, explaining the role of the hip and various muscles in knee biomechanics. Skilled Intervention: Skilled judgment in the selection of proper modification for activity of daily living/home management based on clinical presentation, deficits, and needs. Reviewed patient specific diagnosis in relation to activities of daily living/home management. Activity progression based on professional judgement. Billing * Evaluation Low Complexity: 1 Unit Therapeutic Exercise Treatment Minutes: 10 Self-Care/Home Management Treatment Minutes: 14 Skilled Treatment Time Minutes (timed and untimed codes): 47 Total Session Time (minutes): 47 Session Start Time : 1337 Session Stop Time : 1424 Yesy Mutsafa PT, DPT documented in this encounter [facility] 03-01-2024 Note HNO ID: [id number] Author: YESY MUSTAFA PT, DPT Service: ? Author Type: Physical Therapist Type: Progress Notes Filed: 03/01/2024 15:07 Note Text: Episode Visit Count: 1 Therapist That Will Accept/Oversee The Plan Of Care: Yesy Mustafa Start of Care Date: 03/01/24 Onset Date: 06/16/23 (chronic) Patient Identified by Name and Date of : Yes REHABILITATION AND SPORTS THERAPY PHYSICAL THERAPY EVALUATION PLAN OF CARE: Assessment: Sarika Corona presents with diagnosis of chronic bilateral knee pain that interferes with walking, walking in the community, stair negotiation, squatting, sitting, physical activities, recreational activities, kneeling, sleeping (Walking <15 minutes) . She presents with impairments in ADL's, flexibility, gait, independence in exercise, overall function, range of motion, strength, and symptom management. PROMIS? (Patient-Reported Outcomes Measurement Information System) scores were reviewed and identified as a rehabilitation concern. Prognosis for therapy is Good due to: current objective clinical presentation . She will benefit from skilled therapy services to meet the goals established for this plan of care as noted below. Goals for Episode of Care: established 03/01/24 [place] in home exercise program. Patient will decrease pain rating by 2 points to meet minimal clinical important difference for numeric pain rating scale. Patient will increase active ROM of R knee to symmetrical with L knee to allow pt to to improve gait mechanics / gait pattern . Patient will demonstrate increase in BLE strength to at least 4+/5 during manual muscle testing in order to improve function for prior functional tasks. Patient will improve quad strength on the right to > 60# using the MicroFET to promote muscle strength symmetry. Normal gait with decreased pain. Reciprocal stair negotiation with decreased pain. Patient Goals: Decreased pain Time Frame for Goals and Treatment : 04/12/24 Planned Interventions, Frequency, and Duration: Current Frequency: 1x/week Duration: 6 weeks Total Number of Visits Planned: 6 Planned Treatment Interventions: Therapeutic exercise (35360), Neuromuscular re-education (05288), Manual therapy (90525), Therapeutic activities (05445), Self-custodial management (60161), Gait Training (70326) PLAN FOR NEXT VISIT: Assess response to HEP, progress gluteal strengthening, progress knee ROM as able. Patient demonstrates good understanding of plan of care and treatment. The above goals and plan of care were discussed and agreed upon by patient/family. SUBJECTIVE: Patient presenting to PT for evaluation of bilat knee pain. Pain usually L>R. Got injection on the left 02/06/2024. Notes some relief from this. Right knee onset years ago, insidious. Left knee pain onset about 7 months ago. X-ray from October showing right knee degenerative changes, able to see L knee in x-ray though nothing noted in summary. Has since started walking more ~4-5 months ago, though this increased her knee pain. and she had to stop. 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 Recreation / Current Exercise: was walking prior to pain, arm weights daily Intake Information: Prescription present Previous Treatment: Injections , Ice , NSAIDs Falls Interview: No positive findings with falls interview Pain: Pain Pain Level: 3 (8/10 at the worst, right not bothering her much today) Pain Location: Knee - Left Post Treatment Pain Post Treatment Pain Level: Better PROMIS Scales 03/01/2024 Higher is Better Phys Func - Score 40 (mild dysfunction) Phys Func - Percentile 16 Self-Eff Symptom - Score 43 (Average) Self-Eff Symptom - Percentile 24 T-scores: mean of general population = 50. 5 points is clinically meaningfully difference Percentiles provide an indication of how the patient's score ranks in relation to the general population. Higher percentile rankings indicate better function/quality of life. 50th percentile is the average of the general population and indicates half of respondents had a worse score. OBJECTIVE MEASURES WITH LEVEL OF FUNCTION: Knee Observations R Knee Palpation Tenderness: Pes anserinus L Knee Palpation Tenderness: Pes anserinus LE AROM R Knee Extension: -5 Degrees R Knee Flexion: 128 Degrees L Knee Extension: -5 Degrees L Knee Flexion: 135 Degrees LE Flexibility Flexibility: Hamstring Flexibility, Hip Flexor Flexibility R Hamstring Flexibility: WNL L Hamstring Flexibility: mild limitation R Hip Flexor Flexibility: mild limitation L Hip Flexor Flexibility: mild limitation (pain reli (more content not included)... [facility] 02-06-2024 Note HNO ID: [id number] Author: JIMMY MASON PA-C Service: ? Author Type: Physician Applications Support Specialist Type: Progress Notes Filed: 02/06/2024 14:20 Note Text: INJECTION PROCEDURE NOTE: Patient returns today for left knee injection. Patient continues to have left knee pain with recent aggravation when she was walking extensively at [place]. Will proceed with CSI today. Prior to the procedure, the patient's allergies were reviewed. The procedure site was marked. The procedure team checked for proper functioning of devices and supplies to be used for the procedure. Large Joint Arthro/Inj: L knee joint Informed Consent Consent Obtained: Verbal [place] Protocol A moment to CARE was completed. SIGN IN Personnel directly involved with the procedure wore the appropriate PPE. Special Equipment: N/A Patient/Surrogate Stated/Verified: Patient name, Date of , Relevant allergies and Intended procedure TIME OUT Relevant labs, photos, and/or imaging studies have been reviewed. Correct side/site marked and visible. Medications required for procedure verified. No fire risk assessment and interventions applicable. No implant(s) inserted. 02/06/2024 2:20 PM The procedure site was prepped in the usual sterile fashion. Site: L knee joint Medications: 80 mg triamcinolone acetonide 40 mg/mL Anesthetics: 5 mL lidocaine (PF) 10 mg/mL (1 %) Outcome: Tolerated well, no immediate complications Post-injection instructions were reviewed with the patient and the patient voiced understanding of these instructions. SIGN OUT All instruments, equipment, possible retained foreign bodies accounted for. Jimmy Mason PA-C [facility] 02-06-2024 History of Present illness Narrative Associated Order(s): Large Joint Arthro/Inj: L knee joint Post-Procedure Diagnose(s): Primary osteoarthritis of left knee INJECTION PROCEDURE NOTE: Patient returns today for left knee injection. Patient continues to have left knee pain with recent aggravation when she was walking extensively at [place]. Will proceed with CSI today. Prior to the procedure, the patient's allergies were reviewed. The procedure site was marked. The procedure team checked for proper functioning of devices and supplies to be used for the procedure. Large Joint Arthro/Inj: L knee joint Informed Consent Consent Obtained: Verbal [place] Protocol A moment to CARE was completed. SIGN IN Personnel directly involved with the procedure wore the appropriate PPE. Special Equipment: N/A Patient/Surrogate Stated/Verified: Patient name, Date of , Relevant allergies and Intended procedure TIME OUT Relevant labs, photos, and/or imaging studies have been reviewed. Correct side/site marked and visible. Medications required for procedure verified. No fire risk assessment and interventions applicable. No implant(s) inserted. 02/06/2024 2:20 PM The procedure site was prepped in the usual sterile fashion. Site: L knee joint Medications: 80 mg triamcinolone acetonide 40 mg/mL Anesthetics: 5 mL lidocaine (PF) 10 mg/mL (1 %) Outcome: Tolerated well, no immediate complications Post-injection instructions were reviewed with the patient and the patient voiced understanding of these instructions. SIGN OUT All instruments, equipment, possible retained foreign bodies accounted for. Jimmy Mason PA-C documented in this encounter [facility] 01-27-2024 Telephone encounter Note Can you call her and find out what she was on from him? My chart not appropriate, had you not told me about this we are allocated 48 hours to review those messages, they are last to get addressed. Carmen Messina APRN.CNP In future for things like this needs to call our office. [facility] 01-27-2024 Miscellaneous Notes Can you call her and find out what she was on from him? My chart not appropriate, had you not told me about this we are allocated 48 hours to review those messages, they are last to get addressed. Carmen Messina APRN.CNP In future for things like this needs to call our office. documented in this encounter [facility] 11-26-2023 Telephone encounter Note Alverto Niño, please get this pt scheduled with on of the GI doctors. Ana Triana PA-C [facility] Work Phone: 11-26-2023 Miscellaneous Notes Alverto Niño, please get this pt scheduled with on of the GI doctors. Ana Triana PA-C documented in this encounter [facility] 11-25-2023 Telephone encounter Note Results still in process have not been read yet. Carmen Messina APRN.CNP [facility] 11-25-2023 Miscellaneous Notes Results still in process have not been read yet. Carmen Messina APRN.CNP documented in this encounter [facility] 11-24-2023 Note HNO ID: [id number] Author: OLVIN WADE CT Service: ? Author Type: Clinical Shotgun Shell Assembly Machine Adjuster Type: Progress Notes Filed: 11/24/2023 08:58 Note Text: Glucose - SIBO Hydrogen Breath Test November 24, 2023 Referring Physician: Maryse Macedo MD Indication Bloating, Abdominal pain, belching Prep: 4 weeks followin hour before: No Smoking Day of test - No gum chewing Pain Level: none Baseline Hydrogen: 14 Methane: 3 DESTIN Bejarano Time given: 1030am 50 grams / 50 grams Clock time start: 1035am 15 minutes Hydrogen: 30 Methane: 3 Nikkiya Meche, CT 30 minutes Hydrogen: 30 Methane: 5 Nikkiya Meche, CT 45 minutes Hydrogen: 19 Methane: 3 Nikkiya Meche, CT 1 hour Hydrogen: 19 Methane: 2 Nikkiya Meche, CT 1 hour, 15 minutes Hydrogen: 27 Methane: 4 Nikkiya Meche, CT 1 hour, 30 minutes Hydrogen: 23 Methane: 4 Nikkiyovani Meche, CT Symptoms developed during the study: n/a Patient Results Preliminary Test Results (not given to patient): pending Olvin Wade CT Patient must be = Hydrogen >20 or Methane >10 in order to be positive for Bacterial Overgrowth [facility] 11-24-2023 History of Present illness Narrative Glucose - SIBO Hydrogen Breath Test November 24, 2023 Referring Physician: Maryse Macedo MD Indication Bloating, Abdominal pain, belching Prep: 4 weeks followin hour before: No Smoking Day of test - No gum chewing Pain Level: none Baseline Hydrogen: 14 Methane: 3 Nikkiya Meche, CT Time given: 1030am 50 grams / 50 grams Clock time start: 1035am 15 minutes Hydrogen: 30 Methane: 3 Nikkiya Meche, CT 30 minutes Hydrogen: 30 Methane: 5 Nikkiya Meche, CT 45 minutes Hydrogen: 19 Methane: 3 Nikkiya Meche, CT 1 hour Hydrogen: 19 Methane: 2 Linhya Meche, CT 1 hour, 15 minutes Hydrogen: 27 Methane: 4 Linhya Meche, CT 1 hour, 30 minutes Hydrogen: 23 Methane: 4 Olvin Wade, CT Symptoms developed during the study: n/a Patient Results Preliminary Test Results (not given to patient): pending Olvin Wade CT Patient must be = Hydrogen >20 or Methane >10 in order to be positive for Bacterial Overgrowth documented in this encounter [facility] 11-17-2023 Telephone encounter Note No results in the computer as of yet, Carmen Messina APRN.MOBILITY ARCHITECT MANAGER [facility] 11-17-2023 Miscellaneous Notes No results in the computer as of yet, Carmen Messina APRN.FROYLAN documented in this encounter [facility] 11-11-2023 Note HNO ID: [id number] Author: OLVIN WADE CT Service: ? Author Type: Clinical Shotgun Shell Assembly Machine Adjuster Type: Progress Notes Filed: 11/13/2023 14:43 Note Text: Glucose - SIBO Hydrogen Breath Test November 11, 2023 Referring Physician: Ana Triana PA-C Indication Bloating, Abdominal pain, Diarrhea, Milk intolerance Prep: 4 weeks followin hour before: No Smoking Day of test - No gum chewing Pain Level:none Baseline Hydrogen: 31 Methane: 6 Olvin Wade, CT Time given: 1040am 50 grams / 50 grams Clock time start: 1045am 15 minutes Hydrogen: 44 Methane: 7 Nikkiya Meche, CT 30 minutes Hydrogen: 18 Methane: 3 Nikkiya Meche, CT 45 minutes Hydrogen: 30 Methane: 5 Cmkiya Meche, CT 1 hour Hydrogen: 24 Methane: 5 Olvin Wade, CT 1 hour, 15 minutes Hydrogen: 24 Methane: 4 Cmkiyovani Wade, CT 1 hour, 30 minutes Hydrogen: 22 Methane: 4 Cmkiyovani Wade, CT Symptoms developed during the study: burping Patient Results Preliminary Test Results (not given to patient): pending DESTIN Bejarano Patient must be = Hydrogen >20 or Methane >10 in order to be positive for Bacterial Overgrowth [facility] 11-11-2023 History of Present illness Narrative Glucose - SIBO Hydrogen Breath Test November 11, 2023 Referring Physician: Ana Triana PA-C Indication Bloating, Abdominal pain, Diarrhea, Milk intolerance Prep: 4 weeks followin hour before: No Smoking Day of test - No gum chewing Pain Level:none Baseline Hydrogen: 31 Methane: 6 Nikkiyovani Wade, CT Time given: 1040am 50 grams / 50 grams Clock time start: 1045am 15 minutes Hydrogen: 44 Methane: 7 Nikkiya Meche, CT 30 minutes Hydrogen: 18 Methane: 3 Cmdavid Wade, CT 45 minutes Hydrogen: 30 Methane: 58 Cmdavid Wade, CT 1 hour Hydrogen: 24 Methane: [address] 1 hour, 15 minutes Hydrogen: 24 Methane: 4 Cmdavid Wade, CT 1 hour, 30 minutes Hydrogen: 22 Methane: [address] Symptoms developed during the study: burping Patient Results Preliminary Test Results (not given to patient): pending Olvin Wade CT Patient must be = Hydrogen >20 or Methane >10 in order to be positive for Bacterial Overgrowth documented in this encounter [facility] 11-11-2023 Carmen Vann APRN.MOBILITY ARCHITECT MANAGER - 11/11/2023 2:10 PM EDT ASSESSMENT/PLAN: 1. Chronic pain of right knee - ICD9: 719.46, 338.29, ICD10: M25.561, G89.29 (primary diagnosis) - CONSULT TO PHYSICAL THERAPY - MRI KNEE WO IVCON RIGHT - METHYLPREDNISOLONE 4 MG TABLETS IN A DOSE PACK 2. Difficulty in walking - ICD9: 719.7, ICD10: R26.2 - CONSULT TO PHYSICAL THERAPY - MRI KNEE WO IVCON RIGHT - METHYLPREDNISOLONE 4 MG TABLETS IN A DOSE PACK 3. Class 3 severe obesity due to excess calories with serious comorbidity and body mass index (BMI) of 40.0 to 44.9 in adult (HCC) - ICD9: 278.01, V85.41, ICD10: E66.01, Z68.41 Semaglutide (Wegovy) The benefits of this medication includes lowering Blood sugar in patients with diabetes Chance of from heart disease in certain people Chance of developing kidney disease from diabetes Weight Do not take this drug if you Are or may be Are breast-feeding Have thyroid cancer Family history of thyroid cancer Have family history of Multiple Endocrine Neoplasia -2 (MEN-2) This medication can increase your risk of Nausea and vomiting Constipation Bloating and diarrhea Low blood sugars, specially if are on insulin or other diabetes medications An inflammation of the pancreas called pancreatitis Talk to your doctor if you have Signs of a low blood sugar like feeling sleepy or weak, shaking, fast heartbeat, confusion, hunger, or sweating Severe nausea, vomiting, or abdominal pain A neck mass, trouble breathing, trouble swallowing, or hoarseness that will not go away Sudden changes in vision - TIRZEPATIDE (WEIGHT LOSS) 5 MG/0.5 ML SUBCUTANEOUS PEN INJECTOR DENISE Velasquez APRN.CNP documented in this encounter [facility] 11-11-2023 History of Present illness Narrative Sarika Corona is a 53 year old female who presents for Follow Up (4 week follow up for lab work done on 11/11/23 (SIBO test)) Here for follow up. 1. Weight management - on zepbound, took it last Friday. She feels it does help with appetite. She has had some constipation with it. No nausea. She has 3 left at home of the 2.5 mg. She thinks her soda is contributing to weight. Just came from gastro office for SIBO testing. Saw orthopedist about her knee - osteoarthritis, right knee. She was hurting mild, went to the beach, was having it get stuck in place, felt frozen. She was given a script for mobic. She did not have it with her on trip. She took some ibuprofen as needed. She has an online insurance that she can do. She does some weights at home. Pain is worse. Sitting in the car aggravates it. Walking on the sand was hard on the knee. Struggled with getting down a step. The history is provided by the patient. No cisco network engineer was used. Last 3 Encounter BP Readings: Date: BP: 11/11/2023 125/85 10/29/2023 126/84 09/29/2023 112/74 Last 2 Encounter Wt Readings: Date: Wt: 11/11/2023 109.8 kg (242 lb) 10/29/2023 109.9 kg (242 lb 6.3 oz) BP 125/85 Pulse 86 Temp 98.6 Resp 16 Ht 5' 5 (1.65m) Wt 242 lb (109.8kg) SpO2 96% LMP 03/04/2021 BMI 40.27 kg/(m^2). 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 ALLERGIES Allergen Reactions Penicillin G Rash Allergy as a child. Quinine Anaphylaxis Current Outpatient Medications Medication Sig albuterol HFA (PROAIR HFA) 90 mcg/actuation inhaler Inhale 1-2 Puffs as instructed every 4 hours as needed for wheezing/shortness of breath. mometasone-formoterol (DULERA) 100-5 mcg/actuation inhaler Inhale 2 Puffs as instructed two times a day. meloxicam (MOBIC) 7.5 mg tablet Take 1 tablet by mouth once daily. Bifidobacterium infantis (ALIGN ORAL) Take by mouth once daily. On hold levothyroxine (SYNTHROID) 200 mcg tablet Take 1 tablet by mouth daily before breakfast. Take for a total of 225 mcg daily levothyroxine (SYNTHROID) 25 mcg tablet Take 1 tablet by mouth once daily. Take for a total of 225 mcg daily hydroCHLOROthiazide 12.5 mg capsule Take 1 capsule by mouth once daily. Blood Pressure Monitor 1 Each once daily. Goal is less than 130/80 Xtra large cuff tirzepatide, weight loss (ZEPBOUND) 2.5 mg/0.5 mL pen injector Inject 2.5 mg subcutaneously one time a week. albuterol (PROVENTIL) 2.5 mg /3 mL (0.083 %) nebulizer solution Use 3 mL via nebulizer every 4 hours as needed for Wheezing/Shortness of Breath. Use over 5-15minutes. albuterol (PROVENTIL) 5 mg/mL nebu Inhale 0.5 mL as instructed one time only for 1 dose. 1 DOSE NOW - BACK OFFICE. PLACE 0.5 ML PER DROPPER AND 2.5 ML OF NORMAL SALINE INTO RESERVOIR. No current facility-administered medications for this visit. Review of Systems Constitutional: Negative for chills, diaphoresis, fever, malaise/fatigue and weight loss. Respiratory: Negative. Cardiovascular: Negative. Gastrointestinal: Positive for constipation. Genitourinary: Negative. Musculoskeletal: Positive for joint pain. Negative for back pain, falls, myalgias and neck pain. Neurological: Negative. Psychiatric/Behavioral: The patient does not have insomnia. All other systems reviewed and are negative. Physical Exam Vitals reviewed. Constitutional: Appearance: Normal appearance. She is obese. HENT: Head: Normocephalic and atraumatic. Right Ear: Tympanic membrane, ear canal and external ear normal. Left Ear: Tympanic membrane, ear canal and external ear normal. Nose: No congestion. Mouth/Throat: Mouth: Mucous membranes are moist. Eyes: Conjunctiva/sclera: Conjunctivae normal. Pupils: Pupils are equal, round, and reactive to light. Cardiovascular: Rate and Rhythm: Normal rate and regular rhythm. Heart sounds: Normal heart sounds. No murmur heard. Pulmonary: Effort: Pulmonary effort is normal. No respiratory distress. Breath sounds: Normal breath sounds. Abdominal: General: Bowel sounds are normal. Palpations: Abdomen is soft. Musculoskeletal: General: Normal range of motion. Cervical back: Normal range of motion and neck supple. Skin: General: Skin is warm and dry. Capillary Refill: Capillary refill takes less than 2 seconds. Neurological: Mental Status: She is alert and oriented to person, place, and time. Psychiatric: Mood and Affect: Mood normal. Behavior: Behavior normal. Thought Content: Thought content normal. Judgment: Judgment normal. ASSESSMENT/PLAN: 1. Chronic pain of right knee - ICD9: 719.46, 338.29, ICD10: M25.561, G89.29 (primary diagnosis) - CONSULT TO PHYSICAL THERAPY - MRI KNEE WO IVCON RIGHT - METHYLPREDNISOLONE 4 MG TABLETS IN A DOSE PACK 2. Difficulty in walking - ICD9: 719.7, ICD10: R26.2 - CONSULT TO PHYSICAL THERAPY - MRI KNEE WO IVCON RIGHT - METHYLPREDNISOLONE 4 MG TABLETS IN A DOSE PACK 3. Class 3 severe obesity due to excess calories with serious comorbidity and body mass index (BMI) of 40.0 to 44.9 in adult (HCC) - ICD9: 278.01, V85.41, ICD10: E66.01, Z68.41 Semaglutide (Wegovy) The benefits of this medication includes lowering Blood sugar in patients with diabetes Chance of from heart disease in certain people Chance of developing kidney disease from diabetes Weight Do not take this drug if you Are or may be Are breast-feeding Have thyroid cancer Family history of thyroid cancer Have family history of Multiple Endocrine Neoplasia -2 (MEN-2) This medication can increase your risk of Nausea and vomiting Constipation Bloating and diarrhea Low blood sugars, specially if are on insulin or other diabetes medications An inflammation of the pancreas called pancreatitis Talk to your doctor if you have Signs of a low blood sugar like feeling sleepy or weak, shaking, fast heartbeat, confusion, hunger, or sweating Severe nausea, vomiting, or abdominal pain A neck mass, trouble breathing, trouble swallowing, or hoarseness that will not go away Sudden changes in vision - TIRZEPATIDE (WEIGHT LOSS) 5 MG/0.5 ML SUBCUTANEOUS PEN INJECTOR DENISE Velasquez APRN.CNP No follow-ups on file. Discussed above plan with patient. Pt agreeable with above plan. documented in this encounter [facility] 10-29-2023 Note HNO ID: [id number] Author: JOHANNE JOHNSON MD Service: ? Author Type: Physician Type: Progress Notes Filed: 10/29/2023 11:21 Note Text: . Pulmonary Clinic Note Patient Name: Sarika Corona PRIMARY CARE PHYSICIAN: Carmen Messina APRN.CNP Date of visit: October 29, 2023 Consult requested by: Carmen Messina APRN., CNP Reason for visit: Bronchiectasis COMMUNICATION WILL BE SENT VIA SHARED MEDICAL RECORDS OR US MAIL. HPI: Ms. Corona is a 53 year old year old woman with a past medical history significant for ONEIDA and hypertension who presents today to discuss bronchiectasis. In reviewing her history, she states that throughout her life, she has been dealing with a constant cough with mucus production. Going back to her childhood, she had many episodes of bronchitis that seem to last throughout all seasons of the year. She had exposure to secondhand smoke and always seem to be sick. In adulthood, she has had pneumonia about 2 times in the last 6 years. Her current day-to-day symptoms include cough, mucus production of about 1 tablespoon at a time without hemoptysis, some intermittent chills but no measured fevers, seasonal allergies, and heartburn/bloating for which she is undergoing GI investigation. She denies any activity limiting dyspnea on exertion, but it is somewhat difficult to tell because her days are sedentary. She recalls being diagnosed with asthma with her when she was in her mid 20s. She was on Advair diskus for period of time but stopped this years ago for unclear reasons. About once per year she requires prednisone for bronchitis type of symptoms. She uses an albuterol inhaler about once every couple of weeks which helps about 70% of the time. She has been seen in the emergency department for breathing issues but is never been hospitalized. She has a nebulizer and nebulized albuterol about 1 time per year. Family history is significant for her sister having COPD, she was a smoker. Her mother has asthma. He denies any known family history of bronchiectatic disorders. On social history, she is a never smoker. She does not vape. There is a parrot and a left bird in her finished basement and she is not supposed to them. 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 She recently went on a trip to [place] with her son for mother's day and enjoyed spending time with him as he is very busy aiming to work as a commercial counsel. 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 Past Surgical History: PAST SURGICAL HISTORY Procedure Laterality Date ANESTH, SECTION 01/14/2003 ANESTH, SECTION 02/14/1998 DELIVERY ONLY 1995 COLONOSCOPY 02/22/2021 EGD CYSTOSCOPY 03/12/2021 LAPAROSCOPY W TOTAL HYSTERECTOMY UTERUS 250 GM/< 03/12/2021 REMOVAL OF OVARY/TUBE(S) 03/12/2021 THYROIDECTOMY TOTAL/COMPLETE 2014 TUBAL LIGATION HX 2002 Family History: FAMILY HISTORY Problem Relation Age of Onset Heart Mother Hypertension Mother Alcohol/Drug Father Cancer Father pancreatic Heart Sister Hypertension Sister Alcohol/Drug Brother Cancer Maternal Grandmother Diabetes Paternal Grandmother Cancer Paternal Grandmother uterine vs ovarian, unsure Social History: Social History Tobacco Use Smoking status: Never Smokeless tobacco: Never Vaping Use Vaping Use: Never used Substance Use Topics Alcohol use: No Drug use: No MEDICATIONS: meloxicam (MOBIC) 7.5 mg tablet Take 1 tablet by mouth once daily. levothyroxine (SYNTHROID) 200 mcg tablet Take 1 tablet by mouth daily before breakfast. Take for a total of 225 mcg daily levothyroxine (SYNTHROID) 25 mcg tablet Take 1 tablet by mouth once daily. Take for a total of 225 mcg daily albuterol HFA (PROAIR HFA) 90 mcg/actuation inhaler Inhale 1-2 Puffs as instructed every 4 hours as needed for wheezing/shortness of breath. hydroCHLOROthiazide 12.5 mg capsule Take 1 capsule by mouth once daily. albuterol (PROVENTIL) 2.5 mg /3 mL (0.083 %) nebulizer solution Use 3 mL via nebulizer every 4 hours as needed for Wheezing/Shortness of Breath. Use over 5-15minutes. B6/folic/B12/coffee/phosphatid (NEURIVA PLUS ORAL) Take by mouth once daily. (Patient not taking: Reported on 09/29/2023) Bifidobacterium infantis (ALIGN ORAL) Take by mouth once daily. On hold Blood Pressure Monitor 1 Each once daily. Goal is less than 130/80 Xtra large cuff (Patient not taking: Reported on 09/29/2023) tirzepatide, weight loss (ZEPBOUND) 2.5 mg/0.5 mL pen injector (more content not included)... [facility] 10-29-2023 History of Present illness Narrative Images from the original note were not included. . Pulmonary Clinic Note Patient Name: Sarika Corona PRIMARY CARE PHYSICIAN: Carmen Messina APRN.CNP Date of visit: October 29, 2023 Consult requested by: Carmen Messina APRN., CNP Reason for visit: Bronchiectasis COMMUNICATION WILL BE SENT VIA SHARED MEDICAL RECORDS OR US MAIL. HPI: Ms. Corona is a 53 year old year old woman with a past medical history significant for ONEIDA and hypertension who presents today to discuss bronchiectasis. In reviewing her history, she states that throughout her life, she has been dealing with a constant cough with mucus production. Going back to her childhood, she had many episodes of bronchitis that seem to last throughout all seasons of the year. She had exposure to secondhand smoke and always seem to be sick. In adulthood, she has had pneumonia about 2 times in the last 6 years. Her current day-to-day symptoms include cough, mucus production of about 1 tablespoon at a time without hemoptysis, some intermittent chills but no measured fevers, seasonal allergies, and heartburn/bloating for which she is undergoing GI investigation. She denies any activity limiting dyspnea on exertion, but it is somewhat difficult to tell because her days are sedentary. She recalls being diagnosed with asthma with her when she was in her mid 20s. She was on Advair diskus for period of time but stopped this years ago for unclear reasons. About once per year she requires prednisone for bronchitis type of symptoms. She uses an albuterol inhaler about once every couple of weeks which helps about 70% of the time. She has been seen in the emergency department for breathing issues but is never been hospitalized. She has a nebulizer and nebulized albuterol about 1 time per year. Family history is significant for her sister having COPD, she was a smoker. Her mother has asthma. He denies any known family history of bronchiectatic disorders. On social history, she is a never smoker. She does not vape. There is a parrot and a left bird in her finished basement and she is not supposed to them. 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 She recently went on a trip to [place] with her son for mother's day and enjoyed spending time with him as he is very busy aiming to work as a commercial counsel. 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 Past Surgical History: PAST SURGICAL HISTORY Procedure Laterality Date ANESTH, SECTION 01/14/2003 ANESTH, SECTION 02/14/1998 DELIVERY ONLY 1995 COLONOSCOPY 02/22/2021 EGD CYSTOSCOPY 03/12/2021 LAPAROSCOPY W TOTAL HYSTERECTOMY UTERUS 250 GM/< 03/12/2021 REMOVAL OF OVARY/TUBE(S) 03/12/2021 THYROIDECTOMY TOTAL/COMPLETE 2013 TUBAL LIGATION 2002 Family History: FAMILY HISTORY Problem Relation Age of Onset Heart Mother Hypertension Mother Alcohol/Drug Father Cancer Father pancreatic Heart Sister Hypertension Sister Alcohol/Drug Brother Cancer Maternal Grandmother Diabetes Paternal Grandmother Cancer Paternal Grandmother uterine vs ovarian, unsure Social History: Social History Tobacco Use Smoking status: Never Smokeless tobacco: Never Vaping Use Vaping Use: Never used Substance Use Topics Alcohol use: No Drug use: No MEDICATIONS: meloxicam (MOBIC) 7.5 mg tablet Take 1 tablet by mouth once daily. levothyroxine (SYNTHROID) 200 mcg tablet Take 1 tablet by mouth daily before breakfast. Take for a total of 225 mcg daily levothyroxine (SYNTHROID) 25 mcg tablet Take 1 tablet by mouth once daily. Take for a total of 225 mcg daily albuterol HFA (PROAIR HFA) 90 mcg/actuation inhaler Inhale 1-2 Puffs as instructed every 4 hours as needed for wheezing/shortness of breath. hydroCHLOROthiazide 12.5 mg capsule Take 1 capsule by mouth once daily. albuterol (PROVENTIL) 2.5 mg /3 mL (0.083 %) nebulizer solution Use 3 mL via nebulizer every 4 hours as needed for Wheezing/Shortness of Breath. Use over 5-15minutes. B6/folic/B12/coffee/phosphatid (NEURIVA PLUS ORAL) Take by mouth once daily. (Patient not taking: Reported on 09/29/2023) Bifidobacterium infantis (ALIGN ORAL) Take by mouth once daily. On hold Blood Pressure Monitor 1 Each once daily. Goal is less than 130/80 Xtra large cuff (Patient not taking: Reported on 09/29/2023) tirzepatide, weight loss (ZEPBOUND) 2.5 mg/0.5 mL pen injector Inject 2.5 mg subcutaneously one time a week. cholecalciferol, Vitamin D3, (VITAMIN D3) 1,250 mcg (50,000 unit) cap capsule TAKE 1 CAPSULE BY MOUTH ONE TIME A WEEK FOR 8 DOSES. (Patient not taking: Reported on 10/17/2023) albuterol (PROVENTIL) 5 mg/mL nebu Inhale 0.5 mL as instructed one time only for 1 dose. 1 DOSE NOW - BACK OFFICE. PLACE 0.5 ML PER DROPPER AND 2.5 ML OF NORMAL SALINE INTO RESERVOIR. (Patient not taking: Reported on 10/17/2023) Allergies: Penicillin G and Quinine ROS: Pertinent positives and negatives are listed in the HPI, all other systems were reviewed and found to be negative. PHYSICAL EXAM: BP 126/84 (BP Site: Right Arm, BP Position: Sitting, BP Cuff Size: Large Adult) Pulse 86 Ht 168.4 cm (5' 6.3) Wt 109.9 kg (242 lb 6.3 oz) LMP 03/04/2021 (Approximate) SpO2 95% BMI 38.77 kg/m on room air General- nad, comfortable CV- RRR Resp- diffuse expiratory wheezing Ext- no clubbing, cyanosis, or edema Psych- appropriate mood and affect Labs / Imaging / Diagnostic Studies: Independently reviewed chest CT 10/2022 - mild LLL bronchiectasis/tree-in-bud nodularity. Reviewed spirometry from today - nonspecific, mild reduction in FEV1 Assessment and Plan: Ms. Corona is a 53 year old year old woman with a past medical history significant for suspected ONEIDA and hypertension who presents today to discuss chronic cough. #1 Chronic cough, suspect asthma/bronchiectasis overlap #2 Suspected ONEIDA Today we reviewed her chest CT scan together. Her chest CT scan changes are mild and limited to the left lower lobe. Given her clinical symptoms, I suspect that there is an asthma component to what she is experiencing in addition to the mild bronchiectasis that is seen. We reviewed the treatments for asthma and bronchiectasis, specifically discussing inhaled corticosteroids and airway clearance. She felt this time that it may be difficult for her to complete multiple nebulizer treatments per day due to her ongoing busy schedule. We discussed the following plan: Optimize asthma treatment for now given her response to prednisone in the past and use of inhaled corticosteroids previously. We will start a moderate dose of Dulera. If this is prohibitively expensive she can reach out to me for alternative options. She has a spacer. She is also provided with an Acapella today and already has 1 of these at home. If she continues to struggle with recurrent mucus production and exacerbations despite optimization of asthma treatment, we we will discuss more aggressive airway clearance including nebulized albuterol and hypertonic saline. Sputum cultures updated today. Follow-up in the office in 3 months on a video visit Johanne Johnson MD October 29, 2023 I spent a total of 50 minutes on the date of the service which included preparing to see the patient, [id number] patient care, and completing clinical documentation. documented in this encounter [facility] 10-29-2023 Note HNO ID: [id number] Author: YAKELIN FLOYD RRT Service: ? Author Type: Registered Resp Therapist Type: Progress Notes Filed: 10/29/2023 09:29 Note Text: PULM FUNCTION SMARTBLOCK: Provider: Johanne Johnson MD Spirometry w/BD: 1 [facility] 10-29-2023 History of Present illness Narrative PULM FUNCTION SMARTBLOCK: Provider: Johanne Johnson MD Spirometry w/BD: 1 documented in this encounter [facility] 10-17-2023 Telephone encounter Note faxed all pertinent documentation Over to [employer] - Fax # Valentin Reza MA [facility] 10-17-2023 Miscellaneous Notes faxed all pertinent documentation Over to [employer] - Fax # Valentin Reza MA Can we please fax all the sleep information, test results and my orders to her requested location and can you also call her and let her know. We will try with this company as [employer] failed to approve it. Carmen Messina APRN.CNP Note I spoke with Ana Laura @[employer] ([phone]) as Alexander was out of the office. The meaning of AHI is Apnea Hypopnea Index. There is a number they go by which is 5%, if the patients % of times they stop breathing during the night falls below 5% per Medicare guidelines the patient will not qualify for a C-Pap machine. The patients number was 4.1%. She stated if you feel the patient needs a machine it may be possible you would have to order a more in depth sleep study. Alexa Rowe MA IN CASE THE NEW COMPANY DENIES IT I ALSO ORDERED A CONSULT TO TALK TO SLEEP MEDICINE TO SEE IF THEY CAN GET MACHINE APPROVED DUE TO HER SYMPTOMS, Carmen Messina APRN.FROYLAN documented in this encounter [facility] 10-17-2023 Note HNO ID: [id number] Author: JIMMY MASON PA-C Service: ? Author Type: Physician Applications Support Specialist Type: Progress Notes Filed: 10/17/2023 13:38 Note Text: HISTORY OF PRESENT ILLNESS: Sarika is a 53 year old female. She is here for evaluation of Bilateral knee pain. Patient reports that her right knee has been bothering her intermittently for many years, but her left knee has only started to bother her for approximately 2 months. She reports that she has been having increasing pain with any form of exercise including dance videos at home, walking around her neighborhood, jumping jacks, and weightlifting. She describes her pain to be a 7 out of 10 after her outdoor walks. Kirstie also reports that high impact activities bother her the most. She points to the medial aspect of bilateral knees as the main source of pain. Denies use of [id number] analgesics or anti-inflammatories. She states that she has tried a knee brace but this did not fit her well due to the shape of her legs. Patient also reports lateral right elbow pain as a result of upper body weight lifting. She states that she plays video games and in between rounds kali she lifts weights. She demonstrated a bicep curl with lateral elbow pain. Injury:No Pain: Yes LOCATION: Medial bilateral knees, lateral right elbow PAIN SCALE: 2/10 today, 7/10 after walking in her neighborhood PAIN CHARACTER: aching DURATION: (How long have you had the pain?) Right knee for many years, 2 months for left knee AGGRAVATING FACTORS: Impact exercise, walking, activity ALLEVIATING FACTORS: resting Onset: gradual and progressive Quality:aching Swelling: Patient notes intermittent swelling of the joint. Mechanical symptoms: None Radiation: None Activities: walking Restriction: none Progression: Constant Previous treatment: the assistive use of a knee brace NSAIDS: Patient has not used any prescription, OTC or herbal medications to aid in relief of this problem. PT:No physical therapy program has been initiated. MEDICATIONS Current Outpatient Medications on File Prior to Visit Medication Sig Bifidobacterium infantis (ALIGN ORAL) Take by mouth once daily. On hold levothyroxine (SYNTHROID) 200 mcg tablet Take 1 tablet by mouth daily before breakfast. Take for a total of 225 mcg daily levothyroxine (SYNTHROID) 25 mcg tablet Take 1 tablet by mouth once daily. Take for a total of 225 mcg daily albuterol HFA (PROAIR HFA) 90 mcg/actuation inhaler Inhale 1-2 Puffs as instructed every 4 hours as needed for wheezing/shortness of breath. hydroCHLOROthiazide 12.5 mg capsule Take 1 capsule by mouth once daily. albuterol (PROVENTIL) 2.5 mg /3 mL (0.083 %) nebulizer solution Use 3 mL via nebulizer every 4 hours as needed for Wheezing/Shortness of Breath. Use over 5-15minutes. B6/folic/B12/coffee/phosphatid (NEURIVA PLUS ORAL) Take by mouth once daily. (Patient not taking: Reported on 09/29/2023) Blood Pressure Monitor 1 Each once daily. Goal is less than 130/80 Xtra large cuff (Patient not taking: Reported on 09/29/2023) tirzepatide, weight loss (ZEPBOUND) 2.5 mg/0.5 mL pen injector Inject 2.5 mg subcutaneously one time a week. cholecalciferol, Vitamin D3, (VITAMIN D3) 1,250 mcg (50,000 unit) cap capsule TAKE 1 CAPSULE BY MOUTH ONE TIME A WEEK FOR 8 DOSES. (Patient not taking: Reported on 10/17/2023) albuterol (PROVENTIL) 5 mg/mL nebu Inhale 0.5 mL as instructed one time only for 1 dose. 1 DOSE NOW - BACK OFFICE. PLACE 0.5 ML PER DROPPER AND 2.5 ML OF NORMAL SALINE INTO RESERVOIR. (Patient not taking: Reported on 10/17/2023) No current facility-administered medications on file prior to visit. ALLERGIES ALLERGIES Allergen Reactions Penicillin G Rash Allergy as a child. 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 No REVIEW OF SYSTEMS: All other systems negative. PHYSICAL EXAM: PE: All other systems deferred. GENERAL: Appears healthy, well-nourished, no deformities. HABITUS: Obese Gait: Normal, the patient did not have trouble getting onto the exam table. Left: Alignment: Neutral Range of motion is 0 degrees in extension and 120 degrees of flexio (more content not included)... [facility] 10-17-2023 History of Present illness Narrative HISTORY OF PRESENT ILLNESS: Sarika is a 53 year old female. She is here for evaluation of Bilateral knee pain. Patient reports that her right knee has been bothering her intermittently for many years, but her left knee has only started to bother her for approximately 2 months. She reports that she has been having increasing pain with any form of exercise including dance videos at home, walking around her neighborhood, jumping jacks, and weightlifting. She describes her pain to be a 7 out of 10 after her outdoor walks. Kirstie also reports that high impact activities bother her the most. She points to the medial aspect of bilateral knees as the main source of pain. Denies use of [id number]-dibeeyh analgesics or anti-inflammatories. She states that she has tried a knee brace but this did not fit her well due to the shape of her legs. Patient also reports lateral right elbow pain as a result of upper body weight lifting. She states that she plays video games and in between rounds kali she lifts weights. She demonstrated a bicep curl with lateral elbow pain. Injury:No Pain: Yes LOCATION: Medial bilateral knees, lateral right elbow PAIN SCALE: 2/10 today, 7/10 after walking in her neighborhood PAIN CHARACTER: aching DURATION: (How long have you had the pain?) Right knee for many years, 2 months for left knee AGGRAVATING FACTORS: Impact exercise, walking, activity ALLEVIATING FACTORS: resting Onset: gradual and progressive Quality:aching Swelling: Patient notes intermittent swelling of the joint. Mechanical symptoms: None Radiation: None Activities: walking Restriction: none Progression: Constant Previous treatment: the assistive use of a knee brace NSAIDS: Patient has not used any prescription, OTC or herbal medications to aid in relief of this problem. PT:No physical therapy program has been initiated. MEDICATIONS Current Outpatient Medications on File Prior to Visit Medication Sig Bifidobacterium infantis (ALIGN ORAL) Take by mouth once daily. On hold levothyroxine (SYNTHROID) 200 mcg tablet Take 1 tablet by mouth daily before breakfast. Take for a total of 225 mcg daily levothyroxine (SYNTHROID) 25 mcg tablet Take 1 tablet by mouth once daily. Take for a total of 225 mcg daily albuterol HFA (PROAIR HFA) 90 mcg/actuation inhaler Inhale 1-2 Puffs as instructed every 4 hours as needed for wheezing/shortness of breath. hydroCHLOROthiazide 12.5 mg capsule Take 1 capsule by mouth once daily. albuterol (PROVENTIL) 2.5 mg /3 mL (0.083 %) nebulizer solution Use 3 mL via nebulizer every 4 hours as needed for Wheezing/Shortness of Breath. Use over 5-15minutes. B6/folic/B12/coffee/phosphatid (NEURIVA PLUS ORAL) Take by mouth once daily. (Patient not taking: Reported on 09/29/2023) Blood Pressure Monitor 1 Each once daily. Goal is less than 130/80 Xtra large cuff (Patient not taking: Reported on 09/29/2023) tirzepatide, weight loss (ZEPBOUND) 2.5 mg/0.5 mL pen injector Inject 2.5 mg subcutaneously one time a week. cholecalciferol, Vitamin D3, (VITAMIN D3) 1,250 mcg (50,000 unit) cap capsule TAKE 1 CAPSULE BY MOUTH ONE TIME A WEEK FOR 8 DOSES. (Patient not taking: Reported on 10/17/2023) albuterol (PROVENTIL) 5 mg/mL nebu Inhale 0.5 mL as instructed one time only for 1 dose. 1 DOSE NOW - BACK OFFICE. PLACE 0.5 ML PER DROPPER AND 2.5 ML OF NORMAL SALINE INTO RESERVOIR. (Patient not taking: Reported on 10/17/2023) No current facility-administered medications on file prior to visit. ALLERGIES ALLERGIES Allergen Reactions Penicillin G Rash Allergy as a child. 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 No REVIEW OF SYSTEMS: All other systems negative. PHYSICAL EXAM: PE: All other systems deferred. GENERAL: Appears healthy, well-nourished, no deformities. HABITUS: Obese Gait: Normal, the patient did not have trouble getting onto the exam table. Left: Alignment: Neutral Range of motion is 0 degrees in extension and 120 degrees of flexion. Extension La degrees Pain with ROM: No Effusion: None Tender to the palpation of medial femoral condyle, medial joint line Pain with patellar compression: No Stability: Anterior/Posterior stable and Varus/Valgus stable Hip Exam: flexion to 100+ degrees, full extension, internal/external rotation adequate and no pain with log roll Neurovascular Status: Sensation Intact and Moves foot and ankle up & down Right: Alignment: Neutral Range of motion is 0 degrees in extension and 120 degrees of flexion. Extension La degrees Pain with ROM: No Effusion: None Tender to the palpation of medial femoral condyle, medial joint line Pain with patellar compression: No Stability: Anterior/Posterior stable and Varus/Valgus stable Hip Exam: flexion to 100+ degrees, full extension, internal/external rotation adequate and no pain with log roll Neurovascular Status: Sensation Intact and Moves foot and ankle up & down Tender to palpation over the lateral epicondyle of the right humerus Strength: 5 Skin: Normal RADIOGRAPHS (personally reviewed): Bilateral knee osteoarthritis predominantly in the medial compartments, right knee greater than left MRI: None DIAGNOSIS Encounter Diagnosis ICD-10-CM 1. Acute pain of both knees M25.561 M25.562 PLAN Patient has bilateral knee osteoarthritis. Treatment options were discussed today. We discussed activity modification and weight loss as a primary target for her. We will also get her meloxicam 7.5 mg daily for pain control. She is actively getting worked up for her gastric issues and we will have her start the anti-inflammatory once she is cleared to take these medications by her gastroenterology team. Lateral right elbow pain likely due to lateral epicondylitis due to limited examination today. Should this continue to be a persistent problem, we will have her see one of my colleagues for right elbow workup. Follow-up as needed. I spent a total of 25 minutes on the date of the service which included preparing to see the patient, [id number] patient care, completing clinical documentation, obtaining and/or reviewing separately obtained history, performing a medically appropriate examination, counseling and educating the patient/family/caregiver, ordering medications, tests, or procedures, communicating with other HCPs (not separately reported), independently interpreting results (not separately reported), communicating results to the patient/family/caregiver, and care coordination (not separately reported). PROCEDURE: Tamir Mason PA-C AMB ROOMING INTAKE FLOWSHEET DATA Pain Pain Level: 2 Pain Location: Other: See Comment (bilateral knees) Description: Aching Frequency: Intermittent Intervention/Comfort measure: Relaxation, Reposition Patient presents with: Right Knee - New, Knee Pain Left Knee - New, Knee Pain Patient presents for bilateral knee pain. Right knee has been intermittently bothering her for years, left knee just recently started bothering her. Patient states that pain increases with most any form of exercise and right is normally more painful than left. Had right knee XR today documented in this encounter [facility] 10-17-2023 Note HNO ID: [id number] Author: BREANN DICK RN Service: ? Author Type: Registered Nurse Type: Progress Notes Filed: 10/17/2023 13:38 Note Text: AMB ROOMING INTAKE FLOWSHEET DATA Pain Pain Level: 2 Pain Location: Other: See Comment (bilateral knees) Description: Aching Frequency: Intermittent Intervention/Comfort measure: Relaxation, Reposition Patient presents with: Right Knee - New, Knee Pain Left Knee - New, Knee Pain Patient presents for bilateral knee pain. Right knee has been intermittently bothering her for years, left knee just recently started bothering her. Patient states that pain increases with most any form of exercise and right is normally more painful than left. Had right knee XR today [facility] 10-17-2023 History of Present illness Narrative Radiology Service Progress Note PATIENT NAME: Sarika Corona DATE OF SERVICE: October 17, 2023 TIME: 12:28 PM PATIENT IDENTITY VERIFICATION COMPLETED USING TWO (2) IDENTIFIERS: Name and Date of confirmed by patient verbally. FALL SCREENING: Has the patient had 2 falls in the last year or 1 fall with injury or currently using an Ambulatory Assistive Device (Walker, Cane, Wheelchair, Crutches, etc.)? No PATIENT GENDER DATA: Female. status: : No status: NO. PATIENT RELEVANT IMPLANT DATA REVIEWED: Yes PATIENT PRESENTS WITH AN IMPLANTABLE OR ATTACHED NEW ORDER CLERK: No RADIOLOGY DEPARTMENT: General X-ray: Exam(s) Completed: Lower Extremity X-Ray(s): Knee, AP / Lat / Tunne / Merchant Right and Wt. Bearing PERIPHERAL IV DATA: Not applicable SIGNED BY: RT Julianne(R) October 17, 2023 12:28 PM documented in this encounter [facility] 10-17-2023 Note HNO ID: [id number] Author: DEMARIO YOUNG RT(R) Service: Radiology Author Type: Technologist Type: Progress Notes Filed: 10/17/2023 12:43 Note Text: Radiology Service Progress Note PATIENT NAME: Sarika Corona DATE OF SERVICE: October 17, 2023 TIME: 12:28 PM PATIENT IDENTITY VERIFICATION COMPLETED USING TWO (2) IDENTIFIERS: Name and Date of confirmed by patient verbally. FALL SCREENING: Has the patient had 2 falls in the last year or 1 fall with injury or currently using an Ambulatory Assistive Device (Walker, Cane, Wheelchair, Crutches, etc.)? No PATIENT GENDER DATA: Female. status: : No status: NO. PATIENT RELEVANT IMPLANT DATA REVIEWED: Yes PATIENT PRESENTS WITH AN IMPLANTABLE OR ATTACHED NEW ORDER CLERK: No RADIOLOGY DEPARTMENT: General X-ray: Exam(s) Completed: Lower Extremity X-Ray(s): Knee, AP / Lat / Tunne / Merchant Right and Wt. Bearing PERIPHERAL IV DATA: Not applicable SIGNED BY: RT Julianne(R) October 17, 2023 12:[address] [facility] 10-17-2023 Telephone encounter Note Can we please fax all the sleep information, test results and my orders to her requested location and can you also call her and let her know. We will try with this company as [employer] failed to approve it. Carmen Messina APRN.MOBILITY ARCHITECT MANAGER Note I spoke with Ana Laura [employer] ([phone]) as Alexander was out of the office. The meaning of AHI is Apnea Hypopnea Index. There is a number they go by which is 5%, if the patients % of times they stop breathing during the night falls below 5% per Medicare guidelines the patient will not qualify for a C-Pap machine. The patients number was 4.1%. She stated if you feel the patient needs a machine it may be possible you would have to order a more in depth sleep study. Alexa Rowe MA IN CASE THE NEW COMPANY DENIES IT I ALSO ORDERED A CONSULT TO TALK TO SLEEP MEDICINE TO SEE IF THEY CAN GET MACHINE APPROVED DUE TO HER SYMPTOMS, Carmen Messina APRN.MOBILITY ARCHITECT MANAGER [facility] 10-16-2023 Telephone encounter Note Referring physician: Carmen Messina CNP Address: [facility], [place] Diagnosis: Bronchiectasis Are there epic records: Yes Are there care everywhere records: Yes Has a referral form been faxed: Yes - consult order in Epic Has patient been added to spreadsheet: No Routing: Please route to [facility] Unavailable from 10/29-11/03 and without cell service Initially diagnosed with bronchiectasis in 2018 [facility] 10-16-2023 Miscellaneous Notes Referring physician: Carmen Messina CNP Address: [facility], [place] Diagnosis: Bronchiectasis Are there epic records: Yes Are there care everywhere records: Yes Has a referral form been faxed: Yes - consult order in Epic Has patient been added to spreadsheet: No Routing: Please route to [facility] Unavailable from 10/29-11/03 and without cell service Initially diagnosed with bronchiectasis in 2018 documented in this encounter [facility] 10-08-2023 History of Present illness Narrative GASTROENTEROLOGY FOLLOW UP PATIENT VIRTUAL VISIT Patient consented to this visit being virtual and understands there are limitations inherent in this type of visit. I have communicated my name and active licensure. The patient's identity and physical location were verified at the time of this visit. Either the patient or their legal customer operations representative has been informed of the risks and benefits of -- and alternatives to -- treatment through a remote evaluation and consents to proceed with the evaluation remotely. This is a virtual visit using [employer] Video Visit. It required patient-provider interaction for the medical decision making as documented below. CC: bloating and belching HPI: Sarika Corona is a 53 year old female who presents for bloating and belching. The patient cannot eat or drink anything without it causing belching. Even without drinking or eating she still has belching. It is constant. Does not think it is food related as it can even happen with medication and water. Hughes foods worsen it. Beans and dairy too. The patient states she is having abdominal distension and pushing on it can cause a belch. The patient does try to lean on chair as it sometimes helps. The patient has not had a GES as she cannot tolerate eggs. The patient also has very thin stools. Does have IBS. Has tried Gas-X and it made symptoms much worse. Prior tests -per pt. US and CT- abdomen - last spring. EGD and colonoscopy - found GERD and was given a medication but it worsened her symptoms. Possibly pantoprazole. Not taking any currently. Was tested for h pylori- negative. Celiac - negative. Did see [facility] [facility] in past- did have a very large fibroid. They did think at first is was cancer, but it was negative. Did have hysterectomy. Has been sick since June 2022. Has seen 2 other [facility] in the past.most recently seen at . NSAID use: not often. Unexplained weight loss: 14lbs in last month but cut back on soda. Take Blood thinners: none. Bowel Habits: 4-5 times daily. Thin stools. No blood. Texture varies. Not usually hard. Sometimes flatter. Scopes - December 2022.- results in chart. Fam Hx: Colon cancer - negative Current Outpatient Medications Medication Sig B6/folic/B12/coffee/phosphatid (NEURIVA PLUS ORAL) Take by mouth once daily. (Patient not taking: Reported on 09/29/2023) Bifidobacterium infantis (ALIGN ORAL) Take by mouth once daily. levothyroxine (SYNTHROID) 200 mcg tablet Take 1 tablet by mouth daily before breakfast. Take for a total of 225 mcg daily levothyroxine (SYNTHROID) 25 mcg tablet Take 1 tablet by mouth once daily. Take for a total of 225 mcg daily albuterol HFA (PROAIR HFA) 90 mcg/actuation inhaler Inhale 1-2 Puffs as instructed every 4 hours as needed for wheezing/shortness of breath. hydroCHLOROthiazide 12.5 mg capsule Take 1 capsule by mouth once daily. Blood Pressure Monitor 1 Each once daily. Goal is less than 130/80 Xtra large cuff (Patient not taking: Reported on 09/29/2023) tirzepatide, weight loss (ZEPBOUND) 2.5 mg/0.5 mL pen injector Inject 2.5 mg subcutaneously one time a week. cholecalciferol, Vitamin D3, (VITAMIN D3) 1,250 mcg (50,000 unit) cap capsule TAKE 1 CAPSULE BY MOUTH ONE TIME A WEEK FOR 8 DOSES. (Patient taking differently: Take 50,000 Units by mouth one time a week. Patient states she is taking 5,000 units daily) albuterol (PROVENTIL) 2.5 mg /3 mL (0.083 %) nebulizer solution Use 3 mL via nebulizer every 4 hours as needed for Wheezing/Shortness of Breath. Use over 5-15minutes. albuterol (PROVENTIL) 5 mg/mL nebu Inhale 0.5 mL as instructed one time only for 1 dose. 1 DOSE NOW - BACK OFFICE. PLACE 0.5 ML PER DROPPER AND 2.5 ML OF NORMAL SALINE INTO RESERVOIR. No current facility-administered medications for this visit. 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 PAST SURGICAL HISTORY Procedure Laterality Date ANESTH, SECTION 01/14/2003 ANESTH, SECTION 02/14/1998 DELIVERY ONLY 1995 COLONOSCOPY 02/22/2021 EGD CYSTOSCOPY 03/12/2021 LAPAROSCOPY W TOTAL HYSTERECTOMY UTERUS 250 GM/< 03/12/2021 REMOVAL OF OVARY/TUBE(S) 03/12/2021 THYROIDECTOMY TOTAL/COMPLETE 2013 TUBAL LIGATION 2002 FAMILY HISTORY Problem Relation Age of Onset Heart Mother Hypertension Mother Alcohol/Drug Father Cancer Father pancreatic Heart Sister Hypertension Sister Alcohol/Drug Brother Cancer Maternal Grandmother Diabetes Paternal Grandmother Cancer Paternal Grandmother uterine vs ovarian, unsure Social History Tobacco Use Smoking status: Never Smokeless tobacco: Never Vaping Use Vaping Use: Never used Substance Use Topics Alcohol use: No Drug use: No ALLERGIES Allergen Reactions Penicillin G Rash Allergy as a child. Quinine Anaphylaxis GI SPECIFIC ROS: Difficulty swallowing / foods sticking in throat: No Heartburn: No Belching: Yes Regurgitation: No Chest pain: No Filling up quickly at meals: No Loss of appetite: No Nausea: No- does think it is from bloating. Vomiting: No Abdominal pain: Yes- upper abdomen is the worse part. Will cause belching. It is all over. Recent change in bowel movements: Yes Bloody or black, bowel movements: No Constipation: Yes- every so often. Feels like she is not completely emptied. Has not tried fiber as she is worried it will worsen symptoms. Does take align- makes it slightly better. Feels slightly better after BM as it releases some pressure. Diarrhea: Yes PHYSICAL EXAMINATION: No physical exam was performed due to this visit being performed virtually to decrease exposure to Covid 19. Patient was awake, alert, oriented, was able to speak clearly and answer questions. Patient did not seem to be in any distress. Patient appeared comfortable and was sitting and moving around comfortably. ASSESSMENT AND PLAN: Impression: This is a 53 year old female who presents via MyChart for consult for bloating and belching. The patient states that she has had previous GI workups in the cannot find the cause of the bloating and belching. We are going to proceed with getting a breath test. If positive we will treat the patient for SIBO. Patient does mention issues with her bowel habits. She states that she does get constipated and can have diarrhea at times. May have to readdress this at a follow-up visit. The patient agrees with this plan. The patient had no further questions or concerns at this time. ASSESSMENT/PLAN: 1. Bloating - ICD9: 787.3, ICD10: R14.0 (primary diagnosis) - BREATH TEST GLUCOSE 2. Belching - ICD9: 787.3, ICD10: R14.2 - BREATH TEST GLUCOSE ASSESSMENT/PLAN: 3. Constipation, unspecified constipation type - ICD9: 564.00, ICD10: K59.00 4. Diarrhea, unspecified type - ICD9: 787.91, ICD10: R19.7 Ana Triana PA-C I spent a total of 35 minutes on the date of the service which included preparing to see the patient, completing clinical documentation, counseling and educating the patient/family/caregiver, and ordering medications, tests, or procedures. This note was partially generated using [employer] voice recognition system, and there may be some incorrect words, spellings, and punctuation that were not noted in checking the note before saving. documented in this encounter [facility] 09-29-2023 Miscellaneous Notes Processed gastro referral through [facility] portal #[id number] but missed that pt wants to be referred to Gastro. Called pt and asked who she wants to be referred to and she said Aishwarya Nam. Unable to find that name on website. Pt is going to call the office and find out their information and if that provider is still there and then let us know. Valentin Reza MA documented in this encounter [facility] 09-29-2023 Miscellaneous Notes CPAP MACHINE ORDER and all pertinent documentation faxed to [employer] fx # [phone] on 09/29/23 Valentin Reza MA documented in this encounter [facility] 09-29-2023 Instructions Carmen Messina APRN.MOBILITY ARCHITECT MANAGER - 09/29/2023 2:24 PM EDT RECOMMENDATIONS: 1. Would recommend instituting CPAP during bedtime hours and naps at 9 cm.H2O with a heated humidifier added to the unit to prevent nasal dryness and stuffiness. Recommend a ramp unit with an onset of 10 minutes.The patient wore a medium ResMed AirFit F 20 full face mask without chinstrap. 2. Recommend continued attempts at weight loss, exercise and conditioning. 3. Recommend continued evaluation for the patient's increased leg movements and history suggesting restless legs syndrome. Would consider obtaining a serum iron panel and ferritin level if these have not been obtained. 4. Recommend a compliance download 1 month on CPAP to ensure compliance and efficacy of CPAP in the home setting. 5. Recommend an overnight recording oximetry to ensure adequate oxygen saturation with the use of CPAP in the home setting 6. Recommend maintaining consistent sleep and wake times, obtaining at least 7-8 hours of sleep per night, avoidance of alcohol, nicotine, and caffeine, and limiting activities in bed such as watching TV is recommended. Recommend avoidance of drowsy driving until the patient's sleep apnea has been addressed and treated. 7. The patient gives a history compatible with Delayed Sleep Phase Disorder. . documented in this encounter [facility] 09-29-2023 History of Present illness Narrative Sarika Corona is a 53 year old female who presents for Follow Up (Edema, elevated blood pressure, has not started zepbound) Here for follow up: Has not started zepbound but is down on her own with weight since last OV. Pedal edema a concern- has noticed with sitting a long time and long car drives has noticed it more. Last 4 mos has had the swelling. She is on HCTZ which is a diuretic and Blood pressure. She feels it helps a little bit but then it wears off. She has been checking her home readings - has checked before taking the medications. 144/84 last night then took the medications. Stressful meeting 163/100- has not checked after to see if it is working. She 133/86 after 15 minutes of sitting down. She has persistent low Bp most of her life. She does have sleep apnea not being treated - feels tired and sleep test showed apnea. Has leg swelling as well. She needs an order to have a cpap machine and supplies, lives in [facility]. Belching and distension has seen GI group - - diagnosed with IBS, has lost weight on her own. Colonoscopy up to date, we discussed work up for SIBO - printed material and she will call her gastro for a follow up. Bronchiectasis - chronically has mucous and coughing, and has not seen a clinical research analyst. The history is provided by the patient. No cisco network engineer was used. Last 3 Encounter BP Readings: Date: BP: 09/29/2023 112/74 08/25/2023 137/87 01/30/2023 138/82 Last 2 Encounter Wt Readings: Date: Wt: 09/29/2023 109.3 kg (241 lb) 08/25/2023 115.2 kg (254 lb) BP 112/74 Pulse 81 Resp 12 Ht 5' 5 (1.65m) Wt 241 lb (109.3kg) SpO2 96% LMP 03/04/2021 BMI 40.10 kg/(m^2). 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 ALLERGIES Allergen Reactions Penicillin G Rash Allergy as a child. Quinine Anaphylaxis Current Outpatient Medications Medication Sig Bifidobacterium infantis (ALIGN ORAL) Take by mouth once daily. levothyroxine (SYNTHROID) 200 mcg tablet Take 1 tablet by mouth daily before breakfast. Take for a total of 225 mcg daily levothyroxine (SYNTHROID) 25 mcg tablet Take 1 tablet by mouth once daily. Take for a total of 225 mcg daily albuterol HFA (PROAIR HFA) 90 mcg/actuation inhaler Inhale 1-2 Puffs as instructed every 4 hours as needed for wheezing/shortness of breath. hydroCHLOROthiazide 12.5 mg capsule Take 1 capsule by mouth once daily. tirzepatide, weight loss (ZEPBOUND) 2.5 mg/0.5 mL pen injector Inject 2.5 mg subcutaneously one time a week. cholecalciferol, Vitamin D3, (VITAMIN D3) 1,250 mcg (50,000 unit) cap capsule TAKE 1 CAPSULE BY MOUTH ONE TIME A WEEK FOR 8 DOSES. (Patient taking differently: Take 50,000 Units by mouth one time a week. Patient states she is taking 5,000 units daily) albuterol (PROVENTIL) 2.5 mg /3 mL (0.083 %) nebulizer solution Use 3 mL via nebulizer every 4 hours as needed for Wheezing/Shortness of Breath. Use over 5-15minutes. albuterol (PROVENTIL) 5 mg/mL nebu Inhale 0.5 mL as instructed one time only for 1 dose. 1 DOSE NOW - BACK OFFICE. PLACE 0.5 ML PER DROPPER AND 2.5 ML OF NORMAL SALINE INTO RESERVOIR. B6/folic/B12/coffee/phosphatid (NEURIVA PLUS ORAL) Take by mouth once daily. (Patient not taking: Reported on 09/29/2023) Blood Pressure Monitor 1 Each once daily. Goal is less than 130/80 Xtra large cuff (Patient not taking: Reported on 09/29/2023) No current facility-administered medications for this visit. Review of Systems Constitutional: Positive for weight loss. Respiratory: Positive for cough, sputum production and wheezing. Negative for hemoptysis and shortness of breath. Cardiovascular: Positive for leg swelling. Negative for chest pain and palpitations. Gastrointestinal: Positive for abdominal pain and nausea. Negative for blood in stool, constipation, diarrhea, heartburn, melena and vomiting. Belching a lot, bloating and feels distended. Feels miserable with symptoms Genitourinary: Negative. Musculoskeletal: Negative. Physical Exam Vitals reviewed. Constitutional: Appearance: Normal appearance. She is obese. HENT: Head: Normocephalic and atraumatic. Right Ear: Tympanic membrane, ear canal and external ear normal. Left Ear: Tympanic membrane, ear canal and external ear normal. Nose: No congestion. Mouth/Throat: Mouth: Mucous membranes are moist. Eyes: Conjunctiva/sclera: Conjunctivae normal. Pupils: Pupils are equal, round, and reactive to light. Cardiovascular: Rate and Rhythm: Normal rate and regular rhythm. Heart sounds: Normal heart sounds. No murmur heard. Pulmonary: Effort: Pulmonary effort is normal. Breath sounds: Wheezing present. No rales. Chest: Chest wall: No tenderness. Abdominal: General: Bowel sounds are normal. There is distension. Palpations: Abdomen is soft. Tenderness: There is no abdominal tenderness. There is no guarding. Musculoskeletal: General: Normal range of motion. Cervical back: Normal range of motion and neck supple. Skin: General: Skin is warm and dry. Capillary Refill: Capillary refill takes less than 2 seconds. Neurological: Mental Status: She is alert and oriented to person, place, and time. Psychiatric: Mood and Affect: Mood normal. Behavior: Behavior normal. Thought Content: Thought content normal. Judgment: Judgment normal. ASSESSMENT/PLAN: 1. ONEIDA (obstructive sleep apnea) - ICD9: 327.23, ICD10: G47.33 (primary diagnosis) - CPAP DEVICE - CONSULT TO PULMONARY MEDICINE 2. Pedal edema - ICD9: 782.3, ICD10: R60.0 Continue to take the HCTZ bp pill in the am - CPAP DEVICE - COMPRESSION STOCKINGS - CPAP DEVICE 3. Venous insufficiency - ICD9: 459.81, ICD10: I87.2 - COMPRESSION STOCKINGS 4. Bloating - ICD9: 787.3, ICD10: R14.0 - CONSULT TO GASTROENTEROLOGY 5. Belching - ICD9: 787.3, ICD10: R14.2 Work up for SIBO? Education sheet printed - CONSULT TO GASTROENTEROLOGY 6. Bronchiectasis without complication (HCC) - ICD9: 494.0, ICD10: J47.9 - CONSULT TO PULMONARY MEDICINE DENISE Velasquez APRN.CNP Return in about 4 weeks (around 10/27/2023). Zepbound Discussed above plan with patient. Pt agreeable with above plan. documented in this encounter [facility] 08-28-2023 Miscellaneous Notes It is on med list as zepbound was sent over on 08-25-23, per the pharmacist the patient had it transferred to a different pharmacy. That other location has it ready for her to grape picker. Carmen Messina APRN.CNP documented in this encounter [facility] 08-26-2023 Miscellaneous Notes Consult to Orthopaedics Reference: [id number] documented in this encounter [facility] 08-25-2023 Carmen Vann APRN.CNP - 08/25/2023 4:33 PM EDT ASSESSMENT/PLAN: 1. Postoperative hypothyroidism - ICD9: 244.0, ICD10: E89.0 (primary diagnosis) - Instructed patient on importance of taking on an empty stomach either first thing in the morning or at bedtime. - LEVOTHYROXINE 200 MCG TABLET - LEVOTHYROXINE 25 MCG TABLET 2. Elevated fasting glucose - ICD9: 790.21, ICD10: R73.01 - HEMOGLOBIN A1C (POC) 3. Acute pain of both knees - ICD9: 338.19, 719.46, ICD10: M25.561, M25.562 - METHYLPREDNISOLONE 4 MG TABLETS IN A DOSE PACK - XR KNEE 3V FLEX/LAT/MERCH RIGHT (AK) - CONSULT TO ORTHOPAEDICS - METHYLPREDNISOLONE 4 MG TABLETS IN A DOSE PACK 4. Asthma, mild intermittent - ICD9: 493.90, ICD10: J45.20 - Mild intermittent asthma stable - Avoidance of triggers recommended - ALBUTEROL SULFATE HFA 90 MCG/ACTUATION AEROSOL INHALER 5. Cough - ICD9: 786.2, ICD10: R05.9 6. Primary hypertension - ICD9: 401.9, ICD10: I10 - New diagnosis - Recommend home blood pressure monitoring, to bring results to next visit - Encouraged sodium restriction, DASH or Mediterranean diet - Recommend regular aerobic exercise - HYDROCHLOROTHIAZIDE 12.5 MG CAPSULE - BLOOD PRESSURE MONITOR KIT 7. Class 2 severe obesity due to excess calories with serious comorbidity and body mass index (BMI) of 39.0 to 39.9 in adult (HCC) - ICD9: 278.01, V85.39, ICD10: E66.01, Z68.39 Tips for Getting to a Healthy Weight About two-thirds of adults are overweight or obese. So it s easy to see why so many people want to lose at least a couple of pounds, and sometimes more. Losing weight is not easy. We have such fast-paced lives. Time for exercise and preparing healthy meals can be hard to come by. But if you put your mind to it and stick to your goals, you can have success. Keep in mind that for losing weight, slow and steady is best. Small changes can have big results. Crash diets, gimmicks, and weight loss supplements are not the way to go and can sometimes be dangerous. In fact, people who lose just one to two pounds each week have the best chance of keeping it off. Consider that one pound is equal to 3500 calories. To lose one to two pounds in one week, you ll need to reduce your calories by about 500 to 1000 per day. You can do this by eating fewer calories, burning more calories through physical activity, or a combination of both. Here are some practical tips you can use to help with your weight loss plan: Set goals. Be realistic. Write down the reasons you want to lose weight. Post this list somewhere you can see it often to help you stay motivated. Write down everything you eat for a few days so you have a realistic idea of what and when you are eating. Try to avoid bad habits that can cause weight gain, such as eating too fast, eating when you re not hungry, skipping meals, and always having dessert. Don t feel like you always need to clean your plate. Eat more fruits, vegetables, whole grains, and lean meats. Eat less food with high fat and sugar content. Read nutrition information on food labels. Pay attention to serving sizes. Bake or grill foods instead of frying or breading them. If you indulge in a high-calorie food, make sure to limit yourself to only a small portion. Set specific goals for exercising, such as the amount of time you will spend and how many times you will exercise each week. Choose an activity you enjoy. Walking is a good place to start. Pair up with an exercise shabnam, friend, or family member, to help you stay motivated. Consider working with a dietitian or vocational trainer or joining a gym or health club if you need more structure. Don t get discouraged by setbacks. Keep moving forward toward your goal. As you lose weight, your dress size or pants size is likely to drop as well. But you will also feel better and have more energy. Plus, keeping a healthy weight can lower your blood pressure, cholesterol, and blood sugar. Keeping these numbers in check lowers your risk of serious health problems like diabetes, heart attacks, and strokes. There are medicines that can help people lose weight, but they aren t for everybody. Even with the medicines, you ll need to stick with a healthy lifestyle to see good results. - TIRZEPATIDE (WEIGHT LOSS) 2.5 MG/0.5 ML SUBCUTANEOUS PEN INJECTOR 8. Prediabetes - ICD9: 790.29, ICD10: R73.03 Tirzepatide (Mounjaro) The benefits of this medication includes lowering Blood sugar in patients with diabetes Chance of from heart disease in certain people Chance of developing kidney disease from diabetes Weight Do not take this drug if you Are or may be Are breast-feeding Have thyroid cancer Family history of thyroid cancer Have family history of Multiple Endocrine Neoplasia -2 (MEN-2) This medication can increase your risk of Nausea and vomiting Constipation Bloating and diarrhea Low blood sugars, specially if are on insulin or other diabetes medications An inflammation of the pancreas called pancreatitis Talk to your doctor if you have Signs of a low blood sugar like feeling sleepy or weak, shaking, fast heartbeat, confusion, hunger, or sweating Severe nausea, vomiting, or abdominal pain A neck mass, trouble breathing, trouble swallowing, or hoarseness that will not go away Sudden changes in vision - TIRZEPATIDE (WEIGHT LOSS) 2.5 MG/0.5 ML SUBCUTANEOUS PEN INJECTOR Carmen Messina APRN.FROYLAN documented in this encounter [facility] 08-25-2023 History of Present illness Narrative Sarika Corona is a 53 year old female who presents for Follow Up (Discuss lab work done on 08/07/23 and right knee pain) Here for medication refills and lab results She also has some right knee pain 09/23 , [facility] a few years ago at [facility]. She has tried to exercise, did heavy lifting of boxes, now cannot get around easily, relying on ibuprofen for pain relief and swelling. Cracking in the knee. Exercising injury. Hypothyroid - most recent lab show therapeutic range 2. Asthma - inhaler seems to work, intermittent use. 3. Elevated fasting glucose - has had more sugary drinks, not drinking coffee. She has had more lately. She is cutting back on sodas at home. Has gained some weight in last time period. She talked to endocrine [facility] 4. Seeing GI for concerns of IBS - had work up done with them. She is on align now, struggled to eat and take water. Dairy is her trigger. Belching all the time. Not able to dot the gastroparesis test. She has noticed improvement with align. 5. Sleep test - she went to the sleep lab. She had completed a sleep test at home. Went to sleep lab, and there was mix up with the orders. She struggled to get to sleep, thinks she only fell asleep 15 minutes. Results were off because not on the machine. She was told that needed to repeat the test because the results were not accurate. She is planning to try to lose weight on her own. 6. Swelling in the feet right more than left - 6 months has occurred. No injury to ankle, same side as the bad knee. She gets swelling enough that causes itching. She had concerns of a blood clot in that leg. Had it checked by Dr and it was negative. The history is provided by the patient. No cisco network engineer was used. Right knee injury: Yes Patient reports that right knee feels stable. Patient reports feeling right knee not locking, not popping and not catching. Right knee aggravating factors: Regular daily ambulation, prolonged sitting, prolonged standing and rapid change of direction. Right knee alleviating factors: NSAIDs. Last 3 Encounter BP Readings: Date: BP: 08/25/2023 137/87 01/30/2023 138/82 12/18/2022 139/80 Last 2 Encounter Wt Readings: Date: Wt: 08/25/2023 115.2 kg (254 lb) 01/30/2023 103.4 kg (228 lb) BP 137/87 Pulse 83 Temp 97.7 Ht 5' 7 (1.70m) Wt 254 lb (115.2kg) SpO2 96% LMP 03/04/2021 BMI 39.77 kg/(m^2). Component Latest Ref Rng & Units 08/07/2023 WBC 3.70 - 11.00 k/uL 9.54 RBC 3.90 - 5.20 m/uL 5.21 (H) Hemoglobin 11.5 - 15.5 g/dL 14.4 Hematocrit 36.0 - 46.0 % 43.2 MCV 80.0 - 100.0 fL 82.9 MCH 26.0 - 34.0 pg 27.6 MCHC 30.5 - 36.0 g/dL 33.3 RDW-CV 11.5 - 15.0 % 13.0 Platelet Count 150 - 400 k/uL 246 MPV 9.0 - 12.7 fL 10.3 Neut% % 66.0 Abs Neut (ANC) 1.45 - 7.50 k/uL 6.29 Lymph% % 24.9 Abs Lymph 1.00 - 4.00 k/uL 2.38 [place]% % 5.5 Abs [place] <0.87 k/uL 0.52 Eosin% % 2.5 Abs Eosin <0.46 k/uL 0.24 Baso% % 0.7 Abs Baso <0.11 k/uL 0.07 Immature Gran % % 0.4 IMMATURE GRANS (ABS) <0.10 k/uL 0.04 NRBC /100 WBC 0.0 Absolute nRBC <0.01 k/uL <0.01 DTYPE Auto Protein, Total 6.3 - 8.0 g/dL 6.9 Albumin 3.9 - 4.9 g/dL 4.1 Calcium 8.5 - 10.2 mg/dL 9.0 Bilirubin, Total 0.2 - 1.3 mg/dL 1.1 Alkaline Phosphatase 34 - 123 U/L 77 AST 13 - 35 U/L 18 ALT 7 - 38 U/L 19 Glucose 74 - 99 mg/dL 118 (H) BUN 7 - 21 mg/dL 10 Creatinine 0.58 - 0.96 mg/dL 0.81 Sodium 136 - 144 mmol/L 137 Potassium 3.7 - 5.1 mmol/L 4.2 Chloride 97 - 105 mmol/L 101 CO2 22 - 30 mmol/L 26 Anion Gap 9 - 18 mmol/L 10 eGFR >=60 mL/min/1.73m 89 Cholesterol, Total <200 mg/dL 189 Triglyceride <150 mg/dL 160 (H) HDL Cholesterol >39 mg/dL 52 Non HDL Cholesterol <130 mg/dL 137 (H) Fasting Time hrs 12 VLDL Cholesterol <30 mg/dL 32 (H) TC:HDL Ratio <5.10 3.63 LDL Cholesterol <100 mg/dL 105 (H) LDL:HDL Ratio <2.54 2.02 TSH 0.270 - 4.200 mIU/L 3.520 Vitamin D 25 Hydroxy 31.0 - 80.0 ng/mL 40.8 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 ALLERGIES Allergen Reactions Penicillin G Rash Allergy as a child. Quinine Anaphylaxis Current Outpatient Medications Medication Sig B6/folic/B12/coffee/phosphatid (NEURIVA PLUS ORAL) Take by mouth once daily. Bifidobacterium infantis (ALIGN ORAL) Take by mouth once daily. cholecalciferol, Vitamin D3, (VITAMIN D3) 1,250 mcg (50,000 unit) cap capsule TAKE 1 CAPSULE BY MOUTH ONE TIME A WEEK FOR 8 DOSES. (Patient taking differently: Take 50,000 Units by mouth one time a week. Patient states she is taking 5,000 units daily) levothyroxine (SYNTHROID) 200 mcg tablet Take 1 tablet by mouth daily before breakfast. Take for a total of 225 mcg daily levothyroxine (SYNTHROID) 25 mcg tablet Take 1 tablet by mouth once daily. Take for a total of 225 mcg daily albuterol (PROVENTIL) 2.5 mg /3 mL (0.083 %) nebulizer solution Use 3 mL via nebulizer every 4 hours as needed for Wheezing/Shortness of Breath. Use over 5-15minutes. albuterol HFA (PROAIR HFA) 90 mcg/actuation inhaler Inhale 1-2 Puffs as instructed every 6 hours as needed. No current facility-administered medications for this visit. Review of Systems Constitutional: Positive for malaise/fatigue. Negative for chills, fever and weight loss. HENT: Negative. Respiratory: Negative for cough, hemoptysis, sputum production, shortness of breath and wheezing. Cardiovascular: Negative. Gastrointestinal: Positive for constipation and diarrhea. Negative for abdominal pain, blood in stool, heartburn and melena. Genitourinary: Negative. Musculoskeletal: Positive for joint pain. Negative for back pain, falls and neck pain. Neurological: Negative. Psychiatric/Behavioral: Negative for depression and suicidal ideas. The patient is not nervous/anxious and does not have insomnia. Physical Exam Vitals reviewed. Constitutional: Appearance: Normal appearance. She is obese. HENT: Head: Normocephalic and atraumatic. Right Ear: Tympanic membrane, ear canal and external ear normal. Left Ear: Tympanic membrane, ear canal and external ear normal. Nose: No congestion. Mouth/Throat: Mouth: Mucous membranes are moist. Eyes: Conjunctiva/sclera: Conjunctivae normal. Pupils: Pupils are equal, round, and reactive to light. Cardiovascular: Rate and Rhythm: Normal rate and regular rhythm. Pulses: Normal pulses. Heart sounds: Normal heart sounds. No murmur heard. Pulmonary: Effort: Pulmonary effort is normal. Breath sounds: Normal breath sounds. Chest: Chest wall: No tenderness. Abdominal: General: Bowel sounds are normal. Palpations: Abdomen is soft. Musculoskeletal: Cervical back: Normal range of motion and neck supple. Right knee: Swelling and crepitus present. Normal range of motion. Instability Tests: Medial Simin test negative and lateral Simin test negative. Left knee: Crepitus present. Normal range of motion. Instability Tests: Medial Simin test negative and lateral Simin test negative. Skin: General: Skin is warm and dry. Capillary Refill: Capillary refill takes less than 2 seconds. Neurological: Mental Status: She is alert and oriented to person, place, and time. Psychiatric: Mood and Affect: Mood normal. Behavior: Behavior normal. Thought Content: Thought content normal. Judgment: Judgment normal. ASSESSMENT/PLAN: 1. Postoperative hypothyroidism - ICD9: 244.0, ICD10: E89.0 (primary diagnosis) - Instructed patient on importance of taking on an empty stomach either first thing in the morning or at bedtime. - LEVOTHYROXINE 200 MCG TABLET - LEVOTHYROXINE 25 MCG TABLET 2. Elevated fasting glucose - ICD9: 790.21, ICD10: R73.01 - HEMOGLOBIN A1C (POC) 3. Acute pain of both knees - ICD9: 338.19, 719.46, ICD10: M25.561, M25.562 - METHYLPREDNISOLONE 4 MG TABLETS IN A DOSE PACK - XR KNEE 3V FLEX/LAT/MERCH RIGHT (AK) - CONSULT TO ORTHOPAEDICS - METHYLPREDNISOLONE 4 MG TABLETS IN A DOSE PACK 4. Asthma, mild intermittent - ICD9: 493.90, ICD10: J45.20 - Mild intermittent asthma stable - Avoidance of triggers recommended - ALBUTEROL SULFATE HFA 90 MCG/ACTUATION AEROSOL INHALER 5. Cough - ICD9: 786.2, ICD10: R05.9 6. Primary hypertension - ICD9: 401.9, ICD10: I10 - New diagnosis - Recommend home blood pressure monitoring, to bring results to next visit - Encouraged sodium restriction, DASH or Mediterranean diet - Recommend regular aerobic exercise - HYDROCHLOROTHIAZIDE 12.5 MG CAPSULE - BLOOD PRESSURE MONITOR KIT 7. Class 2 severe obesity due to excess calories with serious comorbidity and body mass index (BMI) of 39.0 to 39.9 in adult (HCC) - ICD9: 278.01, V85.39, ICD10: E66.01, Z68.39 Tips for Getting to a Healthy Weight About two-thirds of adults are overweight or obese. So it s easy to see why so many people want to lose at least a couple of pounds, and sometimes more. Losing weight is not easy. We have such fast-paced lives. Time for exercise and preparing healthy meals can be hard to come by. But if you put your mind to it and stick to your goals, you can have success. Keep in mind that for losing weight, slow and steady is best. Small changes can have big results. Crash diets, gimmicks, and weight loss supplements are not the way to go and can sometimes be dangerous. In fact, people who lose just one to two pounds each week have the best chance of keeping it off. Consider that one pound is equal to 3500 calories. To lose one to two pounds in one week, you ll need to reduce your calories by about 500 to 1000 per day. You can do this by eating fewer calories, burning more calories through physical activity, or a combination of both. Here are some practical tips you can use to help with your weight loss plan: Set goals. Be realistic. Write down the reasons you want to lose weight. Post this list somewhere you can see it often to help you stay motivated. Write down everything you eat for a few days so you have a realistic idea of what and when you are eating. Try to avoid bad habits that can cause weight gain, such as eating too fast, eating when you re not hungry, skipping meals, and always having dessert. Don t feel like you always need to clean your plate. Eat more fruits, vegetables, whole grains, and lean meats. Eat less food with high fat and sugar content. Read nutrition information on food labels. Pay attention to serving sizes. Bake or grill foods instead of frying or breading them. If you indulge in a high-calorie food, make sure to limit yourself to only a small portion. Set specific goals for exercising, such as the amount of time you will spend and how many times you will exercise each week. Choose an activity you enjoy. Walking is a good place to start. Pair up with an exercise shabnam, friend, or family member, to help you stay motivated. Consider working with a dietitian or vocational trainer or joining a gym or health club if you need more structure. Don t get discouraged by setbacks. Keep moving forward toward your goal. As you lose weight, your dress size or pants size is likely to drop as well. But you will also feel better and have more energy. Plus, keeping a healthy weight can lower your blood pressure, cholesterol, and blood sugar. Keeping these numbers in check lowers your risk of serious health problems like diabetes, heart attacks, and strokes. There are medicines that can help people lose weight, but they aren t for everybody. Even with the medicines, you ll need to stick with a healthy lifestyle to see good results. - TIRZEPATIDE (WEIGHT LOSS) 2.5 MG/0.5 ML SUBCUTANEOUS PEN INJECTOR 8. Prediabetes - ICD9: 790.29, ICD10: R73.03 Tirzepatide (Mounjaro) The benefits of this medication includes lowering Blood sugar in patients with diabetes Chance of from heart disease in certain people Chance of developing kidney disease from diabetes Weight Do not take this drug if you Are or may be Are breast-feeding Have thyroid cancer Family history of thyroid cancer Have family history of Multiple Endocrine Neoplasia -2 (MEN-2) This medication can increase your risk of Nausea and vomiting Constipation Bloating and diarrhea Low blood sugars, specially if are on insulin or other diabetes medications An inflammation of the pancreas called pancreatitis Talk to your doctor if you have Signs of a low blood sugar like feeling sleepy or weak, shaking, fast heartbeat, confusion, hunger, or sweating Severe nausea, vomiting, or abdominal pain A neck mass, trouble breathing, trouble swallowing, or hoarseness that will not go away Sudden changes in vision - TIRZEPATIDE (WEIGHT LOSS) 2.5 MG/0.5 ML SUBCUTANEOUS PEN INJECTOR DENISE Velasquez APRN.CNP No follow-ups on file. Discussed above plan with patient. Pt agreeable with above plan. documented in this encounter [facility] 07-28-2023 Miscellaneous Notes Addended by: CARMEN MESSINA on: 07/28/2023 10:27 AM Modules accepted: Orders Fasting labs ordered with the Thyroid panel. All orders in 90 days, so if she wants to only get the TSH thyroid done ok, but will be due to come in office for an appt as of September 23. She can opt to get the rest of the labs prior to that appt if she wishes or now. Carmen Messina APRN.CNP documented in this encounter [facility] 04-29-2023 Miscellaneous Notes Patient Sleep study results faxed and confirmed to [employer] fax [phone] per the patients request via voicemail. Natalie Rowe CMA documented in this encounter [facility] 02-19-2023 Miscellaneous Notes Pantoprazole only ordered for 3 months following EGD. Catrachita Neal RN documented in this encounter [facility] 01-30-2023 History of Present illness Narrative Shell Sorter offered: Patient declines. Sarika Corona is a 52 year old female who presents for concerns regarding vulvar itching for weeks as well as a new labial lump. She states that the lump was really hard yesterday directly under the skin but has softened and is not as noticeable today. She denies any vaginal discharge or odors. She reports no changes in soaps or detergents that she is aware of. She states that she does wear pads. Urinary leakage. She states she uses plain white diaper body wash. She states the itching can be so bad that she will put rubbing alcohol on the area to calm it down. States she has used a topical steroid which has calmed the itching down as well. Patient denies any dysuria, fevers or other concerns at this time. OB History T0 L3 SAB0 IAB0 Ectopic0 Multiple0 Live Births0 Comment: Gave one baby up for adoption. 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 PAST SURGICAL HISTORY Procedure Laterality Date ANESTH, SECTION 01/14/2003 ANESTH, SECTION 02/14/1998 DELIVERY ONLY 1995 COLONOSCOPY 02/22/2021 EGD CYSTOSCOPY 03/12/2021 LAPAROSCOPY W TOTAL HYSTERECTOMY UTERUS 250 GM/< 03/12/2021 REMOVAL OF OVARY/TUBE(S) 03/12/2021 THYROIDECTOMY TOTAL/COMPLETE 2013 TUBAL LIGATION 2002 FAMILY HISTORY Problem Relation Age of Onset Heart Mother Hypertension Mother Alcohol/Drug Father Cancer Father pancreatic Heart Sister Hypertension Sister Alcohol/Drug Brother Cancer Maternal Grandmother Diabetes Paternal Grandmother Cancer Paternal Grandmother uterine vs ovarian, unsure Social History Tobacco Use Smoking status: Never Smokeless tobacco: Never Vaping Use Vaping Use: Never used Substance Use Topics Alcohol use: No Drug use: No Current Outpatient Medications Medication Sig sucralfate (CARAFATE) 100 mg/mL suspension Take 10 mL by mouth four times daily. pantoprazole DR (PROTONIX) 40 mg tablet Take 1 tablet by mouth once daily. sucralfate (CARAFATE) 1 gram tablet Take 1 tablet by mouth twice daily. cholecalciferol, Vitamin D3, (VITAMIN D3) 1,250 mcg (50,000 unit) cap capsule TAKE 1 CAPSULE BY MOUTH ONE TIME A WEEK FOR 8 DOSES. azithromycin (ZITHROMAX Z-YASMEEN) 250 mg tablet Two (2) tablets by mouth the first day and then one (1) tablet by mouth daily for 4 days. levothyroxine (SYNTHROID) 200 mcg tablet Take 1 tablet by mouth daily before breakfast. Take for a total of 225 mcg daily levothyroxine (SYNTHROID) 25 mcg tablet Take 1 tablet by mouth once daily. Take for a total of 225 mcg daily albuterol (PROVENTIL) 2.5 mg /3 mL (0.083 %) nebulizer solution Use 3 mL via nebulizer every 4 hours as needed for Wheezing/Shortness of Breath. Use over 5-15minutes. albuterol HFA (PROAIR HFA) 90 mcg/actuation inhaler Inhale 1-2 Puffs as instructed every 6 hours as needed. No current facility-administered medications for this visit. Allergies As of Date: 01/30/2023 Allergen Noted Reaction PENICILLIN G 06/13/2011 Rash QUININE 03/02/2021 Anaphylaxis Fully Assessed 12/18/2022 REVIEW OF SYSTEMS Abdomen: no pain Bladder: no dysuria.. Expanded ROS: GENERAL: Negative for fever Allergies and current medication updated:Yes EXAM: BP 138/82 Wt 228 lb (103.4kg) LMP 03/04/2021 GENERAL: pleasant, female in no apparent distress HEENT: Normocephalic and atraumatic NECK: full range of motion DERMATOLOGY: without lesions PELVIC: normal Bartholin's glands, urethra, [place]'s glands, good vaginal support, physiologic discharge present, groin and vulva are erythematous with excoriations present with acute vulvitis from yeast. No ulcerations. No masses. Cervix surgically absent. No labial masses identified today. NEURO: alert and oriented x3,exam grossly non-focal EXTREMITIES: normal ASSESSMENT AND PLAN: Encounter Diagnosis ICD-10-CM 1. Acute vulvitis N76.2 2. Reviewed proper vulvar hygiene. Lotrisone topical cream given with 2 oral Diflucan. Discussed using all the dye and perfume. Detergents as well as dryer sheets. Advised to not use pads and just use white cotton underwear change frequently. Medical Decision Making: Problems: Low: Acute, uncomplicated illness or injury Risk: Moderate: Drug management Medical Decision Making Level: 3 - Low Glenda Aguila MD documented in this encounter [facility] 01-30-2023 Miscellaneous Notes Patient scheduled for an appointment today documented in this encounter [facility] 12-18-2022 Nurse procedure note Opened in error Sweta Aj RN [facility] 12-18-2022 Miscellaneous Notes Opened in error Sweta Aj RN documented in this encounter [facility] 12-18-2022 History and physical note HISTORY AND PHYSICAL Sarika Garcia Irvinlian, 52 year old female Current history and physical on file: Yes Is a new History and Physical required for today's visit? Yes Indication for procedure: Change in bowel movements and Nausea PROCEDURE(S) SCHEDULED FOR: Colonoscopy with or without biopsies and with or without removal of polyps or lesions, dilation (any means), treatment of bleeding (any means), based on clinical findings. and EGD (Esophagogastroduodenoscopy) with or without biopsies, removal of polyps or lesions, dilation ( any means), treatment of bleeding ( any means), Barrx treatment of Nabil's Esophagus, image tube placement or cryo therapy treatment based on clinical findings. BASELINE BEHAVIOR: Calm BASELINE ORIENTATION: A & O x3 All medications and allergies reviewed: Yes Skin Assessment: Warm dry mucus membranes pink Airway/Respiratory Assessment: Airway: visualization of the uvula- Yes Mouth: opening greater than 2 fingerbreadths- Yes Neck: full range of motion- Yes Breath sounds clear/equal- Yes Cardiac Assessment: Regular rate and rhythm without murmur Abdominal Assessment: Abdomen soft, non-tender, no masses or organomegaly. Sedation Plan: Moderate Additional Comments: None Farhad Mclean MD [facility] 12-18-2022 History and physical note HISTORY AND PHYSICAL Sarika Corona, 52 year old female Current history and physical on file: Yes Is a new History and Physical required for today's visit? Yes Indication for procedure: Change in bowel movements and Nausea PROCEDURE(S) SCHEDULED FOR: Colonoscopy with or without biopsies and with or without removal of polyps or lesions, dilation (any means), treatment of bleeding (any means), based on clinical findings. and EGD (Esophagogastroduodenoscopy) with or without biopsies, removal of polyps or lesions, dilation ( any means), treatment of bleeding ( any means), Barrx treatment of Nabil's Esophagus, image tube placement or cryo therapy treatment based on clinical findings. BASELINE BEHAVIOR: Calm BASELINE ORIENTATION: A & O x3 All medications and allergies reviewed: Yes Skin Assessment: Warm dry mucus membranes pink Airway/Respiratory Assessment: Airway: visualization of the uvula- Yes Mouth: opening greater than 2 fingerbreadths- Yes Neck: full range of motion- Yes Breath sounds clear/equal- Yes Cardiac Assessment: Regular rate and rhythm without murmur Abdominal Assessment: Abdomen soft, non-tender, no masses or organomegaly. Sedation Plan: Moderate Additional Comments: None Farhad Mclean MD documented in this encounter [facility] 12-18-2022 Nurse Note PRE OP LEARNING ASSESSMENT PROCEDURE/SURGERY: GI PROCEDURES: Colonoscopy and EGD READINESS TO LEARN COGNITIVE ABILITY: Alert and oriented MOTIVATION TO LEARN: Interested FAMILY SUPPORT: Unable to assess - Family not present PATIENT LEARNS BEST BY: Verbal Instruction FACTORS AFFECTING LEARNING: None PHYSICAL LIMITATIONS AFFECTING LEARNING: None Electronically Signed By: Candie Gonzalez RN In Department: AMBULATORY SURGERY [facility] 12-18-2022 Nurse Note PRE OP LEARNING ASSESSMENT PROCEDURE/SURGERY: GI PROCEDURES: Colonoscopy and EGD READINESS TO LEARN COGNITIVE ABILITY: Alert and oriented MOTIVATION TO LEARN: Interested FAMILY SUPPORT: Unable to assess - Family not present PATIENT LEARNS BEST BY: Verbal Instruction FACTORS AFFECTING LEARNING: None PHYSICAL LIMITATIONS AFFECTING LEARNING: None Electronically Signed By: Candie Gonzalez RN In Department: AMBULATORY SURGERY documented in this encounter [facility] 12-13-2022 Miscellaneous Notes MESSAGE SENT TO PT ----- Message from Carmen Messina APRN.MOBILITY ARCHITECT MANAGER sent at 12/13/2022 6:37 AM EDT ----- Normal iron and ferritin, restless legs not due to anemia, Carmen Messina APRN.MOBILITY ARCHITECT MANAGER documented in this encounter [facility] 12-13-2022 Miscellaneous Notes Called the patient and left a voice message asking the patient to call the office back to schedule follow up visit Josefa Cunha documented in this encounter [facility] 12-11-2022 Miscellaneous Notes Patient aware of colonoscopy prep instructions were sent via [employer]. We did review instructions and patient verbalized good understanding. documented in this encounter [facility] 12-10-2022 Miscellaneous Notes Addended by: JOSEFA CUNHA on: 12/10/2022 10:42 AM Modules accepted: Orders documented in this encounter [facility] 12-10-2022 History of Present illness Narrative GASTROENTEROLOGY OUTPATIENT NEW OFFICE VISIT CC: No chief complaint on file. HPI: Sarika Corona is a 52 year old female who presents for bloating. Sx started in jul. After eating and drinking the patient experiences severe bloating. She has a lot of belching for hours. She feels like she will vomit sometimes. Initially sx occurred after eating now they are constant. She will get bloating even with just water or medication. She says all foods make her bloated and she will have abdominal pain (full/pressure feeling), then belching. Her sx are constant. She noticed that fried things make it worse, possibly gluten. Over the last few days she has RUQ pain too. Belching makes her feel better. BM sometimes do help. Pt says sx are better after walking but as soon she sits she feels worse. She has tried gas x and tums without relief. Her BM fluctuate between constipation or diarrhea. She says she does not have a normal BM. Pt had antibiotics for UTI but no other medication changes or food changes. Her last c-scope was 03/06. Pt says small polyp was removed but she is not sure. She was seen in 2020 for similar issues and she saw [employer], then she had a large mass removed. The patient had another pelvic US that did not show any masses. NSAID use: ibuprofen Unexplained weight loss: 4-5 lb d/t eating less over 2 weeks Take Blood thinners: none Bowel Habits: fluctuates between constipation and diarrhea. Usually diarrhea. At least 1 episode but it dependent on how much she eats. This started about a year ago. No bloody or black stool. Fam Hx: negative for colon CA Current Outpatient Medications Medication Sig levothyroxine (SYNTHROID) 200 mcg tablet Take 1 tablet by mouth daily before breakfast. Take for a total of 225 mcg daily levothyroxine (SYNTHROID) 25 mcg tablet Take 1 tablet by mouth once daily. Take for a total of 225 mcg daily albuterol (PROVENTIL) 2.5 mg /3 mL (0.083 %) nebulizer solution Use 3 mL via nebulizer every 4 hours as needed for Wheezing/Shortness of Breath. Use over 5-15minutes. albuterol HFA (PROAIR HFA) 90 mcg/actuation inhaler Inhale 1-2 Puffs as instructed every 6 hours as needed. famotidine (PEPCID) 20 mg tablet Take 1 tablet by mouth twice daily. cholecalciferol, Vitamin D3, (VITAMIN D3) 1,250 mcg (50,000 unit) cap capsule TAKE 1 CAPSULE BY MOUTH ONE TIME A WEEK FOR 8 DOSES. azithromycin (ZITHROMAX Z-YASMEEN) 250 mg tablet Two (2) tablets by mouth the first day and then one (1) tablet by mouth daily for 4 days. No current facility-administered medications for this visit. 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 PAST SURGICAL HISTORY Procedure Laterality Date ANESTH, SECTION 01/14/2003 ANESTH, SECTION 02/14/1998 DELIVERY ONLY 1995 COLONOSCOPY 02/22/2021 EGD CYSTOSCOPY 03/12/2021 LAPAROSCOPY W TOTAL HYSTERECTOMY UTERUS 250 GM/< 03/12/2021 REMOVAL OF OVARY/TUBE(S) 03/12/2021 THYROIDECTOMY TOTAL/COMPLETE 2013 TUBAL LIGATION HX 2002 FAMILY HISTORY Problem Relation Age of Onset Heart Mother Hypertension Mother Alcohol/Drug Father Cancer Father pancreatic Heart Sister Hypertension Sister Alcohol/Drug Brother Cancer Maternal Grandmother Diabetes Paternal Grandmother Cancer Paternal Grandmother uterine vs ovarian, unsure Social History Tobacco Use Smoking status: Never Smokeless tobacco: Never Vaping Use Vaping Use: Never used Substance Use Topics Alcohol use: No Drug use: No ALLERGIES Allergen Reactions Penicillin G Rash Allergy as a child. Quinine Anaphylaxis GI SPECIFIC ROS: Difficulty swallowing / foods sticking in throat: No Heartburn: Yes- burning after belching Hoarseness: No Chronic cough: No Regurgitation: No Chest pain: No Filling up quickly at meals: No Loss of appetite: Yes Nausea: Yes Vomiting: No Abdominal pain: Yes Recent change in bowel movements: Yes Bloody or black, bowel movements: No Constipation: Yes Diarrhea: Yes Loss of control of bowel movements: No Night sweats, fever, chills: No Vomiting blood: No Recent change in weight: Yes- few lbs PHYSICAL EXAMINATION: Ht 170.2 cm (5' 7) Wt 100.2 kg (221 lb) LMP 03/04/2021 (Approximate) BMI 34.61 kg/m GENERAL APPEARANCE: Well appearing, alert, in no acute distress, well-hydrated, well nourished.. SKIN: Skin color, texture, turgor normal, no suspicious rashes or lesions. EYES: Anicteric sclera. Extraocular movements are intact. . NECK: Supple, no adenopathy; thyroid symmetric, normal size. LUNGS: Lungs clear to auscultation. No wheezing, rhonchi, rales. HEART: RRR without murmur, gallop, or rubs. No ectopy. ABDOMEN: Abdomen soft, tender in LLQ, non distended. Bowel sounds normal. No masses, ascites or hepatosplenomegaly. EXTREMITIES: No deformities, edema, skin discoloration, clubbing or cyanosis. NEUROLOGIC: Gait normal. Sensation and strength grossly intact.. CT scan abd pel w/ IV con 11/05/22 IMPRESSION: Subcentimeter gallbladder stone versus polyp unchanged. Subcentimeter low-attenuation lesions or cysts in the kidneys. Colonic diverticulosis without evidence of diverticulitis. Fat-containing umbilical hernia. ASSESSMENT AND PLAN: Marium is a 52-year-old female who presents for bloating and belching. Her symptoms started 3 to 4 months ago. Initially the symptoms would occur after eating but now she says she has the symptoms constantly throughout the day. Her symptoms will last hours. She says greasy food makes symptoms worse but all foods tend to trigger her symptoms including water or medication. Patient says belching makes her pain better and bowel movement sometimes help as well. Walking also tends to make the symptoms better. She has tried Tums and Gas-X without relief. Prior to her symptoms she had antibiotics for UTI but no other medication or diet changes. She was seen in 2020 for similar issues and she saw [employer], then she had a large mass removed. The patient had another pelvic US that did not show any masses. Patient says her bowel movements fluctuate between constipation and diarrhea. They are typically more like diarrhea she can have 1-3 episodes a day depending on how much she eats. The patient's CT abdomen pelvis from October 2022 did not show any acute GI abnormalities. I recommended blood work and H. pylori stool test to evaluate her sx. I also recommended a gastric emptying study to rule out gastroparesis. I ordered an EGD to rule out gastritis or H. pylori. I ordered a colonoscopy because the patient had a change in bowel habits. She was not having these symptoms during her last colonoscopy in 2020. She says her last colonoscopy she likely had 1 small polyp removed that was benign. Lastly, I ordered Pepcid to see if this helps with the bloating If everything comes back normal on her scopes may consider diagnosis of SIBO and try a round of Xifaxan. ASSESSMENT/PLAN: 1. Nausea - ICD9: 787.02, ICD10: R11.0 (primary diagnosis) - H PYLORI AG BY EIA,STOOL - NM GASTRIC EMPTYING SOLID- follow up via mychart - TRANSGLUTAMINASE ABS - IGA BLD - EGD DIAGNOSTIC - LIPASE BLD - H PYLORI AG BY EIA,STOOL 2. Bloating - ICD9: 787.3, ICD10: R14.0 - H PYLORI AG BY EIA,STOOL - TRANSGLUTAMINASE ABS - IGA BLD - EGD DIAGNOSTIC - FAMOTIDINE 20 MG TABLET - LIPASE BLD - H PYLORI AG BY EIA,STOOL 3. Change in bowel habits - ICD9: 787.99, ICD10: R19.4 - COLONOSCOPY DIAGNOSTIC Jocy Reese PA-C I spent a total of 50 minutes on the date of the service which included preparing to see the patient, [id number] patient care, completing clinical documentation, performing a medically appropriate examination, counseling and educating the patient/family/caregiver, and ordering medications, tests, or procedures. documented in this encounter [facility] 11-13-2022 Miscellaneous Notes CPAP MACHINE AND SUPPLIES ARE ORDERED FOR TREATMENT OF HER SLEEP APNEA. ORDER WILL NEE TO BE FAXED TO [employer] OF HER CHOICE, PLEASE NOTIFY HER. Carmen Messina APRN.MOBILITY ARCHITECT MANAGER FERRITIN AND IRON ORDERED THEY SUSPECT RESTLESS LEGS \IMPRESSION: 1. At a PAP setting of 9 cmH2O, during which supine REM sleep was recorded, the apnea-hypopnea index (AHI) was normalized, snoring was not eliminated, and oxygen saturation was maintained above 89 %. The arousal index remained elevated at this setting. 2. Periodic and aperiodic limb movements were observed during wakefulness, and a mild to moderate amount of PLMs which did not result in an increased number of arousals were noted, which is nonspecific but can be seen with restless legs syndrome (RLS). The patient does endorse symptoms suggestive of RLS on the pre-study questionnaire. As RLS remains a clinical diagnosis, further clinical correlation is advised. 3. Abnormal sleep architecture likely due to respiratory events, PAP titration, limb movements, and first night effect. Sleep efficiency was reduced. REM latency was prolonged. There was increased wake after sleep onset noted. The patient gives a history compatible with Delayed Sleep Phase Disorder. 4. Moderate obesity RECOMMENDATIONS: 1. Would recommend instituting CPAP during bedtime hours and naps at 9 cm.H2O with a heated humidifier added to the unit to prevent nasal dryness and stuffiness. Recommend a ramp unit with an onset of 10 minutes.The patient wore a medium ResMed AirFit F 20 full face mask without chinstrap. 2. Recommend continued attempts at weight loss, exercise and conditioning. 3. Recommend continued evaluation for the patient's increased leg movements and history suggesting restless legs syndrome. Would consider obtaining a serum iron panel and ferritin level if these have not been obtained. 4. Recommend a compliance download 1 month on CPAP to ensure compliance and efficacy of CPAP in the home setting. 5. Recommend an overnight recording oximetry to ensure adequate oxygen saturation with the use of CPAP in the home setting 6. Recommend maintaining consistent sleep and wake times, obtaining at least 7-8 hours of sleep per night, avoidance of alcohol, nicotine, and caffeine, and limiting activities in bed such as watching TV is recommended. Recommend avoidance of drowsy driving until the patient's sleep apnea has been addressed and treated. 7. The patient gives a history compatible with Delayed Sleep Phase Disorder. WOULD SHE LIKE TO SCHEDULE WITH SLEEP SPECIALIST FOR THEIR OPINION ON DELAYED SLEEP PHASE DISORDER WELL? Carmen Messina APRN.CNP . documented in this encounter [facility] 11-05-2022 History of Present illness Narrative Radiology Service Progress Note DATE OF SERVICE: November 05, 2022 TIME: 12:42 PM PATIENT IDENTITY VERIFICATION COMPLETED USING TWO (2) STANDARD IDENTIFIERS: Name and Date of confirmed by patient verbally. FALL SCREENING: Has the patient had 2 falls in the last year or 1 fall with injury or currently using an Ambulatory Assistive Device (Walker, Cane, Wheelchair, Crutches, etc.)? No PATIENT GENDER DATA: Female. status: : No status: NO. PATIENT RELEVANT IMPLANT DATA REVIEWED: Yes ALLERGIES: Reviewed and unchanged CONTRAST ALLERGY: NO. EXAM: CT -CONTRAST INDUCED NEPHROPATHY RISK FACTORS: Not applicable CREATININE: Creatinine Date Value Ref Range Status 09/24/2022 0.78 0.58 - 0.96 mg/dL Final 01/31/2021 0.87 0.58 - 0.96 mg/dL Final 02/24/2016 0.84 0.58 - 0.96 mg/dL Final Estimated Glomerular Filtration Rate Date Value Ref Range Status 09/24/2022 93 >=60 mL/min/1.73m Final Comment: Estimated Glomerular Filtration Rate (eGFR) is calculated using the 2020 CKD-EPI creatinine equation. This equation utilizes serum creatinine, sex, and age as parameters. The creatinine assay has traceable calibration to isotope dilution-mass spectrometry. Refer to KDIGO guidelines for clinical interpretation. In patients with unstable renal function, e.g. those with acute kidney injury, the eGFR may not accurately reflect actual GFR. eGFR- Date Value Ref Range Status 01/31/2021 >60 Final P.O.C.T. RESULTS: POC done: Yes, See Lab Tab November 05, 2022 TREATMENT: N/A PERIPHERAL IV DATA: Ambulatory: A peripheral IV was started in the Left antecubital site with a Angio cath: 22 gauge. RADIOLOGY DEPARTMENT: CT; Exam(s) Completed: Chest Abdomen Pelvis SIGNATURE: RT Juhi(R) PATIENT NAME: Sarika Corona DATE: November 05, 2022 TIME: 12:42 PM documented in this encounter [facility] 10-22-2022 Miscellaneous Notes Patient calling with concern regarding orders placed for sleep study. Patient denies any new or worsening symptoms of which a provider is not aware:Yes. Spoke with Jeffery at [facility], . Advised to reach out to on-call provider for sleep lab regarding reason for the requested order change. Jeffery will reach out to on-call provider now and patient notified. documented in this encounter [facility] 10-22-2022 Miscellaneous Notes Vannessa notified Ok new order placed, Carmen Messina APRN.FROYLAN Vannessa with [facility] called stating patient is coming in tonight and they need order for just the PSG not the PAP Titration submitted in Epic. Please notify when done. documented in this encounter [facility] 10-21-2022 History of Present illness Narrative October 21, 2022 An order has been received for PAP titration study from Carmen Messina APRN.CNP, A. Sleep Center Staff/Cash Applications Analyst Staff Orders. Visit prep complete - Please refer to the sleep study order (under procedures tab) for protocol details and special instructions. The sleep study is scheduled for 10/22/2022. Insurance: Payor: ANTHEM / Plan: BLUE CARD PPO OOS / Product Type: PPO / Payer/Plan Subscr Sex Relation Sub. Ins. ID Effective Group Num 1. WIL MENON* SARIKA CORONA 1970 Female Self [id number] [birth year] [id number] [address] 2. WIL MENON* SAQIB CORONA [birth year]1971 Male Spouse [id number] 06/16/21 [address] October 21, 2022 Standing PSG Orders signed in the last 90 days None Future PSG Orders signed in the last 90 days Ordered Auth. provider PAP TITRATION PSG (CPAP, BIPAP, ASV) [[id number]] 09/19/22 Carmen Messina APRN.MOBILITY ARCHITECT MANAGER Assoc. diagnoses: Hypoxia, sleep related [G47.34], Snoring [R06.83], Chronic fatigue [R53.82] Q: Special Needs (e.g.behavior, non-ambulatory, >450 lbs)?: A: No Q: Prior PAP (CPAP or Bilevel PAP) Use?: A: No Q: Sleep History: A: Sleep apnea All Prior Sleep Studies (past 365 days) Some values may be hidden. Unless noted otherwise, only the newest values recorded on each date are displayed. 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 Indications for study: ONEIDA previously diagnosed: Evaluate response to PAP therapy Sleep study to be performed: PAP titration study Special instructions: Target REM/supine sleep *Snoring, fatigue Date of Study: Date of Study: 09/07/2022 Date of Study: 09/07/2022 Time SHAHID/AHI Supine 81.0 min 8.9 Off-Supine 403.5 min 3.1 Total 484.5 min 4.1 IMPRESSION/RECOMMENDATIONS: 1. This study neither confirms nor refutes a diagnosis of obstructive sleep apnea as HSAT does not measure certain types of respiratory events that can only be measured on an in-laboratory polysomnogram 2. Recommend an in-laboratory polysomnogram if sleep apnea remains highly suspected. Ryan Cr Sleep Medicine Staff Note: After review of the medical record, the sleep study to be performed was changed to: Polysomnogram. The ordering provider has not yet confirmed notification of this change. Patric Sawant DO 2:45 PM, 10/21/2022 [address] [facility] documented in this encounter [facility] 09-10-2022 History of Present illness Narrative Sleep Study Check-In Documentation Date: September 10, 2022 Name: Sarika Corona Comments: HST was returned in working order with all sleep questionnaires Ruthie Denson PSS Nom[employer]# [id number], date shipped out 09/05/22 Tracking mailout: [id number] Tracking return: [id number] September 02, 2022 Standing PSG Orders signed in the last 90 days None Future PSG Orders signed in the last 90 days Ordered Auth. provider HOME SLEEP APNEA TEST (HSAT) [[id number]] 08/28/22 Carmen Messina APRN.MOBILITY ARCHITECT MANAGER Assoc. diagnoses: Witnessed episode of apnea [R06.81] Q: Indications: A: Obstructive sleep apnea Q: STOP-BANG conditions - Select All That Apply: A: SNORING that is loud or disruptive A2: TIREDNESS, fatigue or sleepiness during the day A3: OBSERVED sleep apnea A4: high blood PRESSURE A5: AGE > 50 Q: Current use of supplemental oxygen during sleep period?: A: No All Prior Sleep Studies (past 365 days) Some values may be hidden. Unless noted otherwise, only the newest values recorded on each date are displayed. 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 Indications for study: ONEIDA suspected without comorbid medical or sleep disorders Sleep study to be performed: Home Sleep Apnea Test (HSAT) Special instructions: None-follow laboratory protocol Clarissa Morales Sleep Medicine Staff Note: I have read the above protocol, edited as needed, and agree to the plan. Mitch Hernandez III, PhD 2:16 PM, 09/02/2022 August 30, 2022 An order has been received for Home Sleep Apnea Test (HSAT) from maite Smith. [facility] Staff. Visit prep complete. Comments :No The sleep study is scheduled for 09/06. Insurance: Payor: ANTHEM / Plan: BLUE CARD PPO OOS / Product Type: PPO / Payer/Plan Subscr Sex Relation Sub. Ins. ID Effective Group Num 1. WIL - BLUE* SARIKA CORONA 1970 Female Self [id number] [birth year] [id number] [address] 2. ANTHEM - BLUE* SAQIB CORONA 06/10/1969 Male Spouse [id number] 06/16/21 [address] Tabatha Frias documented in this encounter [facility] 09-09-2022 Miscellaneous Notes Received medical records by mail on 09/09/2022 in forms of a CD Kaylie Wallace September 09, 2022 documented in this encounter [facility] 08-28-2022 Miscellaneous Notes Referral submitted Confirmation # [id number] Kristin Fairbanks documented in this encounter [facility] 08-21-2022 Miscellaneous Notes Labs ordered for thyroid monitoring documented in this encounter [facility] 06-19-2022 History of Present illness Narrative Images from the original note were not included. Denied CaseId:[id number];Status:Denied;Revi ew Type:Prior Auth;Appeal Information: Attention:ATTN: CLINICAL APPEALS DEPARTMENT [employer] [address] [address],[place],[address] ; Important - Please read the below note on eAppeals: Please reference the denial letter for information on the rights for an appeal, rationale for the denial, and how to submit an appeal including if any information is needed to support the appeal. Note about urgent situations - Generally, an urgent situation is one which, in the opinion of the provider, the health of the patient may be in serious jeopardy or may experience pain that cannot be adequately controlled while waiting for a decision on the appeal.; Payer: [employer] [phone] Electronic appeal: Supported View History Recvd denial for Mounjaro . Mounjaro is not covered by insurance if you do not have Type2 Diabetes with an A1c of 7.0% or greater. Also you have not tried at least one of these medications for at least 3 months (Metformin, Rybelsus, Farxiga) therefore, the coupon will not work. You may be paying anywhere from $420 to $1,200 out of pocket monthly due to this medication is not being approved for weight loss. Thank you Giselle Omalley MA June 19, 2022 1:42 PM documented in this encounter [facility] 06-19-2022 History of Present illness Narrative Initial Weight Management Consultation Virtual Visit (Audio/Visual)I have discussed the nature of this visit with the patient which will occur via [facility] (Phone, Virtual Visit) and she agrees to proceed with this interaction. I spent a total of 40 minutes on the date of the service which included preparing to see the patient, [id number] patient care, completing clinical documentation, obtaining and/or reviewing separately obtained history, performing a medically appropriate examination, and counseling and educating the patient/family/caregiver. Sarika Corona is a 51 year old female seen today for Medical Weight Management at the request of Self. Body Mass Index: There is no height or weight on file to calculate BMI. Co-morbidity: hypothyroidism Current Outpatient Medications on File Prior to Visit Medication Sig Biotin 10,000 mcg cap cholecalciferol, vitamin D3, (VITAMIN D-3) 10 mcg (400 unit) cap levothyroxine (SYNTHROID) 200 mcg tablet Take 1 tablet by mouth daily before breakfast. Take for a total of 225 mcg daily levothyroxine (SYNTHROID) 25 mcg tablet Take 1 tablet by mouth once daily. Take for a total of 225 mcg daily iv contrast (will be provided with radiology test) CT ABD/PEL -Inject, intravenously, once for 1 dose.No IV access, insert saline lock prior to the beginning of sedation, infusion, injection of imaging exam. Discontinue saline lock post exam. If Pt. has a central line or IVAD, may access for administration according to line specific nursing protocol. Once exam is complete flush line and de-access according to line specific nursing protocol in the CT contrast administration guidelines link. enteric contrast (will be provided with radiology test) For CT ABD/PEL W IVCON Routine order Administer, As Directed One Time Only, via Oral, Rectal, both Oral and Rectal, Enteric Tube, Stoma or Indwelling Catheter, Enteric Contrast as designated per enteric contrast guidelines ferrous sulfate (IRON ORAL) Take by mouth once daily. albuterol (PROVENTIL) 2.5 mg /3 mL (0.083 %) nebulizer solution Use 3 mL via nebulizer every 4 hours as needed for Wheezing/Shortness of Breath. Use over 5-15minutes. albuterol HFA (PROAIR HFA) 90 mcg/actuation inhaler Inhale 1-2 Puffs as instructed every 6 hours as needed. No current facility-administered medications on file prior to visit. ALLERGIES Allergen Reactions Penicillin G Rash Allergy as a child. 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 Past Surgical History: PAST SURGICAL HISTORY Procedure Laterality Date ANESTH, SECTION 01/14/2003 ANESTH, SECTION 02/14/1998 DELIVERY ONLY 1995 COLONOSCOPY 02/22/2021 EGD CYSTOSCOPY 03/12/2021 LAPAROSCOPY W TOTAL HYSTERECTOMY UTERUS 250 GM/< 03/12/2021 REMOVAL OF OVARY/TUBE(S) 03/12/2021 THYROIDECTOMY TOTAL/COMPLETE 2013 TUBAL LIGATION 2002 Family History: FAMILY HISTORY Problem Relation Age of Onset Heart Mother Hypertension Mother Alcohol/Drug Father Cancer Father pancreatic Heart Sister Hypertension Sister Alcohol/Drug Brother Cancer Maternal Grandmother Diabetes Paternal Grandmother Cancer Paternal Grandmother uterine vs ovarian, unsure Patient has a history of PTC, previously followed by Dr Forrester and Dr Luna. Now followed by Dr Corona. Here for my opinion regarding weight management. 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 Has a stressful job. Working more than 40 hours and sleep schedule is not regular. Moved to [place] 11 years ago and notes she is drinking energy drinks when she stays awake. She notes she is doing better with regular meals. Weight History:growing up, was thin, very fit. Walked everywhere, had regular meals and bedtime. Thin until 20's, gained a little bit of weight after hypothyroidism diagnosis, gained weight in grad school, lost most of the weight. Issues at onset of weight gain: Job change Last TSH was 4 - now on 225 mcg. Has trouble maintaining weight loss. Drinks sodas, monster, eats bread. Urine is cloudy and smells strange, no fevers. Diet History: Eat until Uncomfortable? occasionally Eat when not hungry? yes Continue to eat when full? Not often Is eating out of control? no Guilty regarding eating? Yes when drinks sugary drinks Eat quickly? no Binge eat? no Eat out 7 times per week - drive through drink place Regular Exercise? No Favorite exercise? na Access to Exercise? Yes Barriers to Exercise? no Target Weight : 231 pounds Motivation Level: ACTION REVIEW OF SYSTEMS REVIEW OF SYSTEMS Constitutional: Negative for: Night sweats and Recent weight change Skin: ENT: Eyes: Positive for: Visual disturbance Cardiovascul ar: Leg swellingChest pain Respiratory: Negative for: Difficulty breathing Gastrointestinal: Diarrheanausea Musculoskeletal: Positive for: Arthralgias Negative for: Myalgias Neurological: Negative for: Headaches and Dizziness Genitourinary: ASSESSMENT/PLAN: 1. Class 2 obesity due to excess calories with body mass index (BMI) of 37.0 to 37.9 in adult, unspecified whether serious comorbidity present - ICD9: 278.00, V85.37, ICD10: E66.09, Z68.37 Walk 10 000 steps in a day Check A1c today No family history of personal history of PTC, no history of pancreatitis. Start Mounjaro, side effects explained. Limit portion sizes. Sleep at least 6-7 hours Goal - 155 lbs. Willy Fitzpatrick MD documented in this encounter [facility] 05-30-2022 Instructions Julissa Modi MD - 05/30/2022 9:17 AM EST Increase levothyroxine to 225 mcg daily (two pills, 200 + 25 mcg daily) Take as far apart from food as you are able Labs get checked in 6 weeks Hold biotin for 1 week before labwork, as it does decrease your TSH We will release labs/US results over [place] Follow up in 6-12 months or sooner as needed Thank you for choosing the [facility] Department of Endocrinology, Diabetes and Metabolism. Did you know that you need to call 48 hours in advance of your scheduled visit, if you are unable to make your appointment? The Endocrinology and Metabolism [place] thanks you for your commitment, because patients not showing to their appointment results in a lost opportunity for patients to receive [facility] health care at the [facility]. To Cancel an appointment, please choose one of the following: - Call the Appointment Call Center at [phone] - From [employer], Go to Appointments - Cancel Appts If cancelling, consider your need to reschedule to prevent further delays in your care. To Schedule an appointment, please choose one of the following: - Call the Appointment Call Center at [phone] - From [employer], Go to Appointments - Request an Appt documented in this encounter [facility] 05-30-2022 History of Present illness Narrative ENDOCRINE THYROID EVALUATION Patient Name: Sarika Corona Date: May 29, 2022 3:54 PM Reason for consult: thyroid cancer Requesting Physician: SELF PCP is MD Santiago Caro [address] [place] [address] SUBJECTIVE HPI: Sarika Corona is a 51 year old female who presents as a new patient for post-surgical hypothyroidism and history of thyroid cancer Previously followed with Dr. Brown and Dr. Luna in 2018 Date diagnosed: 25 years ago with hypothyroidism. Thyroid nodule diagnosed in 2010-2 with FNA that was AUS. Didn't diagnose thyroid cancer until [address] Brown's note: Surgical pathology (May 04, 2014) showed tumor size of 2.5 cm, it extended to the inked margin with no evidence of extrathyroidal extension. There was no evidence of vascular or lymphatic invasion. Patient received radioactive iodine in 06/2014, at a dosage of 70 mci. Pre-treatment scan showed no residual tissue and distant mets. Post-treatment scan was not done. Are they on thyroid replacement hormone?: Yes Patient is not taking iron, calcium and/or multivitamin within 4 hours of the levothyroxin and patient is not missing any doses of levothyroxin Does not sleep a regular schedule, takes it at night before bed, but waits 2 hours between eating The current dose is 200 mcg/day. This dose has been used for approximately 2 years+. Prior missed doses (would miss one every 12 days or so) but doing better lately TSH this month 4.6 on 10K biotin, TSH goal had been lower limit of reference range (0.4-2.5) Risk factors for thyroid disease: -Family history of thyroid disease: Yes mom hypothyroidism, sister hypothyroidism. No other cancer -History of radiation to the neck: No Father chain-smoked and mold issues in the house, had a LOT of CXR Other: Patient does take biotin supplements, was not taking with latest bloodwork. The patient has not had exposure to IV contrast in the past 4 months. Untreated, undiagnosed sleep apnea with snoring and apneic episodes, seeing Dr. Garcia PCP in June. 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 REVIEW OF SYSTEMS General: +Poor energy, Weight has been gaining, and +cold Eyes: No bulging +Poor sleep Mouth: No hoarseness or difficulty speaking, no dry mouth Neck: No difficulty or pain with swallowing and no neck lumps Respiratory: No difficulty breathing, No SOB or cough Cardiovascular: No chest pain or palpitations Gastrointestinal: No diarrhea or constipation Neurological: No difficulties concentrating and no tremor Musculoskeletal: No joint pain or weakness Skin: No changes to skin Psych/Mood: mood stable Still having periods?: No - hysterectomy 02/2021 +Upper back lower neck pain +Stress MEDICAL HISTORY: 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 SURGICAL HISTORY: PAST SURGICAL HISTORY Procedure Laterality Date ANESTH, SECTION 01/14/2003 ANESTH, SECTION 02/14/1998 DELIVERY ONLY 1995 COLONOSCOPY 02/22/2021 EGD CYSTOSCOPY 03/12/2021 LAPAROSCOPY W TOTAL HYSTERECTOMY UTERUS 250 GM/< 03/12/2021 REMOVAL OF OVARY/TUBE(S) 03/12/2021 THYROIDECTOMY TOTAL/COMPLETE 2013 TUBAL LIGATION HX 2002 FAMILY HISTORY: Family History Problem Relation Age of Onset Heart Mother Hypertension Mother Alcohol/Drug Father Cancer Father pancreatic Heart Sister Hypertension Sister Alcohol/Drug Brother Cancer Maternal Grandmother Diabetes Paternal Grandmother Cancer Paternal Grandmother uterine vs ovarian, unsure SOCIAL HISTORY: Social History Tobacco Use Smoking status: Never Smokeless tobacco: Never Substance Use Topics Alcohol use: No Drug use: No Current Medications Current Outpatient Medications on File Prior to Visit Medication Sig iv contrast (will be provided with radiology test) CT ABD/PEL -Inject, intravenously, once for 1 dose.No IV access, insert saline lock prior to the beginning of sedation, infusion, injection of imaging exam. Discontinue saline lock post exam. If Pt. has a central line or IVAD, may access for administration according to line specific nursing protocol. Once exam is complete flush line and de-access according to line specific nursing protocol in the CT contrast administration guidelines link. enteric contrast (will be provided with radiology test) For CT ABD/PEL W IVCON Routine order Administer, As Directed One Time Only, via Oral, Rectal, both Oral and Rectal, Enteric Tube, Stoma or Indwelling Catheter, Enteric Contrast as designated per enteric contrast guidelines ferrous sulfate (IRON ORAL) Take by mouth once daily. (Patient not taking: Reported on 03/27/2021 ) levothyroxine (SYNTHROID) 200 mcg tablet TAKE 1 TABLET BY MOUTH EVERY DAY BEFORE BREAKFAST albuterol (PROVENTIL) 2.5 mg /3 mL (0.083 %) nebulizer solution Use 3 mL via nebulizer every 4 hours as needed for Wheezing/Shortness of Breath. Use over 5-15minutes. albuterol HFA (PROAIR HFA) 90 mcg/actuation inhaler Inhale 1-2 Puffs as instructed every 6 hours as needed. No current facility-administered medications on file prior to visit. PHYSICAL EXAMINATION: BP 131/73 Pulse 91 Ht 167.1 cm (5' 5.79) Wt 107 kg (236 lb) LMP 03/04/2021 (Approximate) BMI 38.34 kg/m General appearance: well appearing, alert, and in no acute distress Eyes: Anicteric sclera. Extraocular movements are intact. No proptosis Voice: normal Neck: no visible nodules or goiter, no bruit, no tenderness, and +LN right 5 Thyroid: surgically absent, well healed scar Heart: RRR with normal S1 and S2, no murmurs or gallops Lungs: clear to auscultation bilaterally, no wheezes Abdomen: Nontender, nondistended with normoactive bowel sounds Extremities: no cyanosis, normal nails, and No edema Neuro: Gait normal. No tremor. Strength and sensation grossly intact. Reflexes 1+ LABS: TSH Date Value Ref Range Status 03/09/2021 18.700 (H) 0.270 - 4.200 uU/mL Final Comment: If the patient is , TSH reference range varies by gestational period: First Trimester (weeks 9-12): 0.180-2.990 mcIU/mL Second Trimester: 0.110-3.980 mcIU/mL Third Trimester: 0.480-4.710 mcIU/mL Inderjit Agee et al. A Practical Approach for the Verifications and Determination of Site- and Trimester-Specific Reference Intervals for Thyroid Function tests in . Thyroid, 2019:29:3:412-420. Ward E, et al. 2017 Guidelines of the [place] [employer] for the Diagnosis and Management of Thyroid Disease during and the . Thyroid, 2017:27:3:315-389. May 20, 2022 1:45 pm Thyroid Stimulating Hormone (TSH) 4.64 uIU/mL 0.358-3.74 uIU/mL H May 20, 2022 1:45 pm Free Thyroxine 1.46 ng/dL 0.76-1.46 ng/dL Thyroid Ultrasound: US Neck POC 02/25/18 Regions examined: Thyroid bed, Lymphatic areas and Salivary glands Sagittal and transverse views were obtained. Color and power Doppler were applied when indicated. Thyroid bed was without residual tissue Submandibular, parotid and sublingual glands were of normal size and appearance Other findings: Lymph node 1: Side: Right Level: IIa, Measuring L 16.4 x W 10.6 x AP 7 mm. [place]: Dense, fatty; Vascular flow is limited to the hilum Lymph node 2: Side: Right Level: IIa, Measuring L 9.7 x W 10.5 x AP 4.9 mm. [place]: Dense, fatty; Vascular flow is absent Lymph node 3: Side: Right Level: IIb, Measuring L 21.9 x W 11.9 x AP 6.6 mm. [place]: Dense, fatty; Vascular flow is limited to the hilum Lymph node 4: Side: Right Level: III, Measuring L 11.5 x W 7.4 x AP 3.4 mm. [place]: Dense, fatty; Vascular flow is limited to the hilum Lymph node 5: Side: Left Level: IIa, Measuring L 13.4 x W 11.7 x AP 6.2 mm. [place]: Dense, fatty; Vascular flow is limited to the hilum Lymph node Chain (6 and 7): Side: Left Level: III, [address] LN 1. Measuring L 9.7 x W 6.9x AP 3.7 mm. Hilum: Thin; Vascular flow is absent 2. Measuring L 5.5 x W 7.3 x AP 3.3 mm. [place]: Thin; Vascular flow is absent Lymph node 6 (mislabeled 5): Side: Left Level: IV, Measuring L 12.7 x W 8.6 x AP 2.9 mm. Hilum: Dense, fatty; Vascular flow is limited to the hilum Impression: Benign appearing lymph nodes bilateral neck. No suspicion for thyroid bed or locoregional po recurrence. Cytology/Pathology: 04/29/14 Total thyroid, thyroidectomy: - Papillary thyroid carcinoma present in the left lobe (2.5 cm in greatest dimension). - Neoplasm extends to inked edge of specimen, but there is no evidence of extrathyroidal extension. - Intra-thyroidal thyroglossal duct cyst (1.0 cm in greatest dimension) present in the right lobe. - Right unremarkable parathyroid gland tissue. - Lymphocytic thyroiditis. JONATHON/patrice/05/03/2014 ASSESSMENT & PLAN Sarika Corona is a 51 year old female who presents for post-surgical hypothyroidism and history of thyroid cancer (2.5 cm PTC - T2(s)N0M0, Stage 1, MACIS 4, YARI/ALYSSA low risk) s/p thyroidectomy 2013 s/p 70mci MARIE 2014 We will perform our thyroid cancer surveillance and adjust as she is currently not receiving enough LT4 to properly suppress TSH to prevent recurrence Labs/studies: Obtain the following in 6 weeks -FT4, TSH with goal low-normal 0.5-2 -Tg and Tg ab ordered -US cervical LN mapping Treatment: -Increase levothyroxine 225 mcg daily, counseled on proper administration on an empty stomach (as her weight-based would be 170-175 mcg) Referral to sleep medicine and referral to endo weight management also have been ordered Follow up in 6 mos. I spent a total of 60 minutes on the date of the service which included preparing to see the patient, [id number] patient care, completing clinical documentation, obtaining and/or reviewing separately obtained history, performing a medically appropriate examination, and counseling and educating the patient/family/caregiver. Julissa Modi MD PGY-5 Endocrinology and Metabolism [place] Seen with attending, Dr. Gonzalez. Endocrine Staff Note: I personally interviewed and examined the patient independent of the fellow. I have reviewed the HPI, past medical surgical and family history, review of systems, as well as the assessment and plan as documented by the fellow. I agree with the plan as documented above. 51 year old F with a total thyroidectomy in 2013 for FNA nodule demonstrating AUS. Found to have 2.5 cm papillary thyroid carcinoma with involvement of margins but no ETE, vascular, perineural, or lymphatic invasion. No central or lateral neck dissection completed. No lymph nodes were sampled. She did receive MARIE given ALYSSA low risk of recurrence with TSH goal 0.5-2.0 - will keep closer to 0.5 if posssible Most recent TSH in May 2022 4.6 - patient taking levothyroxine 200 mcg 2 hours after eating. Weight based dosing LT4 is 171 mcg Instructed to take levothyroxine on empty stomach for 8 hours and wait 1 hr to eat or take any other medications. Any calcium, MVI, and iron should be taken 4 hours after LT4 ingestion Given TSH above goal - will increase to levothyroxine to 225 mcg once daily and repeat TFTs in 6 weeks. Tg-Tg-ab have been negative since [id number] - thyroid cancer recurrence makers have not been repeated since this time. Reviewed the risks of thyroid hormone over replacement with patient - atrial fib and osteoporosis Obtain TSH, Free T4, Tg by LCMS, and TG-Ab in 6 weeks. Obtain Thyroid US with cervical lymph node mapping now Referral placed to weight management per patient preference given her obesity. Referral sleep medicine placed given per patient preference given her apneic episodes when sleeping Heather Gonzalez MD documented in this encounter [facility] 10-22-2021 Instructions Bruno Jaimes - 10/22/2021 8:53 AM EDT Continue with surgical shoe Repeat xrays in 3 weeks documented in this encounter [facility] 10-22-2021 History of Present illness Narrative Images from the original note were not included. Consultation requested by Dr. grady for an opinion regarding fracture of left hallux. My final recommendations will be communicated back to the requesting physician by way of shared Medical record or letter to requesting physician via US mail. Initial Podiatric Office Visit: Chief Complaint: This 51 year old female who presents with chief complaint:fracture of left hallux HPI Patient presents to clinic for evaluation of left hallux. Patient states she dropped a bolowing ball on her left great toe last Friday. Patient presented to [facility] the next morning. She had xrays that confirmed fracture. She was placed in post-op shoe. Patient states the pain is mostly mild/dull ache. At times, the pain can increase with activity. She does have pnematic boot but that causes more pain that then surgical shoe. 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 iv contrast (will be provided with radiology test) CT ABD/PEL -Inject, intravenously, once for 1 dose.No IV access, insert saline lock prior to the beginning of sedation, infusion, injection of imaging exam. Discontinue saline lock post exam. If Pt. has a central line or IVAD, may access for administration according to line specific nursing protocol. Once exam is complete flush line and de-access according to line specific nursing protocol in the CT contrast administration guidelines link. enteric contrast (will be provided with radiology test) For CT ABD/PEL W IVCON Routine order Administer, As Directed One Time Only, via Oral, Rectal, both Oral and Rectal, Enteric Tube, Stoma or Indwelling Catheter, Enteric Contrast as designated per enteric contrast guidelines levothyroxine (SYNTHROID) 200 mcg tablet TAKE 1 TABLET BY MOUTH EVERY DAY BEFORE BREAKFAST albuterol (PROVENTIL) 2.5 mg /3 mL (0.083 %) nebulizer solution Use 3 mL via nebulizer every 4 hours as needed for Wheezing/Shortness of Breath. Use over 5-15minutes. albuterol HFA (PROAIR HFA) 90 mcg/actuation inhaler Inhale 1-2 Puffs as instructed every 6 hours as needed. ferrous sulfate (IRON ORAL) Take by mouth once daily. (Patient not taking: Reported on 03/27/2021 ) No current facility-administered medications for this visit. ALLERGIES Allergen Reactions Penicillin G Rash Allergy as a child. Quinine Anaphylaxis PAST SURGICAL HISTORY Procedure Laterality Date ANESTH, SECTION 01/14/2003 ANESTH, SECTION 02/14/1998 DELIVERY ONLY 1995 COLONOSCOPY 02/22/2021 EGD CYSTOSCOPY 03/12/2021 LAPAROSCOPY W TOTAL HYSTERECTOMY UTERUS 250 GM/< 03/12/2021 REMOVAL OF OVARY/TUBE(S) 03/12/2021 THYROIDECTOMY TOTAL/COMPLETE 2013 TUBAL LIGATION 2002 FAMILY HISTORY Problem Relation Age of Onset Heart Mother Hypertension Mother Alcohol/Drug Father Cancer Father pancreatic Heart Sister Hypertension Sister Alcohol/Drug Brother Cancer Maternal Grandmother Diabetes Paternal Grandmother Cancer Paternal Grandmother uterine vs ovarian, unsure Social History Tobacco Use Smoking status: Never Smoker Smokeless tobacco: Never Used Substance Use Topics Alcohol use: No Drug use: No REVIEW OF SYSTEMS GENERAL: Negative for Malaise, significant weight loss, fever RESPIRATORY: Negative for cough, wheezing and shortness of breath CARDIOVASCULAR: Negative for chest pain, leg swelling and palpitations GI: Negative for abdominal discomfort, blood in stools or black stools and change in bowel habits : Negative for dysuria, frequency and incontinence MUSCULOSKELETAL: Negative for joint pain or swelling, back pain, and muscle pain. SKIN: Negative for lesions, rash, and itching. HEMATOLOGY/LYMPHOLOGY Negative for prolonged bleeding, bruising easily, and swollen nodes. ENDOCRINE: Negative for cold or heat intolerance, polyuria, polydipsia and goiter. NEURO: negative Physical Exam: Constitutional: Pt is a well developed 51 year old female who is alert, oriented and cooperative Eyes: Following during examination. No redness or drainage. Respiratory: RR normal and nonlabored. Even breathing. No evidence of distress or shortness of breath. Psychology: Patient is engaged during conversation. Normal affect and mood. Does not appear depressed or anxious during encounter. Vascular: Dorsalis pedis and posterior tibial pulses palpable as b/l Capillary Fill time < 5 seconds to digits 1-5 b/l Skin temperature warm to warm proximal to distal b/l Hair growth present to digits Neurological: intact light touch/epicritic sensation b/l intact protective sensation no significant neurological deficits Dermatological: Left hallux nail plate appears intact without loosening or bleeding. Webspaces clean and dry 1-4 b/l. Skin appears well hydrated and supple. good color, texture, turgor. No open lesions present. 2 porokeratotic lesions noted to right foot. Musculoskeletal/Orthopaedic: Patient has pain to palpation of left hallux Foot type is neutral structurally AJ ROM is full with knee extended and flexed 1st MPJ is full when loaded and no pain or crepitus are noted with ROM. MTJ, STJ are full and free of pain and crepitus. +5/5 muscle strength dorsiflexion, plantarflexion, inversion, eversion b/l Radiographs: 3 views left great toe reviewed October 22, 2021: I have personally reviewed and interpreted these XR myself: Nondisplaced fracture of left hallux distal phalanx. ASSESSMENT: (S98.755A) Closed nondisplaced fracture of distal phalanx of lesser toe of left foot, initial encounter (primary encounter diagnosis) porokeratosis PLAN: 1. History and physical examination performed. 2. XR reviewed with patient and interpreted today 3. Discussed fracture of left hallux distal phalanx. There is no displacement. Recommend firm sole surgical shoe. Will repeat xrays in 3 weeks. 4. Discussed nail of left hallux. There is no evidence of any trauma. Discussed risk of future nail deformity. 5. Discussed two porokeratotic lesion of right foot. No evidence of wart. Offered debridement. Patient declined. She can use pummice stone as needed 6. Will call with results of xray in 3 weeks. Bruno Jaimes DPM Podiatry [address] [facility] [address] Dept: [phone] Dept AMB ROOMING INTAKE FLOWSHEET DATA Pain Pain Level: 4 Pain Location: Toe Description: Dull Duration Amount of Time: 5 Duration Units: Days Frequency: Continuous Intervention/Comfort measure: Reposition, Relaxation, Other: See comment (post op shoe) Patient presents with: Left Great Toe - New Patient, Fracture Patient is here to follow up from Urgent Care. Dropped bowling ball on toe on 10/17. Had XR done at and was placed in post op shoe. Patient has boot at home but states it hurts her toe more to wear the boot. Takes Tylenol PRN for pain. documented in this encounter [facility] 10-18-2021 Miscellaneous Notes Addended by: RAEGAN GRADY on: 10/18/2021 02:52 PM Modules accepted: Orders documented in this encounter [facility] 10-18-2021 History of Present illness Narrative Images from the original note were not included. Subjective HPI HPI Sarika Corona is a 51 year old female who presents today for CC of left great toe injury, dropped bowling ball on it last night. Has tried otc medication for relief. Symptoms are worsened by rom/touching it. Denies numbness/tingling of left great toe. 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 PAST SURGICAL HISTORY Procedure Laterality Date ANESTH, SECTION 01/14/2003 ANESTH, SECTION 02/14/1998 DELIVERY ONLY 1995 COLONOSCOPY 02/22/2021 EGD CYSTOSCOPY 03/12/2021 LAPAROSCOPY W TOTAL HYSTERECTOMY UTERUS 250 GM/< 03/12/2021 REMOVAL OF OVARY/TUBE(S) 03/12/2021 THYROIDECTOMY TOTAL/COMPLETE 2013 TUBAL LIGATION 2002 ALLERGIES Penicillin G and Quinine MEDICATIONS levothyroxine (SYNTHROID) 200 mcg tablet TAKE 1 TABLET BY MOUTH EVERY DAY BEFORE BREAKFAST albuterol (PROVENTIL) 2.5 mg /3 mL (0.083 %) nebulizer solution Use 3 mL via nebulizer every 4 hours as needed for Wheezing/Shortness of Breath. Use over 5-15minutes. albuterol HFA (PROAIR HFA) 90 mcg/actuation inhaler Inhale 1-2 Puffs as instructed every 6 hours as needed. iv contrast (will be provided with radiology test) CT ABD/PEL -Inject, intravenously, once for 1 dose.No IV access, insert saline lock prior to the beginning of sedation, infusion, injection of imaging exam. Discontinue saline lock post exam. If Pt. has a central line or IVAD, may access for administration according to line specific nursing protocol. Once exam is complete flush line and de-access according to line specific nursing protocol in the CT contrast administration guidelines link. enteric contrast (will be provided with radiology test) For CT ABD/PEL W IVCON Routine order Administer, As Directed One Time Only, via Oral, Rectal, both Oral and Rectal, Enteric Tube, Stoma or Indwelling Catheter, Enteric Contrast as designated per enteric contrast guidelines ferrous sulfate (IRON ORAL) Take by mouth once daily. FAMILY HISTORY Problem Relation Age of Onset Heart Mother Hypertension Mother Alcohol/Drug Father Cancer Father pancreatic Heart Sister Hypertension Sister Alcohol/Drug Brother Cancer Maternal Grandmother Diabetes Paternal Grandmother Cancer Paternal Grandmother uterine vs ovarian, unsure Social History Tobacco Use Smoking status: Never Smoker Smokeless tobacco: Never Used Substance Use Topics Alcohol use: No Drug use: No ROS Objective Blood pressure 136/88, pulse 88, temperature 36.8 C (98.2 F), resp. rate 20, weight 103 kg (227 lb), last menstrual period 03/04/2021, SpO2 98 %. Physical Exam Constitutional: General: She is not in acute distress. Appearance: She is not toxic-appearing or diaphoretic. HENT: Head: Normocephalic and atraumatic. Pulmonary: Effort: Pulmonary effort is normal. No accessory muscle usage or respiratory distress. Musculoskeletal: Feet: Neurological: Mental Status: She is alert and oriented to person, place, and time. ASSESSMENT/PLAN: 1. Nondisplaced fracture of distal phalanx of left great toe, initial encounter for closed fracture - ICD9: 826.0, ICD10: S92.425A (primary diagnosis) Pain relief discussed Post op shoe provided Declined walking boot Podiatry consult - CONSULT TO PODIATRY 2. Toe injury, left, initial encounter - ICD9: 959.7, ICD10: S99.922A As above. - XR TOE AP/LAT/OBL LEFT Impression IMPRESSION: Nondisplaced fracture through the tuft of the distal phalanx of the great toe. Dictated by : JOSE JUAN CELESTIN MD Agrees to plan Raegan Grady APRN.MOBILITY ARCHITECT MANAGER documented in this encounter [facility] Evaluation note Diagnosis Nondisplaced fracture of distal phalanx of left great toe, initial encounter for closed fracture- Primary Toe injury, left, initial encounter [facility] Diagnosis Closed nondisplaced fracture of distal phalanx of lesser toe of left foot, initial encounter- Primary [facility] Diagnosis Papillary thyroid carcinoma (HCC)- Primary Malignant neoplasm of thyroid gland S/P total thyroidectomy Other postprocedural status Elevated TSH Nonspecific abnormal results of thyroid function study Post-operative hypothyroidism Postsurgical hypothyroidism Witnessed apneic spells Apnea Class 2 obesity due to excess calories with body mass index (BMI) of 37.0 to 37.9 in adult, unspecified whether serious comorbidity present documented in this encounter [facility] noteNo assessment information availableWGrand Lake [facility] Work Phone: Evaluation note* Diagnosis Class 2 obesity due to excess calories with body mass index (BMI) of 37.0 to 37.9 in adult, unspecified whether serious comorbidity present documented in this encounter [facility] note* Diagnosis Papillary thyroid carcinoma (HCC)- Primary Malignant neoplasm of thyroid gland documented in this encounter [facility] note* Diagnosis Papillary thyroid carcinoma (HCC)- Primary Malignant neoplasm of thyroid gland [facility] Diagnosis Witnessed apneic spells- Primary Apnea documented in this encounter [facility] note* Diagnosis Vitamin D deficiency Unspecified vitamin D deficiency documented in this encounter [facility] note* Diagnosis ONEIDA (obstructive sleep apnea)- Primary Obstructive sleep apnea (adult) (pediatric) Restless legs Restless legs syndrome (RLS) documented in this encounter [facility] note* Diagnosis Nausea- Primary Nausea alone Bloating Flatulence, eructation, and gas pain Change in bowel habits Other symptoms involving digestive system documented in this encounter [facility] note* Diagnosis Acute vulvitis- Primary Vaginitis and vulvovaginitis, unspecified documented in this encounter [facility] note* Diagnosis Abdominal pressure Abdominal pain, unspecified site Pain with bowel movements Unspecified constipation History of hysterectomy Acquired absence of both cervix and uterus History of uterine fibroid Personal history of other genital system and obstetric disorders Urine retention Retention of urine, unspecified Bowel movement symptom Other symptoms involving digestive system Hernia Hernia of unspecified site of abdominal cavity without mention of obstruction or gangrene Belching Flatulence, eructation, and gas pain Bronchiectasis without complication (HCC) Bronchiectasis without acute exacerbation Chronic coughing Cough Mild intermittent asthma without complication Unspecified asthma [facility]* Diagnosis Bronchiectasis without complication (HCC) Bronchiectasis without acute exacerbation Chronic coughing Cough Mild intermittent asthma without complication Unspecified asthma Chronic cough Cough Abdominal pressure Abdominal pain, unspecified site Pain with bowel movements Unspecified constipation History of hysterectomy Acquired absence of both cervix and uterus History of uterine fibroid Personal history of other genital system and obstetric disorders Urine retention Retention of urine, unspecified Bowel movement symptom Other symptoms involving digestive system Hernia Hernia of unspecified site of abdominal cavity without mention of obstruction or gangrene Belching Flatulence, eructation, and gas pain [facility] Diagnosis Well adult exam- Primary Routine general medical examination at a health care facility Vitamin D deficiency Unspecified vitamin D deficiency Post-operative hypothyroidism Postsurgical hypothyroidism [facility] Diagnosis Postoperative hypothyroidism- Primary Postsurgical hypothyroidism Elevated fasting glucose Impaired fasting glucose Acute pain of both knees Mild intermittent asthma without complication Unspecified asthma Primary hypertension Unspecified essential hypertension Class 2 severe obesity due to excess calories with serious comorbidity and body mass index (BMI) of 39.0 to 39.9 in adult ([facility]) Prediabetes Other abnormal glucose [facility]* Diagnosis Class 2 severe obesity due to excess calories with serious comorbidity and body mass index (BMI) of 39.0 to 39.9 in adult (HCC) Prediabetes Other abnormal glucose [facility]* Diagnosis ONEIDA (obstructive sleep apnea)- Primary Obstructive sleep apnea (adult) (pediatric) Pedal edema Edema Venous insufficiency Unspecified venous (peripheral) insufficiency Bloating Flatulence, eructation, and gas pain Belching Flatulence, eructation, and gas pain Bronchiectasis without complication (HCC) Bronchiectasis without acute exacerbation [facility]* Diagnosis Bloating- Primary Flatulence, eructation, and gas pain Belching Flatulence, eructation, and gas pain Constipation, unspecified constipation type Diarrhea, unspecified type [facility]* Diagnosis Right knee pain, unspecified chronicity- Primary [facility]* Diagnosis Primary osteoarthritis of both knees- Primary Primary localized osteoarthrosis, lower leg Acute pain of both knees Lateral epicondylitis of right elbow Lateral epicondylitis of elbow [facility]* Diagnosis Right knee pain, unspecified chronicity [facility] Diagnosis Bronchiectasis without acute exacerbation (HCC)- Primary Bronchiectasis without acute exacerbation [facility]* Diagnosis Bronchiectasis, uncomplicated (HCC)- Primary ONEIDA (obstructive sleep apnea) Obstructive sleep apnea (adult) (pediatric) Mild intermittent asthma without complication Unspecified asthma [facility]* Diagnosis Chronic pain of right knee- Primary Difficulty in walking Class 3 severe obesity due to excess calories with serious comorbidity and body mass index (BMI) of 40.0 to 44.9 in adult ([facility]) [facility]* Diagnosis Bloating Flatulence, eructation, and gas pain Belching Flatulence, eructation, and gas pain [facility] Diagnosis Belching- Primary Flatulence, eructation, and gas pain Bloating Flatulence, eructation, and gas pain [facility]* Diagnosis Belching Flatulence, eructation, and gas pain Bloating Flatulence, eructation, and gas pain [facility]* Diagnosis Bloating- Primary Flatulence, eructation, and gas pain documented [facility]* Diagnosis Primary osteoarthritis of left knee- Primary Primary localized osteoarthrosis, lower leg Primary osteoarthritis of both knees Primary localized osteoarthrosis, lower leg [facility]* Diagnosis Chronic pain of left knee- Primary Pain in joint, lower leg Chronic pain of right knee Difficulty in walking documented [facility]* Diagnosis Change in bowel habits Other symptoms involving digestive system Nausea Nausea alone Bloating Flatulence, eructation, and gas pain documented [facility]* Diagnosis Papillary thyroid carcinoma ([facility]) Malignant neoplasm of thyroid gland documented [facility]* Diagnosis Chronic pain of left knee- Primary Pain in joint, lower leg Chronic pain of right knee Difficulty in walking documented [facility]* Diagnosis Chronic pain of left knee- Primary Pain in joint, lower leg Chronic pain of right knee Difficulty in walking documented [facility]* Diagnosis Sinobronchitis- Primary Unspecified sinusitis (chronic) Acute cough Mild intermittent asthma with acute exacerbation Unspecified asthma, with exacerbation Acute cough [facility]* Diagnosis Acute cough [facility]* Diagnosis Encounter for screening mammogram for breast cancer documented [facility]* Diagnosis Prediabetes- Primary Other abnormal glucose Postoperative hypothyroidism Postsurgical hypothyroidism Well adult exam Routine general medical examination at a health care facility [facility] Diagnosis Skin lesion of hand- Primary Unspecified disorder of skin and subcutaneous tissue Class 2 severe obesity with serious comorbidity and body mass index (BMI) of 38.0 to 38.9 in adult, unspecified obesity type (HCC) Prediabetes Other abnormal glucose Chronic pain of left knee Pain in joint, lower leg [facility] Diagnosis Benign nevus- Primary Benign neoplasm of skin, site unspecified [facility] Diagnosis Primary hypertension Unspecified essential hypertension [facility] Diagnosis Primary hypertension Unspecified essential hypertension [facility] Diagnosis Well adult exam- Primary Routine general medical examination at a health care facility Chronic pain of both knees ONEIDA (obstructive sleep apnea) Obstructive sleep apnea (adult) (pediatric) Chronic pain of left knee Pain in joint, lower leg Postoperative hypothyroidism Postsurgical hypothyroidism Primary hypertension Unspecified essential hypertension Belching Flatulence, eructation, and gas pain Mild intermittent asthma without complication (HCC) Unspecified asthma Encounter for screening examination for other mental health and behavioral disorders Screening examination for STI Encounter for screening for HIV Encounter for hepatitis C screening test for low risk patient Screening for depression Need for vaccination Need for prophylactic vaccination and inoculation against unspecified single disease Tinea corporis Dermatophytosis of the body [facility] Diagnosis Chronic pain of left knee Pain in joint, lower leg [facility] Diagnosis Chronic pain of left knee Pain in joint, lower leg [facility] Diagnosis ONEIDA (obstructive sleep apnea) Obstructive sleep apnea (adult) (pediatric) [facility] Diagnosis ONEIDA (obstructive sleep apnea)- Primary Obstructive sleep apnea (adult) (pediatric) Drug-induced constipation Other constipation Class 1 obesity due to excess calories with serious comorbidity and body mass index (BMI) of 34.0 to 34.9 in adult Bloating Flatulence, eructation, and gas pain Chronic pain of left knee Pain in joint, lower leg [facility] Diagnosis Encounter for screening mammogram for breast cancer documented in this encounter [facility] for referral (narrative)* Diagnostic Procedure Only (Routine) - Pending Review Specialty Diagnoses / Procedures Referred By Contac t Referred To Contact XR IMAGING Diagnoses Closed nondisplaced fracture of distal phalanx of lesser toe of left foot, initial encounter Procedures XR TOE AP/LAT/OBL LEFT RADEX TOE MINIMUM 2 VIEWS Bruno Jaimes [address] [place] [address] Xr Imaging Referral ID Status Reason Start Date Expiration Date Visits Requested Visits Authorized [id number] Pending Review Auto-Generat ed Referral 11/12/2021 11/21/2022 1 1 [facility] for referral (narrative)* Diagnostic Procedure Only (Routine) - Pending Review Specialty Diagnoses / Procedures Referred By Contac t Referred To Contact US IMAGING Diagnoses Papillary thyroid carcinoma (HCC) Procedures US CERVICAL LYMPH NODE MAPPING US SOFT TISSUE HEAD & N[place] [address] [place] [id number] [facility] Referral ID Status Reason Start Date Expiration Date Visits Requested Visits Authorized [id number] Pending Review Auto-Generat ed Referral 2 06/29/2023 1 1 * Consult, Test, Treat (Routine) - Authorized Specialty Diagnoses / Procedures Referred By Contac t Referred To Contact Diagnoses Class 2 obesity due to excess calories with body mass index (BMI) of 37.0 to 37.9 in adult, unspecified whether serious comorbidity present Procedures ENDOCRINE MEDICAL WEIGHT MANAGEMENT OFFICE/OUTPATIENT NEW HIGH MDM 60-[place] [address] [place] [address] Referral ID Status Reason Start Date Expiration Date Visits Requested Visits Authorized [id number] Authorized PCP Requested Referral 2 05/30/2023 1 1 * Consult, Test, Treat (Routine) - Authorized Specialty Diagnoses / Procedures Referred By Patienceac t Referred To Contact Diagnoses Witnessed apneic spells Procedures CONSULT TO SLEEP MEDICINE - ADULT OFFICE/OUTPATIENT [facility] MDM 60-[place] [address] [place] [id number] Referral ID Status Reason Start Date Expiration Date Visits Requested Visits Authorized [id number] Authorized PCP Requested Referral 2 05/30/2023 1 1 [facility] for referral (narrative)* Diagnostic Procedure Only (Routine) - Pending Review Specialty Diagnoses / Procedures Referred By Stuart ashford Referred To Contact US IMAGING Diagnoses Papillary thyroid carcinoma (HCC) Procedures US CERVICAL LYMPH NODE MAPPING US SOFT TISSUE HEAD & NECK [place] [address] [place] [address] Us Imaging Referral ID Status Reason Start Date Expiration Date Visits Requested Visits Authorized [id number] Pending Review Auto-Generat ed Referral 08/29/2022 09/28/2023 1 1 [facility] for referral (narrative)* Outpatient Procedure (Routine) - Authorized Specialty Diagnoses / Procedures Referred By Stuart ashford Referred To Contact ENDOSCOPY Diagnoses Nausea Bloating Change in bowel habit Procedures EGD DIAGNOSTIC EGD DIAGNOSTIC ESOPHAGOGASTRODUODENOSCOPY TRANSORAL DIAGNOSTIC COLONOSCOPY FLX DX W/COLLJ SPEC WHEN PFRMD Jocy Reese PA-C [address] [address] [facility] [id number] [place] [address] Referral ID Status Reason Start Date Expiration Date Visits Requested Visits Authorized [id number] Authorized Auto-Generat ed Referral 12/10/2022 01/09/2023 1 1 * Outpatient Procedure (Routine) - Closed Specialty Diagnoses / Procedures Referred By Contac t Referred To Contact [facility] Diagnoses Change in bowel habits Procedures COLONOSCOPY DIAGNOSTIC COLONOSCOPY DIAGNOSTIC COLONOSCOPY FLX DX W/COLLJ SPEC WHEN PFRMD Jocy Reese PA-C [address] [facility] [address] [place] [address] [facility] [address] [place] [address] Referral ID Status Reason Start Date Expiration Date V isits Requested Visits Authorized [id number] Closed Auto-Generate d Referral 12/10/2022 12/11/2023 1 1 * Diagnostic Procedure Only (Routine) - Pending Review Specialty Diagnoses / Procedures Referred By Contac t Referred To Contact MOLECULAR & FUNCTIONAL IMAGING Diagnoses Nausea Procedures NM GASTRIC EMPTYING SOLID GASTRIC EMPTYING STUDY Jocy Reese PA-C [address] [address] [facility] [address] [place] [id number] Referral ID Status Reason Start Date Expiration Date Visits Requested Visits Authorized [id number] Pending Review Auto-Generat ed Referral 12/10/2022 01/09/2024 1 1 [facility] for referral (narrative)* Outpatient Procedure (Routine) - Pending Review Specialty Diagnoses / Procedures Referred By Contac t Referred To Contact [facility] Diagnoses Bloating Belching Procedures BREATH TEST GLUCOSE BREATH HYDROGEN/METHANE TEST Ana Triana PA-C [address] [facility] [address] [place] [address] [facility] [place] [address] [place] [address] Referral ID Status Reason Start Date Expiration Date Visits Requested Visits Authorized [id number] Pending Review Auto-Generat ed Referral 10/08/2023 10/07/2024 1 1 [facility] for referral (narrative)* Diagnostic Procedure Only (Routine) - Authorized Specialty Diagnoses / Procedures Referred By Stuart t Referred To Contact XR IMAGING Diagnoses Right knee pain, unspecified chronicity Procedures XR KNEE GENERAL 4V AP BOTH/PA BOTH/LAT/MERC RIGHT RADIOLOGIC EXAM KNEE COMPLETE 4/MORE VIEWS Jimmy Mason PA-C [address] [facility] [address] [place] [address] [place] [address] Referral ID Status Reason Start Date Expiration Date Visits Requested Visits Authorized [id number] Authorized Auto-Generat ed Referral 10/17/2023 11/15/2024 1 1 [facility] for referral (narrative)* Outpatient Procedure (Routine) - Pending Review Specialty Diagnoses / Procedures Referred By Stuart ashford Referred To Contact [facility] Diagnoses Belching Bloating Procedures BREATH TEST GLUCOSE BREATH HYDROGEN/METHANE TEST Maryse Macedo MD [address] [place] [address] [facility] [place] [facility] [place] [address] Referral ID Status Reason Start Date Expiration Date Visits Requested Visits Authorized [id number] Pending Review Auto-Generat ed Referral 11/17/2023 11/16/2024 1 1 [facility] for referral (narrative)* Outpatient Procedure (Routine) - Closed Specialty Diagnoses / Procedures Referred By Contania t Referred To Contact ENDOSCOPY Diagnoses Nausea Bloating Change in bowel habit Procedures EGD DIAGNOSTIC EGD DIAGNOSTIC ESOPHAGOGASTRODUODENOSCOPY TRANSORAL DIAGNOSTIC COLONOSCOPY FLX DX W/COLLJ SPEC WHEN PFRMD Jocy Reese PA-C 1 [facility] [address] [place] [address] [facility] [address] [place] [address] Referral ID Status Reason Start Date Expiration Date V isits Requested Visits Authorized [id number] Closed Auto-Generate d Referral 12/10/2022 01/09/2023 1 1 * Outpatient Procedure (Routine) - Closed Specialty Diagnoses / Procedures Referred By Contac t Referred To Contact [facility] Diagnoses Change in bowel habits Procedures COLONOSCOPY DIAGNOSTIC COLONOSCOPY DIAGNOSTIC COLONOSCOPY FLX DX W/COLLJ SPEC WHEN PFRMD Jocy Reese PA-C 1 [facility] [address] [place] [address] [facility] [place] [address] [place] [address] Referral ID Status Reason Start Date Expiration Date V isits Requested Visits Authorized [id number] Closed Auto-Generate d Referral 12/10/2022 12/11/2023 1 1 [facility] for referral (narrative)* Diagnostic Procedure Only (Routine) - Closed Specialty Diagnoses / Procedures Referred By Contac t Referred To Contact US IMAGING Diagnoses Papillary thyroid carcinoma (HCC) Procedures US CERVICAL LYMPH NODE MAPPING US SOFT TISSUE HEAD & [place] [address] [place] [address] Us Imaging [facility] Referral ID Status Reason Start Date Expiration Date V isits Requested Visits Authorized [id number] Closed Auto-Generate d Referral 08/29/2022 09/28/2023 1 1 [facility] for referral (narrative)* Diagnostic Procedure Only (Routine) - New Request Specialty Diagnoses / Procedures Referred By Contac t Referred To Contact BR IMAGING Diagnoses Encounter for screening mammogram for breast cancer Procedures VICTORIANO SCREENING W CHAMP SCREENING DIGITAL BREAST TOMOSYNTHESIS BI SCREENING MAMMOGRAPHY BI 2-VIEW BREAST INC Carmen Hamm APRN.MOBILITY ARCHITECT MANAGER [address] [facility] [address] [place] [address] [facility] [address] [place] [address] Referral ID Status Reason Start Date Expiration Date Visits Requested Visits Authorized [id number] New Request Auto-Generat ed Referral 06/03/2025 1 1 [facility] for visit Narrative* Diagnostic Procedure Only (Routine) - Closed Specialty Diagnoses / Procedures Referred By Contac t Referred To Contact XR IMAGING Diagnoses Right knee pain, unspecified chronicity Procedures XR KNEE GENERAL 4V AP BOTH/PA BOTH/LAT/MERC RIGHT RADIOLOGIC EXAM KNEE COMPLETE 4/MORE VIEWS Jimmy Mason PA-C [address] [facility] [address] [place] [address] [place] [address] Referral ID Status Reason Start Date Expiration Date V isits Requested Visits Authorized [id number] Closed Auto-Generate d Referral 10/17/2023 11/15/2024 1 1 [facility] for visit Narrative* Outpatient Procedure (Routine) - Closed Specialty Diagnoses / Procedures Referred By Contac t Referred To Contact ENDOSCOPY Diagnoses Nausea Bloating Change in bowel habit Procedures EGD DIAGNOSTIC EGD DIAGNOSTIC ESOPHAGOGASTRODUODENOSCOPY TRANSORAL DIAGNOSTIC COLONOSCOPY FLX DX W/COLLJ SPEC WHEN PFRMD Jocy Reese PA-C 1 [facility] [address] [place] [address] [facility] [id number] [place] [address] Referral ID Status Reason Start Date Expiration Date V isits Requested Visits Authorized [id number] Closed Auto-Generate d Referral 12/10/2022 01/09/2023 1 1 [facility] for visit Narrative* Diagnostic Procedure Only (Routine) - Closed Specialty Diagnoses / Procedures Referred By Contac t Referred To Contact BR IMAGING Diagnoses Encounter for screening mammogram for malignant neoplasm of breast Procedures VICTORIANO SCREENING W CHAMP SCREENING DIGITAL BREAST TOMOSYNTHESIS BI SCREENING MAMMOGRAPHY BI 2-VIEW BREAST INC Carmen Hamm APRN.CNP [address] [facility] [address] [place] [address] [facility] [address] [place] [address] Referral ID Status Reason Start Date Expiration Date V isits Requested Visits Authorized [id number] Closed Auto-Generate d Referral 08/28/2022 09/27/2023 1 1 [facility] for visit Narrative* Diagnostic Procedure Only (Routine) - Closed Specialty Diagnoses / Procedures Referred By Contac t Referred To Contact US IMAGING Diagnoses Papillary thyroid carcinoma (HCC) Procedures US CERVICAL LYMPH NODE MAPPING US SOFT TISSUE HEAD & [place] [address] [place] [address] [place] [address] Referral ID Status Reason Start Date Expiration Date V isits Requested Visits Authorized [id number] Closed Auto-Generate d Referral 08/29/2022 09/28/2023 1 1 [facility] for visit Narrative* Diagnostic Procedure Only (Urgent) - Closed Specialty Diagnoses / Procedures Referred By Contac t Referred To Contact XR IMAGING Diagnoses Toe injury, left, initial encounter Procedures XR TOE AP/LAT/OBL LEFT RADEX TOE MINIMUM 2 VIEWS Raegan Grady APRN.MOBILITY ARCHITECT MANAGER [address] [place] [address] [place] [address] Referral ID Status Reason Start Date Expiration Date V isits Requested Visits Authorized [id number] Closed Auto-Generate d Referral 10/18/2021 11/17/2022 1 1 [facility] for visit Narrative* Diagnostic Procedure Only (Routine) - Closed Specialty Diagnoses / Procedures Referred By Contac t Referred To Contact XR IMAGING Diagnoses Chronic pain of left knee Procedures XR KNEE GENERAL 4V AP BOTH/PA BOTH/LAT/MERC LEFT RADIOLOGIC EXAM KNEE COMPLETE 4/MORE VIEWS Washington Carreon DO [address] [facility], [address] [place] [address] Phone: tel: fax: [place] [address] Referral ID Status Reason Start Date Expiration Date V isits Requested Visits Authorized [id number] Closed Auto-Generate d Referral 08/19/2024 09/18/2025 1 1 [facility] Diagnostic Procedure Only (Routine) - Closed Specialty Diagnoses / Procedures Referred By Contac t Referred To Contact BR IMAGING Diagnoses Encounter for screening mammogram for breast cancer Procedures VICTORIANO SCREENING W CHAMP SCREENING DIGITAL BREAST TOMOSYNTHESIS BI SCREENING MAMMOGRAPHY BI 2-VIEW BREAST INC CAD Carmen Messina, [employer] INSPECTOR.MOBILITY ARCHITECT MANAGER [address] [facility] [place] [address] Phone: tel: fax: BR IMAGING [address] [address] Referral ID Status Reason Start Date Expiration Date V isits Requested Visits Authorized [id number] Closed Auto-Generate d Referral 05/04/2024 06/03/2025 1 1 [facility] Reason for Referral Specialty Diagnoses / Procedures Referred By Contac t Referred To Contact Podiatry Diagnoses Nondisplaced fracture of distal phalanx of left great toe, initial encounter for closed fracture Procedures CONSULT TO PODIATRY OFFICE/OUTPATIENT [facility] 60-74 MINUTES Raegan Grady, [employer] GOODS INSPECTOR.MOBILITY ARCHITECT MANAGER [address] [place] [address] Referral ID Status Reason Start Date Expiration Date Visits Requested Visits Authorized [id number] Authorized PCP Requested Referral 10/18/2021 10/18/2022 1 1 Specialty Diagnoses / Procedures Referred By Contac t Referred To Contact XR IMAGING Diagnoses Toe injury, left, initial encounter Procedures XR TOE AP/LAT/OBL LEFT RADEX TOE MINIMUM 2 VIEWS Raegan Grady, [employer] INSPECTOR.MOBILITY ARCHITECT MANAGER [address] [place] [address] Xr Imaging Referral ID Status Reason Start Date Expiration Date V isits Requested Visits Authorized [id number] Closed Auto-Generate d Referral 10/18/2021 11/17/2022 1 1 Specialty Diagnoses / Procedures Referred By Contac t Referred To Contact Willy Fitzpatrick MD [address] [place] [address] Referral ID Status Reason Start Date Expiration Date Visits Re quested Visits Authorized [id number] Denied 1 1 Specialty Diagnoses / Procedures Referred By Contac t Referred To Contact CT IMAGING Diagnoses Abdominal pressure Pain with bowel movements History of hysterectomy History of uterine fibroid Urine retention Bowel movement symptom Hernia Belching Procedures CT ABD/PEL W IVCON CT ABD & PELVIS W/CONTRAST Carmen Messina, BOBY.[facility] [address] [address] [address] Imaging [facility] Referral ID Status Reason Start Date Expiration Date V isits Requested Visits Authorized [id number] Closed Auto-Generate d Referral 11/05/2022 11/05/2022 2 2 Specialty Diagnoses / Procedures Referred By Contac t Referred To Contact CT IMAGING Diagnoses Bronchiectasis without complication (HCC) Chronic coughing Mild intermittent asthma without complication Chronic cough Procedures CT CHEST WO IVCON DIAGNOSTIC COMPUTED TOMOGRAPHY THORAX W/O CNTRST Carmen Messina, BOBY.[address] [address] [address] Imaging [facility]95 Referral ID Status Reason Start Date Expiration Date V isits Requested Visits Authorized [id number] Closed Auto-Generate d Referral 11/05/2022 11/05/2022 1 1 Specialty Diagnoses / Procedures Referred By Contac t Referred To Contact Diagnoses Class 2 severe obesity due to excess calories with serious comorbidity and body mass index (BMI) of 39.0 to 39.9 in adult (HCC) Prediabetes Carmen Messina APRN.[address] [address] Referral ID Status Reason Start Date Expiration Date V isits Requested Visits Authorized [id number] Pending Review 1 1 Specialty Diagnoses / Procedures Referred By Contac t Referred To Contact Orthopedics Diagnoses Acute pain of both knees Procedures CONSULT TO ORTHOPAEDICS OFFICE/OUTPATIENT [facility] 60 MINUTES Carmen Messina APRN.[facility] [address] [place] [id number] Referral ID Status Reason Start Date Expiration Date Visits Requested Visits Authorized [id number] Authorized PCP Requested Referral 08/25/2023 08/24/2024 1 1 Specialty Diagnoses / Procedures Referred By Contac t Referred To Contact XR IMAGING Diagnoses Acute pain of both knees Procedures XR KNEE 3V FLEX/LAT/MERCH RIGHT (AK) Carmen Messina APRN.[facility] [address] [place] [address], [address] [address] [place] [address] Referral ID Status Reason Start Date Expiration Date Visits Requested Visits Authorized [id number] Pending Review Auto-Generat ed Referral 08/25/2023 09/23/2024 1 1 Specialty Diagnoses / Procedures Referred By Contac t Referred To Contact Diagnoses ONEIDA (obstructive sleep apnea) Bronchiectasis without complication (HCC) Procedures CONSULT TO PULMONARY MEDICINE Carmen Messina APRN.[address] [address] Referral ID Status Reason Start Date Expiration Date Visits Requested Visits Authorized [id number] Ref Not Required PCP Requested Referral 09/29/2023 12/28/2023 1 1 Specialty Diagnoses / Procedures Referred By Contac t Referred To Contact Gastroenterology Diagnoses Bloating Belching Procedures CONSULT TO GASTROENTEROLOGY OFFICE/OUTPATIENT [facility] 60 MINUTES Carmen Messina APRN.[address] [address] Referral ID Status Reason Start Date Expiration Date Visits Requested Visits Authorized [id number] Authorized PCP Requested Referral 09/29/2023 09/28/2024 1 1 Specialty Diagnoses / Procedures Referred By Contac t Referred To Contact MR IMAGING Diagnoses Chronic pain of right knee Difficulty in walking Procedures MRI KNEE WO IVCON RIGHT MRI ANY JT LOWER EXTREM W/O CONTRAST MATRL Carmen Messina APRN.[place] [address] [address] [facility], [address] [address] [place] [address] Referral ID Status Reason Start Date Expiration Date Visits Requested Visits Authorized [id number] Pending Review Auto-Generat ed Referral 11/11/2023 12/10/2024 1 1 Specialty Diagnoses / Procedures Referred By Contac t Referred To Contact [facility] Diagnoses Chronic pain of right knee Difficulty in walking Procedures CONSULT TO PHYSICAL THERAPY PHYSICAL THERAPY EVALUATION HIGH COMPLEX 45 MINS Carmen Messina APRN.[employer]CHITECT MANAGER [address] [facility] [address] [place] [address] [facility] [place] [address] [place] [id number] Referral ID Status Reason Start Date Expiration Date Visits Requested Visits Authorized [id number] Pending Review Auto-Generat ed Referral 11/11/2023 11/10/2024 1 1 Specialty Diagnoses / Procedures Referred By Contac t Referred To Contact [facility] Diagnoses Primary osteoarthritis of both knees Procedures CONSULT TO PHYSICAL THERAPY PHYSICAL THERAPY EVALUATION HIGH COMPLEX 45 MINS Jimmy Mason PA-C [address] [facility] [address] [place] [address] [facility] [place] [address] [place] [id number] Referral ID Status Reason Start Date Expiration Date Visits Requested Visits Authorized [id number] Pending Review Auto-Generat ed Referral 02/06/2024 02/05/2025 1 1 Advance Directives No Advanced Directives Records FoundDocuments on File Type Date Recorded 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 Advance Directive(s) 03/12/2021 6:10 AM Advance Directive Response Recorded Date/ Time Advance Directives No July 8:21am Living Will No February 20 11:21am Power of Door Repairer Bus No February 20, 2021 11:21am Family History No Family History Records Found Relationship Condition Age at Onset Recorded Date/T latoya sister Asthma Unknown Disorder of thyroid Unknown mother Asthma Unknown grandmother Diabetes mellitus Unknown Summary Purpose Additional Source Comments Source Comments (unrecognize d section and content) In the event this informatio n is protected by the Federal Confidentiality of Alcohol and Drug Abuse Patient Records regulations: The Federal rules restrict any use of the information to criminally investigate or prosecute any alcohol or drug abuse patient.[facility] the event this information is protected by the Federal Confidentiality of Alcohol and Drug Abuse Patient Records regulations: The Federal rules restrict any use of the information to criminally investigate or prosecute any alcohol or drug abuse patient.[facility]imaIn the event this information is protected by the Federal Confidentiality of Alcohol and Drug Abuse Patient Records regulations: The Federal rules restrict any use of the information to criminally investigate or prosecute any alcohol or drug abuse patient.[facility]imaIn the event this information is protected by the Federal Confidentiality of Alcohol and Drug Abuse Patient Records regulations: The Federal rules restrict any use of the information to criminally investigate or prosecute any alcohol or drug abuse patient.[facility]imaIn the event this information is protected by the Federal Confidentiality of Alcohol and Drug Abuse Patient Records regulations: The Federal rules restrict any use of the information to criminally investigate or prosecute any alcohol or drug abuse patient.[facility]imaIn the event this information is protected by the Federal Confidentiality of Alcohol and Drug Abuse Patient Records regulations: The Federal rules restrict any use of the information to criminally investigate or prosecute any alcohol or drug abuse patient.[facility]imaIn the event this information is protected by the Federal Confidentiality of Alcohol and Drug Abuse Patient Records regulations: The Federal rules restrict any use of the information to criminally investigate or prosecute any alcohol or drug abuse patient.[facility]imaIn the event this information is protected by the Federal Confidentiality of Alcohol and Drug Abuse Patient Records regulations: The Federal rules restrict any use of the information to criminally investigate or prosecute any alcohol or drug abuse patient.[facility]imaIn the event this information is protected by the Federal Confidentiality of Alcohol and Drug Abuse Patient Records regulations: The Federal rules restrict any use of the information to criminally investigate or prosecute any alcohol or drug abuse patient.[facility]imaIn the event this information is protected by the Federal Confidentiality of Alcohol and Drug Abuse Patient Records regulations: The Federal rules restrict any use of the information to criminally investigate or prosecute any alcohol or drug abuse patient.[facility]imaIn the event this information is protected by the Federal Confidentiality of Alcohol and Drug Abuse Patient Records regulations: The Federal rules restrict any use of the information to criminally investigate or prosecute any alcohol or drug abuse patient.[facility]imaIn the event this information is protected by the Federal Confidentiality of Alcohol and Drug Abuse Patient Records regulations: The Federal rules restrict any use of the information to criminally investigate or prosecute any alcohol or drug abuse patient.[facility]imaIn the event this information is protected by the Federal Confidentiality of Alcohol and Drug Abuse Patient Records regulations: The Federal rules restrict any use of the information to criminally investigate or prosecute any alcohol or drug abuse patient.[facility]imaIn the event this information is protected by the Federal Confidentiality of Alcohol and Drug Abuse Patient Records regulations: The Federal rules restrict any use of the information to criminally investigate or prosecute any alcohol or drug abuse patient.[facility]imaIn the event this information is protected by the Federal Confidentiality of Alcohol and Drug Abuse Patient Records regulations: The Federal rules restrict any use of the information to criminally investigate or prosecute any alcohol or drug abuse patient.[facility]imaIn the event this information is protected by the Federal Confidentiality of Alcohol and Drug Abuse Patient Records regulations: The Federal rules restrict any use of the information to criminally investigate or prosecute any alcohol or drug abuse patient.[facility]imaIn the event this information is protected by the Federal Confidentiality of Alcohol and Drug Abuse Patient Records regulations: The Federal rules restrict any use of the information to criminally investigate or prosecute any alcohol or drug abuse patient.[facility]imaIn the event this information is protected by the Federal Confidentiality of Alcohol and Drug Abuse Patient Records regulations: The Federal rules restrict any use of the information to criminally investigate or prosecute any alcohol or drug abuse patient.[facility]imaIn the event this information is protected by the Federal Confidentiality of Alcohol and Drug Abuse Patient Records regulations: The Federal rules restrict any use of the information to criminally investigate or prosecute any alcohol or drug abuse patient.[facility]imaIn the event this information is protected by the Federal Confidentiality of Alcohol and Drug Abuse Patient Records regulations: The Federal rules restrict any use of the information to criminally investigate or prosecute any alcohol or drug abuse patient.[facility]imaIn the event this information is protected by the Federal Confidentiality of Alcohol and Drug Abuse Patient Records regulations: The Federal rules restrict any use of the information to criminally investigate or prosecute any alcohol or drug abuse patient.[facility]imaIn the event this information is protected by the Federal Confidentiality of Alcohol and Drug Abuse Patient Records regulations: The Federal rules restrict any use of the information to criminally investigate or prosecute any alcohol or drug abuse patient.[facility]imaIn the event this information is protected by the Federal Confidentiality of Alcohol and Drug Abuse Patient Records regulations: The Federal rules restrict any use of the information to criminally investigate or prosecute any alcohol or drug abuse patient.[facility]imaIn the event this information is protected by the Federal Confidentiality of Alcohol and Drug Abuse Patient Records regulations: The Federal rules restrict any use of the information to criminally investigate or prosecute any alcohol or drug abuse patient.[facility]imaIn the event this information is protected by the Federal Confidentiality of Alcohol and Drug Abuse Patient Records regulations: The Federal rules restrict any use of the information to criminally investigate or prosecute any alcohol or drug abuse patient.[facility]imaIn the event this information is protected by the Federal Confidentiality of Alcohol and Drug Abuse Patient Records regulations: The Federal rules restrict any use of the information to criminally investigate or prosecute any alcohol or drug abuse patient.[facility]imaIn the event this information is protected by the Federal Confidentiality of Alcohol and Drug Abuse Patient Records regulations: The Federal rules restrict any use of the information to criminally investigate or prosecute any alcohol or drug abuse patient.[facility]imaIn the event this information is protected by the Federal Confidentiality of Alcohol and Drug Abuse Patient Records regulations: The Federal rules restrict any use of the information to criminally investigate or prosecute any alcohol or drug abuse patient.[facility]imaIn the event this information is protected by the Federal Confidentiality of Alcohol and Drug Abuse Patient Records regulations: The Federal rules restrict any use of the information to criminally investigate or prosecute any alcohol or drug abuse patient.[facility]imaIn the event this information is protected by the Federal Confidentiality of Alcohol and Drug Abuse Patient Records regulations: The Federal rules restrict any use of the information to criminally investigate or prosecute any alcohol or drug abuse patient.[facility]imaIn the event this information is protected by the Federal Confidentiality of Alcohol and Drug Abuse Patient Records regulations: The Federal rules restrict any use of the information to criminally investigate or prosecute any alcohol or drug abuse patient.[facility]imaIn the event this information is protected by the Federal Confidentiality of Alcohol and Drug Abuse Patient Records regulations: The Federal rules restrict any use of the information to criminally investigate or prosecute any alcohol or drug abuse patient.[facility]imaIn the event this information is protected by the Federal Confidentiality of Alcohol and Drug Abuse Patient Records regulations: The Federal rules restrict any use of the information to criminally investigate or prosecute any alcohol or drug abuse patient.[facility]imaIn the event this information is protected by the Federal Confidentiality of Alcohol and Drug Abuse Patient Records regulations: The Federal rules restrict any use of the information to criminally investigate or prosecute any alcohol or drug abuse patient.[facility]imaIn the event this information is protected by the Federal Confidentiality of Alcohol and Drug Abuse Patient Records regulations: The Federal rules restrict any use of the information to criminally investigate or prosecute any alcohol or drug abuse patient.[facility]imaIn the event this information is protected by the Federal Confidentiality of Alcohol and Drug Abuse Patient Records regulations: The Federal rules restrict any use of the information to criminally investigate or prosecute any alcohol or drug abuse patient.[facility]imaIn the event this information is protected by the Federal Confidentiality of Alcohol and Drug Abuse Patient Records regulations: The Federal rules restrict any use of the information to criminally investigate or prosecute any alcohol or drug abuse patient.[facility]imaIn the event this information is protected by the Federal Confidentiality of Alcohol and Drug Abuse Patient Records regulations: The Federal rules restrict any use of the information to criminally investigate or prosecute any alcohol or drug abuse patient.[facility]imaIn the event this information is protected by the Federal Confidentiality of Alcohol and Drug Abuse Patient Records regulations: The Federal rules restrict any use of the information to criminally investigate or prosecute any alcohol or drug abuse patient.[facility]imaIn the event this information is protected by the Federal Confidentiality of Alcohol and Drug Abuse Patient Records regulations: The Federal rules restrict any use of the information to criminally investigate or prosecute any alcohol or drug abuse patient.[facility]imaIn the event this information is protected by the Federal Confidentiality of Alcohol and Drug Abuse Patient Records regulations: The Federal rules restrict any use of the information to criminally investigate or prosecute any alcohol or drug abuse patient.[facility]imaIn the event this information is protected by the Federal Confidentiality of Alcohol and Drug Abuse Patient Records regulations: The Federal rules restrict any use of the information to criminally investigate or prosecute any alcohol or drug abuse patient.[facility]imaIn the event this information is protected by the Federal Confidentiality of Alcohol and Drug Abuse Patient Records regulations: The Federal rules restrict any use of the information to criminally investigate or prosecute any alcohol or drug abuse patient.[facility]imaIn the event this information is protected by the Federal Confidentiality of Alcohol and Drug Abuse Patient Records regulations: The Federal rules restrict any use of the information to criminally investigate or prosecute any alcohol or drug abuse patient.[facility]imaIn the event this information is protected by the Federal Confidentiality of Alcohol and Drug Abuse Patient Records regulations: The Federal rules restrict any use of the information to criminally investigate or prosecute any alcohol or drug abuse patient.[facility]imaIn the event this information is protected by the Federal Confidentiality of Alcohol and Drug Abuse Patient Records regulations: The Federal rules restrict any use of the information to criminally investigate or prosecute any alcohol or drug abuse patient.[facility]imaIn the event this information is protected by the Federal Confidentiality of Alcohol and Drug Abuse Patient Records regulations: The Federal rules restrict any use of the information to criminally investigate or prosecute any alcohol or drug abuse patient.[facility]imaIn the event this information is protected by the Federal Confidentiality of Alcohol and Drug Abuse Patient Records regulations: The Federal rules restrict any use of the information to criminally investigate or prosecute any alcohol or drug abuse patient.[facility]imaIn the event this information is protected by the Federal Confidentiality of Alcohol and Drug Abuse Patient Records regulations: The Federal rules restrict any use of the information to criminally investigate or prosecute any alcohol or drug abuse patient.[facility]imaIn the event this information is protected by the Federal Confidentiality of Alcohol and Drug Abuse Patient Records regulations: The Federal rules restrict any use of the information to criminally investigate or prosecute any alcohol or drug abuse patient.[facility]imaIn the event this information is protected by the Federal Confidentiality of Alcohol and Drug Abuse Patient Records regulations: The Federal rules restrict any use of the information to criminally investigate or prosecute any alcohol or drug abuse patient.[facility]imaIn the event this information is protected by the Federal Confidentiality of Alcohol and Drug Abuse Patient Records regulations: The Federal rules restrict any use of the information to criminally investigate or prosecute any alcohol or drug abuse patient.[facility]imaIn the event this information is protected by the Federal Confidentiality of Alcohol and Drug Abuse Patient Records regulations: The Federal rules restrict any use of the information to criminally investigate or prosecute any alcohol or drug abuse patient.[facility]imaIn the event this information is protected by the Federal Confidentiality of Alcohol and Drug Abuse Patient Records regulations: The Federal rules restrict any use of the information to criminally investigate or prosecute any alcohol or drug abuse patient.[facility]imaIn the event this information is protected by the Federal Confidentiality of Alcohol and Drug Abuse Patient Records regulations: The Federal rules restrict any use of the information to criminally investigate or prosecute any alcohol or drug abuse patient.[facility]imaIn the event this information is protected by the Federal Confidentiality of Alcohol and Drug Abuse Patient Records regulations: The Federal rules restrict any use of the information to criminally investigate or prosecute any alcohol or drug abuse patient.[facility]imaIn the event this information is protected by the Federal Confidentiality of Alcohol and Drug Abuse Patient Records regulations: The Federal rules restrict any use of the information to criminally investigate or prosecute any alcohol or drug abuse patient.[facility]imaIn the event this information is protected by the Federal Confidentiality of Alcohol and Drug Abuse Patient Records regulations: The Federal rules restrict any use of the information to criminally investigate or prosecute any alcohol or drug abuse patient.[facility]imaIn the event this information is protected by the Federal Confidentiality of Alcohol and Drug Abuse Patient Records regulations: The Federal rules restrict any use of the information to criminally investigate or prosecute any alcohol or drug abuse patient.[facility]imaIn the event this information is protected by the Federal Confidentiality of Alcohol and Drug Abuse Patient Records regulations: The Federal rules restrict any use of the information to criminally investigate or prosecute any alcohol or drug abuse patient.[facility]imaIn the event this information is protected by the Federal Confidentiality of Alcohol and Drug Abuse Patient Records regulations: The Federal rules restrict any use of the information to criminally investigate or prosecute any alcohol or drug abuse patient.[facility]imaIn the event this information is protected by the Federal Confidentiality of Alcohol and Drug Abuse Patient Records regulations: The Federal rules restrict any use of the information to criminally investigate or prosecute any alcohol or drug abuse patient.[facility]imaIn the event this information is protected by the Federal Confidentiality of Alcohol and Drug Abuse Patient Records regulations: The Federal rules restrict any use of the information to criminally investigate or prosecute any alcohol or drug abuse patient.[facility]imaIn the event this information is protected by the Federal Confidentiality of Alcohol and Drug Abuse Patient Records regulations: The Federal rules restrict any use of the information to criminally investigate or prosecute any alcohol or drug abuse patient.[facility]imaIn the event this information is protected by the Federal Confidentiality of Alcohol and Drug Abuse Patient Records regulations: The Federal rules restrict any use of the information to criminally investigate or prosecute any alcohol or drug abuse patient.[facility]imaIn the event this information is protected by the Federal Confidentiality of Alcohol and Drug Abuse Patient Records regulations: The Federal rules restrict any use of the information to criminally investigate or prosecute any alcohol or drug abuse patient.[facility]imaIn the event this information is protected by the Federal Confidentiality of Alcohol and Drug Abuse Patient Records regulations: The Federal rules restrict any use of the information to criminally investigate or prosecute any alcohol or drug abuse patient.[facility]imaIn the event this information is protected by the Federal Confidentiality of Alcohol and Drug Abuse Patient Records regulations: The Federal rules restrict any use of the information to criminally investigate or prosecute any alcohol or drug abuse patient.[facility]imaIn the event this information is protected by the Federal Confidentiality of Alcohol and Drug Abuse Patient Records regulations: The Federal rules restrict any use of the information to criminally investigate or prosecute any alcohol or drug abuse patient.[facility]imaIn the event this information is protected by the Federal Confidentiality of Alcohol and Drug Abuse Patient Records regulations: The Federal rules restrict any use of the information to criminally investigate or prosecute any alcohol or drug abuse patient.[facility]imaIn the event this information is protected by the Federal Confidentiality of Alcohol and Drug Abuse Patient Records regulations: The Federal rules restrict any use of the information to criminally investigate or prosecute any alcohol or drug abuse patient.[facility]imaIn the event this information is protected by the Federal Confidentiality of Alcohol and Drug Abuse Patient Records regulations: The Federal rules restrict any use of the information to criminally investigate or prosecute any alcohol or drug abuse patient.[facility]imaIn the event this information is protected by the Federal Confidentiality of Alcohol and Drug Abuse Patient Records regulations: The Federal rules restrict any use of the information to criminally investigate or prosecute any alcohol or drug abuse patient.[facility]imaIn the event this information is protected by the Federal Confidentiality of Alcohol and Drug Abuse Patient Records regulations: The Federal rules restrict any use of the information to criminally investigate or prosecute any alcohol or drug abuse patient.[facility]imaIn the event this information is protected by the Federal Confidentiality of Alcohol and Drug Abuse Patient Records regulations: The Federal rules restrict any use of the information to criminally investigate or prosecute any alcohol or drug abuse patient.[facility]imaIn the event this information is protected by the Federal Confidentiality of Alcohol and Drug Abuse Patient Records regulations: The Federal rules restrict any use of the information to criminally investigate or prosecute any alcohol or drug abuse patient.[facility]imaIn the event this information is protected by the Federal Confidentiality of Alcohol and Drug Abuse Patient Records regulations: The Federal rules restrict any use of the information to criminally investigate or prosecute any alcohol or drug abuse patient.[facility]imaIn the event this information is protected by the Federal Confidentiality of Alcohol and Drug Abuse Patient Records regulations: The Federal rules restrict any use of the information to criminally investigate or prosecute any alcohol or drug abuse patient.[facility]imaIn the event this information is protected by the Federal Confidentiality of Alcohol and Drug Abuse Patient Records regulations: The Federal rules restrict any use of the information to criminally investigate or prosecute any alcohol or drug abuse patient.[facility]imaIn the event this information is protected by the Federal Confidentiality of Alcohol and Drug Abuse Patient Records regulations: The Federal rules restrict any use of the information to criminally investigate or prosecute any alcohol or drug abuse patient.[facility]imaIn the event this information is protected by the Federal Confidentiality of Alcohol and Drug Abuse Patient Records regulations: The Federal rules restrict any use of the information to criminally investigate or prosecute any alcohol or drug abuse patient.[facility]imaIn the event this information is protected by the Federal Confidentiality of Alcohol and Drug Abuse Patient Records regulations: The Federal rules restrict any use of the information to criminally investigate or prosecute any alcohol or drug abuse patient.[facility]imaIn the event this information is protected by the Federal Confidentiality of Alcohol and Drug Abuse Patient Records regulations: The Federal rules restrict any use of the information to criminally investigate or prosecute any alcohol or drug abuse patient.[facility]imaIn the event this information is protected by the Federal Confidentiality of Alcohol and Drug Abuse Patient Records regulations: The Federal rules restrict any use of the information to criminally investigate or prosecute any alcohol or drug abuse patient.[facility]imaIn the event this information is protected by the Federal Confidentiality of Alcohol and Drug Abuse Patient Records regulations: The Federal rules restrict any use of the information to criminally investigate or prosecute any alcohol or drug abuse patient.[facility]imaIn the event this information is protected by the Federal Confidentiality of Alcohol and Drug Abuse Patient Records regulations: The Federal rules restrict any use of the information to criminally investigate or prosecute any alcohol or drug abuse patient.[facility]imaIn the event this information is protected by the Federal Confidentiality of Alcohol and Drug Abuse Patient Records regulations: The Federal rules restrict any use of the information to criminally investigate or prosecute any alcohol or drug abuse patient.[facility] Reason for Visit (unrecogniz ed section and content) Reason Comments Physical Therapy Specialty Diagnoses / Procedures Referred By Stuart t Referred To Contact [facility] Diagnoses Chronic pain of right knee Difficulty in walking Procedures CONSULT TO PHYSICAL THERAPY PHYSICAL THERAPY EVALUATION HIGH COMPLEX 45 MINS Carmen Messina APRN.MOBILITY ARCHITECT MANAGER [address] [address] [facility] [address] [place] [address] Referral ID Status Reason Start Date Expiration Date Visits Requested Visits Authorized [id number] Authorized Auto-Generat ed Referral 06/16/2023 06/15/2024 99 99 Reason Comments Pain Pt reported bowling ball dropped on toe (LT) toe, x1 day pain rated 7 Reason Comments New Patient Fracture Reason Comments Thyroid Problem Reason Comments Medical Weight Management Obesity Specialty Diagnoses / Procedures Referred By Stuart t Referred To Contact Diagnoses Class 2 obesity due to excess calories with body mass index (BMI) of 37.0 to 37.9 in adult, unspecified whether serious comorbidity present Procedures ENDOCRINE MEDICAL WEIGHT MANAGEMENT OFFICE/OUTPATIENT NEW HIGH MDM 60-[place] [address] [place] [address] Referral ID Status Reason Start Date Expiration Date V isits Requested Visits Authorized [id number] Closed PCP Requested Referral 05/30/2022 05/30/2023 1 1 Reason Comments Med Change Request Reason Comments Consult General Surgery Reason Comments Received Outside Medical Records [facility] Reason Comments HSAT Check In (Adult) Reason Comments Psg Check In (Adult) Reason Comments Orders PSG Reason Comments Information Reason Comments Refill Request Reason Comments SLEEP TEST RESULTS Reason Comments Appointment Reason Comments Results Reason Comments Vaginal Problem Specialty Diagnoses / Procedures Referred By Contac t Referred To Contact CT IMAG[facility] Diagnoses Bronchiectasis without complication (HCC) Chronic coughing Mild intermittent asthma without complication Procedures CT CHEST WO IVCON DIAGNOSTIC COMPUTED TOMOGRAPHY THORAX W/O CNTRST Carmen Messina, WIDE PIECE GOODS INSPECTOR.MOBILITY ARCHITECT MANAGER [address] [employer] , [address] [address] [address] [facility] [place] [address] Referral ID Status Reason Start Date Expiration Date V isits Requested Visits Authorized [id number] Closed Auto-Generate d Referral 08/29/2022 06/15/2023 1 1 Specialty Diagnoses / Procedures Referred By Contac t Referred To Contact CT IMAGING Diagnoses Abdominal pressure Pain with bowel movements History of hysterectomy History of uterine fibroid Urine retention Bowel movement symptom Hernia Belching Procedures CT ABD/PEL W IVCON CT ABD & PELVIS W/CONTRAST Carmen Messina, WIDE PIECE GOODS INSPECTOR.MOBILITY ARCHITECT MANAGER [address] [employer] , [address] [place] [address] [facility] [place] [address] Referral ID Status Reason Start Date Expiration Date V isits Requested Visits Authorized [id number] Closed Auto-Generate d Referral 11/05/2022 11/05/2022 2 2 Reason Comments Orders Sleep study faxed to [facility] Reason Comments Follow Up Discuss lab work don e on 08/07/23 and right knee pain Reason Comments Referral Request Ortho Reason Comments Follow Up Edema, elevated bloo d pressure, has not started zepbound Reason Comments Orders CPAP MACHINE Reason Comments Orders GASTROENTEROLOGY Reason Comments Follow Up Reason Comments Opened In Error Reason Comments New Knee Pain Specialty Diagnoses / Procedures Referred By Contac t Referred To Contact Orthopedics Diagnoses Acute pain of both knees Procedures CONSULT TO ORTHOPAEDICS OFFICE/OUTPATIENT NEW HIGH [facility] 60 MINUTES Carmen Messina APRN.[address] [address] Referral ID Status Reason Start Date Expiration Date V isits Requested Visits Authorized [id number] Closed PCP Requested Referral 08/25/2023 08/24/2024 1 1 Reason Comments Referral Request Reason Comments Spirometry Specialty Diagnoses / Procedures Referred By Contac t Referred To Contact [facility] Diagnoses Bronchiectasis without acute exacerbation (HCC) Procedures SPIROMETRY - BASELINE AND POST DILATOR BRNCDILAT RSPSE SPMTRY PRE&POST-BRNCDILAT ADMN Carmen Messina APRN.[facility] [address] [place] [address] [facility] [place] [address] [place] [address] Referral ID Status Reason Start Date Expiration Date V isits Requested Visits Authorized [id number] Closed Auto-Generate d Referral 10/20/2023 06/15/2024 1 1 Specialty Diagnoses / Procedures [facility] Diagnoses ONEIDA (obstructive sleep apnea) Procedures CONSULT TO SLEEP MEDICINE - ADULT Carmen Messina APRN.[address] [address] Referral ID Status Reason Start Date Expiration Date Visits Requested Visits Authorized [id number] Ref Not Required PCP Requested Referral 10/10/2023 10/09/2024 1 1 Reason Comments Follow Up 4 week follow up for lab work done on 11/11/23 (SIBO test) Reason Comments Breath Hydrogen Test Specialty Diagnoses / Procedures [facility] Diagnoses Bloating Belching Procedures BREATH TEST GLUCOSE BREATH HYDROGEN/METHANE TEST Ana Triana PA-C [address] [address] [facility] [place] [address] [place] [address] Referral ID Status Reason Start Date Expiration Date V isits Requested Visits Authorized [id number] Closed Auto-Generate d Referral 10/10/2023 06/15/2024 1 1 Reason Comments Results Specialty Diagnoses / Procedures Referred By Contac t Referred To Contact [facility] Diagnoses Belching Bloating Procedures BREATH TEST GLUCOSE BREATH HYDROGEN/METHANE TEST Maryse Macedo MD [address] [place] [address] [facility] [place] [address] [place] [id number] Referral ID Status Reason Start Date Expiration Date V isits Requested Visits Authorized [id number] Closed Auto-Generate d Referral 11/17/2023 06/15/2024 1 1 Reason Comments Established Patient Knee Pain Reason Comments PT Eval Patient Education Reason Comments Cough Chest congestion x 9 days Reason Comments Hand Evaluation Right hand palm spot , no pain Reason Comments Insurance Authorization Zepbound 2.5mg/0 .5 Reason Comments LESION, SKIN Specialty Diagnoses / Procedures Referred By Contac t Referred To Contact Dermatology Diagnoses Skin lesion of hand Procedures CONSULT TO DERMATOLOGY OFFICE/OUTPATIENT [facility] 60 MINUTES [place] Carreon, DO [address] [facility], [address] [place] [address] Phone: tel: fax: Referral ID Status Reason Start Date Expiration Date V isits Requested Visits Authorized [id number] Closed PCP Requested Referral 08/19/2024 08/19/2025 1 1 Reason Comments Insurance Authorization Ozempic Reason Onset Date Comments Refill Request 09/23/2024 Reason Comments Physical Discuss labs done on 09/03/24 Reason Comments Insurance Authorization Zepbound 2.5mg/0 .5 pen inj Reason Onset Date Comments Refill Request 10/19/2024 Reason Comments Follow Up Here for weight alhaji gement (down 20 pounds since last visit) Care Teams (unrecognized sec tion and content) Urologist Md Relationship Specialty Start Date End Date Santiago Garcia MD PCP - General Family Practice 02/28/14 Urologist Md Relationship Specialty Start Date End Date Santiago Garcia MD PCP - General Family Medicine 02/28/14 Urologist Md Relationship Specialty Start Date End Date Santiago Garcia MD PCP - General Family Medicine 02/28/14 Urologist Md Relationship Specialty Start Date End Date Santiago Garcia MD PCP - General Family Medicine 02/28/14 Urologist Md Relationship Specialty Start Date End Date Santiago Garcia MD PCP - General Family Medicine 02/28/14 Urologist Md Relationship Specialty Start Date End Date Santiago Garcia MD PCP - General Family Medicine 02/28/14 Urologist Md Relationship Specialty Start Date End Date Carmen Messina, WIDE PIECE GOODS INSPECTOR.MOBILITY ARCHITECT MANAGER [address] [facility], [address] [place] [address] PCP - General Family Medicine 08/28/22 Urologist Md Relationship Specialty Start Date End Date Carmen Messina, WIDE PIECE GOODS INSPECTOR.MOBILITY ARCHITECT MANAGER [address] [facility], [address] [place] [address] PCP - General Family Medicine 08/28/22 Urologist Md Relationship Specialty Start Date End Date Carmen Messina, WIDE PIECE GOODS INSPECTOR.MOBILITY ARCHITECT MANAGER [address] [facility], [address] [place] [address] PCP - General Family Medicine 08/28/22 Urologist Md Relationship Specialty Start Date End Date Carmen Messina, WIDE PIECE GOODS INSPECTOR.MOBILITY ARCHITECT MANAGER [address] [facility], [address] [place] [address] PCP - General Family Medicine 08/28/22 Urologist Md Relationship Specialty Start Date End Date Carmen Messina, WIDE PIECE GOODS INSPECTOR.MOBILITY ARCHITECT MANAGER [address], [address] [place] [address] PCP - General Family Medicine 08/28/22 Urologist Md Relationship Specialty Start Date End Date Carmen Messina, WIDE PIECE GOODS INSPECTOR.MOBILITY ARCHITECT MANAGER [address], [address] [place] [address] PCP - General Family Medicine 08/28/22 Urologist Md Relationship Specialty Start Date End Date ForCarmen coburn, WIDE PIECE GOODS INSPECTOR.MOBILITY ARCHITECT MANAGER [address], [address] [place] [address] PCP - General Family Medicine 08/28/22 Urologist Md Relationship Specialty Start Date End Date ForCarmen coburn, WIDE PIECE GOODS INSPECTOR.MOBILITY ARCHITECT MANAGER [address] [facility] [address], [address] [place] [address] PCP - General Family Medicine 08/28/22 Urologist Md Relationship Specialty Start Date End Date ForCarmen coburn, WIDE PIECE GOODS INSPECTOR.MOBILITY ARCHITECT MANAGER [address] [facility] [address], [address] [place] [address] PCP - General Family Medicine 08/28/22 Urologist Md Relationship Specialty Start Date End Date ForCarmen coburn, WIDE PIECE GOODS INSPECTOR.MOBILITY ARCHITECT MANAGER [address] [facility] [address], [address] [place] [address] PCP - General Family Medicine 08/28/22 Urologist Md Relationship Specialty Start Date End Date ForCarmen coburn, WIDE PIECE GOODS INSPECTOR.MOBILITY ARCHITECT MANAGER [address], [address] [place] [address] PCP - General Family Medicine 08/28/22 Urologist Md Relationship Specialty Start Date End Date Carmen Messina, WIDE PIECE GOODS INSPECTOR.[facility] [address], [address] [place] [address] PCP - General Family Medicine 08/28/22 Urologist Md Relationship Specialty Start Date End Date ForCarmen coburn, WIDE PIECE GOODS INSPECTOR.MOBILITY ARCHITECT MANAGER [address], [address] [place] [address] PCP - General Family Medicine 08/28/22 Urologist Md Relationship Specialty Start Date End Date ForCarmen coburn, WIDE PIECE GOODS INSPECTOR.MOBILITY ARCHITECT MANAGER [address], [address] [place] [address] PCP - General Family Medicine 08/28/22 Urologist Md Relationship Specialty Start Date End Date ForCarmen coburn, WIDE PIECE GOODS INSPECTOR.MOBILITY ARCHITECT MANAGER [address], [address] [place] [address] PCP - General Family Medicine 08/28/22 Urologist Md Relationship Specialty Start Date End Date ForCarmen coburn, WIDE PIECE GOODS INSPECTOR.MOBILITY ARCHITECT MANAGER [address], [address] [place] [address] PCP - General Family Medicine 08/28/22 Urologist Md Relationship Specialty Start Date End Date ForCarmen coburn, WIDE PIECE GOODS INSPECTOR.MOBILITY ARCHITECT MANAGER [address], [address] [place] [address] PCP - General Family Medicine 08/28/22 Urologist Md Relationship Specialty Start Date End Date ForCarmen coburn, WIDE PIECE GOODS INSPECTOR.MOBILITY ARCHITECT MANAGER [address], [address] [place] [address] PCP - General Family Medicine 08/28/22 Urologist Md Relationship Specialty Start Date End Date ForCarmen coburn, WIDE PIECE GOODS INSPECTOR.MOBILITY ARCHITECT MANAGER [address], [address] [place] [address] PCP - General Family Medicine 08/28/22 Urologist Md Relationship Specialty Start Date End Date ForCarmen coburn, WIDE PIECE GOODS INSPECTOR.MOBILITY ARCHITECT MANAGER [address], [address] [place] [address] PCP - General Family Medicine 08/28/22 Urologist Md Relationship Specialty Start Date End Date ForCarmen coburn, WIDE PIECE GOODS INSPECTOR.MOBILITY ARCHITECT MANAGER [address], [address] [place] [address] PCP - General Family Medicine 08/28/22 Urologist Md Relationship Specialty Start Date End Date ForCarmen coburn, WIDE PIECE GOODS INSPECTOR.MOBILITY ARCHITECT MANAGER [address], [address] [place] [address] PCP - General Family Medicine 08/28/22 Urologist Md Relationship Specialty Start Date End Date ForCarmen coburn, WIDE PIECE GOODS INSPECTOR.MOBILITY ARCHITECT MANAGER [address], [address] [place] [address] PCP - General Family Medicine 08/28/22 Urologist Md Relationship Specialty Start Date End Date Carmen Messina, WIDE PIECE GOODS INSPECTOR.MOBILITY ARCHITECT MANAGER [address], [address] [place] [address] PCP - General Family Medicine 08/28/22 Urologist Md Relationship Specialty Start Date End Date Carmen Messina, WIDE PIECE GOODS INSPECTOR.MOBILITY ARCHITECT MANAGER [address], [address] [place] [address] PCP - General Family Medicine 08/28/22 Urologist Md Relationship Specialty Start Date End Date Carmen Messina, WIDE PIECE GOODS INSPECTOR.MOBILITY ARCHITECT MANAGER [address], [address] [place] [address] PCP - General Family Medicine 08/28/22 Urologist Md Relationship Specialty Start Date End Date Carmen Messina, WIDE PIECE GOODS INSPECTOR.MOBILITY ARCHITECT MANAGER [address], [address] [place] [address] PCP - General Family Medicine 08/28/22 Urologist Md Relationship Specialty Start Date End Date Carmen Messina, WIDE PIECE GOODS INSPECTOR.MOBILITY ARCHITECT MANAGER [address], [address] [place] [address] PCP - General Family Medicine 08/28/22 Urologist Md Relationship Specialty Start Date End Date Carmen Messina, WIDE PIECE GOODS INSPECTOR.MOBILITY ARCHITECT MANAGER [address], [address] [place] [address] PCP - General Family Medicine 08/28/22 Urologist Md Relationship Specialty Start Date End Date Carmen Messina, WIDE PIECE GOODS INSPECTOR.MOBILITY ARCHITECT MANAGER [address], [address] [place] [address] PCP - General Family Medicine 08/28/22 Urologist Md Relationship Specialty Start Date End Date Carmen Messina, WIDE PIECE GOODS INSPECTOR.MOBILITY ARCHITECT MANAGER [address], [address] [place] [address] PCP - General Family Medicine 08/28/22 Urologist Md Relationship Specialty Start Date End Date Carmen Messina, WIDE PIECE GOODS INSPECTOR.MOBILITY ARCHITECT MANAGER [address], [address] [place] [address] PCP - General Family Medicine 08/28/22 Urologist Md Relationship Specialty Start Date End Date ForCarmen coburn, WIDE PIECE GOODS INSPECTOR.MOBILITY ARCHITECT MANAGER [address], [address] [place] [address] PCP - General Family Medicine 08/28/22 Urologist Md Relationship Specialty Start Date End Date ForCarmen coburn, WIDE PIECE GOODS INSPECTOR.MOBILITY ARCHITECT MANAGER [address], [address] [place] [address] PCP - General Family Medicine 08/28/22 Urologist Md Relationship Specialty Start Date End Date ForCarmen coburn, WIDE PIECE GOODS INSPECTOR.MOBILITY ARCHITECT MANAGER [address], [address] [place] [address] PCP - General Family Medicine 08/28/22 Urologist Md Relationship Specialty Start Date End Date ForCarmen coburn, WIDE PIECE GOODS INSPECTOR.MOBILITY ARCHITECT MANAGER [address], [address] [place] [address] PCP - General Family Medicine 08/28/22 Urologist Md Relationship Specialty Start Date End Date ForCarmen coburn, WIDE PIECE GOODS INSPECTOR.MOBILITY ARCHITECT MANAGER [address], [address] [place] [address] PCP - General Family Medicine 08/28/22 Urologist Md Relationship Specialty Start Date End Date ForCarmen coburn, WIDE PIECE GOODS INSPECTOR.MOBILITY ARCHITECT MANAGER [address], [address] [place] [address] PCP - General Family Medicine 08/28/22 Urologist Md Relationship Specialty Start Date End Date ForCarmen coburn, WIDE PIECE GOODS INSPECTOR.MOBILITY ARCHITECT MANAGER [address], [address] [place] [address] PCP - General Family Medicine 08/28/22 Urologist Md Relationship Specialty Start Date End Date Carmen Messina, WIDE PIECE GOODS INSPECTOR.MOBILITY ARCHITECT MANAGER [address], [address] [place] [address] PCP - General Family Medicine 08/28/22 Urologist Md Relationship Specialty Start Date End Date Carmen Messina, WIDE PIECE GOODS INSPECTOR.MOBILITY ARCHITECT MANAGER [address], [address] [place] [address] PCP - General Family Medicine 08/28/22 Urologist Md Relationship Specialty Start Date End Date Carmen Messina, WIDE PIECE GOODS INSPECTOR.MOBILITY ARCHITECT MANAGER [address], [address] [place] [address] PCP - General Family Medicine 08/28/22 Urologist Md Relationship Specialty Start Date End Date Santiago Garcia MD PCP - General Family Medicine 02/28/14 08/27/22 Urologist Md Relationship Specialty Start Date End Date Carmen Messina, WIDE PIECE GOODS INSPECTOR.MOBILITY ARCHITECT MANAGER [address], [address] [place] [address] PCP - General Family Medicine 08/28/22 Urologist Md Relationship Specialty Start Date End Date Carmen Messina, WIDE PIECE GOODS INSPECTOR.MOBILITY ARCHITECT MANAGER [address], [address] [place] [address] PCP - General Family Medicine 08/28/22 Urologist Md Relationship Specialty Start Date End Date aCrmen Messina, WIDE PIECE GOODS INSPECTOR.MOBILITY ARCHITECT MANAGER [address], [address] [place] [address] PCP - General Family Medicine 08/28/22 Urologist Md Relationship Specialty Start Date End Date ForCarmen coburn, WIDE PIECE GOODS INSPECTOR.MOBILITY ARCHITECT MANAGER [address], [address] [place] [address] PCP - General Family Medicine 08/28/22 Urologist Md Relationship Specialty Start Date End Date ForCarmen coburn, WIDE PIECE GOODS INSPECTOR.MOBILITY ARCHITECT MANAGER [address], [address] [place] [address] PCP - General Family Medicine 08/28/22 Urologist Md Relationship Specialty Start Date End Date ForCarmen coburn, WIDE PIECE GOODS INSPECTOR.MOBILITY ARCHITECT MANAGER [address], [address] [place] [address] PCP - General Family Medicine 08/28/22 Urologist Md Relationship Specialty Start Date End Date ForCarmen coburn, WIDE PIECE GOODS INSPECTOR.MOBILITY ARCHITECT MANAGER [address], [address] [place] [address] PCP - General Family Medicine 08/28/22 Urologist Md Relationship Specialty Start Date End Date ForCarmen cobunr, WIDE PIECE GOODS INSPECTOR.MOBILITY ARCHITECT MANAGER [address], [address] [place] [address] PCP - General Family Medicine 08/28/22 Urologist Md Relationship Specialty Start Date End Date ForCarmen coburn, WIDE PIECE GOODS INSPECTOR.MOBILITY ARCHITECT MANAGER [address], [address] [place] [address] PCP - General Family Medicine 08/28/22 Urologist Md Relationship Specialty Start Date End Date ForCarmen coburn, WIDE PIECE GOODS INSPECTOR.MOBILITY ARCHITECT MANAGER [address], [address] [place] [address] PCP - General Family Medicine 08/28/22 Urologist Md Relationship Specialty Start Date End Date Fatouradhacarol annCarmen APRN.CNP [address] [facility], [facility] [address] [place] [address] PCP - General Family Medicine 08/28/22 Goals (unrecognized section and content) Goals may be documented in a n alternate section INFORMATION SOURCE (unrecogn ized section and content) DATE CREATED AUTHOR 06/06/2022 [facility] DATE CREATED AUTHOR AUTHOR'S ORGANIZ ATION 05/11/2023 [facility] DATE CREATED AUTHOR AUTHOR'S ORGANIZ ATION 09/05/2024 [facility] DATE CREATED AUTHOR AUTHOR'S ORGANIZ ATION 11/16/2024 [facility] DATE CREATED AUTHOR AUTHOR'S ORGANIZ ATION 01/24/2025 [facility] nter FOR RECORDS PERTAINING TO PATIENTS WHO ARE OR HAVE BEEN ENROLLED IN A CHEMICAL DEPENDENCY/SUBSTANCEABUSE PROGRAM, SOME INFORMATION MAY BE OMITTED. This clinical summary was aggregated from multiple sources. Caution should be exercised in using it in the provision of clinical care. This summary normalizes information from multiple sources, and as a consequence, information in this document may materially change the coding, format and clinical context of patient data. In addition, data may be omitted in some cases. CLINICAL DECISIONS SHOULD BE BASED ON THE PRIMARY CLINICAL RECORDS. [email or web address] provides no warranty or guarantee of the accuracy or completeness of information in this document.
--- NOTE | 2025-02-14 17:32 | ED.VIS.LOWEX ---
HPI History of Present Illness HPI Narrative: 54-year-old female who has discomfort behind her left knee. She has known history of osteoarthritis. She has never had knee surgery. She denies any fall injury or trauma. She has been exercising lately. She went to make sure she did not have a blood clot. She has no history of a blood clot. No recent travel, surgery or immobilization. No family history of clotting problems or recurrent clots. She denies any fever redness or swelling. Since she has had the discomfort for probably 3+ weeks it seems to be a little worse the last 2 days. Worse with ambulation or bending her knee. Chief Complaint: Lower Extremity Injury Informant: patient Onset/Context/Timing Onset: Weeks Context: Gradual Onset Timing: Continuous Quality of Pain: Dull and Aching Current Severity: Mild Maximum Severity: Mild Narrative Narrative: 54-year-old female pain about her left knee. No fall injury or trauma. History of osteoarthritis. No prior DVT or PE and no risk factors. Prior similar symptoms: No Recent Illness/Hospitalization: No PFSH PFSH Medical History Wears glasses Cancer Depression History of steroid therapy Thyroid disease Anemia Non-smoker Shortness of breath on exertion Asthma Pelvic mass Diarrhea Change in stool caliber Home Medications ?Medication ?Instructions ?Recorded ?Last Taken ?Type albuterol sulfate 90 mcg/actuation 1 - 2 puff inhalation Q4H PRN PRN 06/28/16 Unknown History aerosol inhaler (Ventolin HFA) Asthma levothyroxine 112 mcg tablet 224 mcg PO DAILY 07/26/16 02/22/21 06:45 History ferrous sulfate 325 mg (65 mg 325 mg PO BID 02/20/21 Unknown History iron) capsule,extended release ibuprofen 200 mg capsule 400 mg PO Q6H PRN Pain 02/20/21 Unknown History hydrochlorothiazide 12.5 mg capsule 12.5 mg PO DAILY 02/14/25 Unknown History meloxicam 7.5 mg tablet 7.5 mg PO DAILY PRN pain 02/14/25 Unknown History tirzepatide (weight loss) 2.5 2.5 mg subcut QWEEK 02/14/25 Unknown History mg/0.5 mL subcutaneous pen injector (Zepbound) Allergy/AdvReac Type Severity Reaction Status Date / Time Penicillins Allergy Rash Verified 02/14/25 16:50 quinine Allergy Swelling Verified 02/14/25 16:50 Family History Sister Asthma Thyroid disorder Mother Asthma Thyroid disorder Grandmother Diabetes Surgical History History of thyroidectomy History of Social History Smoking Status: Never smoker ROS ROS ED ROS Narrative Denies recent illness. Constitutional Constitutional ED: Denies chills or fever(s) Eyes Eyes: Denies blurry vision ENT ENT ED: Denies ear pain Cardiovascular Cardiovascular: Denies chest pain Respiratory/Chest Respiratory/Chest: Denies cough or dyspnea Gastrointestinal Gastrointestinal: Denies abdominal pain Genitourinary Genitourinary ED: Denies dysuria Musculoskeletal Musculoskeletal: Denies arthralgias Integumentary Denies abscess or Abrasions Neurologic Neurologic: Denies headache(s) Psychiatric Psychiatric: Denies anxiety or depression Endocrine Endocrinology: Denies polydipsia Hematologic/Lymphatic Hematologic/Lymphatic: Denies easy bleeding, easy bruising or lymphadenopathy Allergic/Immunologic Allergic/Immunologic ED: Denies mouth swelling, tongue swelling or urticaria EXAM Physical Exam Narrative Exam Narrative: Well-appearing well-appearing 54-year-old female vital stable afebrile. Pulse ox 98% on room air no signs hypoxia. No distress. H EENT exam pupils round react light. Moist Eloy membranes. Neck nontender. Lungs clear to auscultation bilaterally. Heart regular rhythm no murmur. Abdomen soft nontender. Moving all 4 extremities. Neurovascularly intact specifically left hip left knee left ankle normal range of motion no swelling. Behind her left knee she has fullness. Possibly Aguilera's cyst. No signs of infection. Full flexion extension of the knee. No septic joint. Calf is nontender. No edema or cords. Normal DP pulse to her left foot. Normal sensation and strength. Normal dorsi plantarflexion. There is no cellulitis. No lymphangitic streaking. No inguinal lymphadenopathy. Otherwise exam unremarkable. Const Vital Signs: 02/14/25 16:51 Temperature 98.4 F Temperature Source Oral Pulse Rate 81 Respiratory Rate 18 Blood Pressure 117/81 H Blood Pressure Mean 93 Pulse Ox 98 Oxygen Delivery Method Room Air Positive well nourished and well developed; Negative for cachectic, contractures or unkempt General Appearance ED: well developed and NAD; Negative for unkempt, cachectic or contractures Nutritional Appearance: Negative for cachectic HEENT Reports moist mucous membranes normocephalic and atraumatic Eyes PERRL Neck full ROM and supple Chest Wall inspection of chest normal and palpation of chest normal Resp normal respiratory effort, no retractions and clear to auscultation bilaterally Cardio regular rate, regular rhythm, S1 normal heart sound, S2 normal heart sound and no murmurs GI non-tender, non-distended and no masses Auscultation: normoactive bowel sounds Palpation: soft; Negative for tender, guarding or rebound tenderness present Back/Spine no CVA tenderness General Back: Negative for CVA tenderness Cervical Spine: Negative for cervical spine tenderness Thoracic Spine / Upper Back: Negative for thoracic spinal tenderness Lumbar Spine / Lower Back: Negative for lumbar spinal tenderness Extremity full ROM; Negative for normal to inspection Extremity Narrative: Fullness behind left knee. Possibly a Aguilera's cyst. Full flexion extension. No effusion no septic joint. No redness or warmth. Only minimally tender in the popliteal fossa. No inguinal lymphadenopathy. Left hip anterior left knee and ankle nontender normal range of motion left foot neurovascular intact. Calf nontender no cords or edema. Normal range of motion. Normal strength and sensation to the left leg. General Extremety ED: Negative for edema or weight-bearing difficulty General Extremity: Negative for edema or weight-bearing difficulty Neuro oriented x3, CN's II-XII intact bilaterally, moves all extremities and no sensory deficits noted Sensorium / Orientation: alert, oriented to person, oriented to place and oriented to time Motor Exam: strength 5/5 throughout Psych mental status grossly normal Appearance: Negative for unkempt Skin no wounds Lesions: no lesions Rashes: no rashes MDM MDM MDM Narrative Medical decision making narrative: 54-year-old female with known osteoarthritis to her knee as fullness behind her knee for 3 weeks. She has no risk factors or history of a DVT or PE. This may be a Aguilera's cyst versus osteoarthritis versus muscle strain. DVTs in the differential but unlikely. Given the holiday weekend I ordered a noninvasive study to be done tomorrow morning patient is comfortable with the plan. I do not think she requires anticoagulation at this time because her risk is extremely low for DVT. Patient is comfortable with the plan. Anti-inflammatories for pain. Follow-up with orthopedics if not improving. History & Record Review Discussion w/independent historian: Patient Additional record(s) reviewed:: Prior inpatient record, Prior outpatient record, Prior ED visit and Prior labs Discharge Plan Triage Chief Complaint: Lower Extremity Injury ED Provider: Jalen Mcnulty Dx/Rx/DC Orders Clinical Impression: Acute leg pain Prescriptions: No Action albuterol sulfate [Ventolin HFA] 1 INHALER inhaler 1 - 2 puff inhalation Q4H PRN PRN (Reason: Asthma) levothyroxine 112 MCG tablet 224 mcg PO DAILY ibuprofen 200 mg Capsule 400 mg PO Q6H PRN (Reason: Pain) ferrous sulfate 325 mg (65 mg iron) Capsule, Extended Release 325 mg PO BID meloxicam 7.5 mg tablet 7.5 mg PO DAILY PRN (Reason: pain) hydrochlorothiazide 12.5 mg capsule 12.5 mg PO DAILY Zepbound 2.5 mg/0.5 mL pen injector 2.5 mg subcut QWEEK Other Ambulatory Orders: Venous Duplex US, Unilateral (Stat) Facility: [facility] - Location: [facility] Ordered By: Dr. Jalen Mcnulty Primary Care Provider: MELODY MESSINA Referrals: MELODY MESSINA [Other] Activity Restrictions/Additional Instructions: I ordered an outpatient ultrasound of your leg for tomorrow. They will call you in the morning to set up for a time for you to come in to have it done. If they do not call you by 10 AM call the emergency department and we will make sure you get set up. Motrin and Tylenol for pain. Local likely this is not a blood clot it may or may not be a Aguilera's cyst behind your knee or could just be pain behind your knee from your arthritis. Print Language: [place] Disposition Disposition: Home, Self Care
== END 2025-02-14 18:17 | disposition home or self-care (01) ==
PROVIDERS: Emergency Provider Emergency Medicine; Visit Provider Emergency Medicine
DX: M79.605 Pain in left leg (principal); E07.9 Disorder of thyroid, unspecified; Z79.51 Long term (current) use of inhaled steroids; Z79.899 Other long term (current) drug therapy
CPT/HCPCS: 99282

== ENCOUNTER → 2025-02-15 | Outpatient (CLI) | payer BC, SELFPAY ==
--- NOTE | 2025-02-15 14:06 | VDLE_ITS ---
Reason For Study Reason For Study: LLE Pain RIGHT LEFT CFV is compressible, spontaneous, phasic, competent GSV is normal. and demonstrates normal augmentation. CFV is compressible, spontaneous, phasic, competent, Procedure and demonstrates normal augmentation. This is a venous duplex using B-mode, color flow and FV is compressible, spontaneous, phasic, competent spectral Doppler. and demonstrates normal augmentation. Exam performed in department. POP V is compressible, spontaneous, phasic, competent The exam was diagnostic. and demonstrates normal augmentation. A preliminary report was called and/or faxed to [facility] T/P Trunk is compressible. ED. PTV is compressible. LT PerV is compressible. Non Vascularized anechoic area noted in Lt Pop Fossa measuring approximately 3.81cm x 0.62cm. VL/Venous Duplex US, Unilateral Interpretation Summary Deep veins of the left lower extremity are patent and compressible segmentally. There is no evidence of left lower extremity deep vein thrombosis. Valvular competence appears intact within the p roximal deep venous system on the left . The left great saphenous vein appears patent and compressible segmentally. A no n-vascular, anechoic structure is noted in the left popliteal space, measuring 3.81 cm x 0.62 cm. This probably represe nts a popliteal cyst. Clinical correlation is advised. The right common femoral vein is patent and compressibl e . Ordering Physician: Jalen Mcnulty Referring Physician: N/A Performed By: Rajeev Shabazz RVT
== END | disposition home or self-care (01) ==
LOC: CVS 14:05
PROVIDERS: Referring Provider Emergency Medicine; Visit Provider Emergency Medicine
DX: M79.662 Pain in left lower leg (principal)
CPT/HCPCS: 93971